=== PATIENT | female | born 1975 | race African-American/Black ===

== ENCOUNTER 2016-11-22 23:58 | Inpatient (IN) | payer OTHER ==
--- NOTE | 2016-11-23 00:25 | PDOC ---
History of Present Illness - General History Source: Patient, Old Records, Unavil. due to pt. cond. Exam Limitations: Other - History of Present Illness Initial Comments: 11/23/16 03:24 The patient is a 41 year old female, resident of [facility], with a significant past medical history of mental retardation, recurrent aspiration pneumonia, seizure disorder, GI bleed, chronic respiratory failure (s/p trach), dysphagia, and sepsis, brought by ambulance to the Emergency Department with fever and possible sepsis. The patient has a tracheostomy and PEG. The history is limited due to the patients conditions. <Starla Oliver - Last Filed: 11/23/16 05:56> <Lisa De Anda - Last Filed: 11/23/16 07:00> - General History Source: Old Records Exam Limitations: Clinical Condition <Nessa De Leon - Last Filed: 11/26/16 07:43> - General Chief Complaint: SIRS, Suspected/Possible Stated Complaint: FEVER - R/O SEPSIS Time Seen by Provider: 11/23/16 00:24 Past History <Starla Oliver - Last Filed: 11/23/16 05:56> <Lisa De Anda - Last Filed: 11/23/16 07:00> - Past Medical History Anemia: Yes Asthma: No Cancer: No Cardiac Disorders: No CVA: No COPD: No CHF: No Dementia: No Diabetes: No GI Disorders: Yes Disorders: Yes (esophageal reflux) HTN: No Hypercholesterolemia: No Liver Disease: No Seizures: Yes Thyroid Disease: No - Surgical History Abdominal Surgery: Yes (G tube) Appendectomy: No Cardiac Surgery: No Cholecystectomy: No Lung Surgery: No Neurologic Surgery: No Orthopedic Surgery: No - Immunization History Td Vaccination: No TDAP Vaccination: No Immunization Up to Date: No - Psycho/Social/Smoking Cessation Hx Anxiety: No Suicidal Ideation: No Smoking Status: No Smoking History: Unknown if ever smoked Have you smoked in the past 12 months: No Number of Cigarettes Smoked Daily: 0 Information on smoking cessation initiated: No Hx Alcohol Use: No Drug/Substance Use Hx: No Substance Use Type: None Hx Substance Use Treatment: No <Nessa De Leon - Last Filed: 11/26/16 07:43> - Past Medical History Allergies/Adverse Reactions: Allergies Allergy/AdvReac Type Severity Reaction Status Date / Time No Known Drug Allergies Allergy Verified 11/23/16 00:20 Home Medications: Ambulatory Orders Bacitracin - [Bacitracin Topical Ointment -] 1 applic TP BID 10/27/15 Baclofen 10 mg GT QID 10/27/15 Bisacodyl [Biscolax] 10 mg RC ASDIR PRN 10/27/15 Calcium Carbonate Suspension - [Calcium Carb Oral Suspension -] 500 mg PEG DAILY 10/27/15 Heparin - 5,000 unit SQ BID 10/27/15 Metoclopramide Oral Soln [Reglan Oral Solution -] 5 mg GT Q6H 10/27/15 Phenobarbital 80 mg GT BID 10/27/15 Polyethylene Glycol 3350 [Miralax 119 gm Btl -] 17 gm PEG BID 10/27/15 Acetaminophen Suppository [Tylenol .Suppository -] 650 mg MT Q6H PRN #0 supp.rect 11/15/15 Amino Acids/Protein Hydrolys [Prostat Sugar-Free Packet -] 30 ml GT BID@0800, 1730 packet 11/15/15 Albuterol 0.083% Nebulizer Gali [Ventolin 0.083% Nebulizer Soln -] 1 neb NEB Q6H 04/21/16 Albuterol 2.5/Ipratropium 0.5 [Duoneb -] 1 neb NEB Q4H PRN 04/21/16 Ipratropium 0.02% Nebulizer [Atrovent 0.02% Nebulizer -] 1 neb NEB Q6H 04/21/16 Loperamide HCl [Imodium A-D] 4 mg GT BID PRN 04/21/16 Magnesium Hydroxide [Milk of Magnesia] 400 mg GT ASDIR PRN 04/21/16 Menthol/Zinc Oxide [Calmoseptine Ointment] 0 gm TP ASDIR 04/21/16 Na Phos,M-B/Na Phos,Di-Ba [Fleet Enema] 118 ml RC ASDIR PRN 04/21/16 Vit C/Ascorbate Calcium,Sodium [Vitamin C 500 mg/15 ml Liquid] 500 mg GT DAILY 04/21/16 Sulfamethoxazole/Trimethoprim [Bactrim Ds -] 1 tab PO BID #10 tablet 04/26/16 Levetiracetam [Keppra Oral Solution -] 750 mg GT BID 11/23/16 *Physical Exam - Vital Signs Last Vital Signs Temp Pulse Resp BP Pulse Ox 103.1 F H 150 H 17 145/125 99 11/23/16 00:20 11/23/16 00:21 11/23/16 03:20 11/23/16 00:20 11/23/16 01:30 - Physical Exam Comments: 11/23/16 03:24 GENERAL: Mentally retarded, diaphoretic. Awake, alert, in no acute distress HEAD: No signs of trauma EYES: PERRLA, EOMI, sclera anicteric, conjunctiva clear ENT: Tracheostomy. Auricles normal inspection, hearing grossly normal, nares patent. Moist mucosa NECK: Normal ROM, supple, no lymphadenopathy, JVD, or masses LUNGS: Coarse breath sounds bilaterally. No wheezes, and no crackles HEART: Tachycardic, regular and rhythm, normal S1 and S2, no murmurs, rubs or gallops ABDOMEN: Gassy, distended abdomen. Nontender, no guarding, no rebound. No masses EXTREMITIES: Wasted muscles, pitting edema throughout body. No clubbing or cyanosis. No cords, erythema, or tenderness NEUROLOGICAL: Cranial nerves II through XII grossly intact. SKIN: Warm, Dry, normal turgor, no rashes or lesions noted. <Starla Oliver - Last Filed: 11/23/16 05:56> - Vital Signs Last Vital Signs Temp Pulse Resp BP Pulse Ox 103.1 F H 150 H 22 145/125 99 11/23/16 00:20 11/23/16 00:21 11/23/16 00:22 11/23/16 00:20 11/23/16 01:30 <Lisa De Anda - Last Filed: 11/23/16 07:00> - Vital Signs Last Vital Signs Temp Pulse Resp BP Pulse Ox 103.1 F H 150 H 145/125 100 11/23/16 00:20 11/23/16 00:21 11/23/16 00:20 11/23/16 00:21 <Nessa De Leon - Last Filed: 11/26/16 07:43> ED Treatment Course - LABORATORY CBC & Chemistry Diagram: 11/23/16 01:23 11/23/16 01:23 - ADDITIONAL ORDERS Additional order review: Laboratory Results 11/23/16 11/23/16 11/23/16 01:46 01:23 01:23 INR PTT (Actin FS) Sodium 133 L Potassium 4.4 Chloride 95 L Carbon Dioxide 26 Anion Gap 12 BUN 21 H D Creatinine 0.9 D Creat Clearance w eGFR > 60 Random Glucose 165 H Lactic Acid 1.480 Calcium 9.0 Total Bilirubin 0.4 D AST 11 L D ALT 17 D Alkaline Phosphatase 127 H D Creatine Kinase 14 L Troponin I < 0.02 Total Protein 7.8 Albumin 2.7 L D Blood Type O POSITIVE Antibody Screen Negative 11/23/16 01:23 INR 1.40 H PTT (Actin FS) 18.9 L D Sodium Potassium Chloride Carbon Dioxide Anion Gap BUN Creatinine Creat Clearance w eGFR Random Glucose Lactic Acid Calcium Total Bilirubin AST ALT Alkaline Phosphatase Creatine Kinase Troponin I Total Protein Albumin Blood Type Antibody Screen 11/23/16 01:23 RBC 3.63 MCV 86.2 MCHC 34.2 RDW 13.4 MPV 8.5 Neutrophils % 89.0 H D Lymphocytes % 3.0 L D Monocytes % 4.0 - Medications Given in the ED: ED Medications Discontinued Medications Generic Name Dose Route Start Last Admin Trade Name Freq PRN Reason Stop Dose Admin Acetaminophen 1,000 mg 11/23/16 00:26 11/23/16 00:26 Ofirmev Injection - IVPB 11/23/16 00:27 1,000 mg ONCE ONE Administration Sodium Chloride 1,000 ml 11/23/16 00:26 11/23/16 00:26 Normal Saline - IV 11/23/16 00:27 1,000 ml ONCE ONE Administration <Starla Oliver - Last Filed: 11/23/16 05:56> - LABORATORY CBC & Chemistry Diagram: 11/23/16 01:23 11/23/16 01:23 - ADDITIONAL ORDERS Additional order review: Laboratory Results 11/23/16 01:23 INR 1.40 H PTT (Actin FS) 18.9 L D 11/23/16 01:23 RBC 3.63 MCV 86.2 MCHC 34.2 RDW 13.4 MPV 8.5 Neutrophils % Y Lymphocytes % Y - RADIOLOGY Radiology Studies Ordered: Category Date Time Status CHEST X-RAY PORTABLE* [RAD] Stat Radiology 11/23/16 01:45 Taken - Medications Given in the ED: ED Medications Discontinued Medications Generic Name Dose Route Start Last Admin Trade Name Freq PRN Reason Stop Dose Admin Acetaminophen 1,000 mg 11/23/16 00:26 11/23/16 00:26 Ofirmev Injection - IVPB 11/23/16 00:27 1,000 mg ONCE ONE Administration Sodium Chloride 1,000 ml 11/23/16 00:26 11/23/16 00:26 Normal Saline - IV 11/23/16 00:27 1,000 ml ONCE ONE Administration <Lisa De Anda - Last Filed: 11/23/16 07:00> - LABORATORY CBC & Chemistry Diagram: 11/25/16 06:58 11/24/16 11:20 <Nessa De Leon - Last Filed: 11/26/16 07:43> Medical Decision Making - Medical Decision Making 11/23/16 05:32 Dr. Izabela Hernández was called at her office at 5:32, awaiting call back. 11/23/16 05:48 Dr. Tom Lamb was called at his office. He would like Hospitalist to admit this patient. 11/23/16 05:56 Dr. Beltran was called at 5:57 about admitting patient. <Starla Oliver - Last Filed: 11/23/16 05:56> - Medical Decision Making 11/23/16 02:24 Pt apparently received IV antibiotics at the [facility]; however her PICC ine heplock hub is leaking and it is unclear if she received any meds at the [facility]. Here the sheets are wet and it is clear that for the past hour she received none of her ofirmev and saline. Pt's IV hub was replaced and now she is receiving ofirmev and NSS> Labs are pending. Pt's CXR is better than the prior cxr from 8 mos ago. Her abd is distended with gas, and is non tender to deep palpation. Pt has no sign of overt cellulitis or infection. LIfely aspiration pneumonia secondary to her PEG tube. Pt has pitting edema throughout her body. She is awake and she is aware of her surroundings. SHe is nonverbal secondary to trach. 11/23/16 06:57 Pt's PICC line was leaking, and now it is clear that her PICC line infiltrated and is not in place. PICC line should not be used; It needs removal on the floor. I placed a 20 guage IV in the left EJ vein in the neck. Bolis running. 11/23/16 07:00 Pt is finally getting IV bolus and abx in her veins as opposed to into her skin and soft tissues through a malfunctional PICC. Hospitalist Ruby wants admission to ICU. ICU bed requested. <Lisa De Anda - Last Filed: 11/23/16 07:00> - Medical Decision Making 11/23/16 01:43 PLEASE NOTE: THIS PATIENT WAS SEEN AND TREATED BY DR. DE ANDA A CHART WAS OPENED BY ME IN ERROR THIS PATIENT, HOWEVER WAS CARED FOR BY DR. DE ANDA <Nessa De Leon - Last Filed: 11/26/16 07:43> *DC/Admit/Observation/Transfer - Attestations Scribe Attestion: 11/23/16 03:28 Documentation prepared by Starla Oliver, acting as director of medical review for Lisa De Anda MD. <Starla Oliver - Last Filed: 11/23/16 05:56> - Discharge Dispostion Admit: Yes <Lisa De Anda - Last Filed: 11/23/16 07:00> <Nessa De Leon - Last Filed: 11/26/16 07:43> Diagnosis at time of Disposition: Pneumonia, Mental retardation, Seizure disorder - Referrals
[2016-11-23] MEDS ORDERED: SODIUM CHLORIDE 0.9% 500 ML INFUS.BAG IV ONE ×2 (00:26→06:36)
[2016-11-23] MEDS ORDERED: ACETAMINOPHEN 1000 MG/100 ML VIAL (NON FORMULARY) IVPB ONE (00:26)
[2016-11-23] MEDS ORDERED: ACETAMINOPHEN INJECTION 100 ML IVPB ONE (00:27)
[2016-11-23] MEDS ORDERED: SODIUM CHLORIDE 0.9% 1000 ML INFUS.BAG IV ONE (01:45)
[2016-11-23 02:03] LABS: MCH 29.5 pg (25.7-33.7); MCHC 34.2 g/dl (32.0-36.0); MEAN CELL VOLUME 86.2 fl (80-96); MEAN PLT VOLUME 8.5 fl (7.5-11.1); PLATELET COUNT 393 K/MM3 (134-434); RDW 13.4 % (11.6-15.6); WHITE BLOOD COUNT 25.1 K/mm3 (4.0-10.0)
[2016-11-23 02:17] LABS: INR 1.4 (0.82-1.09); PROTHROMBIN TIME (PATIENT) 15.5 SEC (9.98-11.88)
[2016-11-23 02:20] LABS: ACTIVATED PTT 18.9 SECONDS (26.9-34.4)
[2016-11-23 02:26] LABS: ALBUMIN 2.7 g/dl (3.4-5.0); ANION GAP 12 (8-16); BILIRUBIN,TOTAL 0.4 mg/dL (0.2-1.0); CO2 26 mmol/L (21-32); COCKROFT - GAULT 86.2665; CREATININE 0.9 mg/dL (0.55-1.02); GLUCOSE,RANDOM 165 mg/dL (74-106); SGOT/AST 11 U/L (15-37); SGPT/ALT 17 U/L (12-78); TOT PROT 7.8 g/dl (6.4-8.2)
[2016-11-23 02:28] LABS: ALK PHOS 127 U/L (45-117); TROPONIN I < 0.02 ng/ml (0.00-0.05)
[2016-11-23 02:41] LABS: ANISOCYTOSIS 1+; HYPOCHROMIA 1+; PLATELET COMMENT2 NO CLOTTING DETECTED; PLATELET COMMENT3 FEW LARGE PLTS; PLATELET ESTIMATE ADEQUATE (NORMAL); POLYCHROMASIA 1+
[2016-11-23] MEDS ORDERED: IBUPROFEN 100 MG/5 ML UNIT DOSE CUPS ONE (04:37)
[2016-11-23] MEDS ORDERED: IBUPROFEN 100 MG/5 ML UNIT DOSE CUPS PO ONE (04:38)
[2016-11-23] MEDS ORDERED: VANCOMYCIN 1,000 MG in DEXTROSE 5%-WATER - 250 ML IVPB ONE (04:40)
[2016-11-23] MEDS ORDERED: LEVOFLOXACIN 500 MG IVPB 100 ML IVPB ONE ×2 (04:40→07:52)
[2016-11-23] MEDS ORDERED: SODIUM CHLORIDE 1,000 ML IV STA (08:30)
--- NOTE | 2016-11-23 08:34 | HP ---
Addendum entered and electronically signed by Domenic Esquivel RES 11/23/16 17: 28: Abdomen distended on physical exam Distended Bladder on Xray abdomen very little urine output per nursing staff No urine in diaper each time examined by Impression Acute urinary retention Plan Stat Bladder Scan done at bedside Will Place alberto cath for residual more than 300 ml f/u kidney US intake and output Original Note: CHIEF COMPLAINT: fever PCP: HISTORY OF PRESENT ILLNESS: 41 year old female with pmh of Mental retardation, Recurrent aspiration pneumonia, UTI, Sepsis, Seizure disorder and GI bleed, Chronic respiratory failure with trach, Ventilator dependent from [facility] present to the ED with fever and Tachycardia. Per nursing staff at [facility] pt has been having fever yesterday evening just came back from [facility] 11/14/16 with PICC. Pt was on vancomycin day 2, the course of antibiotic was supposed to be 7 days. Patient is awake but non verbal and does not follow direction. Pt also have a PICC that is leaking and was removed in the emergency department. Pt was found to have leukocytosis of 25.1 and mildly hypotensive with SBP in 90's. Pt did not appear to be in respiratory distress as the maintained 100% o2 sat on her regular vent settings. ER course was notable for: (1) levaquin 500mg Iv , Vancomycin 1gm Iv (2) NS 2 liters, Ibuprofen 500mg (3) Recent Travel: none PAST MEDICAL HISTORY: Mental retardation, Recurrent aspiration pneumonia, UTI, Sepsis, Seizure disorder and GI bleed, Chronic respiratory failure with trach, Ventilator dependent PAST SURGICAL HISTORY: PEG tube, tracheostomy Social History: Smoking: none Alcohol:none Drugs: none Family History: unknown Allergies No Known Drug Allergies Allergy (Verified 11/23/16 00:20) HOME MEDICATIONS: Home Medications Medication Instructions Recorded Bacitracin - [Bacitracin Topical 1 applic TP BID 10/27/15 Ointment -] Baclofen 10 mg GT QID 10/27/15 Bisacodyl [Biscolax] 10 mg RC ASDIR PRN 10/27/15 Calcium Carbonate Suspension - 500 mg PEG DAILY 10/27/15 [Calcium Carb Oral Suspension -] Heparin - 5,000 unit SQ BID 10/27/15 Metoclopramide Oral Soln [Reglan 5 mg GT Q6H 10/27/15 Oral Solution -] Phenobarbital 80 mg GT BID 10/27/15 Polyethylene Glycol 3350 [Miralax 17 gm PEG BID 10/27/15 119 gm Btl -] Acetaminophen Suppository [Tylenol 650 mg MS Q6H PRN #0 supp.rect 11/15/15 .Suppository -] Amino Acids/Protein Hydrolys 30 ml GT BID@0800,1730 packet 11/15/15 [Prostat Sugar-Free Packet -] Albuterol 0.083% Nebulizer Gali 1 neb NEB Q6H 04/21/16 [Ventolin 0.083% Nebulizer Soln -] Albuterol 2.5/Ipratropium 0.5 1 neb NEB Q4H PRN 04/21/16 [Duoneb -] Ipratropium 0.02% Nebulizer 1 neb NEB Q6H 04/21/16 [Atrovent 0.02% Nebulizer -] Loperamide HCl [Imodium A-D] 4 mg GT BID PRN 04/21/16 Magnesium Hydroxide [Milk of 400 mg GT ASDIR PRN 04/21/16 Magnesia] Menthol/Zinc Oxide [Calmoseptine 0 gm TP ASDIR 04/21/16 Ointment] Na Phos,M-B/Na Phos,Di-Ba [Fleet 118 ml RC ASDIR PRN 04/21/16 Enema] Vit C/Ascorbate Calcium,Sodium 500 mg GT DAILY 04/21/16 [Vitamin C 500 mg/15 ml Liquid] Sulfamethoxazole/Trimethoprim 1 tab PO BID #10 tablet 04/26/16 [Bactrim Ds -] Levetiracetam [Keppra Oral 100 mg GT BID 11/23/16 Solution -] REVIEW OF SYSTEMS Unable to obtain, Pt non verbal PHYSICAL EXAMINATION Vital Signs - 24 hr 11/23/16 11/23/16 11/23/16 07:15 07:25 07:38 Temperature 100.9 F H Pulse Rate 133 H Pulse Rate [ 133 H Left] Respiratory 16 20 Rate Blood Pressure 96/76 [Thigh] O2 Sat by Pulse 100 100 Oximetry (%) 11/23/16 08:31 Temperature Pulse Rate Pulse Rate [ 130 H Left] Respiratory Rate Blood Pressure 108/66 [Thigh] O2 Sat by Pulse Oximetry (%) GENERAL: Awake, alert, in no acute distress. HEAD: Normal with no signs of trauma. EYES: Pupils equal, round and reactive to light, extraocular movements intact, sclera anicteric, conjunctiva clear. No lid lag. EARS, NOSE, THROAT: Ears normal, nares patent, oropharynx clear without exudates. Moist mucous membranes. NECK: Normal range of motion, supple without lymphadenopathy, JVD, or masses. trach site in place with minimal amount of yellow mucus from trach. LUNGS:scattered ronchi to auscultation bilaterally. No wheezes, and no crackles. No accessory muscle use. HEART: Regular rate and rhythm, normal S1 and S2 without murmur, rub or gallop. ABDOMEN: Soft, nontender, distended, normoactive bowel sounds, no guarding, no rebound, no masses. No hepatomegaly or splenomegaly. NO residual from PEG TUbe. MUSCULOSKELETAL: Normal range of motion at all joints. No bony deformities or tenderness. No CVA tenderness. UPPER EXTREMITIES: 2+ pulses, warm, well-perfused. No cyanosis. No clubbing. No peripheral edema. LOWER EXTREMITIES: 2+ pulses, warm, well-perfused. No calf tenderness. No peripheral edema. NEUROLOGICAL: non verbal , non-ambulatory SKIN: Warm, dry, normal turgor, no rashes or lesions noted, normal capillary refill. ASSESSMENT/PLAN: 41 year old female with pmh of Mental retardation, Recurrent aspiration pneumonia, UTI, Sepsis, Seizure disorder and GI bleed, Chronic respiratory failure with trach, Ventilator dependent from [facility] present to the ED with fever and Tachycardia. Sepsis work up was initiated. Sepsis likely from UTI r/o Aspiration PNA, PICC line CXR showed no changes, no consolidation, infiltrates seen UA with leuk, nitrite and wbc H/o resistant organism on Urine culture Received Vanco and levaquin In ED Stat one dose of Zosyn IV 3.375mg once Considering resistance to fluoquinolone from the past in a patient from long term, Levaquin is likely inadequate, Zosyn is ok, carbepenem may be better for gram negative coverage. ID consulted Dr Clay F/u blood culture F/u urine culture Stat UA Sputum culture and gram stain received 2 liter in ED Stat 1 liter NS IV followed by continue IV fluid with NS at 100ml/h Abdominal distension Abdomen is distended and tympanitic per nursing staff at [facility] she is usually distended especially when constipation Resume PEG tube feeding Bladder distension seen on abdominal Xray US bladder and renal r/o obstruction Consider Alberto cath insertion Chronic hypoxic respiratory failure with Ventilator dependence On same stetting at [facility] AC12, TV 400, FiO2 40%, Peep 5 O2 sat 100 % Seizure disorder Resume Phenobarbital Change keppra to IV 750mg BID FEN Fluid: NS at 100 ml/h Electrolytes: chemistry in am Nutrition: NPO , will start feeding depend on Xray abdomen result DVT prophylaxis: SCD, heparin SQ Disposition: Admit to ventilator floor Visit type - Emergency Visit Emergency Visit: Yes ED Registration Date: 11/23/16 Care time: The patient presented to the Emergency Department on the above date and was hospitalized for further evaluation of their emergent condition. - New Patient This patient is new to me today: Yes Date on this admission: 11/23/16 - Critical Care Critical Care patient: No
[2016-11-23] MEDS ORDERED: ACETAMINOPHEN 650 MG SUPP.RECT RC PRN (08:54)
[2016-11-23] MEDS ORDERED: ALBUTEROL SO4 2.5/IPRATROPIUM 0.5 INH SOL 3 ML VIAL.NEB. NEB PRN (09:00)
[2016-11-23] MEDS ORDERED: PIPERACILLIN/TAZOB 3.375 GM 3.375 GM in DEXTROSE 5%-WATER - 50 ML IVPB ONE (09:43)
[2016-11-23] MEDS ORDERED: PIPERACILLIN/TAZOB 3.375 GM 50 ML IVPB ONE (09:47)
[2016-11-23] MEDS ORDERED: levETIRAcetam 500 MG/5 ML ORAL SOLUTION (UNIT-DOSE CUPS) GT SCH (10:00)
[2016-11-23] MEDS ORDERED: PHENOBARBITAL 20 MG/5 ML *473mL BULK BOTTLE GT SCH (10:00)
[2016-11-23] MEDS ORDERED: MUPIROCIN 2% TOPICAL OINTMENT FOR DECOLONIZATION NS SCH (10:00)
[2016-11-23] MEDS ORDERED: PATIENT'S OWN MEDICATION (NON-FORMULARY) (Vit C/Ascorbate Calcium,Sodium [Vitamin C 500 Mg GT SCH (10:00)
[2016-11-23 10:02] LABS: URINE APPEARANCE CLOUDY; URINE BILIRUBIN NEGATIVE (NEGATIVE); URINE COLOR DKYELLOW; URINE GLUCOSE (UA) NEGATIVE (NEGATIVE); URINE KETONE NEGATIVE (NEGATIVE); URINE NITRITE POSITIVE (NEGATIVE); URINE UROBILINOGEN NEGATIVE E.U./dl (0.2-1.0)
[2016-11-23 10:17] LABS: URINE BLOOD 1+ (NEGATIVE); URINE LEUK ESTERASE TRACE (NEGATIVE); URINE PROTEIN 2+ (NEGATIVE)
[2016-11-23 10:19] LABS: URINE BACTERIA FEW /hpf (NONE SEEN); URINE RBC 7 /hpf (0-3); URINE WBC 17 /hpf (3-5); YEAST RARE
[2016-11-23] MEDS ORDERED: HEPARIN NA (PORCINE) 5,000 UNITS/ML 1ML VIAL ONE (10:22)
[2016-11-23] MEDS ORDERED: PHENobarbital 20 MG/5 ML UNIT-DOSE CUP ONE (10:22)
[2016-11-23] MEDS: HEPARIN NA (PORCINE) 5,000 UNITS/ML 1ML VIAL SQ SCH ×2 (10:24→18:29)
[2016-11-23] MEDS ORDERED: SODIUM CHLORIDE 1,000 ML IV SCH (11:00)
[2016-11-23] MEDS: levETIRAcetam 500 MG/5 ML INJECTION VIAL IVPB SCH ×2 (11:16→22:25)
[2016-11-23] MEDS ORDERED: ALBUTEROL SO4 0.083% IH SOL 2.5 MG/3 ML VIAL.NEB. NEB SCH (12:00)
--- NOTE | 2016-11-23 12:21 | EKG ---
Test Reason : Blood Pressure : / mmHG Vent. Rate : 151 BPM Atrial Rate : 151 BPM P-R Int : 136 ms QRS Dur : 068 ms QT Int : 268 ms P-R-T Axes : 044 082 033 degrees QTc Int : 424 ms SINUS TACHYCARDIA LOW VOLTAGE QRS Confirmed by TAWANNA AGUILAR MD ([id number]) on 11/23/2016 12:20:56 PM Referred By: Confirmed By:TAWANNA AGUILAR MD
--- NOTE | 2016-11-23 12:29 | PN ---
Progress Note (short form) - Note Progress Note: ID consult on dictated imp/reccd sepsis NHR continue vancomycin/zosyn-possible gu versus pulmonary source f/u cultures bladder sonogram r/o urinary retention
[2016-11-23 14:49] VITALS: BMI 30.3
--- NOTE | 2016-11-23 14:52 | CONS ---
DATE OF CONSULTATION: 11/23/2016 REQUESTED BY: Hospitalist Service This is a 41-year-old woman from the [facility]. She has chronic respiratory failure, status post tracheostomy. She has a history of mental retardation and has recurrent aspiration pneumonia. She has a seizure disorder. She was last hospitalized in April 2016, when she had a UTI. She is now sent from the care home with fever to 103. Apparently at the care home, she had an IV in her left arm and she was started on vancomycin on the . It is unclear why all these things happened. The patient is unable to give any history. She has no known drug allergies. EMERGENCY ROOM COURSE: She was seen in the ER. She was noted that the IV in her left arm had infiltrated. She had an EJ placed. She received vancomycin, Levaquin, and Zosyn in the emergency room and Tylenol. She is no longer febrile and resting comfortably. PAST MEDICAL HISTORY: Severe mental retardation, seizure disorder, anemia, respiratory failure. She has a history of esophageal reflux, aspiration pneumonia, chronic respiratory failure, status post tracheostomy, G-tube, and left hip surgery. FAMILY HISTORY: Not available. SOCIAL HISTORY: She currently resides at the [facility]. CURRENT MEDICATIONS: Subcutaneous heparin, baclofen, Keppra, phenobarbital, Reglan, and vancomycin, which was started on the . She is also on some nebulizer treatments. REVIEW OF SYSTEMS: Not available as well. PHYSICAL EXAMINATION: Vital Signs: She had fever to 103.1, currently 99.4, heart rate is 124, blood pressure is 97/66, she is saturating 100% on 40% FiO2. HEENT: She is normocephalic. Eyes are anicteric. Neck: She has a tracheostomy. Heart: Tachycardic. Lungs: Diminished breath sounds at the bases. Abdomen: Soft. She has a G-tube site, the site of which is clean. She has some suprapubic fullness. Extremities: Without edema. Skin: She has no open skin sores. Her white count is 25,000, hemoglobin 10.7, platelets are 393. INR is 1.4. BUN 21, creatinine 0.9, lactate is 1.4. Her alkaline phosphatase is 127. Urinalysis has 17 white cells. Cultures are pending. From her last admission in April, she grew a variety of gram-negative organisms, all of which were sensitive to piperacillin and tazobactam. Chest x-ray, when compared to her prior films, reveals no significant change. SUMMARY: This is an unfortunate 41-year-old woman with chronic respiratory failure, mental retardation admitted with sepsis from the care home. Would continue vancomycin and Zosyn to cover broadly for urinary versus pulmonary pathogens, would follow up her cultures, would obtain a bedside BladderScan to rule out urinary retention. Further recommendations to follow based on her clinical course. EVELIA GIBSON M.D. [id number]
--- NOTE | 2016-11-23 16:12 | PN ---
Teaching Attending Note Name of Resident: Domenic Esquivel ATTENDING PHYSICIAN STATEMENT I saw and evaluated the patient. I reviewed the resident's note and discussed the case with the resident. I agree with the resident's findings and plan as documented. SUBJECTIVE:INformation gathered from chart as pt is nonverbal 41yo F sent from [facility] for fever and tachycardia. noted that PICC line was leaking, (unclear why PICC was placed). In the ER PICC line was removed. noted to be hypotensive (SBP 90's). OBJECTIVE: Last Vital Signs Temp Pulse Resp BP Pulse Ox 98.9 F 120 H 14 99/64 100 11/23/16 13:00 11/23/16 13:00 11/23/16 13:00 11/23/16 13:00 11/23/16 12:10 General NAD CV S1 S2 tachycardic no murmur/rub/gallop Lungs coarse breath sounds diffusely. no wheezing anteriorly. no sputum Abdomen soft +distended +PEG obese Extremities all extremities contracted. no edema ASSESSMENT AND PLAN: 41 year old female with pmh of Mental retardation, Recurrent aspiration pneumonia, UTI, Sepsis, Seizure disorder and GI bleed, Chronic respiratory failure s/p trach. dysphagia s/p PEG presented to the ER and was admitted for further evaluation of their emergent condition 1. Sepsis with suspicion for aspiration PNA vs PICC line infection- medicine admission. UA is negative for infection. will need to obtain information on indication for PICC placement and what abx she was receiving. ID consulted due to hx of resistant organisms. f/u Cx. 2. Abdominal distention- d/w RN states that her abdomen is typically distended. AXR reviewed no signifcant change from XR from January 2016. will re-start tube feeds and check residuals. monitor for BM 3. Seizure d/o- no signs of seizure like activity. cont home mediction 4. DVT ppx- hep sq 5. pt does not require ICU care at this time. can be admitted to vent unit
[2016-11-23] MEDS ORDERED: BISACODYL 10 MG SUPP.RECT RC PRN (16:50)
[2016-11-23] MEDS: BACLOFEN 10 MG TABLET (FP) GT SCH ×2 (18:29→22:26)
[2016-11-23] MEDS: AMINO ACIDS/PROTEIN HYDROLYS 30 ML LIQUID.PKT GT SCH (18:29)
[2016-11-23] MEDS: PIPERACILLIN/TAZOB 3.375 GM/50 ML PRE-DOCKED IVPB SCH (18:30)
[2016-11-23] MEDS: ALBUTEROL SO4 2.5/IPRATROPIUM 0.5 INH SOL 3 ML VIAL.NEB. NEB SCH ×2 (18:38→23:16)
[2016-11-23] MEDS ORDERED: CHLORHEXIDINE GLUCONATE 4% CLEANSER FOR DECOLONIZATION TP SCH (22:00)
[2016-11-23] MEDS ORDERED: PT OWN MED DRAWER 7, Y5N ONE (22:23)
[2016-11-23] MEDS: PHENobarbital 20 MG/5 ML UNIT-DOSE CUP GT SCH (22:25)
[2016-11-23] MEDS: BACITRACIN 30 GM TUBE TOPICAL OINTMENT TP SCH (22:26)
[2016-11-23] MEDS: POLYETHYLENE GLYCOL 3350 119 GM BTL PEG SCH (22:26)
[2016-11-24] MEDS ORDERED: IBUPROFEN 400 MG TABLET (FP) PO ONE (00:45)
[2016-11-24] MEDS ORDERED: ACETAMINOPHEN 325 MG TABLET (FP) PO PRN (00:49)
[2016-11-24] MEDS: PIPERACILLIN/TAZOB 3.375 GM/50 ML PRE-DOCKED IVPB SCH ×3 (01:01→18:46)
[2016-11-24] MEDS: HEPARIN NA (PORCINE) 5,000 UNITS/ML 1ML VIAL SQ SCH ×3 (01:02→18:47)
[2016-11-24] MEDS ORDERED: VANCOMYCIN 1 GRAM (PRE-DOCKED) 1,000 MG/250 ML BAG IVPB SCH (04:15)
[2016-11-24] MEDS: ALBUTEROL SO4 2.5/IPRATROPIUM 0.5 INH SOL 3 ML VIAL.NEB. NEB SCH ×3 (06:45→18:00)
[2016-11-24] MEDS: AMINO ACIDS/PROTEIN HYDROLYS 30 ML LIQUID.PKT GT SCH ×2 (08:55→18:47)
--- NOTE | 2016-11-24 10:26 | PN ---
Progress Note (short form) - Note Progress Note: continued fever overnight Vital Signs Period Temp Pulse Resp BP Sys/Stein Pulse Ox Last 24 Hr 98.9 F-103.5 F 120-160 12-22 96-111/51-73 100-100 trach to vent cor-rrr lungs decreased bs at bases abd soft,nt ext trace pedal edema CBC, BMP 11/23/16 01:23 11/23/16 01:23 Microbiology 11/23/16 05:02 Blood - Peripheral Venous Blood Culture - Preliminary Pending Organism 11/23/16 05:02 Blood - Peripheral Venous Blood Culture - Preliminary NO GROWTH OBTAINED AFTER 24 HOURS, INCUBATION TO CONTINUE FOR 4 DAYS. a/p gram negative bacteremia- ?gu source had alberto placed for urinary retention overnight f/giovanna cultures d/c vancomycin add tobramycin continue zosyn continue IVF chronic resp failure multiple developmental disabilities seizure disorder
--- NOTE | 2016-11-24 10:27 | CONSULT ---
Consultation: REQUESTING PROVIDER: CONSULT REQUEST: We have been asked to medically evaluate this patient for ( specify). HISTORY OF PRESENT ILLNESS: This is a 41 year old female with a significant PMH of MR, cerebral palsy, recurrent aspiration PNA, UTI, sepsis, seizure disorder, GI bleed, respiratory failure, s/p trach, who presented from [place]. The pt was found to have UTI resistant to multiple anti REVIEW OF SYSTEMS: CONSTITUTIONAL: Absent: fever, chills, diaphoresis, generalized weakness, malaise, loss of appetite, weight change HEENT: Absent: rhinorrhea, nasal congestion, throat pain, throat swelling, difficulty swallowing, mouth swelling, ear pain, eye pain, visual changes CARDIOVASCULAR: Absent: chest pain, syncope, palpitations, irregular heart rate, lightheadedness , peripheral edema RESPIRATORY: Absent: cough, shortness of breath, dyspnea with exertion, orthopnea, wheezing, stridor, hemoptysis GASTROINTESTINAL: Absent: abdominal pain, abdominal distension, nausea, vomiting, diarrhea, constipation, melena, hematochezia GENITOURINARY: Absent: dysuria, frequency, urgency, hesitancy, hematuria, flank pain, genital pain MUSCULOSKELETAL: Absent: myalgia, arthralgia, joint swelling, back pain, neck pain SKIN: Absent: rash, itching, pallor HEMATOLOGIC/IMMUNOLOGIC: Absent: easy bleeding, easy bruising, lymphadenopathy, frequent infections ENDOCRINE: Absent: unexplained weight gain, unexplained weight loss, heat intolerance, cold intolerance NEUROLOGIC: Absent: headache, focal weakness or paresthesias, dizziness, unsteady gait, seizure, mental status changes, bladder or bowel incontinence PSYCHIATRIC: Absent: anxiety, depression, suicidal or homicidal ideation, hallucinations. PHYSICAL EXAMINATION Vital Signs - 24 hr 11/23/16 11/23/16 11/23/16 10:28 11:25 12:10 Temperature Pulse Rate Pulse Rate [ 124 H 127 H 124 H Left] Respiratory 12 12 12 Rate Blood Pressure Blood Pressure 101/62 108/73 97/66 [Thigh] O2 Sat by Pulse 100 100 100 Oximetry (%) 11/23/16 11/23/16 11/23/16 13:00 18:00 18:37 Temperature 98.9 F 99.1 F Pulse Rate 120 H 126 H Pulse Rate [ Left] Respiratory 14 14 15 Rate Blood Pressure 99/64 104/51 Blood Pressure [Thigh] O2 Sat by Pulse 100 Oximetry (%) 11/23/16 11/23/16 11/23/16 20:02 22:00 22:30 Temperature 102.7 F H Pulse Rate 160 H Pulse Rate [ Left] Respiratory 15 20 22 Rate Blood Pressure 111/63 Blood Pressure [Thigh] O2 Sat by Pulse Oximetry (%) 11/24/16 11/24/16 11/24/16 00:31 02:25 03:39 Temperature 103.5 F H 102 F H Pulse Rate 136 H Pulse Rate [ Left] Respiratory 18 Rate Blood Pressure Blood Pressure [Thigh] O2 Sat by Pulse Oximetry (%) 11/24/16 11/24/16 11/24/16 06:35 07:07 10:05 Temperature 99.7 F H Pulse Rate 123 H Pulse Rate [ Left] Respiratory 16 16 16 Rate Blood Pressure 96/58 Blood Pressure [Thigh] O2 Sat by Pulse Oximetry (%) GENERAL: Awake, alert, and fully oriented, in no acute distress. HEAD: Normal with no signs of trauma. EYES: Pupils equal, round and reactive to light, extraocular movements intact, sclera anicteric, conjunctiva clear. No lid lag. EARS, NOSE, THROAT: Ears normal, nares patent, oropharynx clear without exudates. Moist mucous membranes. NECK: Normal range of motion, supple without lymphadenopathy, JVD, or masses. LUNGS: Breath sounds equal, clear to auscultation bilaterally. No wheezes, and no crackles. No accessory muscle use. HEART: Regular rate and rhythm, normal S1 and S2 without murmur, rub or gallop. ABDOMEN: Soft, nontender, not distended, normoactive bowel sounds, no guarding, no rebound, no masses. No hepatomegaly or splenomegaly. MUSCULOSKELETAL: Normal range of motion at all joints. No bony deformities or tenderness. No CVA tenderness. UPPER EXTREMITIES: 2+ pulses, warm, well-perfused. No cyanosis. No clubbing. Cap refill <2 seconds. No peripheral edema. LOWER EXTREMITIES: 2+ pulses, warm, well-perfused. No calf tenderness. No peripheral edema. NEUROLOGICAL: Cranial nerves II-XII intact. Normal speech. Normal gait. PSYCHIATRIC: Cooperative. Good eye contact. Appropriate mood and affect. SKIN: Warm, dry, normal turgor, no rashes or lesions noted. Active Medications Generic Name Dose Route Start Last Admin Trade Name Freq PRN Reason Stop Dose Admin Acetaminophen 650 mg 11/24/16 00:51 Tylenol Oral Solution - NGT Q4H PRN FEVER OR PAIN Albuterol Sulfate 1 amp 11/23/16 17:19 Ventolin 0.083% Nebulizer Soln - NEB Q4H PRN SHORT OF BREATH/WHEEZING Albuterol/Ipratropium 1 amp 11/23/16 18:00 11/24/16 06:45 Duoneb - NEB 1 amp QIDR JUANJOSE Administration Amino Acids 30 ml 11/23/16 17:30 11/23/16 18:29 Prosource No Carb Liquid Pkt GT 30 ml BID@0800,1730 JUANJOSE Administration Ascorbic Acid 500 mg 11/23/16 11:38 Vitamin C Oral Solution - GT DAILY JUANJOSE Bacitracin 1 applic 11/23/16 22:00 11/23/16 22:26 Bacitracin - TP 1 applic BID JUANJOSE Administration Baclofen 10 mg 11/23/16 18:00 11/23/16 22:26 Lioresal - GT 10 mg QID JUANJOSE Administration Bisacodyl 10 mg 11/23/16 16:50 Dulcolax Suppository - RC Q72H PRN CONSTIPATION EVERY 3 DAYS Calcium Carbonate 500 mg 11/24/16 10:00 Calcium Carb Oral Suspension - PEG DAILY JUANJOSE Heparin Sodium (Porcine) 5,000 unit 11/23/16 10:00 11/24/16 01:02 Heparin - SQ 5,000 unit Q8H-IV JUANJOSE Administration Sodium Chloride 1,000 mls @ 100 mls/hr 11/23/16 11:00 11/23/16 11:13 Normal Saline - IV 100 mls/hr ASDIR JUANJOSE Administration Tobramycin Sulfate 250 mg/ 106.25 mls @ 100 mls/hr 11/24/16 10:30 Sodium Chloride IVPB 11/24/16 11:33 ONCE ONE Protocol Levetiracetam 750 mg 11/23/16 11:00 11/23/16 22:25 Keppra Injection - IVPB 750 mg BID JUANJOSE Administration Magnesium Hydroxide 30 ml 11/23/16 16:50 Milk Of Magnesia - GT DAILY PRN NO BM FOR 48HR Phenobarbital 80 mg 11/23/16 10:56 11/23/16 22:25 Phenobarbital Liquid - GT 80 mg BID JUANJOSE Administration Piperacillin Sod/Tazobactam Sod 3.375 gm 11/23/16 18:00 11/24/16 01:01 Zosyn 3.375gm Ivpb (Pre-Docked) IVPB 3.375 gm Q8H-IV JUANJOSE Administration Protocol Polyethylene Glycol 17 gm 11/23/16 22:00 11/23/16 22:26 Miralax (For Daily Use) - PEG 17 gm BID JUANJOSE Administration ASSESSMENT/PLAN: Dispo: We will continue to follow the patient. Thank you for this consultative opportunity.
[2016-11-24] MEDS ORDERED: TOBRAMYCIN SULFATE 250 MG in SODIUM CHLORIDE 100 ML IVPB ONE (10:30)
[2016-11-24] MEDS: SODIUM CHLORIDE 1,000 ML IV SCH (10:35)
[2016-11-24] MEDS: levETIRAcetam 500 MG/5 ML INJECTION VIAL IVPB SCH ×2 (10:55→21:22)
[2016-11-24] MEDS: POLYETHYLENE GLYCOL 3350 119 GM BTL PEG SCH ×2 (10:55→22:42)
[2016-11-24] MEDS: PHENobarbital 20 MG/5 ML UNIT-DOSE CUP GT SCH ×2 (10:55→22:42)
[2016-11-24] MEDS: CALCIUM CARBONATE SUSPENSION - 500 MG/5 ML ML PEG SCH (10:55)
[2016-11-24] MEDS: BACLOFEN 10 MG TABLET (FP) GT SCH ×4 (10:55→21:23)
[2016-11-24] MEDS: ASCORBIC ACID 500 MG/5 ML UNIT DOSE CUP GT SCH (10:55)
[2016-11-24] MEDS: BACITRACIN 30 GM TUBE TOPICAL OINTMENT TP SCH ×2 (11:27→21:22)
--- NOTE | 2016-11-24 11:27 | PN ---
Physical Exam: SUBJECTIVE: Patient seen and examined at bedside. She is nonverbal. Tmax 103.5. OBJECTIVE: Vital Signs Period Temp Pulse Resp BP Sys/Stein Pulse Ox Last 24 Hr 98.9 F-103.5 F 120-160 12-22 96-111/51-73 100-100 GENERAL: The patient was sleeping, nonverbal, in no acute distress. HEAD: Normal with no signs of trauma. EYES: extraocular movements intact not assessed. ENT: oropharynx clear without exudates, dry mucous membranes, trach. NECK: Trachea midline, supple. LUNGS: Breath sounds equal, coarse breath sounds, no crackles, no accessory muscle use. HEART: Regular rate and rhythm, S1, S2 without murmur, rub or gallop. ABDOMEN: Soft, nontender, distended, normoactive bowel sounds, no guarding, no rebound, no hepatosplenomegaly, PEG tube insereted, no erythema. EXTREMITIES: no edema. NEUROLOGICAL: No facial asymmetry gait not observed. PSYCH: Normal mood, normal affect. SKIN: Warm, dry, normal turgor, no rashes or lesions noted Garcia inserted. Active Medications Generic Name Dose Route Start Last Admin Trade Name Freq PRN Reason Stop Dose Admin Acetaminophen 650 mg 11/24/16 00:51 Tylenol Oral Solution - NGT Q4H PRN FEVER OR PAIN Albuterol Sulfate 1 amp 11/23/16 17:19 Ventolin 0.083% Nebulizer Soln - NEB Q4H PRN SHORT OF BREATH/WHEEZING Albuterol/Ipratropium 1 amp 11/23/16 18:00 11/24/16 06:45 Duoneb - NEB 1 amp QIDR JUANJOSE Administration Amino Acids 30 ml 11/23/16 17:30 11/24/16 08:55 Prosource No Carb Liquid Pkt GT 30 ml [id number]@0800,1730 JUANJOES Administration Ascorbic Acid 500 mg 11/23/16 11:38 Vitamin C Oral Solution - GT DAILY JUANJOSE Bacitracin 1 applic 11/23/16 22:00 11/23/16 22:26 Bacitracin - TP 1 applic BID JUANJOSE Administration Baclofen 10 mg 11/23/16 18:00 11/23/16 22:26 Lioresal - GT 10 mg QID JUANJOSE Administration Bisacodyl 10 mg 11/23/16 16:50 Dulcolax Suppository - RC Q72H PRN CONSTIPATION EVERY 3 DAYS Calcium Carbonate 500 mg 11/24/16 10:00 Calcium Carb Oral Suspension - PEG DAILY JUANJOSE Heparin Sodium (Porcine) 5,000 unit 11/23/16 10:00 11/24/16 01:02 Heparin - SQ 5,000 unit Q8H-IV JUANJOSE Administration Tobramycin Sulfate 250 mg/ 106.25 mls @ 100 mls/hr 11/24/16 10:30 Sodium Chloride IVPB 11/24/16 11:33 ONCE ONE Protocol Sodium Chloride 1,000 mls @ 150 mls/hr 11/24/16 10:28 11/24/16 10:35 Normal Saline - IV 150 mls/hr ASDIR JUANJOSE Administration Levetiracetam 750 mg 11/23/16 11:00 11/23/16 22:25 Keppra Injection - IVPB 750 mg BID JUANJOSE Administration Magnesium Hydroxide 30 ml 11/23/16 16:50 Milk Of Magnesia - GT DAILY PRN NO BM FOR 48HR Phenobarbital 80 mg 11/23/16 10:56 11/23/16 22:25 Phenobarbital Liquid - GT 80 mg BID JUANJOSE Administration Piperacillin Sod/Tazobactam Sod 3.375 gm 11/23/16 18:00 11/24/16 10:55 Zosyn 3.375gm Ivpb (Pre-Docked) IVPB 3.375 gm Q8H-IV JUANJOSE Administration Protocol Polyethylene Glycol 17 gm 11/23/16 22:00 11/23/16 22:26 Miralax (For Daily Use) - PEG 17 gm BID JUANJOSE Administration ASSESSMENT/PLAN: 41 yeaqr old female with a PMH of MR, recurrent UTI, aspiration pneumonia, seizure disorder, GI bleed, respiratory failure s/p trach. Sepsis due to UTI: -history of resistant organisms, multiple hospitalizations, last one in April 2016 -continue Tobramycin IV and Zosyn 3.375 g IV Q8H -Garcia cath inserted for urinary retention -urine cultures are still pending -increased NS to 150 ml/hr Seizure disorder: -no seizure activity reported in the hoospital Abdominal distention -AXR reviewed no signifcant change, -monitor BMs Hypotension: -increased NS to 150 ml/hr FEN Fluid: NS at 150 ml/h Electrolytes: chemistry in am Nutrition: Jevity at 35ml/h Visit type - Emergency Visit Emergency Visit: Yes ED Registration Date: 11/23/16 Care time: The patient presented to the Emergency Department on the above date and was hospitalized for further evaluation of their emergent condition. - New Patient This patient is new to me today: Yes Date on this admission: 11/24/16 - Critical Care Critical Care patient: No
[2016-11-24 11:30] LABS: MCH 28.7 pg (25.7-33.7); MCHC 32.6 g/dl (32.0-36.0); MEAN CELL VOLUME 88.1 fl (80-96); PLATELET COUNT 243 K/MM3 (134-434); WHITE BLOOD COUNT 8.4 K/mm3 (4.0-10.0)
--- NOTE | 2016-11-24 11:31 | PN ---
Physical Exam: SUBJECTIVE: Patient seen and examined Pt had fever overnight with Tmax 103.5 Multiple spikes with tachycardia as high as 160 Pt is on ventilator, O2 sat 96-100% without any changes in vent settings OBJECTIVE: Vital Signs Period Temp Pulse Resp BP Sys/Stein Pulse Ox Last 24 Hr 98.9 F-103.5 F 120-160 12-22 96-111/51-66 100-100 GENERAL: Awake, alert, in no acute distress. EARS, NOSE, THROAT: Ears normal, nares patent, oropharynx clear without exudates. Moist mucous membranes. NECK: Normal range of motion, supple without lymphadenopathy, JVD, or masses. Trach site in place with minimal amount of yellow mucus from trach. LUNGS:scattered ronchi to auscultation bilaterally. No wheezes, and no crackles. No accessory muscle use. HEART: Regular rate and rhythm, normal S1 and S2 without murmur, rub or gallop. ABDOMEN: Soft, nontender, distended, normoactive bowel sounds, no guarding, no rebound, no masses. No hepatomegaly or splenomegaly. PEG TUbe in place. MUSCULOSKELETAL: Normal range of motion at all joints. No bony deformities or tenderness. No CVA tenderness. UPPER EXTREMITIES: 2+ pulses, warm, well-perfused. No cyanosis. No clubbing. No peripheral edema. LOWER EXTREMITIES: 2+ pulses, warm, well-perfused. No calf tenderness. trace peripheral edema. NEUROLOGICAL: non verbal , non-ambulatory, on ventilator SKIN: Warm, dry, normal turgor, no rashes or lesions noted, normal capillary refill. Active Medications Generic Name Dose Route Start Last Admin Trade Name Erichq PRN Reason Stop Dose Admin Acetaminophen 650 mg 11/24/16 00:51 Tylenol Oral Solution - NGT Q4H PRN FEVER OR PAIN Albuterol Sulfate 1 amp 11/23/16 17:19 Ventolin 0.083% Nebulizer Soln - NEB Q4H PRN SHORT OF BREATH/WHEEZING Albuterol/Ipratropium 1 amp 11/23/16 18:00 11/24/16 06:45 Duoneb - NEB 1 amp QIDR JUANJOSE Administration Amino Acids 30 ml 11/23/16 17:30 11/24/16 08:55 Prosource No Carb Liquid Pkt GT 30 ml BID@0800,1730 JUANJOSE Administration Ascorbic Acid 500 mg 11/23/16 11:38 Vitamin C Oral Solution - GT DAILY JUANJOSE Bacitracin 1 applic 11/23/16 22:00 11/24/16 11:27 Bacitracin - TP 1 applic BID JUANJOSE Administration Baclofen 10 mg 11/23/16 18:00 11/24/16 10:55 Lioresal - GT 10 mg QID JUANJOSE Administration Bisacodyl 10 mg 11/23/16 16:50 Dulcolax Suppository - RC Q72H PRN CONSTIPATION EVERY 3 DAYS Calcium Carbonate 500 mg 11/24/16 10:00 11/24/16 10:55 Calcium Carb Oral Suspension - PEG 500 mg DAILY JUANJOSE Administration Heparin Sodium (Porcine) 5,000 unit 11/23/16 10:00 11/24/16 10:55 Heparin - SQ 5,000 unit Q8H-IV JUANJOSE Administration Tobramycin Sulfate 250 mg/ 106.25 mls @ 100 mls/hr 11/24/16 10:30 Sodium Chloride IVPB 11/24/16 11:33 ONCE ONE Protocol Sodium Chloride 1,000 mls @ 150 mls/hr 11/24/16 10:28 11/24/16 10:35 Normal Saline - IV 150 mls/hr ASDIR JUANJOSE Administration Levetiracetam 750 mg 11/23/16 11:00 11/24/16 10:55 Keppra Injection - IVPB 750 mg BID JUANJOSE Administration Magnesium Hydroxide 30 ml 11/23/16 16:50 Milk Of Magnesia - GT DAILY PRN NO BM FOR 48HR Phenobarbital 80 mg 11/23/16 10:56 11/24/16 10:55 Phenobarbital Liquid - GT 80 mg BID JUANJOSE Administration Piperacillin Sod/Tazobactam Sod 3.375 gm 11/23/16 18:00 11/24/16 10:55 Zosyn 3.375gm Ivpb (Pre-Docked) IVPB 3.375 gm Q8H-IV JUANJOSE Administration Protocol Polyethylene Glycol 17 gm 11/23/16 22:00 11/24/16 10:55 Miralax (For Daily Use) - PEG 17 gm BID JUANJOSE Administration Tobramycin Sulfate 250 mg 11/25/16 10:00 Nebcin IVPB DAILY JUANJOSE ASSESSMENT/PLAN: 41 year old female with pmh of Mental retardation, Recurrent aspiration pneumonia, UTI, Sepsis, Seizure disorder and GI bleed, Chronic respiratory failure with trach, Ventilator dependent from [facility] present to the ED with fever and Tachycardia. Sepsis work up was initiated. Sepsis likely from UTI r/o Aspiration PNA, PICC line CXR showed no changes, no consolidation, infiltrates seen UA with leuk, nitrite and wbc H/o resistant organism on Urine culture Received Vanco and levaquin In ED ID continued Zosyn IV 3.375mg daily Blood culture positive for Gram negative Mukesh 2/2 Pt is still having fever with Tmax 103.5 Trobamycin 250mg IV daily started F/u blood culture F/u urine culture IV fluid with NS at 100ml/h, increased to 150ml/h Abdominal distension (resolving) Abdomen is distended and tympanitic per nursing staff at [facility] she is usually distended especially when constipated Resume PEG tube feeding Acute urinary retention bladder scan showed 350-400ml of urine Garcia cath inserted Chronic hypoxic respiratory failure with Ventilator dependence On same stetting at [facility] AC12, TV 400, FiO2 40%, Peep 5 O2 sat 100 % Seizure disorder Resume Phenobarbital Change keppra to IV 750mg BID FEN Fluid: NS at 150 ml/h Electrolytes: chemistry in am Nutrition: Jevity at 35ml/h DVT prophylaxis: SCD, heparin SQ Disposition: Keep ventilator floor pending resolution of sepsis Visit type - Emergency Visit Emergency Visit: Yes ED Registration Date: 11/23/16 Care time: The patient presented to the Emergency Department on the above date and was hospitalized for further evaluation of their emergent condition. - New Patient This patient is new to me today: Yes Date on this admission: 11/24/16 - Critical Care Critical Care patient: No - Discharge Referral Referred to [facility] Med P.C.: No
[2016-11-24 12:03] LABS: ALBUMIN 1.9 g/dl (3.4-5.0); ALK PHOS 157 U/L (45-117); ANION GAP 11 (8-16); BILIRUBIN,TOTAL 0.2 mg/dL (0.2-1.0); CALCIUM 7.5 mg/dL (8.5-10.1); CO2 21 mmol/L (21-32); CREATININE 0.8 mg/dL (0.55-1.02); GLUCOSE,RANDOM 272 mg/dL (74-106); SGOT/AST 20 U/L (15-37); SGPT/ALT 25 U/L (12-78); TOT PROT 5.7 g/dl (6.4-8.2)
--- NOTE | 2016-11-24 12:31 | PN ---
Teaching Attending Note Name of Resident: Domenic Esquivel ATTENDING PHYSICIAN STATEMENT I saw and evaluated the patient. I reviewed the resident's note and discussed the case with the resident. I agree with the resident's findings and plan as documented. SUBJECTIVE:resting comfortable OBJECTIVE: Last Vital Signs Temp Pulse Resp BP Pulse Ox 99.7 F H 115 H 16 96/58 98 11/24/16 07:07 11/24/16 10:05 11/24/16 10:05 11/24/16 07:07 11/24/16 10:05 General NAD CV S1 S2 tachycardic no murmur/rub/gallop Lungs coarse breath sounds diffusely. no wheezing anteriorly. no sputum Abdomen soft +distended +PEG obese L flank mass Extremities all extremities contracted. no edema ASSESSMENT AND PLAN: 41 year old female with pmh of Mental retardation, Recurrent aspiration pneumonia, UTI, Sepsis, Seizure disorder and GI bleed, Chronic respiratory failure s/p trach. dysphagia s/p PEG presented to the ER and was admitted for further evaluation of their emergent condition 1. Sepsis with UTI and bacetermia- GNR +. will wait on full report. Vanco d/c and started on Tobramycin started. On zosyn day 2. PICC line removed in the ER. ID on baord. await Cx report 2. Abdominal distention- questionable mass appreciated on exam. nothing seen on XR. CT done last year does not show anything. will consider CT abdomen once stable. will review records to see if this is new or seen on previous admissions. tolerating diet. low residuals. cont tube feeds 3. Seizure d/o- no signs of seizure like activity. cont home medication 4. DVT ppx- hep sq
[2016-11-24] MEDS: ACETAMINOPHEN 650 MG/20.3 ML ORAL SOLUTION (CUPS) NGT PRN (21:23)
[2016-11-25] MEDS: ALBUTEROL SO4 2.5/IPRATROPIUM 0.5 INH SOL 3 ML VIAL.NEB. NEB SCH ×4 (00:02→18:00)
[2016-11-25] MEDS: HEPARIN NA (PORCINE) 5,000 UNITS/ML 1ML VIAL SQ SCH ×3 (02:06→17:43)
[2016-11-25] MEDS: PIPERACILLIN/TAZOB 3.375 GM/50 ML PRE-DOCKED IVPB SCH ×3 (02:07→17:45)
[2016-11-25] MEDS: SODIUM CHLORIDE 1,000 ML IV SCH ×4 (03:56→22:56)
[2016-11-25 08:15] LABS: MCH 29.5 pg (25.7-33.7); MCHC 33.4 g/dl (32.0-36.0); MEAN CELL VOLUME 88.3 fl (80-96); MEAN PLT VOLUME 8.6 fl (7.5-11.1); PLATELET COUNT 219 K/MM3 (134-434); RDW 14.2 % (11.6-15.6); WHITE BLOOD COUNT 10.3 K/mm3 (4.0-10.0)
[2016-11-25] MEDS: AMINO ACIDS/PROTEIN HYDROLYS 30 ML LIQUID.PKT GT SCH ×2 (08:56→17:43)
[2016-11-25] MEDS ORDERED: PT OWN MED DRAWER 7, Y5N ONE (09:16)
[2016-11-25] MEDS ORDERED: TOBRAMYCIN SULFATE 1,200 MG VIAL IVPB SCH (10:00)
[2016-11-25] MEDS ORDERED: TOBRAMYCIN SULFATE 250 MG in SODIUM CHLORIDE 100 ML IVPB SCH (10:00)
[2016-11-25] MEDS: levETIRAcetam 500 MG/5 ML INJECTION VIAL IVPB SCH ×2 (10:55→22:33)
[2016-11-25] MEDS: CALCIUM CARBONATE SUSPENSION - 500 MG/5 ML ML PEG SCH (10:55)
[2016-11-25] MEDS: ASCORBIC ACID 500 MG/5 ML UNIT DOSE CUP GT SCH (10:55)
[2016-11-25] MEDS: BACLOFEN 10 MG TABLET (FP) GT SCH ×4 (10:55→22:34)
[2016-11-25] MEDS: POLYETHYLENE GLYCOL 3350 119 GM BTL PEG SCH ×2 (10:55→22:34)
[2016-11-25] MEDS: PHENobarbital 20 MG/5 ML UNIT-DOSE CUP GT SCH ×2 (10:55→22:35)
[2016-11-25] MEDS: BACITRACIN 30 GM TUBE TOPICAL OINTMENT TP SCH ×2 (11:22→22:33)
--- NOTE | 2016-11-25 13:26 | PN ---
Physical Exam: SUBJECTIVE: Patient seen and examined. Nonverbal, no overnight events. T max 100.9 F. We noticed that the pt is diaphoretic. OBJECTIVE: Vital Signs Period Temp Pulse Resp BP Sys/Stein Pulse Ox Last 24 Hr 98.9 F-100.9 F 108-126 16- 99-112/50-78 GENERAL: The patient is nonverbal, in no acute distress, on mech.ventilation. HEAD: Normal with no signs of trauma. EYES: PERRL, extraocular movements intact, sclera anicteric, conjunctiva clear. ENT: moist mucous membranes. NECK: Trachea midline, full range of motion, supple, trach. LUNGS: Breath sounds equal, clear to auscultation bilaterally, no wheezes, no crackles, no accessory muscle use. HEART: Regular rate and rhythm, S1, S2 without murmur, rub or gallop. ABDOMEN: Soft, nontender, distended, normoactive bowel sounds, no guarding, no rebound. EXTREMITIES: warm, no edema. NEUROLOGICAL: No facial asymmetry, gait not observed, not following commands. PSYCH: Normal mood, normal affect. SKIN: Warm, dry, normal turgor, no rashes. Garcia cath inserted, draining urine. Laboratory Results - last 24 hr 11/25/16 06:58 WBC 10.3 H RBC 2.63 L Hgb 7.8 L Hct 23.3 L MCV 88.3 MCHC 33.4 RDW 14.2 Plt Count 219 MPV 8.6 Active Medications Generic Name Dose Route Start Last Admin Trade Name Freq PRN Reason Stop Dose Admin Acetaminophen 650 mg 11/24/16 00:51 11/24/16 21:23 Tylenol Oral Solution - NGT 650 mg Q4H PRN Administration FEVER OR PAIN Albuterol Sulfate 1 amp 11/23/16 17:19 Ventolin 0.083% Nebulizer Soln - NEB Q4H PRN SHORT OF BREATH/WHEEZING Albuterol/Ipratropium 1 amp 11/23/16 18:00 11/25/16 07:06 Duoneb - NEB 1 amp QIDR JUANJOSE Administration Amino Acids 30 ml 11/23/16 17:30 11/25/16 08:56 Prosource No Carb Liquid Pkt GT 30 ml BID@0800,1730 JUANJOSE Administration Ascorbic Acid 500 mg 11/23/16 11:38 11/25/16 10:55 Vitamin C Oral Solution - GT 500 mg DAILY JUANJOSE Administration Bacitracin 1 applic 11/23/16 22:00 11/25/16 11:22 Bacitracin - TP 1 applic BID JUANJOSE Administration Baclofen 10 mg 11/23/16 18:00 11/25/16 10:55 Lioresal - GT 10 mg QID JUANJOSE Administration Bisacodyl 10 mg 11/23/16 16:50 Dulcolax Suppository - RC Q72H PRN CONSTIPATION EVERY 3 DAYS Calcium Carbonate 500 mg 11/24/16 10:00 11/25/16 10:55 Calcium Carb Oral Suspension - PEG 500 mg DAILY JUANJOSE Administration Heparin Sodium (Porcine) 5,000 unit 11/23/16 10:00 11/25/16 10:55 Heparin - SQ 5,000 unit Q8H-IV JUANJOSE Administration Sodium Chloride 1,000 mls @ 150 mls/hr 11/24/16 10:28 11/25/16 11:36 Normal Saline - IV 150 mls/hr ASDIR JUANJOSE Administration Tobramycin Sulfate 250 mg/ 106.25 mls @ 106.25 mls/hr 11/25/16 10:00 11/25/16 11:35 Sodium Chloride IVPB 11/26/16 09:59 106.25 mls/hr DAILY JUANJOSE Administration Protocol Levetiracetam 750 mg 11/23/16 11:00 11/25/16 10:55 Keppra Injection - IVPB 750 mg BID JUANJOSE Administration Magnesium Hydroxide 30 ml 11/23/16 16:50 Milk Of Magnesia - GT DAILY PRN NO BM FOR 48HR Phenobarbital 80 mg 11/23/16 10:56 11/25/16 10:55 Phenobarbital Liquid - GT 80 mg BID JUANJOSE Administration Piperacillin Sod/Tazobactam Sod 3.375 gm 11/23/16 18:00 11/25/16 10:55 Zosyn 3.375gm Ivpb (Pre-Docked) IVPB 3.375 gm Q8H-IV JUANJOSE Administration Protocol Polyethylene Glycol 17 gm 11/23/16 22:00 11/25/16 10:55 Miralax (For Daily Use) - PEG 17 gm BID JUANJOSE Administration ASSESSMENT/PLAN: 41 year old female with a PMH of MR, recurrent UTI, aspiration pneumonia, seizure disorder, GI bleed, respiratory failure s/p trach. Sepsis due to UTI: -history of resistant organisms, multiple hospitalizations, last one in April 2016 -changed Tobramycin IV to Aztreonam IV and cont. Zosyn 3.375 g IV Q8H -Garcia cath inserted for urinary retention -urine cultures Pseudomonas Aeruginosa, Blood cx Morganella Morgani-not known source, will obtain US gallbladder -increased NS to 150 ml/hr yesterday Seizure disorder: -no seizure activity reported in the hospital Abdominal distention -AXR reviewed no signifcant change, -monitor BMs Hypotension: -increased NS to 150 ml/hr Rash in groin: -applied Nystatin powder FEN Fluid: NS at 150 ml/h Electrolytes: chemistry in am Nutrition: Jevity at 35ml/h Visit type - Emergency Visit Emergency Visit: Yes ED Registration Date: 11/23/16 Care time: The patient presented to the Emergency Department on the above date and was hospitalized for further evaluation of their emergent condition. - New Patient This patient is new to me today: No - Critical Care Critical Care patient: No
--- NOTE | 2016-11-25 14:23 | PN ---
Teaching Attending Note Name of Resident: Lidya Ha ATTENDING PHYSICIAN STATEMENT I saw and evaluated the patient. I reviewed the resident's note and discussed the case with the resident. I agree with the resident's findings and plan as documented. SUBJECTIVE: remains on vent temps trending down OBJECTIVE: Vital Signs Period Temp Pulse Resp BP Sys/Stein Pulse Ox Last 24 Hr 98.9 F-100.9 F 108-136 16-21 99-112/50-64 99 diaphoretic trach to vent cor-rrr lungs decreased bs at base abd firm +gt ext no edema no skin ulcers CBC, BMP 11/25/16 06:58 11/24/16 11:20 Microbiology 11/24/16 20:33 Sputum - Endotrachea Suction/Ventilator Gram Stain - Final 11/23/16 05:02 Urine - Urine Clean Catch Urine Culture - Final Pseudomonas Aeruginosa 11/23/16 05:02 Blood - Peripheral Venous Blood Culture - Final Morganella Morganii 11/23/16 05:02 Blood - Peripheral Venous Blood Culture - Preliminary NO GROWTH OBTAINED AFTER 48 HOURS, INCUBATION TO CONTINUE FOR 3 DAYS. ASSESSMENT AND PLAN: morganella bacteremia- ?source psuedomonas uti switch to zosyn/azactam elevated alk phos- would get sonogram of gallbladder chronic resp failure
--- NOTE | 2016-11-25 14:30 | PN ---
Physical Exam: SUBJECTIVE: Patient seen and examined Pt with low grade fever overnight ON ventilator, no s/s of acute distress Pt on tube feeding with Jevity 1.5 at 45ml/h OBJECTIVE: Vital Signs Period Temp Pulse Resp BP Sys/Stein Pulse Ox Last 24 Hr 98.9 F-100.9 F 108-136 16-21 99-112/50-64 99 GENERAL: Awake, alert, in no acute distress. EARS, NOSE, THROAT: Ears normal, nares patent, oropharynx clear without exudates. Moist mucous membranes. NECK: Normal range of motion, supple without lymphadenopathy, JVD, or masses. Trach site in place with minimal amount of yellow mucus from trach. LUNGS: Scattered ronchi to auscultation bilaterally. No wheezes, and no crackles. No accessory muscle use. HEART: Regular rate and rhythm, normal S1 and S2 without murmur, rub or gallop. ABDOMEN: Soft, nontender, distended, normoactive bowel sounds, no guarding, no rebound. Round mass in left mid abdomen. No hepatomegaly or splenomegaly. PEG TUbe in place. MUSCULOSKELETAL: Normal range of motion at all joints. No bony deformities or tenderness. No CVA tenderness. UPPER EXTREMITIES: 2+ pulses, warm, well-perfused. No cyanosis. No clubbing. No peripheral edema. LOWER EXTREMITIES: 2+ pulses, warm, well-perfused. No calf tenderness. trace peripheral edema. NEUROLOGICAL: non verbal , non-ambulatory, on ventilator SKIN: Warm, dry, normal turgor, no rashes or lesions noted, normal capillary refill. Laboratory Results - last 24 hr 11/25/16 06:58 WBC 10.3 H RBC 2.63 L Hgb 7.8 L Hct 23.3 L MCV 88.3 MCHC 33.4 RDW 14.2 Plt Count 219 MPV 8.6 Active Medications Generic Name Dose Route Start Last Admin Trade Name Freq PRN Reason Stop Dose Admin Acetaminophen 650 mg 11/24/16 00:51 11/24/16 21:23 Tylenol Oral Solution - NGT 650 mg Q4H PRN Administration FEVER OR PAIN Albuterol Sulfate 1 amp 11/23/16 17:19 Ventolin 0.083% Nebulizer Soln - NEB Q4H PRN SHORT OF BREATH/WHEEZING Albuterol/Ipratropium 1 amp 11/23/16 18:00 11/25/16 11:20 Duoneb - NEB 1 amp QIDR JUANJOSE Administration Amino Acids 30 ml 11/23/16 17:30 11/25/16 08:56 Prosource No Carb Liquid Pkt GT 30 ml BID@0800,1730 JUANJOSE Administration Ascorbic Acid 500 mg 11/23/16 11:38 11/25/16 10:55 Vitamin C Oral Solution - GT 500 mg DAILY JUANJOSE Administration Bacitracin 1 applic 11/23/16 22:00 11/25/16 11:22 Bacitracin - TP 1 applic BID JUANJOSE Administration Baclofen 10 mg 11/23/16 18:00 11/25/16 10:55 Lioresal - GT 10 mg QID JUANJOSE Administration Bisacodyl 10 mg 11/23/16 16:50 Dulcolax Suppository - RC Q72H PRN CONSTIPATION EVERY 3 DAYS Calcium Carbonate 500 mg 11/24/16 10:00 11/25/16 10:55 Calcium Carb Oral Suspension - PEG 500 mg DAILY JUANJOSE Administration Heparin Sodium (Porcine) 5,000 unit 11/23/16 10:00 11/25/16 10:55 Heparin - SQ 5,000 unit Q8H-IV JUANJOSE Administration Sodium Chloride 1,000 mls @ 150 mls/hr 11/24/16 10:28 11/25/16 11:36 Normal Saline - IV 150 mls/hr ASDIR JUANJOSE Administration Aztreonam 2 gm/ Dextrose 100 mls @ 100 mls/hr 11/25/16 14:30 IV Q8H-IV JUANJOSE Protocol Levetiracetam 750 mg 11/23/16 11:00 11/25/16 10:55 Keppra Injection - IVPB 750 mg BID JUANJOSE Administration Magnesium Hydroxide 30 ml 11/23/16 16:50 Milk Of Magnesia - GT DAILY PRN NO BM FOR 48HR Phenobarbital 80 mg 11/23/16 10:56 11/25/16 10:55 Phenobarbital Liquid - GT 80 mg BID JUANJOSE Administration Piperacillin Sod/Tazobactam Sod 3.375 gm 11/23/16 18:00 11/25/16 10:55 Zosyn 3.375gm Ivpb (Pre-Docked) IVPB 3.375 gm Q8H-IV JUANJOSE Administration Protocol Polyethylene Glycol 17 gm 11/23/16 22:00 11/25/16 10:55 Miralax (For Daily Use) - PEG 17 gm BID JUANJOSE Administration CBC, BMP 11/25/16 06:58 11/24/16 11:20 Microbiology 11/24/16 20:33 Sputum - Endotrachea Suction/Ventilator Gram Stain - Final 11/23/16 05:02 Urine - Urine Clean Catch Urine Culture - Final Pseudomonas Aeruginosa 11/23/16 05:02 Blood - Peripheral Venous Blood Culture - Final Morganella Morganii 11/23/16 05:02 Urine - Urine Clean Catch Urine Culture - Preliminary Non Lactose Fermenting Gnb 11/23/16 05:02 Blood - Peripheral Venous Blood Culture - Preliminary Pending Organism Laboratory Tests 11/23/16 11/24/16 09:40 11:20 Alkaline Phosphatase 157 H D Urine Nitrite Positive Ur Leukocyte Esterase Trace H D Urine WBC 17 ASSESSMENT/PLAN: 41 year old female with pmh of Mental retardation, Recurrent aspiration pneumonia, UTI, Sepsis, Seizure disorder and GI bleed, Chronic respiratory failure with trach, Ventilator dependent from [facility] present to the ED with fever and Tachycardia. Sepsis work up was initiated. Sepsis likely from UTI r/o Aspiration PNA, PICC line CXR showed no changes, no consolidation, infiltrates seen UA with leuk, nitrite and wbc H/o resistant organism on Urine culture Received Vanco and levaquin In ED ID continued Zosyn IV 3.375mg daily Blood culture positive for Gram negative Mukesh 2/2 Trobamycin 250mg IV daily was started However Urine and blood culture results showed Pseudomonas and morganella that are resistant to trobamycin Will start Aztreonam per ID US Liver due association of aztreonam with hepatobilary disorders IV fluid with NS at 100ml/h Abdominal distension (resolving) Abdomen is distended and tympanitic per nursing staff at [facility] she is usually distended especially when constipated Resume PEG tube feeding Acute urinary retention Garcia cath in place Chronic hypoxic respiratory failure with Ventilator dependence On same setting at [facility] AC12, TV 400, FiO2 40%, Peep 5 O2 sat 100 % Seizure disorder Resume Phenobarbital Change keppra to IV 750mg BID FEN Fluid: NS at 100 ml/h Electrolytes: chemistry in am Nutrition: Jevity at 45ml/h DVT prophylaxis: SCD, heparin SQ Disposition: Keep ventilator floor pending resolution of sepsis Visit type - Emergency Visit Emergency Visit: Yes ED Registration Date: 11/23/16 Care time: The patient presented to the Emergency Department on the above date and was hospitalized for further evaluation of their emergent condition. - New Patient This patient is new to me today: Yes Date on this admission: 11/25/16 - Critical Care Critical Care patient: No - Discharge Referral Referred to [facility] Med P.C.: No
[2016-11-25] MEDS: ACETAMINOPHEN 650 MG/20.3 ML ORAL SOLUTION (CUPS) NGT PRN ×2 (15:43→19:54)
[2016-11-25] MEDS: AZTREONAM 2 GM in DEXTROSE 5%-WATER - 100 ML IV SCH ×2 (17:16→17:17)
[2016-11-25] MEDS: NYSTATIN POWDER 100,000 UNITS/GM - 15 GM TOPICAL POWDER TP SCH (17:17)
--- NOTE | 2016-11-25 17:59 | PN ---
Teaching Attending Note Name of Resident: Domenic Esquivel ATTENDING PHYSICIAN STATEMENT I saw and evaluated the patient. I reviewed the resident's note and discussed the case with the resident. I agree with the resident's findings and plan as documented. SUBJECTIVE: Patient appears comfortable. OBJECTIVE: Vital Signs Period Temp Pulse Resp BP Sys/Stein Pulse Ox Last 24 Hr 98.9 F-102.6 F 108-136 16-19 99-124/50-64 99 HEART: S1S2, tachycardic LUNGS: Coarse breath sounds ABDOMEN: Soft, distended, normal BS, (+) PEG EXTREMITIES: Trace edema ASSESSMENT AND PLAN: This is a 41-year-old woman with a history of mental retardation, recurrent aspiration pneumonia, UTI, seizure disorder, GI bleed, chronic respiratory failure, tracheostomy, dysphagia, PEG who presented to the ER and was sent to the ER from [facility] because of fever and tachycardia. 1. Sepsis secondary to Pseudomonas UTI and Morganella bacteremia - Continue Zosyn - Tobramycin discontinued - Azactam started 2. Abdominal distention and possible mass - CT 11/2015 showed no mass - Consider repeating CT of abdomen/pelvis 3. Seizure disorder - Stable - Continue Keppra, Phenobarbital 4. Mental retardation 5. Chronic hypoxic respiratory failure - On vent via tracheostomy 6. Nutrition - Continue Jevity, Prosource
[2016-11-26] MEDS: PIPERACILLIN/TAZOB 3.375 GM/50 ML PRE-DOCKED IVPB SCH ×3 (01:38→18:25)
[2016-11-26] MEDS: AZTREONAM 2 GM in DEXTROSE 5%-WATER - 100 ML IV SCH ×3 (01:38→17:25)
[2016-11-26] MEDS: HEPARIN NA (PORCINE) 5,000 UNITS/ML 1ML VIAL SQ SCH ×3 (01:38→17:17)
[2016-11-26] MEDS: ALBUTEROL SO4 2.5/IPRATROPIUM 0.5 INH SOL 3 ML VIAL.NEB. NEB SCH ×5 (07:34→23:43)
[2016-11-26] MEDS: AMINO ACIDS/PROTEIN HYDROLYS 30 ML LIQUID.PKT GT SCH ×2 (08:10→17:16)
[2016-11-26 09:41] LABS: MCH 28.5 pg (25.7-33.7); MCHC 32.4 g/dl (32.0-36.0); MEAN CELL VOLUME 88.1 fl (80-96); MEAN PLT VOLUME 8.2 fl (7.5-11.1); PLATELET COUNT 217 K/MM3 (134-434); RDW 14.8 % (11.6-15.6); WHITE BLOOD COUNT 9.9 K/mm3 (4.0-10.0)
[2016-11-26 10:06] LABS: ALBUMIN 1.9 g/dl (3.4-5.0); ANION GAP 13 (8-16); BILIRUBIN,TOTAL 0.4 mg/dL (0.2-1.0); CO2 20 mmol/L (21-32); SGOT/AST 31 U/L (15-37); SGPT/ALT 44 U/L (12-78); TOT PROT 6.7 g/dl (6.4-8.2)
[2016-11-26 10:07] LABS: ALK PHOS 205 U/L (45-117)
[2016-11-26] MEDS ORDERED: PT OWN MED DRAWER 7, Y5N ONE ×2 (10:14→16:47)
[2016-11-26] MEDS: BACITRACIN 30 GM TUBE TOPICAL OINTMENT TP SCH ×2 (10:20→22:27)
[2016-11-26] MEDS: CALCIUM CARBONATE SUSPENSION - 500 MG/5 ML ML PEG SCH (10:21)
[2016-11-26] MEDS: BACLOFEN 10 MG TABLET (FP) GT SCH ×4 (10:23→22:26)
[2016-11-26] MEDS: NYSTATIN POWDER 100,000 UNITS/GM - 15 GM TOPICAL POWDER TP SCH (10:24)
[2016-11-26] MEDS: POLYETHYLENE GLYCOL 3350 119 GM BTL PEG SCH ×2 (10:24→22:27)
[2016-11-26] MEDS: ASCORBIC ACID 500 MG/5 ML UNIT DOSE CUP GT SCH (10:25)
[2016-11-26] MEDS: PHENobarbital 20 MG/5 ML UNIT-DOSE CUP GT SCH ×2 (10:25→22:26)
[2016-11-26] MEDS: ACETAMINOPHEN 650 MG/20.3 ML ORAL SOLUTION (CUPS) NGT PRN ×2 (10:33→20:15)
[2016-11-26 10:55] LABS: GLUCOSE,RANDOM 335 mg/dL (74-106)
[2016-11-26] MEDS: levETIRAcetam 500 MG/5 ML INJECTION VIAL IVPB SCH ×2 (11:16→22:27)
--- NOTE | 2016-11-26 11:32 | PN ---
Physical Exam: SUBJECTIVE: Patient seen and examined. No overnight events. t max 103.2 F. OBJECTIVE: Vital Signs Period Temp Pulse Resp BP Sys/Stein Pulse Ox Last 24 Hr 98.9 F-103.2 F 100-133 14-22 96-124/56-80 95 GENERAL: The patient is nonverbal, in no acute distress, [facility] sleeping. HEAD: Normal with no signs of trauma. ENT: moist mucous membranes. NECK: Trachea midline, full range of motion, supple, trach. LUNGS: Breath sounds equal, clear to auscultation bilaterally, no wheezes, no crackles, no accessory muscle use. HEART: Regular rate and rhythm, S1, S2 without murmur, rub or gallop. ABDOMEN: Soft, nontender, distended, normoactive bowel sounds, no guarding, no rebound. EXTREMITIES: warm, no edema. NEUROLOGICAL: No facial asymmetry, gait not observed, not following commands. PSYCH: Normal mood, normal affect. SKIN: Warm, dry, normal turgor, no rashes. Garcia cath inserted, draining urine. Laboratory Results - last 24 hr 11/26/16 11/26/16 09:20 09:20 WBC 9.9 RBC 2.95 L Hgb 8.4 L Hct 26.0 L MCV 88.1 MCHC 32.4 RDW 14.8 Plt Count 217 MPV 8.2 Sodium 145 Potassium 3.5 Chloride 112 H Carbon Dioxide 20 L Anion Gap 13 BUN 22 H D Creatinine 1.0 D Creat Clearance w eGFR > 60 Random Glucose 335 H* D Calcium 8.0 L Total Bilirubin 0.4 D AST 31 D ALT 44 D Alkaline Phosphatase 205 H D Total Protein 6.7 Albumin 1.9 L Active Medications Generic Name Dose Route Start Last Admin Trade Name Freq PRN Reason Stop Dose Admin Acetaminophen 650 mg 11/24/16 00:51 11/26/16 10:33 Tylenol Oral Solution - NGT 650 mg Q4H PRN Administration FEVER OR PAIN Albuterol Sulfate 1 amp 11/23/16 17:19 Ventolin 0.083% Nebulizer Soln - NEB Q4H PRN SHORT OF BREATH/WHEEZING Albuterol/Ipratropium 1 amp 11/23/16 18:00 11/26/16 11:15 Duoneb - NEB 1 amp QIDR JUANJOSE Administration Amino Acids 30 ml 11/23/16 17:30 11/26/16 08:10 Prosource No Carb Liquid Pkt GT 30 ml BID@0800,1730 JUANJOSE Administration Ascorbic Acid 500 mg 11/23/16 11:38 11/26/16 10:25 Vitamin C Oral Solution - GT 500 mg DAILY JUANJOSE Administration Bacitracin 1 applic 11/23/16 22:00 11/26/16 10:20 Bacitracin - TP 1 applic BID JUANJOSE Administration Baclofen 10 mg 11/23/16 18:00 11/26/16 10:23 Lioresal - GT 10 mg QID JUANJOSE Administration Bisacodyl 10 mg 11/23/16 16:50 Dulcolax Suppository - RC Q72H PRN CONSTIPATION EVERY 3 DAYS Calcium Carbonate 500 mg 11/24/16 10:00 11/26/16 10:21 Calcium Carb Oral Suspension - PEG 500 mg DAILY JUANJOSE Administration Heparin Sodium (Porcine) 5,000 unit 11/23/16 10:00 11/26/16 10:22 Heparin - SQ 5,000 unit Q8H-IV JUANJOSE Administration Aztreonam 2 gm/ Dextrose 100 mls @ 100 mls/hr 11/25/16 14:30 11/26/16 10:20 IV 100 mls/hr Q8H-IV JUANJOSE Administration Protocol Sodium Chloride 1,000 mls @ 100 mls/hr 11/25/16 14:30 11/25/16 22:56 Normal Saline - IV 100 mls/hr ASDIR JUANJOSE Administration Levetiracetam 750 mg 11/23/16 11:00 11/26/16 11:16 Keppra Injection - IVPB 750 mg BID JUANJOSE Administration Magnesium Hydroxide 30 ml 11/23/16 16:50 Milk Of Magnesia - GT DAILY PRN NO BM FOR 48HR Nystatin 1 applic 11/25/16 14:45 11/26/16 10:24 Nystop Powder - TP 1 applic DAILY JUANJOSE Administration Phenobarbital 80 mg 11/23/16 10:56 11/26/16 10:25 Phenobarbital Liquid - GT 80 mg BID JUANJOSE Administration Piperacillin Sod/Tazobactam Sod 3.375 gm 11/23/16 18:00 11/26/16 01:38 Zosyn 3.375gm Ivpb (Pre-Docked) IVPB 3.375 gm Q8H-IV JUANJOSE Administration Protocol Polyethylene Glycol 17 gm 11/23/16 22:00 11/26/16 10:24 Miralax (For Daily Use) - PEG 17 gm BID JUANJOSE Administration ASSESSMENT/PLAN: 41 year old female with a PMH of MR, recurrent UTI, aspiration pneumonia, seizure disorder, GI bleed, respiratory failure s/p trach. Sepsis due to UTI: -history of resistant organisms, multiple hospitalizations, last one in April 2016 -continue Aztreonam IV and cont. Zosyn 3.375 g IV Q8H -urine cultures Pseudomonas Aeruginosa, Blood cx Morganella Morgani-not known source -cont NS -fever reported, Tmax 103.2 F Abdominal distention -US done, possible cholecystitis, consulted surgery, possible surgery -regular BMs Seizure disorder: -no seizure activity reported in the hospital Rash in groin: -applied Nystatin powder FEN Fluid: NS at 150 ml/h Electrolytes: chemistry in am Nutrition: Jevity at 35ml/h Visit type - Emergency Visit Emergency Visit: Yes ED Registration Date: 11/23/16 Care time: The patient presented to the Emergency Department on the above date and was hospitalized for further evaluation of their emergent condition. - New Patient This patient is new to me today: No - Critical Care Critical Care patient: No - Discharge Referral Referred to [facility] Med P.C.: No
--- NOTE | 2016-11-26 11:43 | PN ---
Physical Exam: SUBJECTIVE: Patient seen and examined Pt with low grade fever overnight ON vent OBJECTIVE: Vital Signs Period Temp Pulse Resp BP Sys/Stein Pulse Ox Last 24 Hr 98.9 F-103.2 F 100-133 14-22 96-124/56-80 95 GENERAL: Awake, alert, in no acute distress. NECK: Normal range of motion, supple without lymphadenopathy, JVD, or masses. Trach site in place with minimal amount of yellow mucus from trach. LUNGS: Scattered ronchi to auscultation bilaterally. No wheezes, and no crackles. No accessory muscle use. HEART: Regular rate and rhythm, normal S1 and S2 with systolic murmur, rub or gallop. ABDOMEN: Soft, nontender, distended, normoactive bowel sounds, no guarding, no rebound. Round mass in left mid abdomen. No hepatomegaly or splenomegaly. PEG TUbe in place with tube feeding . MUSCULOSKELETAL: Normal range of motion at all joints. No bony deformities or tenderness. No CVA tenderness. UPPER EXTREMITIES: 2+ pulses, warm, well-perfused. No cyanosis. No clubbing. No peripheral edema. LOWER EXTREMITIES: 2+ pulses, warm, well-perfused. No calf tenderness. trace peripheral edema. NEUROLOGICAL: non verbal , non-ambulatory, on ventilator SKIN: perineal rash Laboratory Results - last 24 hr 11/26/16 11/26/16 09:20 09:20 WBC 9.9 RBC 2.95 L Hgb 8.4 L Hct 26.0 L MCV 88.1 MCHC 32.4 RDW 14.8 Plt Count 217 MPV 8.2 Sodium 145 Potassium 3.5 Chloride 112 H Carbon Dioxide 20 L Anion Gap 13 BUN 22 H D Creatinine 1.0 D Creat Clearance w eGFR > 60 Random Glucose 335 H* D Calcium 8.0 L Total Bilirubin 0.4 D AST 31 D ALT 44 D Alkaline Phosphatase 205 H D Total Protein 6.7 Albumin 1.9 L Active Medications Generic Name Dose Route Start Last Admin Trade Name Freq PRN Reason Stop Dose Admin Acetaminophen 650 mg 11/24/16 00:51 11/26/16 10:33 Tylenol Oral Solution - NGT 650 mg Q4H PRN Administration FEVER OR PAIN Albuterol Sulfate 1 amp 11/23/16 17:19 Ventolin 0.083% Nebulizer Soln - NEB Q4H PRN SHORT OF BREATH/WHEEZING Albuterol/Ipratropium 1 amp 11/23/16 18:00 11/26/16 11:15 Duoneb - NEB 1 amp QIDR JUANJOSE Administration Amino Acids 30 ml 11/23/16 17:30 11/26/16 08:10 Prosource No Carb Liquid Pkt GT 30 ml BID@0800,1730 JUANJOSE Administration Ascorbic Acid 500 mg 11/23/16 11:38 11/26/16 10:25 Vitamin C Oral Solution - GT 500 mg DAILY JUANJOSE Administration Bacitracin 1 applic 11/23/16 22:00 11/26/16 10:20 Bacitracin - TP 1 applic BID JUANJOSE Administration Baclofen 10 mg 11/23/16 18:00 11/26/16 10:23 Lioresal - GT 10 mg QID JUANJOSE Administration Bisacodyl 10 mg 11/23/16 16:50 Dulcolax Suppository - RC Q72H PRN CONSTIPATION EVERY 3 DAYS Calcium Carbonate 500 mg 11/24/16 10:00 11/26/16 10:21 Calcium Carb Oral Suspension - PEG 500 mg DAILY JUANJOSE Administration Heparin Sodium (Porcine) 5,000 unit 11/23/16 10:00 11/26/16 10:22 Heparin - SQ 5,000 unit Q8H-IV JUANJOSE Administration Aztreonam 2 gm/ Dextrose 100 mls @ 100 mls/hr 11/25/16 14:30 11/26/16 10:20 IV 100 mls/hr Q8H-IV JUANJOSE Administration Protocol Sodium Chloride 1,000 mls @ 100 mls/hr 11/25/16 14:30 11/25/16 22:56 Normal Saline - IV 100 mls/hr ASDIR JUANJOSE Administration Levetiracetam 750 mg 11/23/16 11:00 11/26/16 11:16 Keppra Injection - IVPB 750 mg BID JUANJOSE Administration Magnesium Hydroxide 30 ml 11/23/16 16:50 Milk Of Magnesia - GT DAILY PRN NO BM FOR 48HR Nystatin 1 applic 11/25/16 14:45 11/26/16 10:24 Nystop Powder - TP 1 applic DAILY JUANJOSE Administration Phenobarbital 80 mg 11/23/16 10:56 11/26/16 10:25 Phenobarbital Liquid - GT 80 mg BID JUANJOSE Administration Piperacillin Sod/Tazobactam Sod 3.375 gm 11/23/16 18:00 11/26/16 01:38 Zosyn 3.375gm Ivpb (Pre-Docked) IVPB 3.375 gm Q8H-IV JUANJOSE Administration Protocol Polyethylene Glycol 17 gm 11/23/16 22:00 11/26/16 10:24 Miralax (For Daily Use) - PEG 17 gm BID JUANJOSE Administration CBC, BMP 11/26/16 09:20 11/26/16 09:20 Microbiology 11/24/16 20:33 Sputum - Endotrachea Suction/Ventilator Gram Stain - Final 11/23/16 05:02 Urine - Urine Clean Catch Urine Culture - Final Pseudomonas Aeruginosa 11/23/16 05:02 Blood - Peripheral Venous Blood Culture - Final Morganella Morganii 11/23/16 05:02 Blood - Peripheral Venous Blood Culture - Preliminary NO GROWTH OBTAINED AFTER 72 HOURS, INCUBATION TO CONTINUE FOR 2 DAYS. Laboratory Tests 11/26/16 09:20 Calcium 8.0 L Total Bilirubin 0.4 D AST 31 D ALT 44 D Alkaline Phosphatase 205 H D Albumin 1.9 L ASSESSMENT/PLAN: 41 year old female with pmh of Mental retardation, Recurrent aspiration pneumonia, UTI, Sepsis, Seizure disorder and GI bleed, Chronic respiratory failure with trach, Ventilator dependent from [facility] present to the ED with fever and Tachycardia. Sepsis work up was initiated. Sepsis likely from UTI r/o Aspiration PNA, PICC line CXR showed no changes, no consolidation, infiltrates seen UA with leuk, nitrite and wbc H/o resistant organism on Urine culture Received Vanco and levaquin In ED ID continued Zosyn IV 3.375mg daily Blood culture positive for Gram negative Mukesh 2/2 Trobamycin 250mg IV daily was started However Urine and blood culture results showed Pseudomonas and morganella that are resistant to trobamycin On Aztreonam per ID US Liver done due association of aztreonam with hepatobilary disorders and increasing ALP IV fluid with NS at 100ml/h Cholelithiasis/Acute cholecystitis/Comon bile duct Dilation r/o CBD obstruction/ stone CBD 9mm Pt is already on antibiotics with zosyn and aztreonam which covers gram negative and anaerobes Cannot do MRCP due to pt on Vent Consider HYda? but positioning may be an issue Surgery consult Consider GI consult Abdominal distension (resolving) Abdomen is distended and tympanitic per nursing staff at [facility] she is usually distended especially when constipated Continue PEG tube feeding Acute urinary retention Garcia cath in place Chronic hypoxic respiratory failure with Ventilator dependence On same setting at [facility] AC12, TV 400, FiO2 40%, Peep 5 O2 sat 100 % Seizure disorder Resume Phenobarbital Change keppra to IV 750mg BID FEN Fluid: NS at 100 ml/h Electrolytes: chemistry in am Nutrition: Jevity at 45ml/h DVT prophylaxis: SCD, heparin SQ Disposition: Keep ventilator floor pending resolution of sepsis Visit type - Emergency Visit Emergency Visit: Yes ED Registration Date: 11/23/16 Care time: The patient presented to the Emergency Department on the above date and was hospitalized for further evaluation of their emergent condition. - New Patient This patient is new to me today: Yes - Critical Care Critical Care patient: No - Discharge Referral Referred to [facility] Med P.C.: No
[2016-11-26] MEDS: SODIUM CHLORIDE 1,000 ML IV SCH (14:26)
--- NOTE | 2016-11-26 14:30 | PN ---
Teaching Attending Note Name of Resident: Lidya Ha ATTENDING PHYSICIAN STATEMENT I saw and evaluated the patient. I reviewed the resident's note and discussed the case with the resident. I agree with the resident's findings and plan as documented. SUBJECTIVE: nonverbal continues with fevers OBJECTIVE: trach to vent Vital Signs Period Temp Pulse Resp BP Sys/Stein Pulse Ox Last 24 Hr 98.9 F-103.2 F 100-130 14-23 96-104/56-80 95 cor-rrr lungs decreased bs at bases abd firm, +GT ext no edema CBC, BMP 11/26/16 09:20 11/26/16 09:20 Microbiology 11/24/16 20:33 Sputum - Endotrachea Suction/Ventilator Gram Stain - Final 11/24/16 20:33 Sputum - Endotrachea Suction/Ventilator Sputum Culture - Preliminary Non Lactose Fermenting Gnb Non Lactose Fermenting Gnb#2 Non Lactose Fermenting Gnb#3 11/23/16 05:02 Blood - Peripheral Venous Blood Culture - Preliminary NO GROWTH OBTAINED AFTER 72 HOURS, INCUBATION TO CONTINUE FOR 2 DAYS. 11/23/16 05:02 Urine - Urine Clean Catch Urine Culture - Final Pseudomonas Aeruginosa 11/23/16 05:02 Blood - Peripheral Venous Blood Culture - Final Morganella Morganii ASSESSMENT AND PLAN: morganella bacteremia- ?biliary disease continue antibiotics zosyn/azactam day #2 surgery to evaluate
--- NOTE | 2016-11-26 16:40 | CONSULT ---
- Consultation REQUESTING PROVIDER: Juan IRBY CONSULT REQUEST: We have been asked to surgically evaluate this patient for ( specify). PCP:Lincoln Martinez MD HISTORY OF PRESENT ILLNESS:CTSP for evaluation and management of possible biliary tract disease; patient admitted w/sepsis; patient is vent dependent w/ mental retardation and w/ feeding tube; US was done lloking for source of sepsis and possible acute cholecystitis was found; she was admitted w/ an elevated WBC and fever; WBC has decreased; spiking temps persist. Tube feeding is in progress. PMHx: reviewed PSHx: reviewed Home Medications Medication Instructions Recorded Bacitracin - [Bacitracin Topical 1 applic TP BID 10/27/15 Ointment -] Baclofen 10 mg GT QID 10/27/15 Bisacodyl [Biscolax] 10 mg RC ASDIR PRN 10/27/15 Calcium Carbonate Suspension - 500 mg PEG DAILY 10/27/15 [Calcium Carb Oral Suspension -] Heparin - 5,000 unit SQ BID 10/27/15 Metoclopramide Oral Soln [Reglan 5 mg GT Q6H 10/27/15 Oral Solution -] Phenobarbital 80 mg GT BID 10/27/15 Polyethylene Glycol 3350 [Miralax 17 gm PEG BID 10/27/15 119 gm Btl -] Acetaminophen Suppository [Tylenol 650 mg KS Q6H PRN #0 supp.rect 11/15/15 .Suppository -] Amino Acids/Protein Hydrolys 30 ml GT BID@0800,1730 packet 11/15/15 [Prostat Sugar-Free Packet -] Albuterol 0.083% Nebulizer Gali 1 neb NEB Q6H 04/21/16 [Ventolin 0.083% Nebulizer Soln -] Albuterol 2.5/Ipratropium 0.5 1 neb NEB Q4H PRN 04/21/16 [Duoneb -] Ipratropium 0.02% Nebulizer 1 neb NEB Q6H 04/21/16 [Atrovent 0.02% Nebulizer -] Loperamide HCl [Imodium A-D] 4 mg GT BID PRN 04/21/16 Magnesium Hydroxide [Milk of 400 mg GT ASDIR PRN 04/21/16 Magnesia] Menthol/Zinc Oxide [Calmoseptine 0 gm TP ASDIR 04/21/16 Ointment] Na Phos,M-B/Na Phos,Di-Ba [Fleet 118 ml RC ASDIR PRN 04/21/16 Enema] Vit C/Ascorbate Calcium,Sodium 500 mg GT DAILY 04/21/16 [Vitamin C 500 mg/15 ml Liquid] Sulfamethoxazole/Trimethoprim 1 tab PO BID #10 tablet 04/26/16 [Bactrim Ds -] Levetiracetam [Keppra Oral 750 mg GT BID 11/23/16 Solution -] Allergies Allergy/AdvReac Type Severity Reaction Status Date / Time No Known Drug Allergies Allergy Verified 11/23/16 00:20 PHYSICAL EXAM: GENERAL: Vented and minimally responsive to deep stimulation. ABDOMEN: Soft, nontender, distended, normoactive bowel sounds, no guarding, no rebound, no masses. No organomegaly. RUQ transverse scal; LLQ scar; no hernias SKIN: Warm, dry, normal turgor. Vital Signs Temperature 99.0 F 11/26/16 14:33 Pulse Rate 134 H 11/26/16 14:33 Respiratory Rate 23 11/26/16 14:33 Blood Pressure 102/58 11/26/16 14:33 O2 Sat by Pulse Oximetry (%) 95 11/26/16 09:15 Lab Results WBC 9.9 K/mm3 (4.0-10.0) 11/26/16 09:20 RBC 2.95 M/mm3 (3.60-5.2) L 11/26/16 09:20 Hgb 8.4 GM/dL (10.7-15.3) L 11/26/16 09:20 Hct 26.0 % (32.4-45.2) L 11/26/16 09:20 MCV 88.1 fl (80-96) 11/26/16 09:20 MCHC 32.4 g/dl (32.0-36.0) 11/26/16 09:20 RDW 14.8 % (11.6-15.6) 11/26/16 09:20 Plt Count 217 K/MM3 (134-434) 11/26/16 09:20 Sodium 145 mmol/L (136-145) 11/26/16 09:20 Potassium 3.5 mmol/L (3.5-5.1) 11/26/16 09:20 Chloride 112 mmol/L (98-107) H 11/26/16 09:20 Carbon Dioxide 20 mmol/L (21-32) L 11/26/16 09:20 Anion Gap 13 (8-16) 11/26/16 09:20 BUN 22 mg/dL (7-18) H D 11/26/16 09:20 Creatinine 1.0 mg/dL (0.55-1.02) D 11/26/16 09:20 Random Glucose 335 mg/dL (74-106) H* D 11/26/16 09:20 Calcium 8.0 mg/dL (8.5-10.1) L 11/26/16 09:20 Blood Type O POSITIVE 11/23/16 01:23 Antibody Screen Negative 11/23/16 01:23 INR 1.40 (0.82-1.09) H 11/23/16 01:23 US/labs reviewed IMP: sepsis; possible acute cholelcystitis PLAN: Suggest keeping patient NPO/IVF/IVAB's/HIDA scan if possible and if positive possible percutaneous cholecystostomy; this patient is not a candidate in my opinion for operative intervention. Fabian Gage MD FACS Visit type - Case Type Case Type: ED Admission - Emergency Emergency Visit: Yes ED Registration Date: 11/23/16 Care time: The patient presented to the Emergency Department on the above date and was hospitalized for further evaluation of their emergent condition. - New patient This patient is new to me today: Yes Date on this admission: 11/26/16 - Critical Care Critical Care patient: No
--- NOTE | 2016-11-26 17:50 | PN ---
Teaching Attending Note Name of Resident: Domenic Esquivel ATTENDING PHYSICIAN STATEMENT I saw and evaluated the patient. I reviewed the resident's note and discussed the case with the resident. I agree with the resident's findings and plan as documented. SUBJECTIVE: Patient appears comfortable. OBJECTIVE: Vital Signs Period Temp Pulse Resp BP Sys/Stein Pulse Ox Last 24 Hr 98.9 F-103.2 F 100-134 14-23 96-104/56-80 95-100 HEART: S1S2, tachycardic LUNGS: Coarse breath sounds ABDOMEN: Soft, distended, normal BS, (+) PEG EXTREMITIES: Trace edema ASSESSMENT AND PLAN: This is a 41-year-old woman with a history of mental retardation, recurrent aspiration pneumonia, UTI, seizure disorder, GI bleed, chronic respiratory failure, tracheostomy, dysphagia, PEG who presented to the ER and was sent to the ER from [facility] because of fever and tachycardia. 1. Sepsis secondary to Pseudomonas UTI and Morganella bacteremia, possible acute cholecystitis/choledocholithiasis - Continue Zosyn, Azactam - NPO - Possible percutaneous cholecystostomy by IR 2. Abdominal distention and possible mass - CT 11/2015 showed no mass - Consider repeating CT of abdomen/pelvis 3. Seizure disorder - Stable - Continue Keppra, Phenobarbital 4. Mental retardation 5. Chronic hypoxic respiratory failure - On vent via tracheostomy 6. Nutrition - Continue Jevity, Prosource
[2016-11-27] MEDS: PIPERACILLIN/TAZOB 3.375 GM/50 ML PRE-DOCKED IVPB SCH ×3 (01:38→17:29)
[2016-11-27] MEDS: HEPARIN NA (PORCINE) 5,000 UNITS/ML 1ML VIAL SQ SCH (01:38)
[2016-11-27] MEDS: AZTREONAM 2 GM in DEXTROSE 5%-WATER - 100 ML IV SCH ×3 (02:56→18:46)
[2016-11-27] MEDS: SODIUM CHLORIDE 1,000 ML IV SCH ×2 (05:21→15:23)
[2016-11-27] MEDS: ALBUTEROL SO4 2.5/IPRATROPIUM 0.5 INH SOL 3 ML VIAL.NEB. NEB SCH ×2 (06:34→11:10)
[2016-11-27] MEDS: AMINO ACIDS/PROTEIN HYDROLYS 30 ML LIQUID.PKT GT SCH ×2 (08:34→17:29)
[2016-11-27] MEDS ORDERED: PT OWN MED DRAWER 7, Y5N ONE ×3 (09:54→22:54)
[2016-11-27] MEDS: BACLOFEN 10 MG TABLET (FP) GT SCH ×4 (09:57→23:13)
[2016-11-27] MEDS: CALCIUM CARBONATE SUSPENSION - 500 MG/5 ML ML PEG SCH (09:58)
[2016-11-27] MEDS: BACITRACIN 30 GM TUBE TOPICAL OINTMENT TP SCH ×2 (09:58→23:13)
[2016-11-27] MEDS: PHENobarbital 20 MG/5 ML UNIT-DOSE CUP GT SCH ×2 (09:59→23:21)
[2016-11-27] MEDS: NYSTATIN POWDER 100,000 UNITS/GM - 15 GM TOPICAL POWDER TP SCH (09:59)
[2016-11-27] MEDS: POLYETHYLENE GLYCOL 3350 119 GM BTL PEG SCH ×2 (09:59→23:13)
[2016-11-27] MEDS: ASCORBIC ACID 500 MG/5 ML UNIT DOSE CUP GT SCH (10:00)
[2016-11-27] MEDS: levETIRAcetam 500 MG/5 ML INJECTION VIAL IVPB SCH ×2 (12:01→23:13)
--- NOTE | 2016-11-27 14:59 | PN ---
Physical Exam: SUBJECTIVE: Patient seen and examined Pt awake, Intubated on vent Case discussed with patient mother, she is not sure if she want anything aggressive to done, any procedures or imaging requiring consent. She want to take sometimes to decide how to proceed and want to talk to palliative care OBJECTIVE: Vital Signs Period Temp Pulse Resp BP Sys/Stein Pulse Ox Last 24 Hr 99.0 F-101.1 F 80-126 14-22 104-123/61-82 98 GENERAL: Awake, alert, in no acute distress. NECK: Normal range of motion, supple without lymphadenopathy, JVD, or masses. Trach site in place with minimal amount of yellow mucus from trach. LUNGS: Scattered ronchi to auscultation bilaterally. No wheezes, and no crackles. No accessory muscle use. HEART: Regular rate and rhythm, normal S1 and S2 with systolic murmur, rub or gallop. ABDOMEN: Soft, nontender, distended, normoactive bowel sounds, no guarding, no rebound. Round mass in left mid abdomen. No hepatomegaly or splenomegaly. PEG TUbe in place with tube feeding. MUSCULOSKELETAL: Normal range of motion at all joints. No bony deformities or tenderness. No CVA tenderness. UPPER EXTREMITIES: 2+ pulses, warm, well-perfused. No cyanosis. No clubbing. No peripheral edema. LOWER EXTREMITIES: 2+ pulses, warm, well-perfused. No calf tenderness. trace peripheral edema. NEUROLOGICAL: non verbal , non-ambulatory, on ventilator SKIN: perineal rash Active Medications Generic Name Dose Route Start Last Admin Trade Name Freq PRN Reason Stop Dose Admin Acetaminophen 650 mg 11/24/16 00:51 11/26/16 20:15 Tylenol Oral Solution - NGT 650 mg Q4H PRN Administration FEVER OR PAIN Albuterol Sulfate 1 amp 11/23/16 17:19 Ventolin 0.083% Nebulizer Soln - NEB Q4H PRN SHORT OF BREATH/WHEEZING Albuterol/Ipratropium 1 amp 11/23/16 18:00 11/27/16 11:10 Duoneb - NEB 1 amp QIDR JUANJOSE Administration Amino Acids 30 ml 11/23/16 17:30 11/27/16 08:34 Prosource No Carb Liquid Pkt GT 30 ml BID@0800,1730 JUANJOSE Administration Ascorbic Acid 500 mg 11/23/16 11:38 11/27/16 10:00 Vitamin C Oral Solution - GT 500 mg DAILY JUANJOSE Administration Bacitracin 1 applic 11/23/16 22:00 11/27/16 09:58 Bacitracin - TP 1 applic BID JUANJOSE Administration Baclofen 10 mg 11/23/16 18:00 11/27/16 09:57 Lioresal - GT 10 mg QID JUANJOSE Administration Bisacodyl 10 mg 11/23/16 16:50 Dulcolax Suppository - RC Q72H PRN CONSTIPATION EVERY 3 DAYS Calcium Carbonate 500 mg 11/24/16 10:00 11/27/16 09:58 Calcium Carb Oral Suspension - PEG 500 mg DAILY JUANJOSE Administration Heparin Sodium (Porcine) 5,000 unit 11/23/16 10:00 11/27/16 01:38 Heparin - SQ 5,000 unit Q8H-IV JUANJOSE Administration Aztreonam 2 gm/ Dextrose 100 mls @ 100 mls/hr 11/25/16 14:30 11/27/16 09:57 IV 100 mls/hr Q8H-IV JUANJOSE Administration Protocol Sodium Chloride 1,000 mls @ 100 mls/hr 11/25/16 14:30 11/27/16 05:21 Normal Saline - IV 100 mls/hr ASDIR JUANJOSE Administration Levetiracetam 750 mg 11/23/16 11:00 11/27/16 12:01 Keppra Injection - IVPB 750 mg BID JUANJOSE Administration Magnesium Hydroxide 30 ml 11/23/16 16:50 Milk Of Magnesia - GT DAILY PRN NO BM FOR 48HR Nystatin 1 applic 11/25/16 14:45 11/27/16 09:59 Nystop Powder - TP 1 applic DAILY JUANJOSE Administration Phenobarbital 80 mg 11/23/16 10:56 11/27/16 09:59 Phenobarbital Liquid - GT 80 mg BID JUANJOSE Administration Piperacillin Sod/Tazobactam Sod 3.375 gm 11/23/16 18:00 11/27/16 11:12 Zosyn 3.375gm Ivpb (Pre-Docked) IVPB 3.375 gm Q8H-IV JUANJOSE Administration Protocol Polyethylene Glycol 17 gm 11/23/16 22:00 11/27/16 09:59 Miralax (For Daily Use) - PEG Not Given BID JUANJOSE CBC, BMP 11/26/16 09:20 11/26/16 09:20 Microbiology 11/24/16 20:33 Sputum - Endotrachea Suction/Ventilator Gram Stain - Final 11/23/16 05:02 Urine - Urine Clean Catch Urine Culture - Final Pseudomonas Aeruginosa 11/23/16 05:02 Blood - Peripheral Venous Blood Culture - Final Morganella Morganii 11/24/16 20:33 Sputum - Endotrachea Suction/Ventilator Sputum Culture - Preliminary Providencia Stuartii Non Lactose Fermenting Gnb#2 Non Lactose Fermenting Gnb#3 Non Lactose Fermenting Gnb 11/23/16 05:02 Blood - Peripheral Venous Blood Culture - Preliminary NO GROWTH OBTAINED AFTER 96 HOURS, INCUBATION TO CONTINUE FOR 1 DAYS. Laboratory Tests 11/26/16 09:20 Calcium 8.0 L Total Bilirubin 0.4 D AST 31 D ALT 44 D Alkaline Phosphatase 205 H D Albumin 1.9 L ASSESSMENT/PLAN: 41 year old female with pmh of Mental retardation, Recurrent aspiration pneumonia, UTI, Sepsis, Seizure disorder and GI bleed, Chronic respiratory failure with trach, Ventilator dependent from [facility] present to the ED with fever and Tachycardia. Sepsis work up was initiated. Sepsis likely from UTI r/o Aspiration PNA, PICC line CXR showed no changes, no consolidation, infiltrates seen UA with leuk, nitrite and wbc H/o resistant organism on Urine culture Received Vanco and levaquin In ED ID continued Zosyn IV 3.375mg daily Blood culture positive for Gram negative Mukesh 2/2 Trobamycin 250mg IV daily was started However Urine and blood culture results showed Pseudomonas and morganella that are resistant to trobamycin On Aztreonam per ID day 3 On Zosyn day 5 IV fluid with NS at 100ml/h Cholelithiasis/Acute cholecystitis/Comon bile duct Dilation r/o CBD obstruction/ stone CBD 9mm Pt is already on antibiotics with zosyn and aztreonam which covers gram negative and anaerobes Surgery consult Dr Gage, he reccomended Hida scan and Cholecystostomy is positive Mother is deciding if she should do palliative care or aggressive care. She requested to talk to member of the palliative care team Consider GI consult Abdominal distension (resolving) Abdomen is distended and tympanitic per nursing staff at [facility] she is usually distended especially when constipated Continue PEG tube feeding Acute urinary retention Garcia cath in place Chronic hypoxic respiratory failure with Ventilator dependence On same setting at [facility] AC12, TV 400, FiO2 40%, Peep 5 O2 sat 100 % Pulmonary consulted Dr Rivero Seizure disorder Resume Phenobarbital Change keppra to IV 750mg BID FEN Fluid: NS at 100 ml/h Electrolytes: chemistry in am Nutrition: Jevity at 45ml/h DVT prophylaxis: SCD, heparin SQ Disposition: Keep ventilator floor pending resolution of sepsis Visit type - Emergency Visit Emergency Visit: Yes ED Registration Date: 11/23/16 Care time: The patient presented to the Emergency Department on the above date and was hospitalized for further evaluation of their emergent condition. - New Patient This patient is new to me today: Yes Date on this admission: 11/27/16 - Critical Care Critical Care patient: No - Discharge Referral Referred to [facility] Med [facility].C.: No
--- NOTE | 2016-11-27 16:01 | PN ---
Progress Note (short form) - Note Progress Note: fevers trending down Vital Signs Period Temp Pulse Resp BP Sys/Stein Pulse Ox Last 24 Hr 99.0 F-101.1 F 80-126 14-22 104-145/61-82 98 trach to vent cor-rrr lungs decreased bs at bases abd soft,nt +GT ext no edema CBC, BMP 11/26/16 09:20 11/26/16 09:20 Microbiology 11/24/16 20:33 Gram Stain - Final Sputum - Endotrachea Suction/Ventilator Sputum Culture - Preliminary Providencia Stuartii Non Lactose Fermenting Gnb#2 Non Lactose Fermenting Gnb#3 Non Lactose Fermenting Gnb 11/23/16 05:02 Blood Culture - Preliminary Blood - Peripheral Venous NO GROWTH OBTAINED AFTER 96 HOURS, INCUBATION TO CONTINUE FOR 1 DAYS. a/p gram negative bacteremia- ?GI source- biliary -?acute cholycystitis surgical evaluation in progress continue zosyn and azactam day #3 chronic resp failure multiple developmental disabilities seizure disorder
--- NOTE | 2016-11-27 16:16 | PN ---
Teaching Attending Note Name of Resident: Domenic Esquivel ATTENDING PHYSICIAN STATEMENT I saw and evaluated the patient. I reviewed the resident's note and discussed the case with the resident. I agree with the resident's findings and plan as documented. SUBJECTIVE: Patient is comfortable. OBJECTIVE: Vital Signs Period Temp Pulse Resp BP Sys/Stein Pulse Ox Last 24 Hr 99.0 F-101.1 F 80-126 14-22 104-145/61-82 98 HEART: S1S2, tachycardic LUNGS: Bilateral rhonchi ABDOMEN: Soft, distended, normal BS, (+) PEG EXTREMITIES: Trace edema ASSESSMENT AND PLAN: This is a 41-year-old woman with a history of mental retardation, recurrent aspiration pneumonia, UTI, seizure disorder, GI bleed, chronic respiratory failure, tracheostomy, dysphagia, PEG who presented to the ER and was sent to the ER from [facility] because of fever and tachycardia. 1. Sepsis secondary to Pseudomonas UTI and Morganella bacteremia, possible acute cholecystitis/choledocholithiasis - Continue Zosyn, Azactam - NPO - Possible percutaneous cholecystostomy by IR - Mother is considering palliative care 2. Abdominal distention and possible mass - CT 11/2015 showed no mass - Consider repeating CT of abdomen/pelvis 3. Seizure disorder - Stable - Continue Keppra, Phenobarbital 4. Mental retardation 5. Chronic hypoxic respiratory failure - On vent via tracheostomy 6. Nutrition - Continue Jevity, Prosource
--- NOTE | 2016-11-27 16:26 | CON.PULM ---
Consult Consult Specialty:: PULM/CCM Referred by:: OLGA Reason for Consultation:: Chronic Respiratory Failure - History of Present Illness Chief Complaint: Fever History of Present Illness: 41 F, well known to me from multiple previous admissions. History of mental retardation, recurrent aspiration pneumonia, chronic respiratory failure with Trach placement, UTI, Sepsis, Seizure disorder, GI bleed, and dysphagia s/p PEG. Admitted via the ER due to fever. Patient is not able to provide any information. CXR : Compared to 03/2016 : rotated, no gross change in minimal basilar atelectasis (Improved left base atelectasis). 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, Other (developemental delay) Pulmonary: Yes: Previously Intubated Gastrointestinal: Yes: Other (s/p peg) - Alcohol/Substance Use Hx Alcohol Use: No History of Substance Use: reports: None - Smoking History Smoking history: Unknown if ever smoked Have you smoked in the past 12 months: No Aproximately how many cigarettes per day: 0 - Social History Usual Living Arrangement: Half-Way ADL: Support Services History of Recent Travel: No Home Medications - Allergies Allergies/Adverse Reactions: Allergies Allergy/AdvReac Type Severity Reaction Status Date / Time No Known Drug Allergies Allergy Verified 11/23/16 00:20 - Home Medications Home Medications: Ambulatory Orders Bacitracin - [Bacitracin Topical Ointment -] 1 applic TP BID 10/27/15 Baclofen 10 mg GT QID 10/27/15 Bisacodyl [Biscolax] 10 mg RC ASDIR PRN 10/27/15 Calcium Carbonate Suspension - [Calcium Carb Oral Suspension -] 500 mg PEG DAILY 10/27/15 Heparin - 5,000 unit SQ BID 10/27/15 Metoclopramide Oral Soln [Reglan Oral Solution -] 5 mg GT Q6H 10/27/15 Phenobarbital 80 mg GT BID 10/27/15 Polyethylene Glycol 3350 [Miralax 119 gm Btl -] 17 gm PEG BID 10/27/15 Acetaminophen Suppository [Tylenol .Suppository -] 650 mg RI Q6H PRN #0 supp.rect 11/15/15 Amino Acids/Protein Hydrolys [Prostat Sugar-Free Packet -] 30 ml GT BID@0800, 1730 packet 11/15/15 Albuterol 0.083% Nebulizer Gali [Ventolin 0.083% Nebulizer Soln -] 1 neb NEB Q6H 04/21/16 Albuterol 2.5/Ipratropium 0.5 [Duoneb -] 1 neb NEB Q4H PRN 04/21/16 Ipratropium 0.02% Nebulizer [Atrovent 0.02% Nebulizer -] 1 neb NEB Q6H 04/21/16 Loperamide HCl [Imodium A-D] 4 mg GT BID PRN 04/21/16 Magnesium Hydroxide [Milk of Magnesia] 400 mg GT ASDIR PRN 04/21/16 Menthol/Zinc Oxide [Calmoseptine Ointment] 0 gm TP ASDIR 04/21/16 Na Phos,M-B/Na Phos,Di-Ba [Fleet Enema] 118 ml RC ASDIR PRN 04/21/16 Vit C/Ascorbate Calcium,Sodium [Vitamin C 500 mg/15 ml Liquid] 500 mg GT DAILY 04/21/16 Sulfamethoxazole/Trimethoprim [Bactrim Ds -] 1 tab PO BID #10 tablet 04/26/16 Levetiracetam [Keppra Oral Solution -] 750 mg GT BID 11/23/16 Review of Systems Unable to obtain ROS, reason: not able to provide Physical Exam Vital Sings: Vital Signs Temperature 99.6 F 11/27/16 15:26 Pulse Rate 124 H 11/27/16 15:26 Respiratory Rate 18 11/27/16 15:26 Blood Pressure 145/77 11/27/16 15:26 O2 Sat by Pulse Oximetry (%) 98 11/27/16 10:26 Constitutional: Yes: No Distress Eyes: Yes: Conjunctiva Clear HENT: Yes: Atraumatic, Normocephalic Neck: Yes: Supple, Trachea Midline, Other (Tracheostomy intact ) Cardiovascular: Yes: Regular Rate and Rhythm Respiratory: Yes: Diminished, Mechanically Ventilated, Rhonchi. No: Accessory Muscle Use, Rales, Stridor, Tachypnea, Wheezes ...Inspection: Yes: Barrel Chest, Trachea Midline. No: Use of Accessory Muscles ...Clubbing: No Gastrointestinal: Yes: Normal Bowel Sounds, Soft Musculoskeletal: Yes: Joint Stiffness Extremities: Yes: Shortened Edema: No Peripheral Pulses WNL: Yes Integumentary: Yes: WNL Labs: CBC, BMP 11/26/16 09:20 11/26/16 09:20 Imaging - Results Chest X-ray: Report Reviewed, Image Reviewed Problem List - Problems (1) Mental retardation Code(s): F79 - UNSPECIFIED INTELLECTUAL DISABILITIES (2) Seizure disorder Code(s): G40.909 - EPILEPSY, UNSP, NOT INTRACTABLE, WITHOUT STATUS EPILEPTICUS (3) Anemia Code(s): D64.9 - ANEMIA, UNSPECIFIED (4) Atelectasis Code(s): J98.11 - ATELECTASIS (5) Chronic respiratory failure Code(s): J96.10 - CHRONIC RESPIRATORY FAILURE, UNSP W HYPOXIA OR HYPERCAPNIA (6) Seizure Code(s): R56.9 - UNSPECIFIED CONVULSIONS (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 Assessment/Plan PLAN: Continue current vent settings ABX per ID VTE prophylaxis Palliative Care evaluation to determine further GOC Change BD TX to PRN Nutritional support Will follow Thank you. Dr Hernandez
--- NOTE | 2016-11-27 16:30 | PN ---
Physical Exam: SUBJECTIVE: Patient seen and examined. She is nonverbal, on mechanical ventilation. T max 101.1F. OBJECTIVE: Vital Signs Period Temp Pulse Resp BP Sys/Stein Pulse Ox Last 24 Hr 99.0 F-101.1 F 80-126 14-22 104-145/61-82 98 GENERAL: The patient is nonverbal, in no acute distress, [facility]. HEAD: Normal with no signs of trauma. EYES: PERRL, extraocular movements not able to assess, sclera anicteric, conjunctiva clear. ENT: moist mucous membranes. NECK: Trachea midline, full range of motion, supple, trach. LUNGS: Breath sounds equal, crackles at bases B/L, no wheezes, no accessory muscle use. HEART: Regular rate and rhythm, S1, S2 without murmur, rub or gallop. ABDOMEN: Soft, nontender, distended, normoactive bowel sounds, no guarding, no rebound. EXTREMITIES: warm, no edema. NEUROLOGICAL: No facial asymmetry, gait not observed, not following commands. PSYCH: Normal mood, normal affect. SKIN: Warm, dry, normal turgor, no rashes. Garcia cath inserted, draining urine. Active Medications Generic Name Dose Route Start Last Admin Trade Name Freq PRN Reason Stop Dose Admin Acetaminophen 650 mg 11/24/16 00:51 11/26/16 20:15 Tylenol Oral Solution - NGT 650 mg Q4H PRN Administration FEVER OR PAIN Albuterol Sulfate 1 amp 11/23/16 17:19 Ventolin 0.083% Nebulizer Soln - NEB Q4H PRN SHORT OF BREATH/WHEEZING Albuterol/Ipratropium 1 amp 11/23/16 18:00 11/27/16 11:10 Duoneb - NEB 1 amp QIDR JUANJOSE Administration Amino Acids 30 ml 11/23/16 17:30 11/27/16 08:34 Prosource No Carb Liquid Pkt GT 30 ml BID@0800,1730 JUANJOSE Administration Ascorbic Acid 500 mg 11/23/16 11:38 11/27/16 10:00 Vitamin C Oral Solution - GT 500 mg DAILY JUANJOSE Administration Bacitracin 1 applic 11/23/16 22:00 11/27/16 09:58 Bacitracin - TP 1 applic BID JUANJOSE Administration Baclofen 10 mg 11/23/16 18:00 11/27/16 15:22 Lioresal - GT 10 mg QID JUANJOSE Administration Bisacodyl 10 mg 11/23/16 16:50 Dulcolax Suppository - RC Q72H PRN CONSTIPATION EVERY 3 DAYS Calcium Carbonate 500 mg 11/24/16 10:00 11/27/16 09:58 Calcium Carb Oral Suspension - PEG 500 mg DAILY JUANJOSE Administration Heparin Sodium (Porcine) 5,000 unit 11/23/16 10:00 11/27/16 01:38 Heparin - SQ 5,000 unit Q8H-IV JUANJOSE Administration Aztreonam 2 gm/ Dextrose 100 mls @ 100 mls/hr 11/25/16 14:30 11/27/16 09:57 IV 100 mls/hr Q8H-IV JUANJOSE Administration Protocol Sodium Chloride 1,000 mls @ 100 mls/hr 11/25/16 14:30 11/27/16 15:23 Normal Saline - IV Not Given ASDIR JUANJOSE Levetiracetam 750 mg 11/23/16 11:00 11/27/16 12:01 Keppra Injection - IVPB 750 mg BID JUANJOSE Administration Magnesium Hydroxide 30 ml 11/23/16 16:50 Milk Of Magnesia - GT DAILY PRN NO BM FOR 48HR Nystatin 1 applic 11/25/16 14:45 11/27/16 09:59 Nystop Powder - TP 1 applic DAILY JUANJOSE Administration Phenobarbital 80 mg 11/23/16 10:56 11/27/16 09:59 Phenobarbital Liquid - GT 80 mg BID JUANJOSE Administration Piperacillin Sod/Tazobactam Sod 3.375 gm 11/23/16 18:00 11/27/16 11:12 Zosyn 3.375gm Ivpb (Pre-Docked) IVPB 3.375 gm Q8H-IV JUANJOSE Administration Protocol Polyethylene Glycol 17 gm 11/23/16 22:00 11/27/16 09:59 Miralax (For Daily Use) - PEG Not Given BID JUANJOSE ASSESSMENT/PLAN: 41 year old female with a PMH of MR, recurrent UTI, aspiration pneumonia, seizure disorder, GI bleed, respiratory failure s/p trach. Sepsis due to UTI: -history of resistant organisms, multiple hospitalizations, last one in April 2016 -continue Aztreonam IV day 3 and cont. Zosyn 3.375 g IV Q8H day 5 -urine cultures Pseudomonas Aeruginosa, Blood cx Morganella Morgani-not known source -cont NS at rate 100 ml/hr -fever reported, Tmax 101.1 F Cholelithiasis/cholecystitis/Comon bile duct Dilation -US done, possible cholecystitis, the pt will continue current antibiotics, -consulted surgery, HIDA scan was recommended, family is deciding if they want surgery or palliative care Seizure disorder: -no seizure activity reported in the hospital Rash in groin: -applied Nystatin powder Dispo: We will continue to follow the patient. Thank you for this consultative opportunity. Visit type - Emergency Visit Emergency Visit: Yes ED Registration Date: 11/23/16 Care time: The patient presented to the Emergency Department on the above date and was hospitalized for further evaluation of their emergent condition. - New Patient This patient is new to me today: No - Critical Care Critical Care patient: No
[2016-11-27] MEDS: ACETAMINOPHEN 650 MG/20.3 ML ORAL SOLUTION (CUPS) NGT PRN (17:32)
[2016-11-27] MEDS: ALBUTEROL SO4 0.083% IH SOL 2.5 MG/3 ML VIAL.NEB. NEB PRN (17:39)
[2016-11-28] MEDS ORDERED: PT OWN MED DRAWER 7, Y5N ONE ×2 (01:10→16:57)
[2016-11-28] MEDS: AZTREONAM 2 GM in DEXTROSE 5%-WATER - 100 ML IV SCH ×3 (03:28→17:03)
[2016-11-28] MEDS: HEPARIN NA (PORCINE) 5,000 UNITS/ML 1ML VIAL SQ SCH ×3 (03:29→17:04)
[2016-11-28] MEDS: PIPERACILLIN/TAZOB 3.375 GM/50 ML PRE-DOCKED IVPB SCH ×3 (03:29→17:04)
[2016-11-28 08:48] LABS: ALBUMIN 1.7 g/dl (3.4-5.0); ANION GAP 13 (8-16); BILIRUBIN,TOTAL 0.3 mg/dL (0.2-1.0); CO2 18 mmol/L (21-32); CREATININE 0.8 mg/dL (0.55-1.02); GLUCOSE,RANDOM 104 mg/dL (74-106); SGOT/AST 20 U/L (15-37); SGPT/ALT 23 U/L (12-78); TOT PROT 6.2 g/dl (6.4-8.2)
[2016-11-28 08:49] LABS: ALK PHOS 129 U/L (45-117)
[2016-11-28 10:15] LABS: MCH 28.7 pg (25.7-33.7); MCHC 32.5 g/dl (32.0-36.0); MEAN CELL VOLUME 88.2 fl (80-96); MEAN PLT VOLUME 9.3 fl (7.5-11.1); WHITE BLOOD COUNT 14.3 K/mm3 (4.0-10.0)
[2016-11-28] MEDS: SODIUM CHLORIDE 1,000 ML IV SCH ×2 (10:29→14:18)
[2016-11-28] MEDS: AMINO ACIDS/PROTEIN HYDROLYS 30 ML LIQUID.PKT GT SCH ×2 (10:30→17:04)
[2016-11-28] MEDS: BACITRACIN 30 GM TUBE TOPICAL OINTMENT TP SCH ×2 (10:30→22:10)
[2016-11-28] MEDS: PHENobarbital 20 MG/5 ML UNIT-DOSE CUP GT SCH ×2 (10:31→22:08)
[2016-11-28] MEDS: levETIRAcetam 500 MG/5 ML INJECTION VIAL IVPB SCH (10:31)
[2016-11-28] MEDS: BACLOFEN 10 MG TABLET (FP) GT SCH ×4 (10:32→22:09)
[2016-11-28] MEDS: CALCIUM CARBONATE SUSPENSION - 500 MG/5 ML ML PEG SCH (10:45)
[2016-11-28] MEDS: ASCORBIC ACID 500 MG/5 ML UNIT DOSE CUP GT SCH (10:46)
[2016-11-28] MEDS: POLYETHYLENE GLYCOL 3350 119 GM BTL PEG SCH ×2 (10:47→22:09)
[2016-11-28] MEDS: NYSTATIN POWDER 100,000 UNITS/GM - 15 GM TOPICAL POWDER TP SCH (10:48)
--- NOTE | 2016-11-28 11:41 | PN ---
Physical Exam: SUBJECTIVE: Patient seen and examined Pt is stable on vent NO s/s of acute distress no fever overnight Last fever was yesterday afternoon OBJECTIVE: Vital Signs Period Temp Pulse Resp BP Sys/Stein Pulse Ox Last 24 Hr 98.8 F-100.4 F 92-127 14-20 103-145/51-77 98 GENERAL: Awake, alert, in no acute distress. NECK: Normal range of motion, supple without lymphadenopathy, JVD, or masses. Trach site in place, no mucus production. LUNGS: Scattered ronchi to auscultation bilaterally. No wheezes, and no crackles. No accessory muscle use. HEART: Regular rate and rhythm, normal S1 and S2 with systolic murmur, rub or gallop. ABDOMEN: Soft, nontender, distended, normoactive bowel sounds, no guarding, no rebound. Round mass in left mid abdomen. No hepatomegaly or splenomegaly. PEG TUbe in place with tube feeding. MUSCULOSKELETAL: Normal range of motion at all joints. No bony deformities or tenderness. No CVA tenderness. UPPER EXTREMITIES: 2+ pulses, warm, well-perfused. No cyanosis. No clubbing. No peripheral edema. LOWER EXTREMITIES: 2+ pulses, warm, well-perfused. No calf tenderness. trace peripheral edema. NEUROLOGICAL: non verbal , non-ambulatory, on ventilator SKIN: perineal rash Laboratory Results - last 24 hr 11/28/16 11/28/16 11/28/16 07:55 07:55 09:00 WBC Cancelled 14.3 H D Corrected WBC (auto) Cancelled RBC Cancelled 2.77 L Hgb Cancelled 7.9 L Hct Cancelled 24.4 L MCV Cancelled 88.2 MCHC Cancelled 32.5 RDW Cancelled 15.0 Plt Count Cancelled MPV Cancelled 9.3 D Differential Comment Cancelled Platelet Estimate Cancelled Platelet Comment Cancelled RBC Morphology Cancelled Sodium 146 H Potassium 4.0 Chloride 115 H Carbon Dioxide 18 L Anion Gap 13 BUN 28 H D Creatinine 0.8 Creat Clearance w eGFR > 60 Random Glucose 104 D Calcium 8.0 L Total Bilirubin 0.3 D AST 20 D ALT 23 D Alkaline Phosphatase 129 H D Total Protein 6.2 L Albumin 1.7 L Active Medications Generic Name Dose Route Start Last Admin Trade Name Freq PRN Reason Stop Dose Admin Acetaminophen 650 mg 11/24/16 00:51 11/27/16 17:32 Tylenol Oral Solution - NGT 650 mg Q4H PRN Administration FEVER OR PAIN Albuterol Sulfate 1 amp 11/23/16 17:19 11/27/16 17:39 Ventolin 0.083% Nebulizer Soln - NEB 1 amp Q4H PRN Administration SHORT OF BREATH/WHEEZING Amino Acids 30 ml 11/23/16 17:30 11/28/16 10:30 Prosource No Carb Liquid Pkt GT 30 ml BID@0800,1730 JUANJOSE Administration Ascorbic Acid 500 mg 11/23/16 11:38 11/28/16 10:46 Vitamin C Oral Solution - GT 500 mg DAILY JUANJOSE Administration Bacitracin 1 applic 11/23/16 22:00 11/28/16 10:30 Bacitracin - TP 1 applic BID JUANJOSE Administration Baclofen 10 mg 11/23/16 18:00 11/28/16 10:32 Lioresal - GT 10 mg QID JUANJOSE Administration Bisacodyl 10 mg 11/23/16 16:50 Dulcolax Suppository - RC Q72H PRN CONSTIPATION EVERY 3 DAYS Calcium Carbonate 500 mg 11/24/16 10:00 11/28/16 10:45 Calcium Carb Oral Suspension - PEG 500 mg DAILY JUANJOSE Administration Heparin Sodium (Porcine) 5,000 unit 11/23/16 10:00 11/28/16 10:32 Heparin - SQ 5,000 unit Q8H-IV JUANJOSE Administration Aztreonam 2 gm/ Dextrose 100 mls @ 100 mls/hr 11/25/16 14:30 11/28/16 10:31 IV 100 mls/hr Q8H-IV JUANJOSE Administration Protocol Sodium Chloride 1,000 mls @ 100 mls/hr 11/25/16 14:30 11/28/16 10:29 Normal Saline - IV 100 mls/hr ASDIR JUANJOSE Administration Insulin Aspart 1 vial 11/28/16 12:00 Novolog Vial Sliding Scale - SQ Q6HPO [facility] Protocol Levetiracetam 750 mg 11/23/16 11:00 11/28/16 10:31 Keppra Injection - IVPB 750 mg BID JUANJOSE Administration Magnesium Hydroxide 30 ml 11/23/16 16:50 Milk Of Magnesia - GT DAILY PRN NO BM FOR 48HR Nystatin 1 applic 11/25/16 14:45 11/28/16 10:48 Nystop Powder - TP 1 applic DAILY JUANJOSE Administration Phenobarbital 80 mg 11/23/16 10:56 11/28/16 10:31 Phenobarbital Liquid - GT 80 mg BID JUANJOSE Administration Piperacillin Sod/Tazobactam Sod 3.375 gm 11/23/16 18:00 11/28/16 10:30 Zosyn 3.375gm Ivpb (Pre-Docked) IVPB 3.375 gm Q8H-IV JUANJOSE Administration Protocol Polyethylene Glycol 17 gm 11/23/16 22:00 11/28/16 10:47 Miralax (For Daily Use) - PEG 17 gm BID JUANJOSE Administration CBC, BMP 11/28/16 09:00 11/28/16 07:55 Laboratory Tests 11/28/16 07:55 Calcium 8.0 L Total Bilirubin 0.3 D AST 20 D ALT 23 D Alkaline Phosphatase 129 H D Total Protein 6.2 L Albumin 1.7 L Microbiology 11/24/16 20:33 Sputum - Endotrachea Suction/Ventilator Gram Stain - Final 11/24/16 20:33 Sputum - Endotrachea Suction/Ventilator Sputum Culture - Final Providencia Stuartii Acinetobacter Baumannii/Haemol Pseudomonas Aeruginosa Morganella Morganii 11/23/16 05:02 Urine - Urine Clean Catch Urine Culture - Final Pseudomonas Aeruginosa 11/23/16 05:02 Blood - Peripheral Venous Blood Culture - Final NO GROWTH AFTER 5 DAYS INCUBATION 11/23/16 05:02 Blood - Peripheral Venous Blood Culture - Final Morganella Morganii ASSESSMENT/PLAN: 41 year old female with pmh of Mental retardation, Recurrent aspiration pneumonia, UTI, Sepsis, Seizure disorder and GI bleed, Chronic respiratory failure with trach, Ventilator dependent from [facility] present to the ED with fever and Tachycardia. Sepsis work up was initiated. Sepsis likely from UTI r/o Aspiration PNA, PICC line CXR showed no changes, no consolidation, infiltrates seen UA with leuk, nitrite and wbc H/o resistant organism on Urine culture Received Vanco and levaquin In ED ID continued Zosyn IV 3.375mg daily Trobamycin 250mg IV daily was started However Urine and blood culture results showed Pseudomonas and morganella that are resistant to trobamycin On Aztreonam per ID day 4 On Zosyn day 6 IV fluid with NS at 100ml/h Cholelithiasis/Acute cholecystitis/Comon bile duct Dilation r/o CBD obstruction/ stone CBD 9mm Pt is already on antibiotics with zosyn and aztreonam which covers gram negative and anaerobes Surgery consult Dr Gage, he reccomended Hida scan and Cholecystostomy is positive Mother is deciding if she should do palliative care or aggressive care. She requested to talk to member of the palliative care team Oneyda Moser not available Dr Puri consulted Consider GI consult Abdominal distension (resolving) Abdomen is distended and tympanitic per nursing staff at [facility] she is usually distended especially when constipated Continue PEG tube feeding Acute urinary retention Garcia cath in place Chronic hypoxic respiratory failure with Ventilator dependence On same setting at [facility] AC12, TV 400, FiO2 40%, Peep 5 O2 sat 100 % Pulmonary consulted Dr Rivero Seizure disorder Resume Phenobarbital willchnalizet keppra back to PO FEN Fluid: NS at 100 ml/h Electrolytes: chemistry in am Nutrition: Jevity at 45ml/h DVT prophylaxis: SCD, heparin SQ Disposition: Keep ventilator floor pending resolution of sepsis Visit type - Emergency Visit Emergency Visit: Yes ED Registration Date: 11/23/16 Care time: The patient presented to the Emergency Department on the above date and was hospitalized for further evaluation of their emergent condition. - New Patient This patient is new to me today: Yes - Critical Care Critical Care patient: No - Discharge Referral Referred to [facility] No
[2016-11-28 11:55] LABS: PLATELET ESTIMATE ADEQUATE (NORMAL)
[2016-11-28 11:56] LABS: PLATELET COUNT 248 K/MM3 (134-434)
[2016-11-28] MEDS: INSULIN SLIDING SCALE (NOVOLOG) 1 VIAL SQ SCH ×2 (12:23→17:34)
--- NOTE | 2016-11-28 13:29 | PN ---
Physical Exam: SUBJECTIVE: Patient seen and examined. Nonverbal, no overnight events, T max 100.4 F, family present at bedside. OBJECTIVE: Vital Signs Period Temp Pulse Resp BP Sys/Stein Pulse Ox Last 24 Hr 98.8 F-100.4 F 92-127 14-21 103-145/51-77 98-98 GENERAL: The patient is nonverbal, in no acute distress, on mech.ventilation, awake. HEAD: Normal with no signs of trauma. EYES: PERRL, extraocular movements not able to assess, sclera anicteric, conjunctiva clear. ENT: moist mucous membranes. NECK: Trachea midline, full range of motion, supple, trach. LUNGS: Breath sounds equal, crackles at bases B/L, no wheezes, no accessory muscle use. HEART: Regular rate and rhythm, S1, S2 without murmur, rub or gallop. ABDOMEN: Soft, nontender, distended, normoactive bowel sounds, no guarding, no rebound. EXTREMITIES: warm, no edema. NEUROLOGICAL: No facial asymmetry, gait not observed, not following commands. PSYCH: Normal mood, normal affect. SKIN: Warm, dry, normal turgor, no rashes. Garcia cath inserted, draining pink/red urine. Laboratory Results - last 24 hr 11/28/16 11/28/16 11/28/16 07:55 07:55 09:00 WBC Cancelled 14.3 H D Corrected WBC (auto) Cancelled RBC Cancelled 2.77 L Hgb Cancelled 7.9 L Hct Cancelled 24.4 L MCV Cancelled 88.2 MCHC Cancelled 32.5 RDW Cancelled 15.0 Plt Count Cancelled 248 MPV Cancelled 9.3 D Differential Comment Cancelled Platelet Estimate Cancelled Adequate Platelet Comment Cancelled No clumping noted RBC Morphology Cancelled Sodium 146 H Potassium 4.0 Chloride 115 H Carbon Dioxide 18 L Anion Gap 13 BUN 28 H D Creatinine 0.8 Creat Clearance w eGFR > 60 POC Glucometer Random Glucose 104 D Calcium 8.0 L Total Bilirubin 0.3 D AST 20 D ALT 23 D Alkaline Phosphatase 129 H D Total Protein 6.2 L Albumin 1.7 L 11/28/16 12:22 WBC Corrected WBC (auto) RBC Hgb Hct MCV MCHC RDW Plt Count MPV Differential Comment Platelet Estimate Platelet Comment RBC Morphology Sodium Potassium Chloride Carbon Dioxide Anion Gap BUN Creatinine Creat Clearance w eGFR POC Glucometer 132 Random Glucose Calcium Total Bilirubin AST ALT Alkaline Phosphatase Total Protein Albumin Active Medications Generic Name Dose Route Start Last Admin Trade Name Edwin PRN Reason Stop Dose Admin Acetaminophen 650 mg 11/24/16 00:51 11/27/16 17:32 Tylenol Oral Solution - NGT 650 mg Q4H PRN Administration FEVER OR PAIN Albuterol Sulfate 1 amp 11/23/16 17:19 11/27/16 17:39 Ventolin 0.083% Nebulizer Soln - NEB 1 amp Q4H PRN Administration SHORT OF BREATH/WHEEZING Amino Acids 30 ml 11/23/16 17:30 11/28/16 10:30 Prosource No Carb Liquid Pkt GT 30 ml BID@0800,1730 JUANJOSE Administration Ascorbic Acid 500 mg 11/23/16 11:38 11/28/16 10:46 Vitamin C Oral Solution - GT 500 mg DAILY JUANJOSE Administration Bacitracin 1 applic 11/23/16 22:00 11/28/16 10:30 Bacitracin - TP 1 applic BID JUANJOSE Administration Baclofen 10 mg 11/23/16 18:00 11/28/16 10:32 Lioresal - GT 10 mg QID JUANJOSE Administration Bisacodyl 10 mg 11/23/16 16:50 Dulcolax Suppository - RC Q72H PRN CONSTIPATION EVERY 3 DAYS Calcium Carbonate 500 mg 11/24/16 10:00 11/28/16 10:45 Calcium Carb Oral Suspension - PEG 500 mg DAILY JUANJOSE Administration Heparin Sodium (Porcine) 5,000 unit 11/23/16 10:00 11/28/16 10:32 Heparin - SQ 5,000 unit Q8H-IV JUANJOSE Administration Aztreonam 2 gm/ Dextrose 100 mls @ 100 mls/hr 11/25/16 14:30 11/28/16 10:31 IV 100 mls/hr Q8H-IV JUANJOSE Administration Protocol Sodium Chloride 1,000 mls @ 100 mls/hr 11/25/16 14:30 11/28/16 10:29 Normal Saline - IV 100 mls/hr ASDIR JUANJOSE Administration Insulin Aspart 1 vial 11/28/16 12:00 11/28/16 12:23 Novolog Vial Sliding Scale - SQ Not Given Q6HPO JUANJOSE Protocol Levetiracetam 750 mg 11/23/16 11:00 11/28/16 10:31 Keppra Injection - IVPB 750 mg BID JUANJOSE Administration Magnesium Hydroxide 30 ml 11/23/16 16:50 Milk Of Magnesia - GT DAILY PRN NO BM FOR 48HR Nystatin 1 applic 11/25/16 14:45 11/28/16 10:48 Nystop Powder - TP 1 applic DAILY JUANJOSE Administration Phenobarbital 80 mg 11/23/16 10:56 11/28/16 10:31 Phenobarbital Liquid - GT 80 mg BID JUANJOSE Administration Piperacillin Sod/Tazobactam Sod 3.375 gm 11/23/16 18:00 11/28/16 10:30 Zosyn 3.375gm Ivpb (Pre-Docked) IVPB 3.375 gm Q8H-IV JUANJOSE Administration Protocol Polyethylene Glycol 17 gm 11/23/16 22:00 11/28/16 10:47 Miralax (For Daily Use) - PEG 17 gm BID JUANJOSE Administration Microbiology 11/24/16 20:33 Sputum - Endotrachea Suction/Ventilator Gram Stain - Final 11/24/16 20:33 Sputum - Endotrachea Suction/Ventilator Sputum Culture - Final Providencia Stuartii Acinetobacter Baumannii/Haemol Pseudomonas Aeruginosa Morganella Morganii 11/23/16 05:02 Blood - Peripheral Venous Blood Culture - Final NO GROWTH AFTER 5 DAYS INCUBATION 11/23/16 05:02 Urine - Urine Clean Catch Urine Culture - Final Pseudomonas Aeruginosa 11/23/16 05:02 Blood - Peripheral Venous Blood Culture - Final Morganella Morganii ASSESSMENT/PLAN: 41 year old female with a PMH of MR, recurrent UTI, aspiration pneumonia, seizure disorder, GI bleed, respiratory failure s/p trach. Sepsis due to UTI: -history of resistant organisms, multiple hospitalizations, last one in April 2016 -continue Aztreonam IV day 4 and cont. Zosyn 3.375 g IV Q8H day 6 -urine cultures Pseudomonas Aeruginosa, Blood cx Morganella Morgani -cont NS at rate 100 ml/hr -fever reported, Tmax 100.4 F -will discuss with primary care team the next step in management Cholelithiasis/cholecystitis/Comon bile duct Dilation -US done, possible cholecystitis, the pt will continue current antibiotics, -consulted surgery, HIDA scan was recommended, family decided not to operate the pt Seizure disorder: -no seizure activity reported in the hospital Rash in groin: -applied Nystatin powder Dispo: We will continue to follow the patient. Thank you for this consultative opportunity. Problem List - Problems (1) Mental retardation Code(s): F79 - UNSPECIFIED INTELLECTUAL DISABILITIES (2) Seizure disorder Code(s): G40.909 - EPILEPSY, UNSP, NOT INTRACTABLE, WITHOUT STATUS EPILEPTICUS (3) Chronic respiratory failure Code(s): J96.10 - CHRONIC RESPIRATORY FAILURE, UNSP W HYPOXIA OR HYPERCAPNIA (4) Sepsis Code(s): A41.9 - SEPSIS, UNSPECIFIED ORGANISM Qualifiers: Sepsis type: sepsis due to unspecified organism Qualified Code(s): A41.9 - Sepsis, unspecified organism Visit type - Emergency Visit Emergency Visit: Yes ED Registration Date: 11/23/16 Care time: The patient presented to the Emergency Department on the above date and was hospitalized for further evaluation of their emergent condition. - New Patient This patient is new to me today: No - Critical Care Critical Care patient: No
--- NOTE | 2016-11-28 14:32 | PN ---
Progress Note (short form) - Note Progress Note: PULMONARY NO OVERALL CHANGE IN EXAM LOW GRADE TEMP CONTINUES CHART/MEDS/NOTES/IMAGING/LABS REVIEWED (1) Mental retardation Code(s): F79 - UNSPECIFIED INTELLECTUAL DISABILITIES (2) Seizure disorder Code(s): G40.909 - EPILEPSY, UNSP, NOT INTRACTABLE, WITHOUT STATUS EPILEPTICUS (3) Anemia Code(s): D64.9 - ANEMIA, UNSPECIFIED (4) Atelectasis Code(s): J98.11 - ATELECTASIS (5) Chronic respiratory failure Code(s): J96.10 - CHRONIC RESPIRATORY FAILURE, UNSP W HYPOXIA OR HYPERCAPNIA (6) Seizure Code(s): R56.9 - UNSPECIFIED CONVULSIONS (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 Assessment/Plan PLAN: Continue current vent settings ABX per ID VTE prophylaxis Palliative Care evaluation to determine further GOC Change BD TX to PRN Nutritional support Will follow Connie MORA MD
--- NOTE | 2016-11-28 15:06 | PN ---
Teaching Attending Note Name of Resident: Lidya Ha ATTENDING PHYSICIAN STATEMENT I saw and evaluated the patient. I reviewed the resident's note and discussed the case with the resident. I agree with the resident's findings and plan as documented. SUBJECTIVE: OBJECTIVE: ASSESSMENT AND PLAN: fevers trending down on treatment for bactremia (morganella) and pseudomonas UTI possible cholcystitis as etiology of bacteremia ?CBD dilatation will discuss with primary service not sure what will be endpoint of care
--- NOTE | 2016-11-28 16:10 | PN ---
Teaching Attending Note Name of Resident: Domenic Esquivel ATTENDING PHYSICIAN STATEMENT I saw and evaluated the patient. I reviewed the resident's note and discussed the case with the resident. I agree with the resident's findings and plan as documented. SUBJECTIVE: Patient appears comfortable. OBJECTIVE: Vital Signs Period Temp Pulse Resp BP Sys/Stein Pulse Ox Last 24 Hr 98.8 F-100.4 F 92-127 16-21 87-124/51-75 98-98 ASSESSMENT AND PLAN: This is a 41-year-old woman with a history of mental retardation, recurrent aspiration pneumonia, UTI, seizure disorder, GI bleed, chronic respiratory failure, tracheostomy, dysphagia, PEG who presented to the ER and was sent to the ER from [facility] because of fever and tachycardia. 1. Sepsis secondary to Pseudomonas UTI and Morganella bacteremia, possible acute cholecystitis/choledocholithiasis - Continue Zosyn, Azactam - NPO - Possible percutaneous cholecystostomy by IR - Mother is considering palliative care 2. Abdominal distention and possible mass - CT 11/2015 showed no mass - Consider repeating CT of abdomen/pelvis 3. Seizure disorder - Stable - Continue Keppra, Phenobarbital 4. Mental retardation 5. Chronic hypoxic respiratory failure - On vent via tracheostomy 6. Nutrition - Continue Jevity, Prosource
[2016-11-28] MEDS ORDERED: INSULIN (NOVOLOG) ASPART 100 UNITS/ML 10ML VIAL ONE (17:43)
[2016-11-28] MEDS: levETIRAcetam 250 MG TABLET (FP) PO SCH (22:08)
[2016-11-29] MEDS: INSULIN SLIDING SCALE (NOVOLOG) 1 VIAL SQ SCH ×5 (00:36→23:51)
[2016-11-29] MEDS: SODIUM CHLORIDE 1,000 ML IV SCH ×2 (01:39→14:39)
[2016-11-29] MEDS: PIPERACILLIN/TAZOB 3.375 GM/50 ML PRE-DOCKED IVPB SCH ×3 (01:40→17:13)
[2016-11-29] MEDS: AZTREONAM 2 GM in DEXTROSE 5%-WATER - 100 ML IV SCH ×3 (02:08→17:13)
[2016-11-29] MEDS: HEPARIN NA (PORCINE) 5,000 UNITS/ML 1ML VIAL SQ SCH ×3 (02:09→17:13)
[2016-11-29] MEDS ORDERED: PT OWN MED DRAWER 7, Y5N ONE ×2 (08:26→16:44)
[2016-11-29] MEDS: AMINO ACIDS/PROTEIN HYDROLYS 30 ML LIQUID.PKT GT SCH ×2 (08:33→17:13)
--- NOTE | 2016-11-29 09:23 | PN ---
Physical Exam: SUBJECTIVE: Patient seen and examined. She developed hematuria yesterday and urine is less bloody today. She appears comfortable. OBJECTIVE: Vital Signs Period Temp Pulse Resp BP Sys/Stein Pulse Ox Last 24 Hr 99.1 F-100.4 F 79-121 15-24 87-110/50-72 98-98 GENERAL: The patient is in no acute distress. LUNGS: Bilateral rhonchi. HEART: Tachycardic, S1, S2 without murmur, rub or gallop. ABDOMEN: Soft, nondistended, normoactive bowel sounds. EXTREMITIES: 2+ pulses, warm, well-perfused, no edema. Laboratory Results - last 24 hr 11/28/16 11/28/16 11/28/16 09:00 12:22 17:33 WBC 14.3 H D RBC 2.77 L Hgb 7.9 L Hct 24.4 L MCV 88.2 MCHC 32.5 RDW 15.0 Plt Count 248 MPV 9.3 D Platelet Estimate Adequate Platelet Comment No clumping noted POC Glucometer 132 135 11/28/16 11/29/16 22:24 05:34 WBC RBC Hgb Hct MCV MCHC RDW Plt Count MPV Platelet Estimate Platelet Comment POC Glucometer 166 210 Active Medications Generic Name Dose Route Start Last Admin Trade Name Freq PRN Reason Stop Dose Admin Acetaminophen 650 mg 11/24/16 00:51 11/27/16 17:32 Tylenol Oral Solution - NGT 650 mg Q4H PRN Administration FEVER OR PAIN Albuterol Sulfate 1 amp 11/23/16 17:19 11/27/16 17:39 Ventolin 0.083% Nebulizer Soln - NEB 1 amp Q4H PRN Administration SHORT OF BREATH/WHEEZING Amino Acids 30 ml 11/23/16 17:30 11/29/16 08:33 Prosource No Carb Liquid Pkt GT 30 ml BID@0800,1730 JUANJOSE Administration Ascorbic Acid 500 mg 11/23/16 11:38 11/28/16 10:46 Vitamin C Oral Solution - GT 500 mg DAILY JUANJOSE Administration Bacitracin 1 applic 11/23/16 22:00 11/28/16 22:10 Bacitracin - TP 1 applic BID JUANJOSE Administration Baclofen 10 mg 11/23/16 18:00 11/28/16 22:09 Lioresal - GT 10 mg QID JUANJOSE Administration Bisacodyl 10 mg 11/23/16 16:50 Dulcolax Suppository - RC Q72H PRN CONSTIPATION EVERY 3 DAYS Calcium Carbonate 500 mg 11/24/16 10:00 11/28/16 10:45 Calcium Carb Oral Suspension - PEG 500 mg DAILY JUANJOSE Administration Heparin Sodium (Porcine) 5,000 unit 11/23/16 10:00 11/29/16 02:09 Heparin - SQ 5,000 unit Q8H-IV JUANJOSE Administration Aztreonam 2 gm/ Dextrose 100 mls @ 100 mls/hr 11/25/16 14:30 11/29/16 02:08 IV 100 mls/hr Q8H-IV JUANJOSE Administration Protocol Sodium Chloride 1,000 mls @ 100 mls/hr 11/25/16 14:30 11/29/16 01:39 Normal Saline - IV 100 mls/hr ASDIR JUANJOSE Administration Insulin Aspart 1 vial 11/28/16 12:00 11/29/16 05:39 Novolog Vial Sliding Scale - SQ 4 units Q6HPO JUANJOSE Administration Protocol Levetiracetam 750 mg 11/28/16 22:00 11/28/16 22:08 Keppra - PO 750 mg BID JUANJOSE Administration Magnesium Hydroxide 30 ml 11/23/16 16:50 Milk Of Magnesia - GT DAILY PRN NO BM FOR 48HR Nystatin 1 applic 11/25/16 14:45 11/28/16 10:48 Nystop Powder - TP 1 applic DAILY JUANJOSE Administration Phenobarbital 80 mg 11/23/16 10:56 11/28/16 22:08 Phenobarbital Liquid - GT 80 mg BID JUANJOSE Administration Piperacillin Sod/Tazobactam Sod 3.375 gm 11/23/16 18:00 11/29/16 01:40 Zosyn 3.375gm Ivpb (Pre-Docked) IVPB 3.375 gm Q8H-IV JUANJOSE Administration Protocol Polyethylene Glycol 17 gm 11/23/16 22:00 11/28/16 22:09 Miralax (For Daily Use) - PEG 17 gm BID JUANJOSE Administration ASSESSMENT/PLAN: This is a 41-year-old woman with a history of mental retardation, recurrent aspiration pneumonia, UTI, seizure disorder, GI bleed, chronic respiratory failure, tracheostomy, dysphagia, PEG who presented to the ER and was sent to the ER from [facility] because of fever and tachycardia. 1. Sepsis secondary to Pseudomonas UTI and Morganella bacteremia, possible acute cholecystitis/choledocholithiasis - Continue Zosyn, Azactam - NPO - Plan for HIDA on 12/01 - Mother is considering palliative care 2. Abdominal distention and possible mass - CT 11/2015 showed no mass - Consider repeating CT of abdomen/pelvis 3. Seizure disorder - Stable - Continue Keppra, Phenobarbital 4. Mental retardation 5. Chronic hypoxic respiratory failure - On vent via tracheostomy 6. Nutrition - Continue Jevity, Prosource Visit type - Emergency Visit Emergency Visit: Yes ED Registration Date: 11/23/16 Care time: The patient presented to the Emergency Department on the above date and was hospitalized for further evaluation of their emergent condition. - New Patient This patient is new to me today: No - Critical Care Critical Care patient: No
[2016-11-29] MEDS: BACITRACIN 30 GM TUBE TOPICAL OINTMENT TP SCH ×2 (10:39→22:47)
[2016-11-29] MEDS: levETIRAcetam 250 MG TABLET (FP) PO SCH ×2 (10:39→22:47)
[2016-11-29] MEDS: CALCIUM CARBONATE SUSPENSION - 500 MG/5 ML ML PEG SCH (10:41)
[2016-11-29] MEDS: BACLOFEN 10 MG TABLET (FP) GT SCH ×4 (10:41→22:47)
[2016-11-29] MEDS: PHENobarbital 20 MG/5 ML UNIT-DOSE CUP GT SCH ×2 (10:42→22:48)
[2016-11-29] MEDS: POLYETHYLENE GLYCOL 3350 119 GM BTL PEG SCH ×2 (10:43→22:47)
[2016-11-29] MEDS: ASCORBIC ACID 500 MG/5 ML UNIT DOSE CUP GT SCH (10:43)
[2016-11-29] MEDS: NYSTATIN POWDER 100,000 UNITS/GM - 15 GM TOPICAL POWDER TP SCH (10:44)
--- NOTE | 2016-11-29 12:02 | PN ---
Progress Note (short form) - Note Progress Note: Eyes are open. NAD on AC mode of vent. Low grade temperatures. Intake & Output 11/26/16 11/27/16 11/28/16 11/29/16 23:59 23:59 23:59 23:59 Intake Total 3970 3150 2910 1200 Output Total 3000 2600 1800 1500 Balance 916 449 0423 -300 Last Vital Signs Temp Pulse Resp BP Pulse Ox 99.7 F H 120 H 18 96/64 98 11/29/16 09:18 11/29/16 10:38 11/29/16 10:38 11/29/16 09:18 11/29/16 10:38 Active Medications Acetaminophen (Tylenol Oral Solution -) 650 mg NGT Q4H PRN PRN Reason: FEVER OR PAIN Last Admin: 11/27/16 17:32 Dose: 650 mg Albuterol Sulfate (Ventolin 0.083% Nebulizer Soln -) 1 amp NEB Q4H PRN PRN Reason: SHORT OF BREATH/WHEEZING Last Admin: 11/27/16 17:39 Dose: 1 amp Amino Acids (Prosource No Carb Liquid Pkt) 30 ml GT BID@0800,1730 [facility] Last Admin: 11/29/16 08:33 Dose: 30 ml Ascorbic Acid (Vitamin C Oral Solution -) 500 mg GT DAILY [facility] Last Admin: 11/29/16 10:43 Dose: 500 mg Bacitracin (Bacitracin -) 1 applic TP BID [facility] Last Admin: 11/29/16 10:39 Dose: 1 applic Baclofen (Lioresal -) 10 mg GT QID [facility] Last Admin: 11/29/16 10:41 Dose: 10 mg Bisacodyl (Dulcolax Suppository -) 10 mg RC Q72H PRN PRN Reason: CONSTIPATION EVERY 3 DAYS Calcium Carbonate (Calcium Carb Oral Suspension -) 500 mg PEG DAILY [facility] Last Admin: 11/29/16 10:41 Dose: 500 mg Heparin Sodium (Porcine) (Heparin -) 5,000 unit SQ Q8H-IV [facility]UANJOSE Last Admin: 11/29/16 10:38 Dose: 5,000 unit Aztreonam 2 gm/ Dextrose 100 mls @ 100 mls/hr IV Q8H-IV JUANJOSE PRN Reason: Protocol Last Admin: 11/29/16 10:38 Dose: 100 mls/hr Sodium Chloride (Normal Saline -) 1,000 mls @ 100 mls/hr IV ASDIR [facility] Last Admin: 11/29/16 01:39 Dose: 100 mls/hr Insulin Aspart (Novolog Vial Sliding Scale -) 1 vial SQ Q6HPO [facility] PRN Reason: Protocol Last Admin: 11/29/16 05:39 Dose: 4 units Levetiracetam (Keppra -) 750 mg PO BID [facility] Last Admin: 11/29/16 10:39 Dose: 750 mg Magnesium Hydroxide (Milk Of Magnesia -) 30 ml GT DAILY PRN PRN Reason: NO BM FOR 48HR Nystatin (Nystop Powder -) 1 applic TP DAILY [facility] Last Admin: 11/29/16 10:44 Dose: 1 applic Phenobarbital (Phenobarbital Liquid -) 80 mg GT BID [facility] Last Admin: 11/29/16 10:42 Dose: 80 mg Piperacillin Sod/Tazobactam Sod (Zosyn 3.375gm Ivpb (Pre-Docked)) 3.375 gm IVPB Q8H-IV JUANJOSE PRN Reason: Protocol Last Admin: 11/29/16 10:38 Dose: 3.375 gm Polyethylene Glycol (Miralax (For Daily Use) -) 17 gm PEG BID [facility] Last Admin: 11/29/16 10:43 Dose: 17 gm Constitutional: Yes: No Distress Eyes: Yes: Conjunctiva Clear HENT: Yes: Atraumatic, Normocephalic Neck: Yes: Supple, Trachea Midline, Other (Tracheostomy intact ) Cardiovascular: Yes: Regular Rate and Rhythm Respiratory: Yes: Diminished, Mechanically Ventilated, Rhonchi. No: Accessory Muscle Use, Rales, Stridor, Tachypnea, Wheezes ...Inspection: Yes: Barrel Chest, Trachea Midline. No: Use of Accessory Muscles ...Clubbing: No Gastrointestinal: Yes: Normal Bowel Sounds, Soft Musculoskeletal: Yes: Joint Stiffness Extremities: Yes: Shortened Edema: No Peripheral Pulses WNL: Yes Integumentary: Yes: WNL Labs: Laboratory Results - last 24 hr 11/28/16 11/28/16 11/28/16 12:22 17:33 22:24 POC Glucometer 132 135 166 11/29/16 05:34 POC Glucometer 210 Problem List - Problems (1) Mental retardation Code(s): F79 - UNSPECIFIED INTELLECTUAL DISABILITIES (2) Seizure disorder Code(s): G40.909 - EPILEPSY, UNSP, NOT INTRACTABLE, WITHOUT STATUS EPILEPTICUS (3) Anemia Code(s): D64.9 - ANEMIA, UNSPECIFIED (4) Atelectasis Code(s): J98.11 - ATELECTASIS (5) Chronic respiratory failure Code(s): J96.10 - CHRONIC RESPIRATORY FAILURE, UNSP W HYPOXIA OR HYPERCAPNIA (6) Seizure Code(s): R56.9 - UNSPECIFIED CONVULSIONS (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 Assessment/Plan Current vent settings ABX per ID VTE prophylaxis BD TX PRN Ongoing discussions for GOC Dr Hernandez Problem List - Problems (1) Mental retardation Code(s): F79 - UNSPECIFIED INTELLECTUAL DISABILITIES (2) Seizure disorder Code(s): G40.909 - EPILEPSY, UNSP, NOT INTRACTABLE, WITHOUT STATUS EPILEPTICUS (3) Anemia Code(s): D64.9 - ANEMIA, UNSPECIFIED (4) Atelectasis Code(s): J98.11 - ATELECTASIS (5) Chronic respiratory failure Code(s): J96.10 - CHRONIC RESPIRATORY FAILURE, UNSP W HYPOXIA OR HYPERCAPNIA (6) Seizure Code(s): R56.9 - UNSPECIFIED CONVULSIONS (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
[2016-11-29] MEDS: ACETAMINOPHEN 650 MG/20.3 ML ORAL SOLUTION (CUPS) NGT PRN (14:40)
[2016-11-30] MEDS: AZTREONAM 2 GM in DEXTROSE 5%-WATER - 100 ML IV SCH ×3 (02:04→18:58)
[2016-11-30] MEDS: HEPARIN NA (PORCINE) 5,000 UNITS/ML 1ML VIAL SQ SCH ×3 (02:06→17:56)
[2016-11-30] MEDS: SODIUM CHLORIDE 1,000 ML IV SCH ×2 (02:47→14:06)
[2016-11-30] MEDS: PIPERACILLIN/TAZOB 3.375 GM/50 ML PRE-DOCKED IVPB SCH ×3 (02:48→18:06)
[2016-11-30] MEDS: INSULIN SLIDING SCALE (NOVOLOG) 1 VIAL SQ SCH ×4 (06:08→23:59)
[2016-11-30 09:20] LABS: MCH 28.8 pg (25.7-33.7); MCHC 32.4 g/dl (32.0-36.0); MEAN CELL VOLUME 88.8 fl (80-96); MEAN PLT VOLUME 8.7 fl (7.5-11.1); PLATELET COUNT 263 K/MM3 (134-434); RDW 14.9 % (11.6-15.6); WHITE BLOOD COUNT 15.5 K/mm3 (4.0-10.0)
[2016-11-30 09:44] LABS: CALCIUM 7.8 mg/dL (8.5-10.1); COCKROFT - GAULT 115.8125; CREATININE 0.7 mg/dL (0.55-1.02)
[2016-11-30] MEDS ORDERED: PT OWN MED DRAWER 7, Y5N ONE ×2 (10:13→17:57)
[2016-11-30] MEDS: CALCIUM CARBONATE SUSPENSION - 500 MG/5 ML ML PEG SCH (10:29)
[2016-11-30] MEDS: AMINO ACIDS/PROTEIN HYDROLYS 30 ML LIQUID.PKT GT SCH ×2 (10:29→18:06)
[2016-11-30] MEDS: ASCORBIC ACID 500 MG/5 ML UNIT DOSE CUP GT SCH (10:29)
[2016-11-30] MEDS: levETIRAcetam 250 MG TABLET (FP) PO SCH ×2 (10:30→23:35)
[2016-11-30] MEDS: BACLOFEN 10 MG TABLET (FP) GT SCH ×4 (10:30→23:35)
[2016-11-30] MEDS: NYSTATIN POWDER 100,000 UNITS/GM - 15 GM TOPICAL POWDER TP SCH (10:32)
[2016-11-30] MEDS: BACITRACIN 30 GM TUBE TOPICAL OINTMENT TP SCH ×2 (10:32→23:35)
[2016-11-30] MEDS: POLYETHYLENE GLYCOL 3350 119 GM BTL PEG SCH ×2 (10:34→23:36)
[2016-11-30 10:48] LABS: ANISOCYTOSIS 2+; HYPOCHROMIA 2+; PLATELET COMMENT2 NO CLOTTING DETECTED; PLATELET ESTIMATE ADEQUATE (NORMAL)
--- NOTE | 2016-11-30 11:02 | PN ---
Physical Exam: SUBJECTIVE: Patient seen and examined OBJECTIVE: Vital Signs Period Temp Pulse Resp BP Sys/Stein Pulse Ox Last 24 Hr 98.8 F-100.2 F 102-123 18-26 95-111/49-70 GENERAL: The patient is in no acute distress. LUNGS: Bilateral rhonchi. HEART: Tachycardic, S1, S2 without murmur, rub or gallop. ABDOMEN: Soft, nondistended, normoactive bowel sounds. EXTREMITIES: 2+ pulses, warm, well-perfused, no edema. Laboratory Results - last 24 hr 11/29/16 11/29/16 11/29/16 12:17 17:14 23:47 WBC RBC Hgb Hct MCV MCHC RDW Plt Count MPV Neutrophils % Lymphocytes % Monocytes % Eosinophils % Band Neutrophils Platelet Estimate Platelet Comment Hypochromic-Microcytic Anisocytosis Sodium Potassium Chloride Carbon Dioxide Anion Gap BUN Creatinine POC Glucometer 242 227 196 Random Glucose Calcium 11/30/16 11/30/16 11/30/16 06:03 08:15 08:15 WBC 15.5 H RBC 2.75 L Hgb 7.9 L Hct 24.4 L MCV 88.8 MCHC 32.4 RDW 14.9 Plt Count 263 MPV 8.7 Neutrophils % 75.0 Lymphocytes % 16.0 D Monocytes % 4.0 Eosinophils % 2.0 Band Neutrophils 3.0 D Platelet Estimate Adequate Platelet Comment No clotting detected Hypochromic-Microcytic 2+ Anisocytosis 2+ Sodium 145 Potassium 3.3 L Chloride 114 H Carbon Dioxide 20 L Anion Gap 11 BUN 25 H Creatinine 0.7 POC Glucometer 213 Random Glucose 205 H D Calcium 7.8 L Active Medications Generic Name Dose Route Start Last Admin Trade Name Freq PRN Reason Stop Dose Admin Acetaminophen 650 mg 11/24/16 00:51 11/29/16 14:40 Tylenol Oral Solution - NGT 650 mg Q4H PRN Administration FEVER OR PAIN Albuterol Sulfate 1 amp 11/23/16 17:19 11/27/16 17:39 Ventolin 0.083% Nebulizer Soln - NEB 1 amp Q4H PRN Administration SHORT OF BREATH/WHEEZING Amino Acids 30 ml 11/23/16 17:30 11/30/16 10:29 Prosource No Carb Liquid Pkt GT 30 ml BID@0800,1730 JUANJOSE Administration Ascorbic Acid 500 mg 11/23/16 11:38 11/30/16 10:29 Vitamin C Oral Solution - GT 500 mg DAILY [facility]UANJOSE Administration Bacitracin 1 applic 11/23/16 22:00 11/30/16 10:32 Bacitracin - TP 1 applic BID JUANJOSE Administration Baclofen 10 mg 11/23/16 18:00 11/30/16 10:30 Lioresal - GT 10 mg QID JUANJOSE Administration Bisacodyl 10 mg 11/23/16 16:50 Dulcolax Suppository - RC Q72H PRN CONSTIPATION EVERY 3 DAYS Calcium Carbonate 500 mg 11/24/16 10:00 11/30/16 10:29 Calcium Carb Oral Suspension - PEG 500 mg DAILY [facility]UANJOSE Administration Heparin Sodium (Porcine) 5,000 unit 11/23/16 10:00 11/30/16 10:31 Heparin - SQ Not Given Q8H-IV JAUNJOSE Aztreonam 2 gm/ Dextrose 100 mls @ 100 mls/hr 11/25/16 14:30 11/30/16 02:04 IV 100 mls/hr Q8H-IV JUANJOSE Administration Protocol Sodium Chloride 1,000 mls @ 100 mls/hr 11/25/16 14:30 11/30/16 02:47 Normal Saline - IV 100 mls/hr ASDIR JUANJOSE Administration Insulin Aspart 1 vial 11/28/16 12:00 11/30/16 06:08 Novolog Vial Sliding Scale - SQ 4 units Q6HPO JUANJOSE Administration Protocol Levetiracetam 750 mg 11/28/16 22:00 11/30/16 10:30 Keppra - PO 750 mg BID JUANJOSE Administration Magnesium Hydroxide 30 ml 11/23/16 16:50 Milk Of Magnesia - GT DAILY PRN NO BM FOR 48HR Nystatin 1 applic 11/25/16 14:45 11/30/16 10:32 Nystop Powder - TP 1 applic DAILY [facility]JOSE Administration Phenobarbital 80 mg 11/30/16 10:30 Phenobarbital Liquid - GT BID JUANJSOE Piperacillin Sod/Tazobactam Sod 3.375 gm 11/23/16 18:00 11/30/16 10:31 Zosyn 3.375gm Ivpb (Pre-Docked) IVPB 3.375 gm Q8H-IV JUANJOSE Administration Protocol Polyethylene Glycol 17 gm 11/23/16 22:00 11/30/16 10:34 Miralax (For Daily Use) - PEG 17 gm BID JUANJOSE Administration ASSESSMENT/PLAN: This is a 41-year-old woman with a history of mental retardation, recurrent aspiration pneumonia, UTI, seizure disorder, GI bleed, chronic respiratory failure, tracheostomy, dysphagia, PEG who presented to the ER and was sent to the ER from [facility] because of fever and tachycardia. 1. Sepsis secondary to Pseudomonas UTI and Morganella bacteremia, possible acute cholecystitis/choledocholithiasis - Had temp 100.2 yesterday. WBC increasing - Continue Zosyn, Azactam - Plan for HIDA on 12/01 and possible percutaneous cholecystostomy - Mother is considering palliative care 2. Abdominal distention and possible mass - CT 11/2015 showed no mass - Consider repeating CT of abdomen/pelvis 3. Seizure disorder - Stable - Continue Keppra, Phenobarbital 4. Mental retardation 5. Chronic hypoxic respiratory failure - On vent via tracheostomy 6. Anemia secondary to chronic illness - Hemoglobin stable 7. Hypokalemia - Replete potassium 8. Nutrition - Continue Cristhian Wall Visit type - Emergency Visit Emergency Visit: Yes ED Registration Date: 11/23/16 Care time: The patient presented to the Emergency Department on the above date and was hospitalized for further evaluation of their emergent condition. - New Patient This patient is new to me today: No - Critical Care Critical Care patient: No - Discharge Referral Referred to [facility] Med P.C.: No
[2016-11-30] MEDS: PHENobarbital 20 MG/5 ML UNIT-DOSE CUP GT SCH ×3 (11:09→23:47)
[2016-11-30] MEDS: ACETAMINOPHEN 650 MG/20.3 ML ORAL SOLUTION (CUPS) NGT PRN (11:30)
--- NOTE | 2016-11-30 12:27 | PN ---
Progress Note (short form) - Note Progress Note: Chart reviewed and patient seen. Palliative care team will discuss the patient's current goals of care with her mother. Because of mental retardation there will have to be further requirements and considerations to be addressed if requests for only comfort care or DNR are made.
--- NOTE | 2016-11-30 12:44 | PN ---
Progress Note (short form) - Note Progress Note: Eyes are open. NAD on AC mode of vent. Low grade temperatures persist. Intake & Output 11/27/16 11/28/16 11/29/16 11/30/16 23:59 23:59 23:59 23:59 Intake Total 3150 2910 1350 50 Output Total 2600 1800 1500 1700 Balance 550 1110 -150 -1650 Weight 151 lb 6.4 oz Last Vital Signs Temp Pulse Resp BP Pulse Ox 100.7 F H 117 H 12 94/53 98 11/30/16 10:00 11/30/16 10:00 11/30/16 10:00 11/30/16 10:00 11/29/16 10:38 Active Medications Acetaminophen (Tylenol Oral Solution -) 650 mg NGT Q4H PRN PRN Reason: FEVER OR PAIN Last Admin: 11/30/16 11:30 Dose: 650 mg Albuterol Sulfate (Ventolin 0.083% Nebulizer Soln -) 1 amp NEB Q4H PRN PRN Reason: SHORT OF BREATH/WHEEZING Last Admin: 11/27/16 17:39 Dose: 1 amp Amino Acids (Prosource No Carb Liquid Pkt) 30 ml GT BID@0800,1730 [facility] Last Admin: 11/30/16 10:29 Dose: 30 ml Ascorbic Acid (Vitamin C Oral Solution -) 500 mg GT DAILY [facility] Last Admin: 11/30/16 10:29 Dose: 500 mg Bacitracin (Bacitracin -) 1 applic TP BID [facility] Last Admin: 11/30/16 10:32 Dose: 1 applic Baclofen (Lioresal -) 10 mg GT QID [facility] Last Admin: 11/30/16 10:30 Dose: 10 mg Bisacodyl (Dulcolax Suppository -) 10 mg RC Q72H PRN PRN Reason: CONSTIPATION EVERY 3 DAYS Calcium Carbonate (Calcium Carb Oral Suspension -) 500 mg PEG DAILY [facility] Last Admin: 11/30/16 10:29 Dose: 500 mg Heparin Sodium (Porcine) (Heparin -) 5,000 unit SQ Q8H-IV [facility]JOSE Last Admin: 11/30/16 10:31 Dose: Not Given Aztreonam 2 gm/ Dextrose 100 mls @ 100 mls/hr IV Q8H-IV JUANJOSE PRN Reason: Protocol Last Admin: 11/30/16 11:32 Dose: 100 mls/hr Sodium Chloride (Normal Saline -) 1,000 mls @ 100 mls/hr IV ASDIR [facility] Last Admin: 11/30/16 02:47 Dose: 100 mls/hr Insulin Aspart (Novolog Vial Sliding Scale -) 1 vial SQ Q6HPO [facility]SE PRN Reason: Protocol Last Admin: 11/30/16 11:42 Dose: 4 units Levetiracetam (Keppra -) 750 mg PO BID [facility] Last Admin: 11/30/16 10:30 Dose: 750 mg Magnesium Hydroxide (Milk Of Magnesia -) 30 ml GT DAILY PRN PRN Reason: NO BM FOR 48HR Nystatin (Nystop Powder -) 1 applic TP DAILY [facility] Last Admin: 11/30/16 10:32 Dose: 1 applic Phenobarbital (Phenobarbital Liquid -) 80 mg GT BID [facility] Last Admin: 11/30/16 11:29 Dose: 80 mg Piperacillin Sod/Tazobactam Sod (Zosyn 3.375gm Ivpb (Pre-Docked)) 3.375 gm IVPB Q8H-IV [facility]UANJOSE PRN Reason: Protocol Last Admin: 11/30/16 10:31 Dose: 3.375 gm Polyethylene Glycol (Miralax (For Daily Use) -) 17 gm PEG BID [facility] Last Admin: 11/30/16 10:34 Dose: 17 gm Potassium Chloride (Potassium Chloride Oral Liquid) 40 meq GT ONCE ONE Stop: 11/30/16 12:46 Constitutional: Yes: No Distress Eyes: Yes: Conjunctiva Clear HENT: Yes: Atraumatic, Normocephalic Neck: Yes: Supple, Trachea Midline, Other (Tracheostomy intact ) Cardiovascular: Yes: Regular Rate and Rhythm Respiratory: Yes: Diminished, Mechanically Ventilated, Rhonchi. No: Accessory Muscle Use, Rales, Stridor, Tachypnea, Wheezes ...Inspection: Yes: Barrel Chest, Trachea Midline. No: Use of Accessory Muscles ...Clubbing: No Gastrointestinal: Yes: Normal Bowel Sounds, Soft Musculoskeletal: Yes: Joint Stiffness Extremities: Yes: Shortened Edema: No Peripheral Pulses WNL: Yes Integumentary: Yes: WNL Labs: Laboratory Results - last 24 hr 11/29/16 11/29/16 11/30/16 17:14 23:47 06:03 WBC RBC Hgb Hct MCV MCHC RDW Plt Count MPV Neutrophils % Lymphocytes % Monocytes % Eosinophils % Band Neutrophils Platelet Estimate Platelet Comment Hypochromic-Microcytic Anisocytosis Sodium Potassium Chloride Carbon Dioxide Anion Gap BUN Creatinine POC Glucometer 227 196 213 Random Glucose Calcium 11/30/16 11/30/16 11/30/16 08:15 08:15 11:39 WBC 15.5 H RBC 2.75 L Hgb 7.9 L Hct 24.4 L MCV 88.8 MCHC 32.4 RDW 14.9 Plt Count 263 MPV 8.7 Neutrophils % 75.0 Lymphocytes % 16.0 D Monocytes % 4.0 Eosinophils % 2.0 Band Neutrophils 3.0 D Platelet Estimate Adequate Platelet Comment No clotting detected Hypochromic-Microcytic 2+ Anisocytosis 2+ Sodium 145 Potassium 3.3 L Chloride 114 H Carbon Dioxide 20 L Anion Gap 11 BUN 25 H Creatinine 0.7 POC Glucometer 225 Random Glucose 205 H D Calcium 7.8 L Problem List - Problems (1) Mental retardation Code(s): F79 - UNSPECIFIED INTELLECTUAL DISABILITIES (2) Seizure disorder Code(s): G40.909 - EPILEPSY, UNSP, NOT INTRACTABLE, WITHOUT STATUS EPILEPTICUS (3) Anemia Code(s): D64.9 - ANEMIA, UNSPECIFIED (4) Atelectasis Code(s): J98.11 - ATELECTASIS (5) Chronic respiratory failure Code(s): J96.10 - CHRONIC RESPIRATORY FAILURE, UNSP W HYPOXIA OR HYPERCAPNIA (6) Seizure Code(s): R56.9 - UNSPECIFIED CONVULSIONS (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 Assessment/Plan Current vent settings ABX per ID VTE prophylaxis BD TX PRN Ongoing discussions for C Dr Hernandez Problem List - Problems (1) Mental retardation Code(s): F79 - UNSPECIFIED INTELLECTUAL DISABILITIES (2) Seizure disorder Code(s): G40.909 - EPILEPSY, UNSP, NOT INTRACTABLE, WITHOUT STATUS EPILEPTICUS (3) Anemia Code(s): D64.9 - ANEMIA, UNSPECIFIED (4) Atelectasis Code(s): J98.11 - ATELECTASIS (5) Chronic respiratory failure Code(s): J96.10 - CHRONIC RESPIRATORY FAILURE, UNSP W HYPOXIA OR HYPERCAPNIA (6) Seizure Code(s): R56.9 - UNSPECIFIED CONVULSIONS (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
[2016-11-30] MEDS ORDERED: POTASSIUM CHLORIDE ORAL LIQUID 20 MEQ/15 ML GT ONE (12:45)
[2016-12-01] MEDS: SODIUM CHLORIDE 1,000 ML IV SCH ×2 (02:27→15:07)
[2016-12-01] MEDS: PIPERACILLIN/TAZOB 3.375 GM/50 ML PRE-DOCKED IVPB SCH ×3 (02:28→17:32)
[2016-12-01] MEDS: AZTREONAM 2 GM in DEXTROSE 5%-WATER - 100 ML IV SCH ×3 (02:28→18:28)
[2016-12-01] MEDS: HEPARIN NA (PORCINE) 5,000 UNITS/ML 1ML VIAL SQ SCH ×3 (02:30→17:19)
[2016-12-01] MEDS: INSULIN SLIDING SCALE (NOVOLOG) 1 VIAL SQ SCH ×3 (07:43→17:19)
[2016-12-01 08:21] LABS: MCH 28.7 pg (25.7-33.7); MCHC 31.9 g/dl (32.0-36.0); MEAN CELL VOLUME 90.1 fl (80-96); MEAN PLT VOLUME 8.7 fl (7.5-11.1); RDW 15.4 % (11.6-15.6); WHITE BLOOD COUNT 21.6 K/mm3 (4.0-10.0)
[2016-12-01] MEDS: AMINO ACIDS/PROTEIN HYDROLYS 30 ML LIQUID.PKT GT SCH ×2 (08:38→17:32)
[2016-12-01 08:45] LABS: ALBUMIN 1.7 g/dl (3.4-5.0); ALK PHOS 127 U/L (45-117); ANION GAP 12 (8-16); BILIRUBIN,TOTAL 0.3 mg/dL (0.2-1.0); CO2 17 mmol/L (21-32); CREATININE 0.8 mg/dL (0.55-1.02); GLUCOSE,RANDOM 109 mg/dL (74-106); SGOT/AST 46 U/L (15-37); SGPT/ALT 30 U/L (12-78); TOT PROT 6.8 g/dl (6.4-8.2)
[2016-12-01] MEDS ORDERED: PT OWN MED DRAWER 7, Y5N ONE ×2 (10:05→17:25)
[2016-12-01] MEDS: levETIRAcetam 250 MG TABLET (FP) PO SCH ×2 (10:13→22:30)
[2016-12-01] MEDS: BACITRACIN 30 GM TUBE TOPICAL OINTMENT TP SCH ×2 (10:13→22:30)
[2016-12-01] MEDS: PHENobarbital 20 MG/5 ML UNIT-DOSE CUP GT SCH ×2 (10:13→22:30)
[2016-12-01] MEDS: NYSTATIN POWDER 100,000 UNITS/GM - 15 GM TOPICAL POWDER TP SCH (10:14)
[2016-12-01 10:15] LABS: PLATELET COUNT 333 K/MM3 (134-434)
[2016-12-01 10:16] LABS: METAMYELOCYTE 2 % (0-2); PLATELET ESTIMATE ADEQUATE (NORMAL)
--- NOTE | 2016-12-01 10:18 | PN ---
Progress Note (short form) - Note Progress Note: intermittent fevers persist Vital Signs Period Temp Pulse Resp BP Sys/Stein Pulse Ox Last 24 Hr 98.7 F-99.6 F 106-120 15-23 95-106/42-70 97-98 diaphoretic trach to vent cor- rrr lungs decreased bs at bases abd firm +GT ext no edema CBC, BMP 12/01/16 08:05 12/01/16 08:05 a/p gram negative bacteremia- ?GI source- biliary -?acute cholycystitis surgical evaluation in progress continue zosyn and azactam day #8 for repeat sonogram and HIDA scan today pseudomonas UTI- on azactam chronic resp failure multiple developmental disabilities seizure disorder family discussing goals of care
[2016-12-01] MEDS: CALCIUM CARBONATE SUSPENSION - 500 MG/5 ML ML PEG SCH ×2 (10:19→17:35)
[2016-12-01] MEDS: BACLOFEN 10 MG TABLET (FP) GT SCH ×4 (10:20→22:30)
[2016-12-01] MEDS: ASCORBIC ACID 500 MG/5 ML UNIT DOSE CUP GT SCH ×2 (10:21→17:36)
[2016-12-01] MEDS: POLYETHYLENE GLYCOL 3350 119 GM BTL PEG SCH ×2 (10:21→22:31)
--- NOTE | 2016-12-01 14:38 | PN ---
Physical Exam: SUBJECTIVE: Patient seen and examined. Nonverbal, no overnight events. No fever. OBJECTIVE: Vital Signs Period Temp Pulse Resp BP Sys/Stein Pulse Ox Last 24 Hr 98.1 F-99.6 F 104-120 12-22 95-131/42-82 97-98 GENERAL: The patient is nonverbal, in no acute distress, on mech.ventilation, awake, diaphoretic. HEAD: Normal with no signs of trauma. EYES: PERRL, extraocular movements not able to assess, sclera anicteric, conjunctiva clear. ENT: moist mucous membranes. NECK: Trachea midline, full range of motion, supple, trach. LUNGS: Breath sounds equal, crackles at bases B/L, no wheezes, no accessory muscle use. HEART: Regular rate and rhythm, S1, S2 without murmur, rub or gallop. ABDOMEN: Hard, distended, normoactive bowel sounds, no guarding, no rebound. EXTREMITIES: warm, no edema. NEUROLOGICAL: No facial asymmetry, gait not observed, not following commands. PSYCH: Normal mood, normal affect. SKIN: Warm, dry, normal turgor, no rashes. Garcia cath inserted, draining red urine. Laboratory Results - last 24 hr 11/30/16 11/30/16 12/01/16 18:12 23:58 06:54 WBC RBC Hgb Hct MCV MCHC RDW Plt Count MPV Neutrophils % Lymphocytes % Monocytes % Eosinophils % Basophils % Metamyelocytes Myelocytes Differential Comment Platelet Estimate Sodium Potassium Chloride Carbon Dioxide Anion Gap BUN Creatinine Creat Clearance w eGFR POC Glucometer 183 183 106 Random Glucose Calcium Total Bilirubin AST ALT Alkaline Phosphatase Total Protein Albumin 12/01/16 12/01/16 12/01/16 08:05 08:05 11:45 WBC 21.6 H D RBC 3.11 L Hgb 8.9 L D Hct 28.0 L MCV 90.1 MCHC 31.9 L RDW 15.4 Plt Count 333 D MPV 8.7 Neutrophils % 76.0 Lymphocytes % 11.0 D Monocytes % 3.0 L Eosinophils % 2.0 Basophils % 1.0 Metamyelocytes 2 Myelocytes 4 H D Differential Comment Manual diff done Platelet Estimate Adequate Sodium 149 H Potassium 4.3 D Chloride 120 H Carbon Dioxide 17 L Anion Gap 12 BUN 22 H Creatinine 0.8 Creat Clearance w eGFR > 60 POC Glucometer 120 Random Glucose 109 H D Calcium 8.0 L Total Bilirubin 0.3 AST 46 H D ALT 30 D Alkaline Phosphatase 127 H Total Protein 6.8 Albumin 1.7 L 12/01/16 13:38 WBC RBC Hgb Hct MCV MCHC RDW Plt Count MPV Neutrophils % Lymphocytes % Monocytes % Eosinophils % Basophils % Metamyelocytes Myelocytes Differential Comment Platelet Estimate Sodium Potassium Chloride Carbon Dioxide Anion Gap BUN Creatinine Creat Clearance w eGFR POC Glucometer 120 Random Glucose Calcium Total Bilirubin AST ALT Alkaline Phosphatase Total Protein Albumin Active Medications Generic Name Dose Route Start Last Admin Trade Name Freq PRN Reason Stop Dose Admin Acetaminophen 650 mg 11/24/16 00:51 11/30/16 11:30 Tylenol Oral Solution - NGT 650 mg Q4H PRN Administration FEVER OR PAIN Albuterol Sulfate 1 amp 11/23/16 17:19 11/27/16 17:39 Ventolin 0.083% Nebulizer Soln - NEB 1 amp Q4H PRN Administration SHORT OF BREATH/WHEEZING Amino Acids 30 ml 11/23/16 17:30 12/01/16 08:38 Prosource No Carb Liquid Pkt GT Not Given BID@0800,1730 [facility] Ascorbic Acid 500 mg 11/23/16 11:38 12/01/16 10:21 Vitamin C Oral Solution - GT Not Given DAILY JUANJOSE Bacitracin 1 applic 11/23/16 22:00 12/01/16 10:13 Bacitracin - TP 1 applic BID JUANJOSE Administration Baclofen 10 mg 11/23/16 18:00 12/01/16 10:20 Lioresal - GT Not Given QID JUANJOSE Bisacodyl 10 mg 11/23/16 16:50 Dulcolax Suppository - RC Q72H PRN CONSTIPATION EVERY 3 DAYS Calcium Carbonate 500 mg 11/24/16 10:00 12/01/16 10:19 Calcium Carb Oral Suspension - PEG Not Given DAILY JUANJOSE Heparin Sodium (Porcine) 5,000 unit 11/23/16 10:00 12/01/16 10:20 Heparin - SQ Not Given Q8H-IV JUANJOSE Aztreonam 2 gm/ Dextrose 100 mls @ 100 mls/hr 11/25/16 14:30 12/01/16 11:48 IV 100 mls/hr Q8H-IV JUANJOSE Administration Protocol Sodium Chloride 1,000 mls @ 100 mls/hr 11/25/16 14:30 12/01/16 02:27 Normal Saline - IV 100 mls/hr ASDIR JUANJOSE Administration Insulin Aspart 1 vial 11/28/16 12:00 12/01/16 11:49 Novolog Vial Sliding Scale - SQ Not Given Q6HPO JUANJOSE Protocol Levetiracetam 750 mg 11/28/16 22:00 12/01/16 10:13 Keppra - PO 750 mg BID JUANJOSE Administration Magnesium Hydroxide 30 ml 11/23/16 16:50 Milk Of Magnesia - GT DAILY PRN NO BM FOR 48HR Nystatin 1 applic 11/25/16 14:45 12/01/16 10:14 Nystop Powder - TP 1 applic DAILY JUANJOSE Administration Phenobarbital 80 mg 11/30/16 10:30 12/01/16 10:13 Phenobarbital Liquid - GT 80 mg BID JUANJOSE Administration Piperacillin Sod/Tazobactam Sod 3.375 gm 11/23/16 18:00 12/01/16 10:14 Zosyn 3.375gm Ivpb (Pre-Docked) IVPB 3.375 gm Q8H-IV JUANJOSE Administration Protocol Polyethylene Glycol 17 gm 11/23/16 22:00 12/01/16 10:21 Miralax (For Daily Use) - PEG Not Given BID JUANJOSE 11/24/16 20:33 Sputum - Endotrachea Suction/Ventilator Gram Stain - Final 11/24/16 20:33 Sputum - Endotrachea Suction/Ventilator Sputum Culture - Final Providencia Stuartii Acinetobacter Baumannii/Haemol Pseudomonas Aeruginosa Morganella Morganii 11/23/16 05:02 Blood - Peripheral Venous Blood Culture - Final NO GROWTH AFTER 5 DAYS INCUBATION 11/23/16 05:02 Urine - Urine Clean Catch Urine Culture - Final Pseudomonas Aeruginosa 11/23/16 05:02 Blood - Peripheral Venous Blood Culture - Final Morganella Morganii ASSESSMENT/PLAN: 41 year old female with a PMH of MR, recurrent UTI, aspiration pneumonia, seizure disorder, GI bleed, respiratory failure s/p trach. Sepsis due to UTI: -continue Aztreonam IV day 8 and cont. Zosyn 3.375 g IV Q8H day -urine cultures Pseudomonas Aeruginosa, Blood cx Morganella Morgani -cont NS at rate 100 ml/hr -fever reported, Tmax 99.6 F -family doesn't have surgery, will obtain HIDA scan Cholelithiasis/cholecystitis/[place] bile duct Dilation -US done, possible cholecystitis, the pt will continue current antibiotics, -consulted surgery, HIDA scan was recommended, -family decided not to operate the pt Seizure disorder: -no seizure activity reported in the hospital Rash in groin: -applied Nystatin powder Dispo: We will continue to follow the patient. Thank you for this consultative opportunity. Problem List - Problems (1) Mental retardation Code(s): F79 - UNSPECIFIED INTELLECTUAL DISABILITIES (2) Seizure disorder Code(s): G40.909 - EPILEPSY, UNSP, NOT INTRACTABLE, WITHOUT STATUS EPILEPTICUS (3) Chronic respiratory failure Code(s): J96.10 - CHRONIC RESPIRATORY FAILURE, UNSP W HYPOXIA OR HYPERCAPNIA (4) Sepsis Code(s): A41.9 - SEPSIS, UNSPECIFIED ORGANISM Qualifiers: Sepsis type: sepsis due to unspecified organism Qualified Code(s): A41.9 - Sepsis, unspecified organism Visit type - Emergency Visit Emergency Visit: Yes ED Registration Date: 11/23/16 Care time: The patient presented to the Emergency Department on the above date and was hospitalized for further evaluation of their emergent condition. - New Patient This patient is new to me today: No - Critical Care Critical Care patient: No - Discharge Referral Referred to [facility] Med P.C.: No
--- NOTE | 2016-12-01 14:55 | PN ---
Physical Exam: SUBJECTIVE: Patient seen and examined Pt is vented Pt looks diaphoretic Mild hematuria on alberto cath no fever in last 24 hours OBJECTIVE: Vital Signs Period Temp Pulse Resp BP Sys/Stein Pulse Ox Last 24 Hr 98.1 F-99.6 F 104-120 12-22 95-131/42-82 97-98 GENERAL: Awake, alert, in no acute distress. NECK: Normal range of motion, supple without lymphadenopathy, JVD, or masses. Trach site in place, no mucus production. LUNGS: Scattered ronchi to auscultation bilaterally. No wheezes, and no crackles. No accessory muscle use. HEART: Regular rate and rhythm, normal S1 and S2 with systolic murmur, rub or gallop. ABDOMEN: Soft, nontender, distended, normoactive bowel sounds, no guarding, no rebound. Round mass in left mid abdomen. No hepatomegaly or splenomegaly. PEG TUbe in place with tube feeding. MUSCULOSKELETAL: Normal range of motion at all joints. No bony deformities or tenderness. No CVA tenderness. UPPER EXTREMITIES: 2+ pulses, warm, well-perfused. No cyanosis. No clubbing. No peripheral edema. LOWER EXTREMITIES: 2+ pulses, warm, well-perfused. No calf tenderness. trace peripheral edema. NEUROLOGICAL: non verbal , non-ambulatory, on ventilator SKIN: perineal rash Laboratory Results - last 24 hr 11/30/16 11/30/16 12/01/16 18:12 23:58 06:54 WBC RBC Hgb Hct MCV MCHC RDW Plt Count MPV Neutrophils % Lymphocytes % Monocytes % Eosinophils % Basophils % Metamyelocytes Myelocytes Differential Comment Platelet Estimate Sodium Potassium Chloride Carbon Dioxide Anion Gap BUN Creatinine Creat Clearance w eGFR POC Glucometer 183 183 106 Random Glucose Calcium Total Bilirubin AST ALT Alkaline Phosphatase Total Protein Albumin 12/01/16 12/01/16 12/01/16 08:05 08:05 11:45 WBC 21.6 H D RBC 3.11 L Hgb 8.9 L D Hct 28.0 L MCV 90.1 MCHC 31.9 L RDW 15.4 Plt Count 333 D MPV 8.7 Neutrophils % 76.0 Lymphocytes % 11.0 D Monocytes % 3.0 L Eosinophils % 2.0 Basophils % 1.0 Metamyelocytes 2 Myelocytes 4 H D Differential Comment Manual diff done Platelet Estimate Adequate Sodium 149 H Potassium 4.3 D Chloride 120 H Carbon Dioxide 17 L Anion Gap 12 BUN 22 H Creatinine 0.8 Creat Clearance w eGFR > 60 POC Glucometer 120 Random Glucose 109 H D Calcium 8.0 L Total Bilirubin 0.3 AST 46 H D ALT 30 D Alkaline Phosphatase 127 H Total Protein 6.8 Albumin 1.7 L 12/01/16 13:38 WBC RBC Hgb Hct MCV MCHC RDW Plt Count MPV Neutrophils % Lymphocytes % Monocytes % Eosinophils % Basophils % Metamyelocytes Myelocytes Differential Comment Platelet Estimate Sodium Potassium Chloride Carbon Dioxide Anion Gap BUN Creatinine Creat Clearance w eGFR POC Glucometer 120 Random Glucose Calcium Total Bilirubin AST ALT Alkaline Phosphatase Total Protein Albumin Active Medications Generic Name Dose Route Start Last Admin Trade Name Freq PRN Reason Stop Dose Admin Acetaminophen 650 mg 11/24/16 00:51 11/30/16 11:30 Tylenol Oral Solution - NGT 650 mg Q4H PRN Administration FEVER OR PAIN Albuterol Sulfate 1 amp 11/23/16 17:19 11/27/16 17:39 Ventolin 0.083% Nebulizer Soln - NEB 1 amp Q4H PRN Administration SHORT OF BREATH/WHEEZING Amino Acids 30 ml 11/23/16 17:30 12/01/16 08:38 Prosource No Carb Liquid Pkt GT Not Given BID@0800,1730 [facility] Ascorbic Acid 500 mg 11/23/16 11:38 12/01/16 10:21 Vitamin C Oral Solution - GT Not Given DAILY [facility] Bacitracin 1 applic 11/23/16 22:00 12/01/16 10:13 Bacitracin - TP 1 applic BID JUANJOSE Administration Baclofen 10 mg 11/23/16 18:00 12/01/16 10:20 Lioresal - GT Not Given QID JUANJOSE Bisacodyl 10 mg 11/23/16 16:50 Dulcolax Suppository - RC Q72H PRN CONSTIPATION EVERY 3 DAYS Calcium Carbonate 500 mg 11/24/16 10:00 12/01/16 10:19 Calcium Carb Oral Suspension - PEG Not Given DAILY [facility] Heparin Sodium (Porcine) 5,000 unit 11/23/16 10:00 12/01/16 10:20 Heparin - SQ Not Given Q8H-IV [facility] Aztreonam 2 gm/ Dextrose 100 mls @ 100 mls/hr 11/25/16 14:30 12/01/16 11:48 IV 100 mls/hr Q8H-IV JUANJOSE Administration Protocol Sodium Chloride 1,000 mls @ 100 mls/hr 11/25/16 14:30 12/01/16 02:27 Normal Saline - IV 100 mls/hr ASDIR JUANJOSE Administration Insulin Aspart 1 vial 11/28/16 12:00 12/01/16 11:49 Novolog Vial Sliding Scale - SQ Not Given Q6HPO JUANJOSE Protocol Levetiracetam 750 mg 11/28/16 22:00 12/01/16 10:13 Keppra - PO 750 mg BID JUANJOSE Administration Magnesium Hydroxide 30 ml 11/23/16 16:50 Milk Of Magnesia - GT DAILY PRN NO BM FOR 48HR Nystatin 1 applic 11/25/16 14:45 12/01/16 10:14 Nystop Powder - TP 1 applic DAILY JUANJOSE Administration Phenobarbital 80 mg 11/30/16 10:30 12/01/16 10:13 Phenobarbital Liquid - GT 80 mg BID JUANJOSE Administration Piperacillin Sod/Tazobactam Sod 3.375 gm 11/23/16 18:00 12/01/16 10:14 Zosyn 3.375gm Ivpb (Pre-Docked) IVPB 3.375 gm Q8H-IV JUANJOSE Administration Protocol Polyethylene Glycol 17 gm 11/23/16 22:00 12/01/16 10:21 Miralax (For Daily Use) - PEG Not Given BID JUANJOSE CBC, BMP 12/01/16 08:05 12/01/16 08:05 Microbiology 11/24/16 20:33 Sputum - Endotrachea Suction/Ventilator Gram Stain - Final 11/24/16 20:33 Sputum - Endotrachea Suction/Ventilator Sputum Culture - Final Providencia Stuartii Acinetobacter Baumannii/Haemol Pseudomonas Aeruginosa Morganella Morganii 11/23/16 05:02 Urine - Urine Clean Catch Urine Culture - Final Pseudomonas Aeruginosa 11/23/16 05:02 Blood - Peripheral Venous Blood Culture - Final NO GROWTH AFTER 5 DAYS INCUBATION 11/23/16 05:02 Blood - Peripheral Venous Blood Culture - Final Morganella Morganii Laboratory Tests 12/01/16 08:05 Calcium 8.0 L Total Bilirubin 0.3 AST 46 H D ALT 30 D Alkaline Phosphatase 127 H Total Protein 6.8 Albumin 1.7 L ASSESSMENT/PLAN: 41 year old female with pmh of Mental retardation, Recurrent aspiration pneumonia, UTI, Sepsis, Seizure disorder and GI bleed, Chronic respiratory failure with trach, Ventilator dependent from [facility] present to the ED with fever and Tachycardia. Sepsis work up was initiated. Sepsis likely from UTI r/o cholecystitis CXR showed no changes, no consolidation, infiltrates seen Urine culture showed Pseudomonas and blood culture results showed morganella worsening leukocytosis Fever yesterday tmax 100.4 On Aztreonam per ID day 7 On Zosyn day 9 IV fluid with NS at 100ml/h US right upper quadrant/hida scan Cholelithiasis/Acute cholecystitis/Comon bile duct Dilation r/o CBD obstruction/ stone CBD 9mm Pt is already on antibiotics with zosyn and aztreonam which covers gram negative and anaerobes US Right upper quadrant HIDA scan Possible cholecystostomy today Consider GI consult Acute urinary retention hematuria likely rt to trauma Alberto cath in place Chronic hypoxic respiratory failure with Ventilator dependence On same setting at [facility] AC12, TV 400, FiO2 40%, Peep 5 O2 sat 100 % Pulmonary consulted Dr Rivero Seizure disorder Resume Phenobarbital keppra PO 750mg bid FEN Fluid: NS at 100 ml/h Electrolytes: chemistry in am Nutrition: Hold for US and Hida scan DVT prophylaxis: SCD, heparin SQ Disposition: Keep ventilator floor pending resolution of sepsis Visit type - Emergency Visit Emergency Visit: Yes ED Registration Date: 11/23/16 Care time: The patient presented to the Emergency Department on the above date and was hospitalized for further evaluation of their emergent condition. - New Patient This patient is new to me today: Yes - Critical Care Critical Care patient: No - Discharge Referral Referred to [facility] Med P.C.: No
--- NOTE | 2016-12-01 15:21 | PN ---
Progress Note, Physician History of Present Illness: PULMONARY SLEEPING ON VENT SUPPORT,AC MODE - Current Medication List Current Medications: Active Medications Acetaminophen (Tylenol Oral Solution -) 650 mg NGT Q4H PRN PRN Reason: FEVER OR PAIN Last Admin: 11/30/16 11:30 Dose: 650 mg Albuterol Sulfate (Ventolin 0.083% Nebulizer Soln -) 1 amp NEB Q4H PRN PRN Reason: SHORT OF BREATH/WHEEZING Last Admin: 11/27/16 17:39 Dose: 1 amp Amino Acids (Prosource No Carb Liquid Pkt) 30 ml GT BID@0800,1730 [facility] Last Admin: 12/01/16 08:38 Dose: Not Given Ascorbic Acid (Vitamin C Oral Solution -) 500 mg GT DAILY [facility] Last Admin: 12/01/16 10:21 Dose: Not Given Bacitracin (Bacitracin -) 1 applic TP BID [facility] Last Admin: 12/01/16 10:13 Dose: 1 applic Baclofen (Lioresal -) 10 mg GT QID [facility] Last Admin: 12/01/16 14:59 Dose: Not Given Bisacodyl (Dulcolax Suppository -) 10 mg RC Q72H PRN PRN Reason: CONSTIPATION EVERY 3 DAYS Calcium Carbonate (Calcium Carb Oral Suspension -) 500 mg PEG DAILY [facility] Last Admin: 12/01/16 10:19 Dose: Not Given Heparin Sodium (Porcine) (Heparin -) 5,000 unit SQ Q8H-IV [facility] Last Admin: 12/01/16 10:20 Dose: Not Given Aztreonam 2 gm/ Dextrose 100 mls @ 100 mls/hr IV Q8H-IV [facility] PRN Reason: Protocol Last Admin: 12/01/16 11:48 Dose: 100 mls/hr Sodium Chloride (Normal Saline -) 1,000 mls @ 100 mls/hr IV ASDIR [facility] Last Admin: 12/01/16 15:07 Dose: 100 mls/hr Insulin Aspart (Novolog Vial Sliding Scale -) 1 vial SQ Q6HPO [facility] PRN Reason: Protocol Last Admin: 12/01/16 11:49 Dose: Not Given Levetiracetam (Keppra -) 750 mg PO BID [facility] Last Admin: 12/01/16 10:13 Dose: 750 mg Magnesium Hydroxide (Milk Of Magnesia -) 30 ml GT DAILY PRN PRN Reason: NO BM FOR 48HR Nystatin (Nystop Powder -) 1 applic TP DAILY [facility] Last Admin: 12/01/16 10:14 Dose: 1 applic Phenobarbital (Phenobarbital Liquid -) 80 mg GT BID [facility] Last Admin: 12/01/16 10:13 Dose: 80 mg Piperacillin Sod/Tazobactam Sod (Zosyn 3.375gm Ivpb (Pre-Docked)) 3.375 gm IVPB Q8H-IV JUANJOSE PRN Reason: Protocol Last Admin: 12/01/16 10:14 Dose: 3.375 gm Polyethylene Glycol (Miralax (For Daily Use) -) 17 gm PEG BID [facility] Last Admin: 12/01/16 10:21 Dose: Not Given - Objective Vital Signs: Vital Signs Temperature 98.5 F 12/01/16 13:34 Pulse Rate 104 H 12/01/16 13:34 Respiratory Rate 14 12/01/16 13:34 Blood Pressure 115/82 12/01/16 13:34 O2 Sat by Pulse Oximetry (%) 97 12/01/16 10:09 Constitutional: Yes: Well Nourished, Diaphoresis, Other (SLEEPING) Eyes: Yes: WNL HENT: Yes: WNL Neck: Yes: WNL (TRACH) Cardiovascular: Yes: Tachycardia, S1, S2 Respiratory: Yes: Rhonchi (SCATTERED FLETCHER RHONCHI) Gastrointestinal: Yes: Normal Bowel Sounds, Soft Extremities: Yes: WNL Edema: No Labs: CBC, BMP 12/01/16 08:05 12/01/16 08:05 INR, PTT INR 1.40 (0.82-1.09) H 11/23/16 01:23 Assessment/Plan Problem List - Problems (1) Mental retardation Code(s): F79 - UNSPECIFIED INTELLECTUAL DISABILITIES (2) Seizure disorder Code(s): G40.909 - EPILEPSY, UNSP, NOT INTRACTABLE, WITHOUT STATUS EPILEPTICUS (3) Anemia Code(s): D64.9 - ANEMIA, UNSPECIFIED (4) Atelectasis Code(s): J98.11 - ATELECTASIS (5) Chronic respiratory failure Code(s): J96.10 - CHRONIC RESPIRATORY FAILURE, UNSP W HYPOXIA OR HYPERCAPNIA (6) Seizure Code(s): R56.9 - UNSPECIFIED CONVULSIONS (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 8 HYPERNATREMIA 9 BACTEREMIA Assessment/Plan Current vent settings IVF ABX per ID VTE prophylaxis BD TX PRN Monitor johanne cueva DR
--- NOTE | 2016-12-01 18:27 | PN ---
Teaching Attending Note Name of Resident: Domenic Esquivel ATTENDING PHYSICIAN STATEMENT I saw and evaluated the patient. I reviewed the resident's note and discussed the case with the resident. I agree with the resident's findings and plan as documented. SUBJECTIVE: Diaphoretic. Opens eyes. Appears comfortable. OBJECTIVE: Vital Signs Period Temp Pulse Resp BP Sys/Stein Pulse Ox Last 24 Hr 97.8 F-99.1 F 102-120 12-22 97-131/42-82 97-98 HEART: S1S2, tachycardic LUNGS: Bilateral rhonchi ABDOMEN: Soft, distended, normal BS, (+) PEG EXTREMITIES: No edema ASSESSMENT AND PLAN: This is a 41-year-old woman with a history of mental retardation, recurrent aspiration pneumonia, UTI, seizure disorder, GI bleed, chronic respiratory failure, tracheostomy, dysphagia, PEG who presented to the ER and was sent to the ER from [facility] because of fever and tachycardia. 1. Sepsis secondary to Pseudomonas UTI and Morganella bacteremia, possible acute cholecystitis/choledocholithiasis - Afebrile, WBC increasing - Continue Zosyn, Azactam - Repeat US shows cholelithiasis, no evidence of cholecystitis, mildly dilated CBD, small RUQ ascites, right renal stones, mild to moderate right hydronephrosis, fatty liver vs hepatocellular disease - Mother is considering palliative care 2. Abdominal distention and possible mass - CT 11/2015 showed no mass 3. Seizure disorder - Stable - Continue Keppra, Phenobarbital 4. Mental retardation 5. Chronic hypoxic respiratory failure - On vent via tracheostomy 6. Anemia secondary to chronic illness - Hemoglobin stable 7. Hypokalemia - Improved 8. Hypernatremia likely secondary to dehydration - H2O via PEG - IV 1/2 NS - Monitor electrolytes 9. Nutrition - Continue Jevity, Prosource
[2016-12-01] MEDS ORDERED: SODIUM CHLORIDE 0.45% 1,000 ML IV SCH (20:15)
[2016-12-02] MEDS: INSULIN SLIDING SCALE (NOVOLOG) 1 VIAL SQ SCH ×4 (00:11→17:30)
[2016-12-02] MEDS: PIPERACILLIN/TAZOB 3.375 GM/50 ML PRE-DOCKED IVPB SCH ×3 (01:42→17:22)
[2016-12-02] MEDS: HEPARIN NA (PORCINE) 5,000 UNITS/ML 1ML VIAL SQ SCH ×3 (02:41→17:22)
[2016-12-02] MEDS: AZTREONAM 2 GM in DEXTROSE 5%-WATER - 100 ML IV SCH ×3 (02:53→17:22)
[2016-12-02] MEDS ORDERED: INSULIN DETEMIR 100 UNITS/ML MDV SQ ONE (08:07)
[2016-12-02] MEDS ORDERED: INSULIN (NOVOLOG) ASPART 100 UNITS/ML 10ML VIAL ONE (08:07)
[2016-12-02 08:19] LABS: MCH 28.6 pg (25.7-33.7); MCHC 31.5 g/dl (32.0-36.0); MEAN CELL VOLUME 90.6 fl (80-96); MEAN PLT VOLUME 8.4 fl (7.5-11.1); PLATELET COUNT 351 K/MM3 (134-434); RDW 15.4 % (11.6-15.6)
[2016-12-02 08:45] LABS: CALCIUM 8.1 mg/dL (8.5-10.1); COCKROFT - GAULT 81.073
[2016-12-02] MEDS ORDERED: PT OWN MED DRAWER 7, Y5N ONE ×3 (09:48→17:20)
[2016-12-02] MEDS: BACITRACIN 30 GM TUBE TOPICAL OINTMENT TP SCH ×2 (10:09→22:37)
[2016-12-02] MEDS: AMINO ACIDS/PROTEIN HYDROLYS 30 ML LIQUID.PKT GT SCH ×2 (10:09→17:21)
[2016-12-02] MEDS: PHENobarbital 20 MG/5 ML UNIT-DOSE CUP GT SCH ×2 (10:11→22:38)
[2016-12-02] MEDS: NYSTATIN POWDER 100,000 UNITS/GM - 15 GM TOPICAL POWDER TP SCH (10:12)
[2016-12-02] MEDS: CALCIUM CARBONATE SUSPENSION - 500 MG/5 ML ML PEG SCH (10:13)
[2016-12-02] MEDS: levETIRAcetam 250 MG TABLET (FP) PO SCH ×2 (10:13→22:37)
[2016-12-02] MEDS: BACLOFEN 10 MG TABLET (FP) GT SCH ×4 (10:19→22:37)
[2016-12-02] MEDS: POLYETHYLENE GLYCOL 3350 119 GM BTL PEG SCH ×2 (10:20→22:38)
[2016-12-02] MEDS: ASCORBIC ACID 500 MG/5 ML UNIT DOSE CUP GT SCH (10:20)
--- NOTE | 2016-12-02 11:51 | PN ---
Physical Exam: SUBJECTIVE: Patient seen and examined Pt is on vent stable No tachypnea No fever in last 48 hours OBJECTIVE: Vital Signs Period Temp Pulse Resp BP Sys/Stein Pulse Ox Last 24 Hr 97.8 F-99.2 F 93-126 14-22 104-144/65-82 97-97 GENERAL: Awake, alert, in no acute distress. NECK: Normal range of motion, supple without lymphadenopathy, JVD, or masses. Trach site in place, no mucus production. LUNGS: Scattered ronchi to auscultation bilaterally. No wheezes, and no crackles. No accessory muscle use. HEART: Regular rate and rhythm, normal S1 and S2 with systolic murmur, rub or gallop. ABDOMEN: Soft, nontender, distended, normoactive bowel sounds, no guarding, no rebound. Round mass in left mid abdomen. No hepatomegaly or splenomegaly. PEG Tube in place with tube feeding. Garcia with hematuria no improvement from yesterday MUSCULOSKELETAL: Normal range of motion at all joints. No bony deformities or tenderness. No CVA tenderness. UPPER EXTREMITIES: 2+ pulses, warm, well-perfused. No cyanosis. No clubbing. No peripheral edema. LOWER EXTREMITIES: 2+ pulses, warm, well-perfused. No calf tenderness. trace peripheral edema. NEUROLOGICAL: non verbal , non-ambulatory, on ventilator SKIN: perineal rash Laboratory Results - last 24 hr 12/01/16 12/01/16 12/01/16 11:45 13:38 17:13 WBC RBC Hgb Hct MCV MCHC RDW Plt Count MPV Sodium Potassium Chloride Carbon Dioxide Anion Gap BUN Creatinine POC Glucometer 120 120 106 Random Glucose Calcium 12/01/16 12/02/16 12/02/16 22:59 05:41 07:45 WBC 24.0 H RBC 2.69 L Hgb 7.7 L D Hct 24.3 L MCV 90.6 MCHC 31.5 L RDW 15.4 Plt Count 351 MPV 8.4 Sodium Potassium Chloride Carbon Dioxide Anion Gap BUN Creatinine POC Glucometer 124 154 Random Glucose Calcium 12/02/16 07:45 WBC RBC Hgb Hct MCV MCHC RDW Plt Count MPV Sodium 150 H Potassium 3.6 Chloride 120 H Carbon Dioxide 20 L Anion Gap 10 BUN 29 H D Creatinine 1.0 D POC Glucometer Random Glucose 129 H Calcium 8.1 L Active Medications Generic Name Dose Route Start Last Admin Trade Name Freq PRN Reason Stop Dose Admin Acetaminophen 650 mg 11/24/16 00:51 11/30/16 11:30 Tylenol Oral Solution - NGT 650 mg Q4H PRN Administration FEVER OR PAIN Albuterol Sulfate 1 amp 11/23/16 17:19 11/27/16 17:39 Ventolin 0.083% Nebulizer Soln - NEB 1 amp Q4H PRN Administration SHORT OF BREATH/WHEEZING Amino Acids 30 ml 11/23/16 17:30 12/02/16 10:09 Prosource No Carb Liquid Pkt GT Not Given BID@0800,1730 [facility] Ascorbic Acid 500 mg 11/23/16 11:38 12/02/16 10:20 Vitamin C Oral Solution - GT Not Given DAILY [facility] Bacitracin 1 applic 11/23/16 22:00 12/02/16 10:09 Bacitracin - TP 1 applic BID [facility] Administration Baclofen 10 mg 11/23/16 18:00 12/02/16 10:19 Lioresal - GT Not Given QID [facility] Bisacodyl 10 mg 11/23/16 16:50 Dulcolax Suppository - RC Q72H PRN CONSTIPATION EVERY 3 DAYS Calcium Carbonate 500 mg 11/24/16 10:00 12/02/16 10:13 Calcium Carb Oral Suspension - PEG Not Given DAILY [facility] Heparin Sodium (Porcine) 5,000 unit 11/23/16 10:00 12/02/16 10:06 Heparin - SQ Not Given Q8H-IV [facility] Aztreonam 2 gm/ Dextrose 100 mls @ 100 mls/hr 11/25/16 14:30 12/02/16 10:08 IV 100 mls/hr Q8H-IV [facility] Administration Protocol Sodium Chloride 1,000 mls @ 100 mls/hr 12/01/16 20:15 12/01/16 22:29 1/2 Normal Saline IV 100 mls/hr ASDIR JUANJOSE Administration Insulin Aspart 1 vial 11/28/16 12:00 12/02/16 06:03 Novolog Vial Sliding Scale - SQ Not Given Q6HPO [facility] Protocol Levetiracetam 750 mg 11/28/16 22:00 12/02/16 10:13 Keppra - PO 750 mg BID JUANJOSE Administration Magnesium Hydroxide 30 ml 11/23/16 16:50 Milk Of Magnesia - GT DAILY PRN NO BM FOR 48HR Nystatin 1 applic 11/25/16 14:45 12/02/16 10:12 Nystop Powder - TP 1 applic DAILY JUANJOSE Administration Phenobarbital 80 mg 11/30/16 10:30 12/02/16 10:11 Phenobarbital Liquid - GT 80 mg BID JUANJOSE Administration Piperacillin Sod/Tazobactam Sod 3.375 gm 11/23/16 18:00 12/02/16 10:08 Zosyn 3.375gm Ivpb (Pre-Docked) IVPB 3.375 gm Q8H-IV JUANJOSE Administration Protocol Polyethylene Glycol 17 gm 11/23/16 22:00 12/02/16 10:20 Miralax (For Daily Use) - PEG Not Given BID JUANJOSE CBC, BMP 12/02/16 07:45 12/02/16 07:45 Laboratory Tests 12/02/16 07:45 Calcium 8.1 L ASSESSMENT/PLAN: 41 year old female with pmh of Mental retardation, Recurrent aspiration pneumonia, UTI, Sepsis, Seizure disorder and GI bleed, Chronic respiratory failure with trach, Ventilator dependent from [facility] present to the ED with fever and Tachycardia. Sepsis work up was initiated. Sepsis likely from UTI r/o cholecystitis CXR showed no changes, no consolidation, infiltrates seen Urine culture showed Pseudomonas and blood culture results showed morganella worsening leukocytosis No fever in last 24 hours US showed no cholecystitis, but there was cholelithiasis, fatty liver On Aztreonam per ID day 8 On Zosyn day 10 IV fluid with at 100ml/h hida scan today Cholelithiasis/Acute cholecystitis/Comon bile duct Dilation r/o CBD obstruction/ stone CBD 9mm Pt is already on antibiotics with zosyn and aztreonam which covers gram negative and anaerobes US showed no cholecystitis, but was positive for cholelithiasis, fatty liver HIDA scan today if negative no cholecystostomy necessary Gen surgery on case Acute urinary retention Hematuria likely rt to trauma but has not improved in 48 hours US showed renal stones 1.5 cm, hydronephrosis Garcia cath in place for urinary retention Hypernatermia Na 150 Fluid deficit 2.45 liter Start D5W at 100ml/h labs in am Chronic hypoxic respiratory failure with Ventilator dependence On same setting at [facility] AC12, TV 400, FiO2 40%, Peep 5 O2 sat 100 % Pulmonary consulted Dr Rivero Seizure disorder Resume Phenobarbital keppra PO 750mg bid FEN Fluid: d5W at 100 ml/h Electrolytes: chemistry in am Nutrition: Jevity at 45ml/h DVT prophylaxis: SCD, heparin SQ Disposition: Keep ventilator floor pending resolution of sepsis Visit type - Emergency Visit Emergency Visit: Yes ED Registration Date: 11/23/16 Care time: The patient presented to the Emergency Department on the above date and was hospitalized for further evaluation of their emergent condition. - New Patient This patient is new to me today: Yes Date on this admission: 12/02/16 - Critical Care Critical Care patient: No - Discharge Referral Referred to [facility] Med P.C.: No
[2016-12-02 12:12] LABS: PLATELET ESTIMATE ADEQUATE (NORMAL)
--- NOTE | 2016-12-02 13:15 | PN ---
Progress Note (short form) - Note Progress Note: Eyes are open. NAD on AC mode of vent, 40% FiO2. Low grade temperatures persist. Abdominal US noted. Intake & Output 11/29/16 11/30/16 12/01/16 12/02/16 23:59 23:59 23:59 23:59 Intake Total 1350 2270 2580 700 Output Total 1500 1700 1500 600 Balance -998 955 9813 100 Weight 151 lb 6.4 oz Last Vital Signs Temp Pulse Resp BP Pulse Ox 99.2 F 93 H 15 142/69 97 12/02/16 05:00 12/02/16 10:20 12/02/16 10:25 12/02/16 05:00 12/02/16 10:20 Active Medications Acetaminophen (Tylenol Oral Solution -) 650 mg NGT Q4H PRN PRN Reason: FEVER OR PAIN Last Admin: 11/30/16 11:30 Dose: 650 mg Albuterol Sulfate (Ventolin 0.083% Nebulizer Soln -) 1 amp NEB Q4H PRN PRN Reason: SHORT OF BREATH/WHEEZING Last Admin: 11/27/16 17:39 Dose: 1 amp Amino Acids (Prosource No Carb Liquid Pkt) 30 ml GT BID@0800,1730 [facility] Last Admin: 12/02/16 10:09 Dose: Not Given Ascorbic Acid (Vitamin C Oral Solution -) 500 mg GT DAILY [facility] Last Admin: 12/02/16 10:20 Dose: Not Given Bacitracin (Bacitracin -) 1 applic TP BID [facility] Last Admin: 12/02/16 10:09 Dose: 1 applic Baclofen (Lioresal -) 10 mg GT QID [facility] Last Admin: 12/02/16 10:19 Dose: Not Given Bisacodyl (Dulcolax Suppository -) 10 mg RC Q72H PRN PRN Reason: CONSTIPATION EVERY 3 DAYS Calcium Carbonate (Calcium Carb Oral Suspension -) 500 mg PEG DAILY [facility] Last Admin: 12/02/16 10:13 Dose: Not Given Heparin Sodium (Porcine) (Heparin -) 5,000 unit SQ Q8H-IV JUANJOSE Last Admin: 12/02/16 10:06 Dose: Not Given Aztreonam 2 gm/ Dextrose 100 mls @ 100 mls/hr IV Q8H-IV JUANJOSE PRN Reason: Protocol Last Admin: 12/02/16 10:08 Dose: 100 mls/hr Dextrose (D5w -) 1,000 mls @ 100 mls/hr IV Q10H [facility] Insulin Aspart (Novolog Vial Sliding Scale -) 1 vial SQ Q6HPO JUANJOSE PRN Reason: Protocol Last Admin: 12/02/16 12:11 Dose: Not Given Levetiracetam (Keppra -) 750 mg PO BID [facility] Last Admin: 12/02/16 10:13 Dose: 750 mg Magnesium Hydroxide (Milk Of Magnesia -) 30 ml GT DAILY PRN PRN Reason: NO BM FOR 48HR Nystatin (Nystop Powder -) 1 applic TP DAILY [facility] Last Admin: 12/02/16 10:12 Dose: 1 applic Phenobarbital (Phenobarbital Liquid -) 80 mg GT BID [facility] Last Admin: 12/02/16 10:11 Dose: 80 mg Piperacillin Sod/Tazobactam Sod (Zosyn 3.375gm Ivpb (Pre-Docked)) 3.375 gm IVPB Q8H-IV JUANJOSE PRN Reason: Protocol Last Admin: 12/02/16 10:08 Dose: 3.375 gm Polyethylene Glycol (Miralax (For Daily Use) -) 17 gm PEG BID [facility] Last Admin: 12/02/16 10:20 Dose: Not Given Constitutional: Yes: No Distress Eyes: Yes: Conjunctiva Clear HENT: Yes: Atraumatic, Normocephalic Neck: Yes: Supple, Trachea Midline, Other (Tracheostomy intact ) Cardiovascular: Yes: Regular Rate and Rhythm Respiratory: Yes: Diminished, Mechanically Ventilated, Rhonchi. No: Accessory Muscle Use, Rales, Stridor, Tachypnea, Wheezes ...Inspection: Yes: Barrel Chest, Trachea Midline. No: Use of Accessory Muscles ...Clubbing: No Gastrointestinal: Yes: Normal Bowel Sounds, Soft Musculoskeletal: Yes: Joint Stiffness Extremities: Yes: Shortened Edema: No Peripheral Pulses WNL: Yes Integumentary: Yes: WNL Labs: Laboratory Results - last 24 hr 12/01/16 12/01/16 12/01/16 13:38 17:13 22:59 WBC RBC Hgb Hct MCV MCHC RDW Plt Count MPV Neutrophils % Lymphocytes % Monocytes % Eosinophils % Band Neutrophils Differential Comment Platelet Estimate Sodium Potassium Chloride Carbon Dioxide Anion Gap BUN Creatinine POC Glucometer 120 106 124 Random Glucose Calcium 12/02/16 12/02/16 12/02/16 05:41 07:45 07:45 WBC 24.0 H RBC 2.69 L Hgb 7.7 L D Hct 24.3 L MCV 90.6 MCHC 31.5 L RDW 15.4 Plt Count 351 MPV 8.4 Neutrophils % 85.0 H Lymphocytes % 10.0 Monocytes % 2.0 L Eosinophils % 2.0 Band Neutrophils 1.0 D Differential Comment Manual diff done Platelet Estimate Adequate Sodium 150 H Potassium 3.6 Chloride 120 H Carbon Dioxide 20 L Anion Gap 10 BUN 29 H D Creatinine 1.0 D POC Glucometer 154 Random Glucose 129 H Calcium 8.1 L 12/02/16 12:13 WBC RBC Hgb Hct MCV MCHC RDW Plt Count MPV Neutrophils % Lymphocytes % Monocytes % Eosinophils % Band Neutrophils Differential Comment Platelet Estimate Sodium Potassium Chloride Carbon Dioxide Anion Gap BUN Creatinine POC Glucometer 141 Random Glucose Calcium Problem List - Problems (1) Mental retardation Code(s): F79 - UNSPECIFIED INTELLECTUAL DISABILITIES (2) Seizure disorder Code(s): G40.909 - EPILEPSY, UNSP, NOT INTRACTABLE, WITHOUT STATUS EPILEPTICUS (3) Anemia Code(s): D64.9 - ANEMIA, UNSPECIFIED (4) Atelectasis Code(s): J98.11 - ATELECTASIS (5) Chronic respiratory failure Code(s): J96.10 - CHRONIC RESPIRATORY FAILURE, UNSP W HYPOXIA OR HYPERCAPNIA (6) Seizure Code(s): R56.9 - UNSPECIFIED CONVULSIONS (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 Assessment/Plan Current vent settings ABX per ID VTE prophylaxis BD TX PRN Ongoing discussions with family regarding GOC Dr Hernandez Problem List - Problems (1) Mental retardation Code(s): F79 - UNSPECIFIED INTELLECTUAL DISABILITIES (2) Seizure disorder Code(s): G40.909 - EPILEPSY, UNSP, NOT INTRACTABLE, WITHOUT STATUS EPILEPTICUS (3) Anemia Code(s): D64.9 - ANEMIA, UNSPECIFIED (4) Atelectasis Code(s): J98.11 - ATELECTASIS (5) Chronic respiratory failure Code(s): J96.10 - CHRONIC RESPIRATORY FAILURE, UNSP W HYPOXIA OR HYPERCAPNIA (6) Seizure Code(s): R56.9 - UNSPECIFIED CONVULSIONS (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
--- NOTE | 2016-12-02 14:45 | PN ---
Teaching Attending Note Name of Resident: Lidya Ha ATTENDING PHYSICIAN STATEMENT I saw and evaluated the patient. I reviewed the resident's note and discussed the case with the resident. I agree with the resident's findings and plan as documented. SUBJECTIVE: going for HIDA scan OBJECTIVE: Vital Signs Period Temp Pulse Resp BP Sys/Stein Pulse Ox Last 24 Hr 97.8 F-99.2 F 93-126 14-22 93-144/54-79 97-97 cor-rrr lungs clear abd soft,nt ext positive edema CBC, BMP 12/02/16 07:45 12/02/16 07:45 abd sonogram with right hydronephrosis Microbiology 11/24/16 20:33 Sputum - Endotrachea Suction/Ventilator Gram Stain - Final 11/24/16 20:33 Sputum - Endotrachea Suction/Ventilator Sputum Culture - Final Providencia Stuartii Acinetobacter Baumannii/Haemol Pseudomonas Aeruginosa Morganella Morganii 11/23/16 05:02 Blood - Peripheral Venous Blood Culture - Final NO GROWTH AFTER 5 DAYS INCUBATION 11/23/16 05:02 Urine - Urine Clean Catch Urine Culture - Final Pseudomonas Aeruginosa 11/23/16 05:02 Blood - Peripheral Venous Blood Culture - Final Morganella Morganii ASSESSMENT AND PLAN: fever leukocytosis morganella bacteremia pseudomonas uti ?cholycystitis now right hydronephrosis for HIDA scan for urology consult continue zosyn/azactam day #9
--- NOTE | 2016-12-02 15:15 | PN ---
Physical Exam: SUBJECTIVE: Patient seen and examined. nonverbal, no overnight events, no fever. OBJECTIVE: Vital Signs Period Temp Pulse Resp BP Sys/Stein Pulse Ox Last 24 Hr 97.8 F-99.2 F 93-126 14-22 93-144/54-79 97-97 GENERAL: The patient is nonverbal, in no acute distress, on mech.ventilation, awake. HEAD: Normal with no signs of trauma. EYES: PERRL, extraocular movements not able to assess, sclera anicteric, conjunctiva clear. ENT: moist mucous membranes. NECK: Trachea midline, full range of motion, supple, trach. LUNGS: Breath sounds equal, crackles at bases B/L, no wheezes, no accessory muscle use. HEART: Regular rate and rhythm, S1, S2 without murmur, rub or gallop. ABDOMEN: Hard, distended, normoactive bowel sounds, no guarding, no rebound. EXTREMITIES: warm, no edema. NEUROLOGICAL: No facial asymmetry, gait not observed, not following commands. PSYCH: Normal mood, normal affect. SKIN: Warm, dry, normal turgor, no rashes. Garcia cath inserted, draining pink urine. Laboratory Results - last 24 hr 12/01/16 12/01/16 12/02/16 17:13 22:59 05:41 WBC RBC Hgb Hct MCV MCHC RDW Plt Count MPV Neutrophils % Lymphocytes % Monocytes % Eosinophils % Band Neutrophils Differential Comment Platelet Estimate Sodium Potassium Chloride Carbon Dioxide Anion Gap BUN Creatinine POC Glucometer 106 124 154 Random Glucose Calcium 12/02/16 12/02/16 12/02/16 07:45 07:45 12:13 WBC 24.0 H RBC 2.69 L Hgb 7.7 L D Hct 24.3 L MCV 90.6 MCHC 31.5 L RDW 15.4 Plt Count 351 MPV 8.4 Neutrophils % 85.0 H Lymphocytes % 10.0 Monocytes % 2.0 L Eosinophils % 2.0 Band Neutrophils 1.0 D Differential Comment Manual diff done Platelet Estimate Adequate Sodium 150 H Potassium 3.6 Chloride 120 H Carbon Dioxide 20 L Anion Gap 10 BUN 29 H D Creatinine 1.0 D POC Glucometer 141 Random Glucose 129 H Calcium 8.1 L Active Medications Generic Name Dose Route Start Last Admin Trade Name Freq PRN Reason Stop Dose Admin Acetaminophen 650 mg 11/24/16 00:51 11/30/16 11:30 Tylenol Oral Solution - NGT 650 mg Q4H PRN Administration FEVER OR PAIN Albuterol Sulfate 1 amp 11/23/16 17:19 11/27/16 17:39 Ventolin 0.083% Nebulizer Soln - NEB 1 amp Q4H PRN Administration SHORT OF BREATH/WHEEZING Amino Acids 30 ml 11/23/16 17:30 12/02/16 10:09 Prosource No Carb Liquid Pkt GT Not Given BID@0800,1730 [facility] Ascorbic Acid 500 mg 11/23/16 11:38 12/02/16 10:20 Vitamin C Oral Solution - GT Not Given DAILY [facility] [place] Bacitracin 1 applic 11/23/16 22:00 12/02/16 10:09 Bacitracin - TP 1 applic BID JUANJOSE Administration Baclofen 10 mg 11/23/16 18:00 12/02/16 14:25 Lioresal - GT Not Given QID [facility] [place] Bisacodyl 10 mg 11/23/16 16:50 Dulcolax Suppository - RC Q72H PRN CONSTIPATION EVERY 3 DAYS Calcium Carbonate 500 mg 11/24/16 10:00 12/02/16 10:13 Calcium Carb Oral Suspension - PEG Not Given DAILY [facility] [place] Heparin Sodium (Porcine) 5,000 unit 11/23/16 10:00 12/02/16 10:06 Heparin - SQ Not Given Q8H-IV [facility] [place] Aztreonam 2 gm/ Dextrose 100 mls @ 100 mls/hr 11/25/16 14:30 12/02/16 10:08 IV 100 mls/hr Q8H-IV JUANJOSE Administration Protocol Dextrose 1,000 mls @ 100 mls/hr 12/02/16 13:00 D5w - IV Q10H [facility] [place] Insulin Aspart 1 vial 11/28/16 12:00 12/02/16 12:11 Novolog Vial Sliding Scale - SQ Not Given Q6HPO [facility] [place] Protocol Levetiracetam 750 mg 11/28/16 22:00 12/02/16 10:13 Keppra - PO 750 mg BID JUANJOSE Administration Magnesium Hydroxide 30 ml 11/23/16 16:50 Milk Of Magnesia - GT DAILY PRN NO BM FOR 48HR Nystatin 1 applic 11/25/16 14:45 12/02/16 10:12 Nystop Powder - TP 1 applic DAILY JUANJOSE Administration Phenobarbital 80 mg 11/30/16 10:30 12/02/16 10:11 Phenobarbital Liquid - GT 80 mg BID JUANJOSE Administration Piperacillin Sod/Tazobactam Sod 3.375 gm 11/23/16 18:00 12/02/16 10:08 Zosyn 3.375gm Ivpb (Pre-Docked) IVPB 3.375 gm Q8H-IV JUANJOSE Administration Protocol Polyethylene Glycol 17 gm 11/23/16 22:00 12/02/16 10:20 Miralax (For Daily Use) - PEG Not Given BID JUANJOSE 11/24/16 20:33 Sputum - Endotrachea Suction/Ventilator Gram Stain - Final 11/24/16 20:33 Sputum - Endotrachea Suction/Ventilator Sputum Culture - Final Providencia Stuartii Acinetobacter Baumannii/Haemol Pseudomonas Aeruginosa Morganella Morganii 11/23/16 05:02 Blood - Peripheral Venous Blood Culture - Final NO GROWTH AFTER 5 DAYS INCUBATION 11/23/16 05:02 Urine - Urine Clean Catch Urine Culture - Final Pseudomonas Aeruginosa 11/23/16 05:02 Blood - Peripheral Venous Blood Culture - Final Morganella Morganii ASSESSMENT/PLAN: 41 year old female with a PMH of MR, recurrent UTI, aspiration pneumonia, seizure disorder, GI bleed, respiratory failure s/p trach. Sepsis due to UTI: -continue Aztreonam IV day 9 and cont. Zosyn 3.375 g IV Q8H -urine cultures Pseudomonas Aeruginosa, Blood cx Morganella Morgani -cont Dextrose -no fever -the pt had US abdomen which revealed right sided hydronephrosis, will consult Urology -HIDA scan scheduled for today Cholelithiasis/cholecystitis/Comon bile duct Dilation -US done, chooecystectomy was r/o -family decided not to operate the pt Seizure disorder: -no seizure activity reported in the hospital Rash in groin: -applied Nystatin powder Dispo: We will continue to follow the patient. Thank you for this consultative opportunity. Problem List - Problems (1) Mental retardation Code(s): F79 - UNSPECIFIED INTELLECTUAL DISABILITIES (2) Seizure disorder Code(s): G40.909 - EPILEPSY, UNSP, NOT INTRACTABLE, WITHOUT STATUS EPILEPTICUS (3) Chronic respiratory failure Code(s): J96.10 - CHRONIC RESPIRATORY FAILURE, UNSP W HYPOXIA OR HYPERCAPNIA (4) Sepsis Code(s): A41.9 - SEPSIS, UNSPECIFIED ORGANISM Qualifiers: Sepsis type: sepsis due to unspecified organism Qualified Code(s): A41.9 - Sepsis, unspecified organism Visit type - Emergency Visit Emergency Visit: Yes ED Registration Date: 11/23/16 Care time: The patient presented to the Emergency Department on the above date and was hospitalized for further evaluation of their emergent condition. - New Patient This patient is new to me today: No - Critical Care Critical Care patient: No
[2016-12-02 15:44] LABS: HIV 1 & 2 AB NEGATIVE; HIV 1 AGp24 NEGATIVE
[2016-12-02] MEDS: DEXTROSE 5%-WATER - 1,000 ML IV SCH (17:29)
--- NOTE | 2016-12-02 18:02 | PN ---
Teaching Attending Note Name of Resident: Domenic Esquivel ATTENDING PHYSICIAN STATEMENT I saw and evaluated the patient. I reviewed the resident's note and discussed the case with the resident. I agree with the resident's findings and plan as documented. SUBJECTIVE:resting comfortable OBJECTIVE: Last Vital Signs Temp Pulse Resp BP Pulse Ox 99 F 124 H 15 93/54 97 12/02/16 13:30 12/02/16 13:30 12/02/16 13:30 12/02/16 13:30 12/02/16 10:20 General NAD CV S1 S2 tachycardic no murmur/rub/gallop Lungs coarse breath sounds diffusely. no wheezing anteriorly. no sputum Abdomen soft +distended +PEG +BS Extremities all extremities contracted. no edema ASSESSMENT AND PLAN: 41 year old female with pmh of Mental retardation, Recurrent aspiration pneumonia, UTI, Sepsis, Seizure disorder and GI bleed, Chronic respiratory failure s/p trach. dysphagia s/p PEG presented to the ER and was admitted for further evaluation of their emergent condition 1. Sepsis with psuedomonal UTI and Morganella bacteremia- afebrile, but uptrending leukocytosis. concern for cholecystitis due to dilated CBD on imaging. d/w Dr Hernandez and agreed to do HIDA scan to r/o GB involvement. HIDA scan is negative. possible infected nephrolithasis with large obstructive stone. urology consulted. on Zosyn/Azactram day 9. ID and surgery on board. 2. Abdominal distention- persistent. CT scan is negative for mass. tolerating feeds. having BM. 3. Hypernatremia- 2.45L water deficit. will increase free water flushes to 50cc/ h 3. Seizure d/o- no signs of seizure like activity. cont home medication 4. DVT ppx- hep sq
--- NOTE | 2016-12-02 18:51 | CONSULT ---
Consult Consult Specialty:: urology Referred by:: medicine Reason for Consultation:: fever, hydronephrosis - History of Present Illness Chief Complaint: hydronephrosis History of Present Illness: 41 year old vented non verbal female with MRCP who presents with fever and sepsis several days ago. Renal US shows some renal calculi and right sided hydronephrosis. Ur culture positive on 11/23, nothing recent. WBC is rising and is at 24K. Mother/hcp does not want any surgical intervention. - History Source History Provided By: Medical Record Limitations to Obtaining History: Other - Past Medical History TRAIN EXAMINER: Yes: Seizure, Other (developemental delay) Pulmonary: Yes: Previously Intubated Gastrointestinal: Yes: Other (s/p peg) Renal/: Yes: Renal Calculi, UTI - Alcohol/Substance Use Hx Alcohol Use: No History of Substance Use: reports: None - Smoking History Smoking history: Unknown if ever smoked Have you smoked in the past 12 months: No Aproximately how many cigarettes per day: 0 - Social History Usual Living Arrangement: Senior Care ADL: Support Services History of Recent Travel: No Home Medications - Allergies Allergies/Adverse Reactions: Allergies Allergy/AdvReac Type Severity Reaction Status Date / Time No Known Drug Allergies Allergy Verified 11/23/16 00:20 - Home Medications Home Medications: Ambulatory Orders Bacitracin - [Bacitracin Topical Ointment -] 1 applic TP BID 10/27/15 Baclofen 10 mg GT QID 10/27/15 Bisacodyl [Biscolax] 10 mg RC ASDIR PRN 10/27/15 Calcium Carbonate Suspension - [Calcium Carb Oral Suspension -] 500 mg PEG DAILY 10/27/15 Heparin - 5,000 unit SQ BID 10/27/15 Metoclopramide Oral Soln [Reglan Oral Solution -] 5 mg GT Q6H 10/27/15 Phenobarbital 80 mg GT BID 10/27/15 Polyethylene Glycol 3350 [Miralax 119 gm Btl -] 17 gm PEG BID 10/27/15 Acetaminophen Suppository [Tylenol .Suppository -] 650 mg AL Q6H PRN #0 supp.rect 11/15/15 Amino Acids/Protein Hydrolys [Prostat Sugar-Free Packet -] 30 ml GT BID@0800, 1730 packet 11/15/15 Albuterol 0.083% Nebulizer Gali [Ventolin 0.083% Nebulizer Soln -] 1 neb NEB Q6H 04/21/16 Albuterol 2.5/Ipratropium 0.5 [Duoneb -] 1 neb NEB Q4H PRN 04/21/16 Ipratropium 0.02% Nebulizer [Atrovent 0.02% Nebulizer -] 1 neb NEB Q6H 04/21/16 Loperamide HCl [Imodium A-D] 4 mg GT BID PRN 04/21/16 Magnesium Hydroxide [Milk of Magnesia] 400 mg GT ASDIR PRN 04/21/16 Menthol/Zinc Oxide [Calmoseptine Ointment] 0 gm TP ASDIR 04/21/16 Na Phos,M-B/Na Phos,Di-Ba [Fleet Enema] 118 ml RC ASDIR PRN 04/21/16 Vit C/Ascorbate Calcium,Sodium [Vitamin C 500 mg/15 ml Liquid] 500 mg GT DAILY 04/21/16 Sulfamethoxazole/Trimethoprim [Bactrim Ds -] 1 tab PO BID #10 tablet 04/26/16 Levetiracetam [Keppra Oral Solution -] 750 mg GT BID 11/23/16 Review of Systems Unable to obtain ROS, reason: vented, non verbal Physical Exam Vital Signs: Vital Signs Temperature 99 F 12/02/16 13:30 Pulse Rate 124 H 12/02/16 13:30 Respiratory Rate 15 12/02/16 18:17 Blood Pressure 93/54 12/02/16 13:30 O2 Sat by Pulse Oximetry (%) 97 12/02/16 10:20 Renal/: Yes: Garcia Present. No: Bladder Distention, CVA Tenderness - Left, CVA Tenderness - Right Labs: CBC, BMP 12/02/16 07:45 12/02/16 07:45 Imaging - Results Ultrasound: Report Reviewed Problem List - Problems (1) Acute UTI (urinary tract infection) Code(s): N39.0 - URINARY TRACT INFECTION, SITE NOT SPECIFIED (2) Urinary tract obstruction due to kidney stone Assessment/Plan: patient leukocytosis and sepsis for more than a week. Renal sono shows hydro, stones in kidney, likely she has a distal obstruction which may be another stone. She is tachycardic, afebrile. Would recommend abd/pelvic CT scan to find out etiology of hydro, whether there is in fact a ureteral stone or if it is reflux from a neurogenic bladder. If there is an obstructing stone, urgent decompression with nephrostomy tube is recommended. Code(s): N20.0 - CALCULUS OF KIDNEY N13.8 - OTHER OBSTRUCTIVE AND REFLUX UROPATHY
[2016-12-03] MEDS: INSULIN SLIDING SCALE (NOVOLOG) 1 VIAL SQ SCH ×4 (00:56→18:15)
[2016-12-03] MEDS: DEXTROSE 5%-WATER - 1,000 ML IV SCH ×4 (01:49→18:18)
[2016-12-03] MEDS: HEPARIN NA (PORCINE) 5,000 UNITS/ML 1ML VIAL SQ SCH ×3 (01:50→18:11)
[2016-12-03] MEDS: AZTREONAM 2 GM in DEXTROSE 5%-WATER - 100 ML IV SCH ×3 (01:50→18:11)
[2016-12-03] MEDS: PIPERACILLIN/TAZOB 3.375 GM/50 ML PRE-DOCKED IVPB SCH ×3 (01:50→18:11)
[2016-12-03 07:54] LABS: ALBUMIN 1.7 g/dl (3.4-5.0); CALCIUM 7.7 mg/dL (8.5-10.1); CREATININE 0.9 mg/dL (0.55-1.02)
[2016-12-03 07:58] LABS: MCH 29.2 pg (25.7-33.7); MCHC 32.6 g/dl (32.0-36.0); MEAN CELL VOLUME 89.8 fl (80-96); MEAN PLT VOLUME 8.6 fl (7.5-11.1); PLATELET COUNT 289 K/MM3 (134-434); WHITE BLOOD COUNT 13.5 K/mm3 (4.0-10.0)
[2016-12-03] MEDS: AMINO ACIDS/PROTEIN HYDROLYS 30 ML LIQUID.PKT GT SCH ×2 (09:05→18:11)
[2016-12-03] MEDS ORDERED: PT OWN MED DRAWER 7, Y5N ONE ×2 (10:03→17:08)
[2016-12-03] MEDS: BACLOFEN 10 MG TABLET (FP) GT SCH ×4 (10:05→22:24)
[2016-12-03] MEDS: CALCIUM CARBONATE SUSPENSION - 500 MG/5 ML ML PEG SCH (10:05)
[2016-12-03] MEDS: POLYETHYLENE GLYCOL 3350 119 GM BTL PEG SCH ×2 (10:05→22:24)
[2016-12-03] MEDS: ASCORBIC ACID 500 MG/5 ML UNIT DOSE CUP GT SCH (10:05)
[2016-12-03] MEDS: BACITRACIN 30 GM TUBE TOPICAL OINTMENT TP SCH ×2 (10:08→22:25)
[2016-12-03] MEDS: PHENobarbital 20 MG/5 ML UNIT-DOSE CUP GT SCH ×2 (10:08→22:24)
[2016-12-03] MEDS: levETIRAcetam 250 MG TABLET (FP) PO SCH ×2 (10:08→22:24)
[2016-12-03] MEDS: NYSTATIN POWDER 100,000 UNITS/GM - 15 GM TOPICAL POWDER TP SCH (10:10)
[2016-12-03 10:11] LABS: INR 1.67 (0.82-1.09); PROTHROMBIN TIME (PATIENT) 18.6 SEC (9.98-11.88)
[2016-12-03] MEDS: ACETAMINOPHEN 650 MG/20.3 ML ORAL SOLUTION (CUPS) NGT PRN ×2 (10:12→22:57)
--- NOTE | 2016-12-03 10:21 | PN ---
Physical Exam: SUBJECTIVE: Patient seen and examined. Nonverbal, no overnight events. OBJECTIVE: Vital Signs Period Temp Pulse Resp BP Sys/Stein Pulse Ox Last 24 Hr 98.9 F-99.9 F 78-124 12-22 82-136/41-77 97-97 GENERAL: The patient is nonverbal, in no acute distress, [facility], awake. HEAD: Normal with no signs of trauma. EYES: extraocular movements not able to assess, sclera anicteric, conjunctiva clear. ENT: moist mucous membranes. NECK: Trachea midline, full range of motion, supple, trach. LUNGS: Breath sounds equal, crackles at bases B/L, no wheezes, no accessory muscle use. HEART: Regular rate and rhythm, S1, S2 without murmur, rub or gallop. ABDOMEN: Hard, distended, normoactive bowel sounds, no guarding, no rebound. EXTREMITIES: warm, no edema. NEUROLOGICAL: No facial asymmetry, gait not observed, not following commands. PSYCH: Normal mood, normal affect. SKIN: Warm, dry, normal turgor, no rashes. Garcia cath inserted, draining urine. Laboratory Results - last 24 hr 12/02/16 12/02/16 12/02/16 07:45 11:15 12:13 WBC RBC Hgb Hct MCV MCHC RDW Plt Count MPV Neutrophils % 85.0 H Lymphocytes % 10.0 Monocytes % 2.0 L Eosinophils % 2.0 Band Neutrophils 1.0 D Differential Comment Manual diff done Platelet Estimate Adequate Sodium Potassium Chloride Carbon Dioxide Anion Gap BUN Creatinine POC Glucometer 141 Random Glucose Hemoglobin A1c % Calcium Albumin HIV 1&2 Antibody Screen Negative HIV P24 Antigen Negative 12/02/16 12/03/16 12/03/16 17:25 00:53 06:15 WBC 13.5 H D RBC 2.59 L Hgb 7.6 L Hct 23.3 L MCV 89.8 MCHC 32.6 RDW 16.0 H Plt Count 289 MPV 8.6 Neutrophils % Lymphocytes % Monocytes % Eosinophils % Band Neutrophils Differential Comment Platelet Estimate Sodium Potassium Chloride Carbon Dioxide Anion Gap BUN Creatinine POC Glucometer 102 178 Random Glucose Hemoglobin A1c % Calcium Albumin HIV 1&2 Antibody Screen HIV P24 Antigen 12/03/16 12/03/16 12/03/16 06:15 06:15 06:18 WBC RBC Hgb Hct MCV MCHC RDW Plt Count MPV Neutrophils % Lymphocytes % Monocytes % Eosinophils % Band Neutrophils Differential Comment Platelet Estimate Sodium 143 Potassium 3.4 L Chloride 112 H Carbon Dioxide 18 L Anion Gap 13 BUN 27 H Creatinine 0.9 POC Glucometer 190 Random Glucose 195 H D Hemoglobin A1c % 5.9 Calcium 7.7 L Albumin 1.7 L HIV 1&2 Antibody Screen HIV P24 Antigen Active Medications Generic Name Dose Route Start Last Admin Trade Name Freq PRN Reason Stop Dose Admin Acetaminophen 650 mg 11/24/16 00:51 12/03/16 10:12 Tylenol Oral Solution - NGT 650 mg Q4H PRN Administration FEVER OR PAIN Albuterol Sulfate 1 amp 11/23/16 17:19 11/27/16 17:39 Ventolin 0.083% Nebulizer Soln - NEB 1 amp Q4H PRN Administration SHORT OF BREATH/WHEEZING Amino Acids 30 ml 11/23/16 17:30 12/03/16 09:05 Prosource No Carb Liquid Pkt GT Not Given BID@0800,1730 [facility] Ascorbic Acid 500 mg 11/23/16 11:38 12/03/16 10:05 Vitamin C Oral Solution - GT Not Given DAILY JUANJOSE Bacitracin 1 applic 11/23/16 22:00 12/03/16 10:08 Bacitracin - TP 1 applic BID JUANJOSE Administration Baclofen 10 mg 11/23/16 18:00 12/03/16 10:05 Lioresal - GT Not Given QID JUANJOSE Bisacodyl 10 mg 11/23/16 16:50 Dulcolax Suppository - RC Q72H PRN CONSTIPATION EVERY 3 DAYS Calcium Carbonate 500 mg 11/24/16 10:00 12/03/16 10:05 Calcium Carb Oral Suspension - PEG Not Given DAILY [facility] Heparin Sodium (Porcine) 5,000 unit 11/23/16 10:00 12/03/16 10:05 Heparin - SQ Not Given Q8H-IV JUANJOSE Aztreonam 2 gm/ Dextrose 100 mls @ 100 mls/hr 11/25/16 14:30 12/03/16 10:08 IV 100 mls/hr Q8H-IV JUANJOSE Administration Protocol Dextrose 1,000 mls @ 100 mls/hr 12/02/16 13:00 12/03/16 10:04 D5w - IV Not Given Q10H JUANJOSE Insulin Aspart 1 vial 11/28/16 12:00 12/03/16 06:44 Novolog Vial Sliding Scale - SQ 2 units Q6HPO JUANJOSE Administration Protocol Levetiracetam 750 mg 11/28/16 22:00 12/03/16 10:08 Keppra - PO 750 mg BID JUANJOSE Administration Magnesium Hydroxide 30 ml 11/23/16 16:50 Milk Of Magnesia - GT DAILY PRN NO BM FOR 48HR Nystatin 1 applic 11/25/16 14:45 12/03/16 10:10 Nystop Powder - TP 1 applic DAILY JUANJOSE Administration Phenobarbital 80 mg 11/30/16 10:30 12/03/16 10:08 Phenobarbital Liquid - GT 80 mg BID JUANJOSE Administration Piperacillin Sod/Tazobactam Sod 3.375 gm 11/23/16 18:00 12/03/16 10:09 Zosyn 3.375gm Ivpb (Pre-Docked) IVPB 3.375 gm Q8H-IV JUANJOSE Administration Protocol Polyethylene Glycol 17 gm 11/23/16 22:00 12/03/16 10:05 Miralax (For Daily Use) - PEG Not Given BID JUANJOSE HIDA scan:Filling of the gallbladder excludes acute cystic duct obstruction. abdomen/pelvis CT:In comparison to a previous CT exam of 11/07/2015 interval development of a 8 mm proximal right ureteral calculus is noted with resultant moderate hydronephrosis. Increased size of bilateral nonobstructing renal calculi is seen. There has been interval removal of a left nephroureteral stent with resolution of moderate hydronephrosis. On the current exam there is minimal to mild prominence of the left renal collecting system. Periodic imaging surveillance is suggested. Ventriculoperitoneal shunt tube in place as on the prior study. A small to moderate amount of pelvic free fluid is seen, previously small in volume - ? related to previously noted shunt. Small pericardial effusion. Bibasilar consolidations which may be on the basis of atelectasis and/or infiltrates. Bilateral flank subcutaneous edema. 11/24/16 20:33 Sputum - Endotrachea Suction/Ventilator Gram Stain - Final 11/24/16 20:33 Sputum - Endotrachea Suction/Ventilator Sputum Culture - Final Providencia Stuartii Acinetobacter Baumannii/Haemol Pseudomonas Aeruginosa Morganella Morganii 11/23/16 05:02 Blood - Peripheral Venous Blood Culture - Final NO GROWTH AFTER 5 DAYS INCUBATION 11/23/16 05:02 Urine - Urine Clean Catch Urine Culture - Final Pseudomonas Aeruginosa 11/23/16 05:02 Blood - Peripheral Venous Blood Culture - Final Morganella Morganii ASSESSMENT/PLAN: 41 year old female with a PMH of MR, recurrent UTI, aspiration pneumonia, seizure disorder, GI bleed, respiratory failure s/p trach. Bacteremia due to Morganella Morgani -Leukocytosis, low grade fever -continue Aztreonam IV day 10 and cont. Zosyn 3.375 g IV Q8H Sepsis due to UTI: -urine cultures: Pseudomonas Aeruginosa -possible due to neurogenic bladder or obstruction -cont Dextrose -the pt had US abdomen which revealed right sided hydronephrosis, -Urology was consulted, CT abdomen/pelvis obtained, will f/u recommendations Cholelithiasis/cholecystitis/[place] bile duct Dilation -US done, chooecystectomy was r/o -family decided not to operate the pt Seizure disorder: -no seizure activity reported in the hospital Rash in groin: -applied Nystatin powder -improved Dispo: We will continue to follow the patient. Thank you for this consultative opportunity. Problem List - Problems (1) Mental retardation Code(s): F79 - UNSPECIFIED INTELLECTUAL DISABILITIES (2) Seizure disorder Code(s): G40.909 - EPILEPSY, UNSP, NOT INTRACTABLE, WITHOUT STATUS EPILEPTICUS (3) Chronic respiratory failure Code(s): J96.10 - CHRONIC RESPIRATORY FAILURE, UNSP W HYPOXIA OR HYPERCAPNIA (4) Sepsis Code(s): A41.9 - SEPSIS, UNSPECIFIED ORGANISM Qualifiers: Sepsis type: sepsis due to unspecified organism Qualified Code(s): A41.9 - Sepsis, unspecified organism Visit type - Emergency Visit Emergency Visit: Yes ED Registration Date: 11/23/16 Care time: The patient presented to the Emergency Department on the above date and was hospitalized for further evaluation of their emergent condition. - New Patient This patient is new to me today: No - Critical Care Critical Care patient: No
[2016-12-03] MEDS ORDERED: POTASSIUM CHLORIDE ORAL LIQUID 20 MEQ/15 ML PO ONE (11:56)
--- NOTE | 2016-12-03 12:12 | PN ---
Teaching Attending Note Name of Resident: Domenic Esquivel ATTENDING PHYSICIAN STATEMENT I saw and evaluated the patient. I reviewed the resident's note and discussed the case with the resident. I agree with the resident's findings and plan as documented. SUBJECTIVE:resting comfortable OBJECTIVE: Last Vital Signs Temp Pulse Resp BP Pulse Ox 99.9 F H 80 17 133/68 97 12/03/16 06:00 12/03/16 06:00 12/03/16 10:30 12/03/16 06:00 12/02/16 10:20 General NAD CV S1 S2 tachycardic no murmur/rub/gallop Lungs coarse breath sounds diffusely. no wheezing anteriorly. no sputum Abdomen soft +distended +PEG +BS Extremities all extremities contracted. no edema ASSESSMENT AND PLAN: 41 year old female with pmh of Mental retardation, Recurrent aspiration pneumonia, UTI, Sepsis, Seizure disorder and GI bleed, Chronic respiratory failure s/p trach. dysphagia s/p PEG presented to the ER and was admitted for further evaluation of their emergent condition 1. Sepsis with pseudomonal UTI and Morganella bacteremia- afebrile, but uptrending leukocytosis. non-obstructing nephrolithasis with hydro. plan for nephrostomy tube. will monitor leukocytosis after placement. HIDA negative for GB blockage. on Zosyn/Azactram day 10. ID and surgery on board. 2. Abdominal distention- persistent. CT scan is negative for mass. tolerating feeds. having BM. 3. Hypernatremia- resolved. will decrease water flushes to 15cc/H 4. Hypokalemia- Kcl 40meq 5. Seizure d/o- no signs of seizure like activity. cont home medication 6. DVT ppx- hep sq
--- NOTE | 2016-12-03 13:26 | PN ---
Physical Exam: SUBJECTIVE: Patient seen and examined Pt is stable on vent Tmax 99.9, no fever in last 48 hours N s/s of acute distress no more hemturia OBJECTIVE: Vital Signs Period Temp Pulse Resp BP Sys/Stein Pulse Ox Last 24 Hr 98.9 F-99.9 F 78-124 12-17 82-136/41-77 GENERAL: Awake, alert, in no acute distress. NECK: Normal range of motion, supple without lymphadenopathy, JVD, or masses. Trach site in place, no mucus production. LUNGS: Scattered ronchi to auscultation bilaterally. No wheezes, and no crackles. No accessory muscle use. HEART: Regular rate and rhythm, normal S1 and S2 with systolic murmur, rub or gallop. ABDOMEN: Soft, nontender, distended, normoactive bowel sounds, no guarding, no rebound. Round mass in left mid abdomen. No hepatomegaly or splenomegaly. PEG Tube in place with tube feeding. Garcia in place, hematuria has resolved MUSCULOSKELETAL: Normal range of motion at all joints. No bony deformities or tenderness. No CVA tenderness. UPPER EXTREMITIES: 2+ pulses, warm, well-perfused. No cyanosis. No clubbing. No peripheral edema. LOWER EXTREMITIES: 2+ pulses, warm, well-perfused. No calf tenderness. trace peripheral edema. NEUROLOGICAL: non verbal , non-ambulatory, on ventilator SKIN: perineal rash Laboratory Results - last 24 hr 12/02/16 12/02/16 12/03/16 11:15 17:25 00:53 WBC RBC Hgb Hct MCV MCHC RDW Plt Count MPV INR Sodium Potassium Chloride Carbon Dioxide Anion Gap BUN Creatinine POC Glucometer 102 178 Random Glucose Hemoglobin A1c % Calcium Albumin HIV 1&2 Antibody Screen Negative HIV P24 Antigen Negative 12/03/16 12/03/16 12/03/16 06:15 06:15 06:15 WBC 13.5 H D RBC 2.59 L Hgb 7.6 L Hct 23.3 L MCV 89.8 MCHC 32.6 RDW 16.0 H Plt Count 289 MPV 8.6 INR Sodium 143 Potassium 3.4 L Chloride 112 H Carbon Dioxide 18 L Anion Gap 13 BUN 27 H Creatinine 0.9 POC Glucometer Random Glucose 195 H D Hemoglobin A1c % 5.9 Calcium 7.7 L Albumin 1.7 L HIV 1&2 Antibody Screen HIV P24 Antigen 12/03/16 12/03/16 12/03/16 06:18 09:35 12:30 WBC RBC Hgb Hct MCV MCHC RDW Plt Count MPV INR 1.67 H Sodium Potassium Chloride Carbon Dioxide Anion Gap BUN Creatinine POC Glucometer 190 178 Random Glucose Hemoglobin A1c % Calcium Albumin HIV 1&2 Antibody Screen HIV P24 Antigen Active Medications Generic Name Dose Route Start Last Admin Trade Name Freq PRN Reason Stop Dose Admin Acetaminophen 650 mg 11/24/16 00:51 12/03/16 10:12 Tylenol Oral Solution - NGT 650 mg Q4H PRN Administration FEVER OR PAIN Albuterol Sulfate 1 amp 11/23/16 17:19 11/27/16 17:39 Ventolin 0.083% Nebulizer Soln - NEB 1 amp Q4H PRN Administration SHORT OF BREATH/WHEEZING Amino Acids 30 ml 11/23/16 17:30 12/03/16 09:05 Prosource No Carb Liquid Pkt GT Not Given BID@0800,1730 [facility] Ascorbic Acid 500 mg 11/23/16 11:38 12/03/16 10:05 Vitamin C Oral Solution - GT Not Given DAILY [facility] Bacitracin 1 applic 11/23/16 22:00 12/03/16 10:08 Bacitracin - TP 1 applic BID JUANJOSE Administration Baclofen 10 mg 11/23/16 18:00 12/03/16 13:22 Lioresal - GT Not Given QID JUANJOSE Bisacodyl 10 mg 11/23/16 16:50 Dulcolax Suppository - RC Q72H PRN CONSTIPATION EVERY 3 DAYS Calcium Carbonate 500 mg 11/24/16 10:00 12/03/16 10:05 Calcium Carb Oral Suspension - PEG Not Given DAILY [facility] Heparin Sodium (Porcine) 5,000 unit 11/23/16 10:00 12/03/16 10:05 Heparin - SQ Not Given Q8H-IV JUANJOSE Aztreonam 2 gm/ Dextrose 100 mls @ 100 mls/hr 11/25/16 14:30 12/03/16 10:08 IV 100 mls/hr Q8H-IV JUANJOSE Administration Protocol Dextrose 1,000 mls @ 100 mls/hr 12/02/16 13:00 12/03/16 10:04 D5w - IV Not Given Q10H [facility] Insulin Aspart 1 vial 11/28/16 12:00 12/03/16 12:33 Novolog Vial Sliding Scale - SQ Not Given Q6HPO JUANJOSE Protocol Levetiracetam 750 mg 11/28/16 22:00 12/03/16 10:08 Keppra - PO 750 mg BID JUANJOSE Administration Magnesium Hydroxide 30 ml 11/23/16 16:50 Milk Of Magnesia - GT DAILY PRN NO BM FOR 48HR Nystatin 1 applic 11/25/16 14:45 12/03/16 10:10 Nystop Powder - TP 1 applic DAILY JUANJOSE Administration Phenobarbital 80 mg 11/30/16 10:30 12/03/16 10:08 Phenobarbital Liquid - GT 80 mg BID JUANJOSE Administration Piperacillin Sod/Tazobactam Sod 3.375 gm 11/23/16 18:00 12/03/16 10:09 Zosyn 3.375gm Ivpb (Pre-Docked) IVPB 3.375 gm Q8H-IV JUANJOSE Administration Protocol Polyethylene Glycol 17 gm 11/23/16 22:00 12/03/16 10:05 Miralax (For Daily Use) - PEG Not Given BID JUANJOSE CBC, BMP 12/03/16 06:15 12/03/16 06:15 Microbiology 11/24/16 20:33 Sputum - Endotrachea Suction/Ventilator Gram Stain - Final 11/24/16 20:33 Sputum - Endotrachea Suction/Ventilator Sputum Culture - Final Providencia Stuartii Acinetobacter Baumannii/Haemol Pseudomonas Aeruginosa Morganella Morganii 11/23/16 05:02 Urine - Urine Clean Catch Urine Culture - Final Pseudomonas Aeruginosa 11/23/16 05:02 Blood - Peripheral Venous Blood Culture - Final NO GROWTH AFTER 5 DAYS INCUBATION 11/23/16 05:02 Blood - Peripheral Venous Blood Culture - Final Morganella Morganii Laboratory Tests 12/03/16 12/03/16 12/03/16 06:15 06:15 09:35 INR 1.67 H Hemoglobin A1c % 5.9 Calcium 7.7 L Albumin 1.7 L ASSESSMENT/PLAN: 41 year old female with pmh of Mental retardation, Recurrent aspiration pneumonia, UTI, Sepsis, Seizure disorder and GI bleed, Chronic respiratory failure with trach, Ventilator dependent from [facility] present to the ED with fever and Tachycardia. Sepsis work up was initiated. Sepsis Likely from UTI CXR showed no changes, no consolidation, infiltrates seen Urine culture showed Pseudomonas and blood culture results showed morganella worsening leukocytosis No fever in last 24 hours US showed no cholecystitis, but there was cholelithiasis, fatty liver On Aztreonam per ID day 9 On Zosyn day 11 D5W at 100ml/h hida scan today showed showed filling of gallbladder Cholelithiasis/Acute cholecystitis/Common bile duct Dilation r/o CBD obstruction /stone US showed no cholecystitis, but was positive for cholelithiasis, fatty liver HIDA scan done was normal therefore no cholecystostomy necessary Acute urinary retention/Ureteral Stone Hematuria improved US showed renal stones 1.5 cm, hydronephrosis CT abdomen and pelvis showed a stone 8mm in right ureter causing hydronephosis urology consulted, he saw patient and recommended nephrostomy tube for decompression Garcia cath in place for urinary retention Hypernatermia (resolving) Na 143 0.74 liter water deficit on D5W at 100ml/h labs in am Chronic hypoxic respiratory failure with Ventilator dependence On same setting at [facility] AC12, TV 400, FiO2 40%, Peep 5 O2 sat 100 % Pulmonary consulted Dr Rivero Seizure disorder Resume Phenobarbital keppra PO 750mg bid FEN Fluid: d5W at 100 ml/h Electrolytes: chemistry in am Nutrition: Jevity at 45ml/h DVT prophylaxis: SCD, heparin SQ Disposition: Keep ventilator floor pending resolution of sepsis. Nephrostomy tube today. Visit type - Emergency Visit Emergency Visit: Yes ED Registration Date: 11/23/16 Care time: The patient presented to the Emergency Department on the above date and was hospitalized for further evaluation of their emergent condition. - New Patient This patient is new to me today: Yes Date on this admission: 12/03/16 - Critical Care Critical Care patient: No - Discharge Referral Referred to [facility] No
--- NOTE | 2016-12-03 14:21 | PN ---
Progress Note (short form) - Note Progress Note: HIDA scan negative abd ct scan right hydronephrosis with obstructing stone seen by gu who suggests IR PCN Vital Signs Period Temp Pulse Resp BP Sys/Stein Pulse Ox Last 24 Hr 98.9 F-100.2 F 78-114 12-23 82-136/41-77 trach to vent cor-rrr lungs decreased bs at bases abd soft,n+GT ext-no edema CBC, BMP 12/03/16 06:15 12/03/16 06:15 a/p Morganella bacteremia- and pseudomonas UTI - hydronephrosis with obstructing stone day #10 antibiotics zosyn/azactam for PCN chronic resp failure multiple developmental disabilities seizure disorder d/w resident
--- NOTE | 2016-12-03 17:05 | PN ---
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
[2016-12-03] MEDS ORDERED: INSULIN (NOVOLOG) ASPART 100 UNITS/ML 10ML VIAL ONE (18:27)
[2016-12-04] MEDS: INSULIN SLIDING SCALE (NOVOLOG) 1 VIAL SQ SCH ×5 (03:12→23:21)
[2016-12-04] MEDS: AZTREONAM 2 GM in DEXTROSE 5%-WATER - 100 ML IV SCH ×3 (03:16→18:32)
[2016-12-04] MEDS: HEPARIN NA (PORCINE) 5,000 UNITS/ML 1ML VIAL SQ SCH ×2 (03:16→10:02)
[2016-12-04] MEDS: PIPERACILLIN/TAZOB 3.375 GM/50 ML PRE-DOCKED IVPB SCH ×3 (03:17→18:32)
[2016-12-04 03:47] LABS: BASOPHIL 0.3 % (0-2.0); EOSINOPHIL 2.8 % (0-4.5); MCH 29.1 pg (25.7-33.7); MCHC 33.1 g/dl (32.0-36.0); MEAN CELL VOLUME 87.9 fl (80-96); MEAN PLT VOLUME 8.6 fl (7.5-11.1); NEUTROPHILS 72.7 % (42.8-82.8); PLATELET COUNT 323 K/MM3 (134-434); RDW 15.1 % (11.6-15.6)
[2016-12-04 04:04] LABS: URINE APPEARANCE CLEAR; URINE BILIRUBIN NEGATIVE (NEGATIVE); URINE COLOR COLORLESS; URINE GLUCOSE (UA) 1+ (NEGATIVE); URINE KETONE NEGATIVE (NEGATIVE); URINE NITRITE NEGATIVE (NEGATIVE); URINE PROTEIN NEGATIVE (NEGATIVE); URINE UROBILINOGEN NEGATIVE E.U./dl (0.2-1.0)
[2016-12-04 04:09] LABS: URINE BLOOD 3+ (NEGATIVE); URINE LEUK ESTERASE 1+ (NEGATIVE)
[2016-12-04 04:41] LABS: URINE BACTERIA RARE /hpf (NONE SEEN); URINE HYALINE CAST 1 /lpf; URINE MUCUS RARE; URINE RBC 2 /hpf (0-3); URINE WBC 4 /hpf (3-5)
[2016-12-04] MEDS: DEXTROSE 5%-WATER - 1,000 ML IV SCH (06:34)
[2016-12-04 09:19] LABS: MCH 29.2 pg (25.7-33.7); MCHC 33.1 g/dl (32.0-36.0); MEAN CELL VOLUME 88.4 fl (80-96); MEAN PLT VOLUME 8.4 fl (7.5-11.1); RDW 15.2 % (11.6-15.6); WHITE BLOOD COUNT 13.2 K/mm3 (4.0-10.0)
[2016-12-04 09:31] LABS: ALBUMIN 1.8 g/dl (3.4-5.0); CALCIUM 8.2 mg/dL (8.5-10.1); CREATININE 0.9 mg/dL (0.55-1.02)
[2016-12-04 09:46] LABS: INR 1.66 (0.82-1.09); PROTHROMBIN TIME (PATIENT) 18.5 SEC (9.98-11.88)
[2016-12-04] MEDS: AMINO ACIDS/PROTEIN HYDROLYS 30 ML LIQUID.PKT GT SCH ×2 (09:52→17:33)
[2016-12-04] MEDS ORDERED: PT OWN MED DRAWER 7, Y5N ONE ×2 (09:56→17:09)
[2016-12-04] MEDS: CALCIUM CARBONATE SUSPENSION - 500 MG/5 ML ML PEG SCH (10:58)
[2016-12-04] MEDS: levETIRAcetam 250 MG TABLET (FP) PO SCH ×2 (10:58→23:00)
[2016-12-04] MEDS: BACLOFEN 10 MG TABLET (FP) GT SCH ×4 (10:59→23:00)
[2016-12-04] MEDS: POLYETHYLENE GLYCOL 3350 119 GM BTL PEG SCH ×2 (10:59→22:59)
[2016-12-04] MEDS: ASCORBIC ACID 500 MG/5 ML UNIT DOSE CUP GT SCH (11:01)
[2016-12-04] MEDS: PHENobarbital 20 MG/5 ML UNIT-DOSE CUP GT SCH ×2 (11:01→22:59)
[2016-12-04] MEDS: BACITRACIN 30 GM TUBE TOPICAL OINTMENT TP SCH ×2 (11:02→23:00)
[2016-12-04] MEDS: NYSTATIN POWDER 100,000 UNITS/GM - 15 GM TOPICAL POWDER TP SCH (11:03)
--- NOTE | 2016-12-04 12:09 | PN ---
Progress Note (short form) - Note Progress Note: Eyes are open. NAD on AC mode of vent, 40% FiO2 saturation 99%. Low grade temperatures persist. For nephrostomy today. Noted drop in H&H -> for pRBCs transfusion. Intake & Output 12/01/16 12/02/16 12/03/16 12/04/16 23:59 23:59 23:59 23:59 Intake Total 2580 1900 3370 1010 Output Total 1500 1500 2750 1600 Balance 1080 400 620 -590 Last Vital Signs Temp Pulse Resp BP Pulse Ox 98.3 F 120 H 13 100/50 99 12/04/16 10:06 12/04/16 10:06 12/04/16 10:06 12/04/16 10:06 12/04/16 10:01 Active Medications Acetaminophen (Tylenol Oral Solution -) 650 mg NGT Q4H PRN PRN Reason: FEVER OR PAIN Last Admin: 12/03/16 22:57 Dose: 650 mg Albuterol Sulfate (Ventolin 0.083% Nebulizer Soln -) 1 amp NEB Q4H PRN PRN Reason: SHORT OF BREATH/WHEEZING Last Admin: 11/27/16 17:39 Dose: 1 amp Amino Acids (Prosource No Carb Liquid Pkt) 30 ml GT BID@0800,1730 [facility] Last Admin: 12/04/16 09:52 Dose: Not Given Ascorbic Acid (Vitamin C Oral Solution -) 500 mg GT DAILY [facility] Last Admin: 12/04/16 11:01 Dose: Not Given Bacitracin (Bacitracin -) 1 applic TP BID [facility] Last Admin: 12/04/16 11:02 Dose: 1 applic Baclofen (Lioresal -) 10 mg GT QID [facility] Last Admin: 12/04/16 10:59 Dose: Not Given Bisacodyl (Dulcolax Suppository -) 10 mg RC Q72H PRN PRN Reason: CONSTIPATION EVERY 3 DAYS Calcium Carbonate (Calcium Carb Oral Suspension -) 500 mg PEG DAILY [facility] Last Admin: 12/04/16 10:58 Dose: Not Given Heparin Sodium (Porcine) (Heparin -) 5,000 unit SQ Q8H-IV [facility] Last Admin: 12/04/16 10:02 Dose: Not Given Aztreonam 2 gm/ Dextrose 100 mls @ 100 mls/hr IV Q8H-IV [facility] PRN Reason: Protocol Last Admin: 12/04/16 10:02 Dose: 100 mls/hr Dextrose (D5w -) 1,000 mls @ 100 mls/hr IV Q10H [facility] Last Admin: 12/04/16 06:34 Dose: Not Given Insulin Aspart (Novolog Vial Sliding Scale -) 1 vial SQ Q6HPO [facility] PRN Reason: Protocol Last Admin: 12/04/16 06:34 Dose: Not Given Levetiracetam (Keppra -) 750 mg PO BID [facility] Last Admin: 12/04/16 10:58 Dose: Not Given Magnesium Hydroxide (Milk Of Magnesia -) 30 ml GT DAILY PRN PRN Reason: NO BM FOR 48HR Nystatin (Nystop Powder -) 1 applic TP DAILY [facility] Last Admin: 12/04/16 11:03 Dose: 1 applic Phenobarbital (Phenobarbital Liquid -) 80 mg GT BID [facility] Last Admin: 12/04/16 11:01 Dose: Not Given Piperacillin Sod/Tazobactam Sod (Zosyn 3.375gm Ivpb (Pre-Docked)) 3.375 gm IVPB Q8H-IV [facility]SE PRN Reason: Protocol Last Admin: 12/04/16 11:02 Dose: 3.375 gm Polyethylene Glycol (Miralax (For Daily Use) -) 17 gm PEG BID [facility] Last Admin: 12/04/16 10:59 Dose: Not Given Constitutional: Yes: No Distress Eyes: Yes: Conjunctiva Clear HENT: Yes: Atraumatic, Normocephalic Neck: Yes: Supple, Trachea Midline, Other (Tracheostomy intact ) Cardiovascular: Yes: Regular Rate and Rhythm Respiratory: Yes: Diminished, Mechanically Ventilated, Rhonchi. No: Accessory Muscle Use, Rales, Stridor, Tachypnea, Wheezes ...Inspection: Yes: Barrel Chest, Trachea Midline. No: Use of Accessory Muscles ...Clubbing: No Gastrointestinal: Yes: Normal Bowel Sounds, Soft Musculoskeletal: Yes: Joint Stiffness Extremities: Yes: Shortened Edema: No Peripheral Pulses WNL: Yes Integumentary: Yes: WNL Labs: Laboratory Results - last 24 hr 12/02/16 12/03/16 12/03/16 11:15 12:30 18:14 WBC RBC Hgb Hct MCV MCHC RDW Plt Count MPV Neutrophils % Lymphocytes % Monocytes % Eosinophils % Basophils % INR Sodium Potassium Chloride Carbon Dioxide Anion Gap BUN Creatinine POC Glucometer 178 199 Random Glucose Calcium Albumin Urine Color Urine Appearance Urine pH Urine Protein Urine Glucose (UA) Urine Ketones Urine Blood Urine Nitrite Urine Bilirubin Urine Urobilinogen Ur Leukocyte Esterase Urine RBC Urine WBC Ur Epithelial Cells Urine Bacteria Hyaline Casts Urine Mucus Hepatitis A IgM Ab Negative Hep Bs Antigen Negative Hep B Core IgM Ab Negative Hepatitis C Ab (EIA) 0.2 Blood Type Antibody Screen Crossmatch 12/04/16 12/04/16 12/04/16 00:55 03:00 03:00 WBC RBC Hgb Hct MCV MCHC RDW Plt Count MPV Neutrophils % Lymphocytes % Monocytes % Eosinophils % Basophils % INR Sodium Potassium Chloride Carbon Dioxide Anion Gap BUN Creatinine POC Glucometer 192 Random Glucose Calcium Albumin Urine Color Colorless Urine Appearance Clear Urine pH 7.0 Urine Protein Negative Urine Glucose (UA) 1+ H Urine Ketones Negative Urine Blood 3+ H Urine Nitrite Negative Urine Bilirubin Negative Urine Urobilinogen Negative Ur Leukocyte Esterase 1+ H Urine RBC 2 Urine WBC 4 Ur Epithelial Cells Rare Urine Bacteria Rare Hyaline Casts 1 Urine Mucus Rare Hepatitis A IgM Ab Hep Bs Antigen Hep B Core IgM Ab Hepatitis C Ab (EIA) Blood Type O POSITIVE Antibody Screen Negative Crossmatch See Detail 12/04/16 12/04/16 12/04/16 03:00 04:00 06:32 WBC 12.0 H RBC 2.37 L Hgb 6.9 L* Hct 20.8 L MCV 87.9 MCHC 33.1 RDW 15.1 Plt Count 323 MPV 8.6 Neutrophils % 72.7 Lymphocytes % 16.4 D Monocytes % 7.8 D Eosinophils % 2.8 Basophils % 0.3 INR Sodium Potassium Chloride Carbon Dioxide Anion Gap BUN Creatinine POC Glucometer 138 Random Glucose Calcium Albumin Urine Color Urine Appearance Urine pH Urine Protein Urine Glucose (UA) Urine Ketones Urine Blood Urine Nitrite Urine Bilirubin Urine Urobilinogen Ur Leukocyte Esterase Urine RBC Urine WBC Ur Epithelial Cells Urine Bacteria Hyaline Casts Urine Mucus Hepatitis A IgM Ab Hep Bs Antigen Hep B Core IgM Ab Hepatitis C Ab (EIA) Blood Type Antibody Screen Crossmatch See Detail 12/04/16 12/04/16 12/04/16 08:00 08:00 08:00 WBC 13.2 H RBC 2.62 L Hgb 7.7 L D Hct 23.2 L MCV 88.4 MCHC 33.1 RDW 15.2 Plt Count MPV 8.4 Neutrophils % Lymphocytes % Monocytes % Eosinophils % Basophils % INR 1.66 H Sodium 140 Potassium 3.3 L Chloride 109 H Carbon Dioxide 20 L Anion Gap 11 BUN 20 H D Creatinine 0.9 POC Glucometer Random Glucose 143 H D Calcium 8.2 L Albumin 1.8 L Urine Color Urine Appearance Urine pH Urine Protein Urine Glucose (UA) Urine Ketones Urine Blood Urine Nitrite Urine Bilirubin Urine Urobilinogen Ur Leukocyte Esterase Urine RBC Urine WBC Ur Epithelial Cells Urine Bacteria Hyaline Casts Urine Mucus Hepatitis A IgM Ab Hep Bs Antigen Hep B Core IgM Ab Hepatitis C Ab (EIA) Blood Type Antibody Screen Crossmatch Problem List - Problems (1) Mental retardation Code(s): F79 - UNSPECIFIED INTELLECTUAL DISABILITIES (2) Seizure disorder Code(s): G40.909 - EPILEPSY, UNSP, NOT INTRACTABLE, WITHOUT STATUS EPILEPTICUS (3) Anemia Code(s): D64.9 - ANEMIA, UNSPECIFIED (4) Atelectasis Code(s): J98.11 - ATELECTASIS (5) Chronic respiratory failure Code(s): J96.10 - CHRONIC RESPIRATORY FAILURE, UNSP W HYPOXIA OR HYPERCAPNIA (6) Seizure Code(s): R56.9 - UNSPECIFIED CONVULSIONS (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 Assessment/Plan Current vent settings ABX per ID VTE prophylaxis BD TX PRN For Nephrostomy placement Normal transfusion thresholds Family has decide to continue treatment Dr Hernandez Problem List - Problems (1) Mental retardation Code(s): F79 - UNSPECIFIED INTELLECTUAL DISABILITIES (2) Seizure disorder Code(s): G40.909 - EPILEPSY, UNSP, NOT INTRACTABLE, WITHOUT STATUS EPILEPTICUS (3) Anemia Code(s): D64.9 - ANEMIA, UNSPECIFIED (4) Atelectasis Code(s): J98.11 - ATELECTASIS (5) Chronic respiratory failure Code(s): J96.10 - CHRONIC RESPIRATORY FAILURE, UNSP W HYPOXIA OR HYPERCAPNIA (6) Seizure Code(s): R56.9 - UNSPECIFIED CONVULSIONS (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
[2016-12-04 12:26] LABS: PLATELET COUNT 335 K/MM3 (134-434); PLATELET ESTIMATE ADEQUATE (NORMAL)
--- NOTE | 2016-12-04 13:11 | PN ---
Physical Exam: SUBJECTIVE: Patient seen and examined Pt is on ventilator Pt had nephrostomy tube placed today Pt had fever overnight Tmax 101.7 nonverbal OBJECTIVE: Vital Signs Period Temp Pulse Resp BP Sys/Stein Pulse Ox Last 24 Hr 98.3 F-101.7 F 109-120 13-39 92-112/50-62 99-99 GENERAL: Awake, alert, in no acute distress. NECK: Normal range of motion, supple without lymphadenopathy, JVD, or masses. Trach in place, no mucus production. LUNGS: Scattered ronchi to auscultation bilaterally. No wheezes, and no crackles. No accessory muscle use. HEART: Regular rate and rhythm, normal S1 and S2 with systolic murmur, rub or gallop. ABDOMEN: Soft, nontender, distended, normoactive bowel sounds, no guarding, no rebound. Round mass in left mid abdomen. No hepatomegaly or splenomegaly. PEG Tube in place with tube feeding. Garcia in place, hematuria has resolved MUSCULOSKELETAL: Normal range of motion at all joints. No bony deformities or tenderness. No CVA tenderness. UPPER EXTREMITIES: 2+ pulses, warm, well-perfused. No cyanosis. No clubbing. No peripheral edema. LOWER EXTREMITIES: 2+ pulses, warm, well-perfused. No calf tenderness. trace peripheral edema. NEUROLOGICAL: non verbal , non-ambulatory, on ventilator SKIN: perineal rash Laboratory Results - last 24 hr 12/02/16 12/03/16 12/04/16 11:15 18:14 00:55 WBC RBC Hgb Hct MCV MCHC RDW Plt Count MPV Neutrophils % Lymphocytes % Monocytes % Eosinophils % Basophils % Platelet Estimate Platelet Comment INR Sodium Potassium Chloride Carbon Dioxide Anion Gap BUN Creatinine POC Glucometer 199 192 Random Glucose Calcium Albumin Urine Color Urine Appearance Urine pH Urine Protein Urine Glucose (UA) Urine Ketones Urine Blood Urine Nitrite Urine Bilirubin Urine Urobilinogen Ur Leukocyte Esterase Urine RBC Urine WBC Ur Epithelial Cells Urine Bacteria Hyaline Casts Urine Mucus Hepatitis A IgM Ab Negative Hep Bs Antigen Negative Hep B Core IgM Ab Negative Hepatitis C Ab (EIA) 0.2 Blood Type Antibody Screen Crossmatch 12/04/16 12/04/16 12/04/16 03:00 03:00 03:00 WBC 12.0 H RBC 2.37 L Hgb 6.9 L* Hct 20.8 L MCV 87.9 MCHC 33.1 RDW 15.1 Plt Count 323 MPV 8.6 Neutrophils % 72.7 Lymphocytes % 16.4 D Monocytes % 7.8 D Eosinophils % 2.8 Basophils % 0.3 Platelet Estimate Platelet Comment INR Sodium Potassium Chloride Carbon Dioxide Anion Gap BUN Creatinine POC Glucometer Random Glucose Calcium Albumin Urine Color Colorless Urine Appearance Clear Urine pH 7.0 Urine Protein Negative Urine Glucose (UA) 1+ H Urine Ketones Negative Urine Blood 3+ H Urine Nitrite Negative Urine Bilirubin Negative Urine Urobilinogen Negative Ur Leukocyte Esterase 1+ H Urine RBC 2 Urine WBC 4 Ur Epithelial Cells Rare Urine Bacteria Rare Hyaline Casts 1 Urine Mucus Rare Hepatitis A IgM Ab Hep Bs Antigen Hep B Core IgM Ab Hepatitis C Ab (EIA) Blood Type O POSITIVE Antibody Screen Negative Crossmatch See Detail 12/04/16 12/04/16 12/04/16 04:00 06:32 08:00 WBC RBC Hgb Hct MCV MCHC RDW Plt Count MPV Neutrophils % Lymphocytes % Monocytes % Eosinophils % Basophils % Platelet Estimate Platelet Comment INR 1.66 H Sodium Potassium Chloride Carbon Dioxide Anion Gap BUN Creatinine POC Glucometer 138 Random Glucose Calcium Albumin Urine Color Urine Appearance Urine pH Urine Protein Urine Glucose (UA) Urine Ketones Urine Blood Urine Nitrite Urine Bilirubin Urine Urobilinogen Ur Leukocyte Esterase Urine RBC Urine WBC Ur Epithelial Cells Urine Bacteria Hyaline Casts Urine Mucus Hepatitis A IgM Ab Hep Bs Antigen Hep B Core IgM Ab Hepatitis C Ab (EIA) Blood Type Antibody Screen Crossmatch See Detail 12/04/16 12/04/16 08:00 08:00 WBC 13.2 H RBC 2.62 L Hgb 7.7 L D Hct 23.2 L MCV 88.4 MCHC 33.1 RDW 15.2 Plt Count 335 MPV 8.4 Neutrophils % Lymphocytes % Monocytes % Eosinophils % Basophils % Platelet Estimate Adequate Platelet Comment No clumping noted INR Sodium 140 Potassium 3.3 L Chloride 109 H Carbon Dioxide 20 L Anion Gap 11 BUN 20 H D Creatinine 0.9 POC Glucometer Random Glucose 143 H D Calcium 8.2 L Albumin 1.8 L Urine Color Urine Appearance Urine pH Urine Protein Urine Glucose (UA) Urine Ketones Urine Blood Urine Nitrite Urine Bilirubin Urine Urobilinogen Ur Leukocyte Esterase Urine RBC Urine WBC Ur Epithelial Cells Urine Bacteria Hyaline Casts Urine Mucus Hepatitis A IgM Ab Hep Bs Antigen Hep B Core IgM Ab Hepatitis C Ab (EIA) Blood Type Antibody Screen Crossmatch Active Medications Generic Name Dose Route Start Last Admin Trade Name Freq PRN Reason Stop Dose Admin Acetaminophen 650 mg 11/24/16 00:51 12/03/16 22:57 Tylenol Oral Solution - NGT 650 mg Q4H PRN Administration FEVER OR PAIN Albuterol Sulfate 1 amp 11/23/16 17:19 11/27/16 17:39 Ventolin 0.083% Nebulizer Soln - NEB 1 amp Q4H PRN Administration SHORT OF BREATH/WHEEZING Amino Acids 30 ml 11/23/16 17:30 12/04/16 09:52 Prosource No Carb Liquid Pkt GT Not Given BID@0800,1730 [facility] Ascorbic Acid 500 mg 11/23/16 11:38 12/04/16 11:01 Vitamin C Oral Solution - GT Not Given DAILY [facility] Bacitracin 1 applic 11/23/16 22:00 12/04/16 11:02 Bacitracin - TP 1 applic BID [facility] Administration Baclofen 10 mg 11/23/16 18:00 12/04/16 10:59 Lioresal - GT Not Given QID [facility] Bisacodyl 10 mg 11/23/16 16:50 Dulcolax Suppository - RC Q72H PRN CONSTIPATION EVERY 3 DAYS Calcium Carbonate 500 mg 11/24/16 10:00 12/04/16 10:58 Calcium Carb Oral Suspension - PEG Not Given DAILY [facility] Heparin Sodium (Porcine) 5,000 unit 11/23/16 10:00 12/04/16 10:02 Heparin - SQ Not Given Q8H-IV [facility] Aztreonam 2 gm/ Dextrose 100 mls @ 100 mls/hr 11/25/16 14:30 12/04/16 10:02 IV 100 mls/hr Q8H-IV [facility] Administration Protocol Dextrose 1,000 mls @ 100 mls/hr 12/02/16 13:00 12/04/16 06:34 D5w - IV Not Given Q10H [facility] Insulin Aspart 1 vial 11/28/16 12:00 12/04/16 06:34 Novolog Vial Sliding Scale - SQ Not Given Q6HPO [facility] Protocol Levetiracetam 750 mg 11/28/16 22:00 12/04/16 10:58 Keppra - PO Not Given BID [facility] Magnesium Hydroxide 30 ml 11/23/16 16:50 Milk Of Magnesia - GT DAILY PRN NO BM FOR 48HR Nystatin 1 applic 11/25/16 14:45 12/04/16 11:03 Nystop Powder - TP 1 applic DAILY [facility] Administration Phenobarbital 80 mg 11/30/16 10:30 12/04/16 11:01 Phenobarbital Liquid - GT Not Given BID [facility] Piperacillin Sod/Tazobactam Sod 3.375 gm 11/23/16 18:00 12/04/16 11:02 Zosyn 3.375gm Ivpb (Pre-Docked) IVPB 3.375 gm Q8H-IV [facility] Administration Protocol Polyethylene Glycol 17 gm 11/23/16 22:00 12/04/16 10:59 Miralax (For Daily Use) - PEG Not Given BID [facility] CBC, BMP 12/04/16 08:00 12/04/16 08:00 ASSESSMENT/PLAN: 41 year old female with pmh of Mental retardation, Recurrent aspiration pneumonia, UTI, Sepsis, Seizure disorder and GI bleed, Chronic respiratory failure with trach, Ventilator dependent from [facility] present to the ED with fever and Tachycardia. Sepsis work up was initiated. Sepsis Likely from UTI On Aztreonam per ID day 10 On Zosyn day 12 D5W at 100ml/h Acute urinary retention/Ureteral Stone/hydronephrosis US showed renal stones 1.5 cm, hydronephrosis CT abdomen and pelvis showed a stone 8mm in right ureter causing hydronephosis urology consulted Nephrostomy tube for decompression done today, draining pink bloody urine Garcia cath in place draining clear yellow urine Chronic hypoxic respiratory failure with Ventilator dependence On same setting at [facility] AC12, TV 400, FiO2 40%, Peep 5 O2 sat 100 % Pulmonary consulted Dr Rivero Seizure disorder Resume Phenobarbital keppra PO 750mg bid FEN Fluid: d5W at 100 ml/h Electrolytes: chemistry in am Nutrition: Jevity at 45ml/h DVT prophylaxis: SCD, heparin SQ Disposition: Keep ventilator floor pending resolution of sepsis. Visit type - Emergency Visit Emergency Visit: Yes ED Registration Date: 11/23/16 Care time: The patient presented to the Emergency Department on the above date and was hospitalized for further evaluation of their emergent condition. - New Patient This patient is new to me today: Yes - Critical Care Critical Care patient: No - Discharge Referral Referred to [facility] Med P.C.: No
[2016-12-04] MEDS ORDERED: POTASSIUM CHLORIDE ORAL LIQUID 20 MEQ/15 ML PO ONE (13:30)
--- NOTE | 2016-12-04 14:16 | PN ---
Teaching Attending Note Name of Resident: Domenic Esquivel ATTENDING PHYSICIAN STATEMENT I saw and evaluated the patient. I reviewed the resident's note and discussed the case with the resident. I agree with the resident's findings and plan as documented. SUBJECTIVE:resting comfortable OBJECTIVE: Last Vital Signs Temp Pulse Resp BP Pulse Ox 98.8 F 119 H 15 107/65 99 12/04/16 14:08 12/04/16 14:08 12/04/16 14:08 12/04/16 14:08 12/04/16 10:01 General NAD CV S1 S2 tachycardic no murmur/rub/gallop Lungs coarse breath sounds diffusely. no wheezing anteriorly. no sputum Abdomen soft +distended +PEG +BS Extremities all extremities contracted. no edema ASSESSMENT AND PLAN: 41 year old female with pmh of Mental retardation, Recurrent aspiration pneumonia, UTI, Sepsis, Seizure disorder and GI bleed, Chronic respiratory failure s/p trach. dysphagia s/p PEG presented to the ER and was admitted for further evaluation of their emergent condition 1. Sepsis with pseudomonal UTI and Morganella bacteremia- afebrile,Tm 101.7. plan for nephrostomy tube placement. will give FFP prior to procedure for slightly elevated INR. on Zosyn/Azactram day 11. ID and surgery on board. 2. Normocytic anemia- no signs of bleeding., will transfuse 1 unit PRBC. check repeat prior to procedure. 3. Hypernatremia- resolved. 4. Hypokalemia- Kcl 40meq 5. Seizure d/o- no signs of seizure like activity. cont home medication 6. DVT ppx- hold hep in setting of dropping Hgb and procedure today
--- NOTE | 2016-12-04 15:06 | PN ---
Teaching Attending Note Name of Resident: Lidya Ha ATTENDING PHYSICIAN STATEMENT I saw and evaluated the patient. I reviewed the resident's note and discussed the case with the resident. I agree with the resident's findings and plan as documented. SUBJECTIVE: s/p PCN placement today febrile overnight OBJECTIVE: Vital Signs Period Temp Pulse Resp BP Sys/Stein Pulse Ox Last 24 Hr 98.3 F-101.7 F 109-120 13-39 92-107/50-65 99-99 ASSESSMENT AND PLAN: s/p PCN placement today morganella bacteremia pseudomonas UTI cultures repeated day #10 antibiotics will check cultures in am if fevers resolve and cultures negative will d/c antibiotics
--- NOTE | 2016-12-04 15:22 | PN ---
Physical Exam: SUBJECTIVE: Patient seen and examined. No overnight events. T max 101.7, nonverbal. OBJECTIVE: Vital Signs Period Temp Pulse Resp BP Sys/Stein Pulse Ox Last 24 Hr 98.3 F-101.7 F 109-120 13-39 92-107/50-65 99-99 GENERAL: The patient is awake, on ventilation, diaphoretic. HEAD: Normal with no signs of trauma. EYES: sclera anicteric, conjunctiva clear. No ptosis. ENT: oropharynx clear without exudates, moist mucous membranes. NECK: Trachea midline, supple. LUNGS: Breath sounds equal, coarse breath sounds bilaterally, no wheezes, no crackles, no accessory muscle use. HEART: Regular rate and rhythm, S1, S2 without murmur, rub or gallop. ABDOMEN: Hard, nontender, distended, normoactive bowel sounds, no guarding, no rebound, no hepatosplenomegaly, no masses. EXTREMITIES: 2+ pulses, warm, well-perfused, no edema. NEUROLOGICAL: No facial asymmetry. Normal speech, gait not observed. PSYCH: awake, non verbal, not following commands. SKIN: Warm, dry, normal turgor, no rashes or lesions noted Garcia cath: light yellow urine. Nephrostomy tube draining: bloody fluid. Laboratory Results - last 24 hr 12/02/16 12/03/16 12/04/16 11:15 18:14 00:55 WBC RBC Hgb Hct MCV MCHC RDW Plt Count MPV Neutrophils % Lymphocytes % Monocytes % Eosinophils % Basophils % Platelet Estimate Platelet Comment INR Sodium Potassium Chloride Carbon Dioxide Anion Gap BUN Creatinine POC Glucometer 199 192 Random Glucose Calcium Albumin Urine Color Urine Appearance Urine pH Urine Protein Urine Glucose (UA) Urine Ketones Urine Blood Urine Nitrite Urine Bilirubin Urine Urobilinogen Ur Leukocyte Esterase Urine RBC Urine WBC Ur Epithelial Cells Urine Bacteria Hyaline Casts Urine Mucus Hepatitis A IgM Ab Negative Hep Bs Antigen Negative Hep B Core IgM Ab Negative Hepatitis C Ab (EIA) 0.2 Blood Type Antibody Screen Crossmatch 12/04/16 12/04/16 12/04/16 03:00 03:00 03:00 WBC 12.0 H RBC 2.37 L Hgb 6.9 L* Hct 20.8 L MCV 87.9 MCHC 33.1 RDW 15.1 Plt Count 323 MPV 8.6 Neutrophils % 72.7 Lymphocytes % 16.4 D Monocytes % 7.8 D Eosinophils % 2.8 Basophils % 0.3 Platelet Estimate Platelet Comment INR Sodium Potassium Chloride Carbon Dioxide Anion Gap BUN Creatinine POC Glucometer Random Glucose Calcium Albumin Urine Color Colorless Urine Appearance Clear Urine pH 7.0 Urine Protein Negative Urine Glucose (UA) 1+ H Urine Ketones Negative Urine Blood 3+ H Urine Nitrite Negative Urine Bilirubin Negative Urine Urobilinogen Negative Ur Leukocyte Esterase 1+ H Urine RBC 2 Urine WBC 4 Ur Epithelial Cells Rare Urine Bacteria Rare Hyaline Casts 1 Urine Mucus Rare Hepatitis A IgM Ab Hep Bs Antigen Hep B Core IgM Ab Hepatitis C Ab (EIA) Blood Type O POSITIVE Antibody Screen Negative Crossmatch See Detail 12/04/16 12/04/16 12/04/16 04:00 06:32 08:00 WBC RBC Hgb Hct MCV MCHC RDW Plt Count MPV Neutrophils % Lymphocytes % Monocytes % Eosinophils % Basophils % Platelet Estimate Platelet Comment INR 1.66 H Sodium Potassium Chloride Carbon Dioxide Anion Gap BUN Creatinine POC Glucometer 138 Random Glucose Calcium Albumin Urine Color Urine Appearance Urine pH Urine Protein Urine Glucose (UA) Urine Ketones Urine Blood Urine Nitrite Urine Bilirubin Urine Urobilinogen Ur Leukocyte Esterase Urine RBC Urine WBC Ur Epithelial Cells Urine Bacteria Hyaline Casts Urine Mucus Hepatitis A IgM Ab Hep Bs Antigen Hep B Core IgM Ab Hepatitis C Ab (EIA) Blood Type Antibody Screen Crossmatch See Detail 12/04/16 12/04/16 08:00 08:00 WBC 13.2 H RBC 2.62 L Hgb 7.7 L D Hct 23.2 L MCV 88.4 MCHC 33.1 RDW 15.2 Plt Count 335 MPV 8.4 Neutrophils % Lymphocytes % Monocytes % Eosinophils % Basophils % Platelet Estimate Adequate Platelet Comment No clumping noted INR Sodium 140 Potassium 3.3 L Chloride 109 H Carbon Dioxide 20 L Anion Gap 11 BUN 20 H D Creatinine 0.9 POC Glucometer Random Glucose 143 H D Calcium 8.2 L Albumin 1.8 L Urine Color Urine Appearance Urine pH Urine Protein Urine Glucose (UA) Urine Ketones Urine Blood Urine Nitrite Urine Bilirubin Urine Urobilinogen Ur Leukocyte Esterase Urine RBC Urine WBC Ur Epithelial Cells Urine Bacteria Hyaline Casts Urine Mucus Hepatitis A IgM Ab Hep Bs Antigen Hep B Core IgM Ab Hepatitis C Ab (EIA) Blood Type Antibody Screen Crossmatch Active Medications Generic Name Dose Route Start Last Admin Trade Name Freq PRN Reason Stop Dose Admin Acetaminophen 650 mg 11/24/16 00:51 12/03/16 22:57 Tylenol Oral Solution - NGT 650 mg Q4H PRN Administration FEVER OR PAIN Albuterol Sulfate 1 amp 11/23/16 17:19 11/27/16 17:39 Ventolin 0.083% Nebulizer Soln - NEB 1 amp Q4H PRN Administration SHORT OF BREATH/WHEEZING Amino Acids 30 ml 11/23/16 17:30 12/04/16 09:52 Prosource No Carb Liquid Pkt GT Not Given BID@0800,1730 [facility] Ascorbic Acid 500 mg 11/23/16 11:38 12/04/16 11:01 Vitamin C Oral Solution - GT Not Given DAILY [facility] Bacitracin 1 applic 11/23/16 22:00 12/04/16 11:02 Bacitracin - TP 1 applic BID JUANJOSE Administration Baclofen 10 mg 11/23/16 18:00 12/04/16 10:59 Lioresal - GT Not Given QID JUANJOSE Bisacodyl 10 mg 11/23/16 16:50 Dulcolax Suppository - RC Q72H PRN CONSTIPATION EVERY 3 DAYS Calcium Carbonate 500 mg 11/24/16 10:00 12/04/16 10:58 Calcium Carb Oral Suspension - PEG Not Given DAILY [facility] Aztreonam 2 gm/ Dextrose 100 mls @ 100 mls/hr 11/25/16 14:30 12/04/16 10:02 IV 100 mls/hr Q8H-IV JUANJOSE Administration Protocol Insulin Aspart 1 vial 11/28/16 12:00 12/04/16 06:34 Novolog Vial Sliding Scale - SQ Not Given Q6HPO [facility] Protocol Levetiracetam 750 mg 11/28/16 22:00 12/04/16 10:58 Keppra - PO Not Given BID JUANJOSE Magnesium Hydroxide 30 ml 11/23/16 16:50 Milk Of Magnesia - GT DAILY PRN NO BM FOR 48HR Nystatin 1 applic 11/25/16 14:45 12/04/16 11:03 Nystop Powder - TP 1 applic DAILY JUANJOSE Administration Phenobarbital 80 mg 11/30/16 10:30 12/04/16 11:01 Phenobarbital Liquid - GT Not Given BID JUANJOSE Piperacillin Sod/Tazobactam Sod 3.375 gm 11/23/16 18:00 12/04/16 11:02 Zosyn 3.375gm Ivpb (Pre-Docked) IVPB 3.375 gm Q8H-IV JUANJOSE Administration Protocol Polyethylene Glycol 17 gm 11/23/16 22:00 12/04/16 10:59 Miralax (For Daily Use) - PEG Not Given BID JUANJOSE Microbiology 11/24/16 20:33 Sputum - Endotrachea Suction/Ventilator Gram Stain - Final 11/24/16 20:33 Sputum - Endotrachea Suction/Ventilator Sputum Culture - Final Providencia Stuartii Acinetobacter Baumannii/Haemol Pseudomonas Aeruginosa Morganella Morganii 11/23/16 05:02 Blood - Peripheral Venous Blood Culture - Final NO GROWTH AFTER 5 DAYS INCUBATION 11/23/16 05:02 Urine - Urine Clean Catch Urine Culture - Final Pseudomonas Aeruginosa 11/23/16 05:02 Blood - Peripheral Venous Blood Culture - Final Morganella Morganii ASSESSMENT/PLAN: 41 year old female with a PMH of MR, recurrent UTI, aspiration pneumonia, seizure disorder, GI bleed, respiratory failure s/p trach. Bacteremia due to Morganella Morgani -Leukocytosis, low grade fever, t max 101.7 -continue Aztreonam IV day 10 and cont. Zosyn 3.375 g IV Q8H Sepsis due to UTI: -urine cultures: Pseudomonas Aeruginosa -possible due to neurogenic bladder or obstruction -cont Dextrose -the pt had US abdomen which revealed right sided hydronephrosis, -Urology was consulted, CT abdomen/pelvis obtained, will f/u recommendations Ureteral Stone/hydronephrosis -US showed renal stones 1.5 cm, hydronephrosis -CT abdomen and pelvis showed a stone 8mm in right ureter causing hydronephosis -urology inserted nephrostomy tube on right side -Garcia cath in place draining clear yellow urine Cholelithiasis: -US done, chooecystectomy was r/o -family decided not to operate the pt Seizure disorder: -no seizure activity reported in the hospital Rash in groin: -applied Nystatin powder -improved Dispo: We will continue to follow the patient. Thank you for this consultative opportunity. Problem List - Problems (1) Mental retardation Code(s): F79 - UNSPECIFIED INTELLECTUAL DISABILITIES (2) Seizure disorder Code(s): G40.909 - EPILEPSY, UNSP, NOT INTRACTABLE, WITHOUT STATUS EPILEPTICUS (3) Chronic respiratory failure Code(s): J96.10 - CHRONIC RESPIRATORY FAILURE, UNSP W HYPOXIA OR HYPERCAPNIA (4) Sepsis Code(s): A41.9 - SEPSIS, UNSPECIFIED ORGANISM Qualifiers: Qualified Code(s): A41.9 - Sepsis, unspecified organism Visit type - Emergency Visit Emergency Visit: Yes ED Registration Date: 11/23/16 Care time: The patient presented to the Emergency Department on the above date and was hospitalized for further evaluation of their emergent condition. - New Patient This patient is new to me today: No - Critical Care Critical Care patient: No
[2016-12-04] MEDS: ACETAMINOPHEN 650 MG/20.3 ML ORAL SOLUTION (CUPS) NGT PRN (23:00)
[2016-12-05] MEDS: PIPERACILLIN/TAZOB 3.375 GM/50 ML PRE-DOCKED IVPB SCH ×2 (02:18→10:25)
[2016-12-05] MEDS: AZTREONAM 2 GM in DEXTROSE 5%-WATER - 100 ML IV SCH ×3 (02:18→17:32)
[2016-12-05] MEDS: INSULIN SLIDING SCALE (NOVOLOG) 1 VIAL SQ SCH ×4 (05:48→23:15)
[2016-12-05 07:33] LABS: MCH 29.4 pg (25.7-33.7); MCHC 34.2 g/dl (32.0-36.0); MEAN CELL VOLUME 85.9 fl (80-96); MEAN PLT VOLUME 8.2 fl (7.5-11.1); PLATELET COUNT 336 K/MM3 (134-434); RDW 14.7 % (11.6-15.6); WHITE BLOOD COUNT 10.7 K/mm3 (4.0-10.0)
[2016-12-05 07:49] LABS: ALBUMIN 2.1 g/dl (3.4-5.0); CALCIUM 8.6 mg/dL (8.5-10.1)
[2016-12-05 07:50] LABS: COCKROFT - GAULT 162.146; CREATININE 0.5 mg/dL (0.55-1.02)
[2016-12-05] MEDS ORDERED: PT OWN MED DRAWER 7, Y5N ONE ×3 (10:19→21:45)
[2016-12-05] MEDS: MAGNESIUM HYDROX 2400MG/30ML ORAL SUSPENSION 30 ML CUP GT PRN (10:24)
[2016-12-05] MEDS: PHENobarbital 20 MG/5 ML UNIT-DOSE CUP GT SCH ×2 (10:24→22:50)
[2016-12-05] MEDS: AMINO ACIDS/PROTEIN HYDROLYS 30 ML LIQUID.PKT GT SCH ×2 (10:24→17:32)
[2016-12-05] MEDS: levETIRAcetam 250 MG TABLET (FP) PO SCH ×2 (10:25→22:50)
[2016-12-05] MEDS: BACLOFEN 10 MG TABLET (FP) GT SCH ×4 (10:25→22:50)
[2016-12-05] MEDS: BACITRACIN 30 GM TUBE TOPICAL OINTMENT TP SCH ×2 (10:25→22:48)
[2016-12-05] MEDS: CALCIUM CARBONATE SUSPENSION - 500 MG/5 ML ML PEG SCH (10:26)
[2016-12-05] MEDS: NYSTATIN POWDER 100,000 UNITS/GM - 15 GM TOPICAL POWDER TP SCH (10:26)
[2016-12-05] MEDS: ASCORBIC ACID 500 MG/5 ML UNIT DOSE CUP GT SCH (10:26)
[2016-12-05] MEDS: POLYETHYLENE GLYCOL 3350 119 GM BTL PEG SCH ×2 (10:27→22:50)
--- NOTE | 2016-12-05 12:25 | PN ---
Progress Note (short form) - Note Progress Note: PULMONARY NO OVERALL CHANGE IN EXAM LOW GRADE TEMP CONTINUES NEPHROSTOMY TUBE IN PLACE CHART/MEDS/NOTES/IMAGING/LABS/MICRO REVIEWED (1) Mental retardation Code(s): F79 - UNSPECIFIED INTELLECTUAL DISABILITIES (2) Seizure disorder Code(s): G40.909 - EPILEPSY, UNSP, NOT INTRACTABLE, WITHOUT STATUS EPILEPTICUS (3) Anemia Code(s): D64.9 - ANEMIA, UNSPECIFIED (4) Atelectasis Code(s): J98.11 - ATELECTASIS (5) Chronic respiratory failure Code(s): J96.10 - CHRONIC RESPIRATORY FAILURE, UNSP W HYPOXIA OR HYPERCAPNIA (6) Seizure Code(s): R56.9 - UNSPECIFIED CONVULSIONS (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
--- NOTE | 2016-12-05 14:18 | PN ---
Teaching Attending Note Name of Resident: Shaq Valdez ATTENDING PHYSICIAN STATEMENT I saw and evaluated the patient. I reviewed the resident's note and discussed the case with the resident. I agree with the resident's findings and plan as documented. SUBJECTIVE:resting comfortable OBJECTIVE: Last Vital Signs Temp Pulse Resp BP Pulse Ox 99.6 F 119 H 12 106/60 99 12/05/16 09:00 12/05/16 09:00 12/05/16 10:29 12/05/16 09:00 12/04/16 10:01 General NAD CV S1 S2 tachycardic no murmur/rub/gallop Lungs coarse breath sounds diffusely. no wheezing anteriorly. no sputum Abdomen soft +distended +PEG +BS Extremities all extremities contracted. no edema ASSESSMENT AND PLAN: 41 year old female with pmh of Mental retardation, Recurrent aspiration pneumonia, UTI, Sepsis, Seizure disorder and GI bleed, Chronic respiratory failure s/p trach. dysphagia s/p PEG presented to the ER and was admitted for further evaluation of their emergent condition 1. Sepsis with pseudomonal UTI and Morganella bacteremia- afebrile,Tm 100.4. s/ p nephrostomy tube placement with large output. leukocytosis has trended down. awaiting repeat cx that were sent. if negative plan is to d/c abx. currently on Zosyn/Azactram day 11. ID and surgery on board. 2. Normocytic anemia- no signs of bleeding. received 1 unit PRBC yesterday with good response. txn as needed 3. Hypernatremia- resolved. 4. Hypokalemia- Kcl 40meq 5. Seizure d/o- no signs of seizure like activity. cont home medication 6. DVT ppx- re-start hep sq
[2016-12-05] MEDS ORDERED: POTASSIUM CHLORIDE ORAL LIQUID 20 MEQ/15 ML PEG ONE (14:30)
--- NOTE | 2016-12-05 15:14 | PN ---
Physical Exam: SUBJECTIVE: Patient seen and examined at bedside. Patient is non-verbal, trached and on mechanical ventilation at baseline. Per nurse, she had a spike fever 100.4F overnight but no other acute pathology OBJECTIVE: Vent settings: TV 400, FiO2 40% Vital Signs Period Temp Pulse Resp BP Sys/Stein Pulse Ox Last 24 Hr 98.2 F-100.4 F 106-119 12-20 90-112/56-68 GENERAL: Trached and vented, mentally retarded, non-verbal, contracted, responded to painful stimuli. HEAD: AT, NC EYES: Pupils equal, round and reactive to light, sclera anicteric, conjunctiva clear ENT: nares patent, oropharynx clear without exudates LUNGS: rhonchi b/l HEART: Tachycardic, S1 and S2 present,No murmur ABDOMEN: +bs, soft, grimace upon pressing, PEG tube in place EXTREMITIES: SCDs in place : nephrostomy tube full of bloody fluid; alberto ~20cc urine clear. CBCD WBC 10.7 K/mm3 (4.0-10.0) H 12/05/16 06:15 RBC 3.02 M/mm3 (3.60-5.2) L 12/05/16 06:15 Hgb 8.9 GM/dL (10.7-15.3) L D 12/05/16 06:15 Hct 25.9 % (32.4-45.2) L 12/05/16 06:15 MCV 85.9 fl (80-96) 12/05/16 06:15 MCHC 34.2 g/dl (32.0-36.0) 12/05/16 06:15 RDW 14.7 % (11.6-15.6) 12/05/16 06:15 Plt Count 336 K/MM3 (134-434) 12/05/16 06:15 MPV 8.2 fl (7.5-11.1) 12/05/16 06:15 CMP Sodium 143 mmol/L (136-145) 12/05/16 06:15 Potassium 3.4 mmol/L (3.5-5.1) L 12/05/16 06:15 Chloride 109 mmol/L (98-107) H 12/05/16 06:15 Carbon Dioxide 22 mmol/L (21-32) 12/05/16 06:15 Anion Gap 12 (8-16) 12/05/16 06:15 BUN 17 mg/dL (7-18) 12/05/16 06:15 Creatinine 0.5 mg/dL (0.55-1.02) L D 12/05/16 06:15 Creat Clearance w eGFR > 60 (>60) 12/01/16 08:05 Calcium 8.6 mg/dL (8.5-10.1) 12/05/16 06:15 Total Bilirubin 0.3 mg/dL (0.2-1.0) 12/01/16 08:05 AST 46 U/L (15-37) H D 12/01/16 08:05 ALT 30 U/L (12-78) D 12/01/16 08:05 Alkaline Phosphatase 127 U/L (45-117) H 12/01/16 08:05 Total Protein 6.8 g/dl (6.4-8.2) 12/01/16 08:05 Albumin 2.1 g/dl (3.4-5.0) L 12/05/16 06:15 Active Medications Generic Name Dose Route Start Last Admin Trade Name Freq PRN Reason Stop Dose Admin Acetaminophen 650 mg 11/24/16 00:51 12/04/16 23:00 Tylenol Oral Solution - NGT 650 mg Q4H PRN Administration FEVER OR PAIN Albuterol Sulfate 1 amp 11/23/16 17:19 11/27/16 17:39 Ventolin 0.083% Nebulizer Soln - NEB 1 amp Q4H PRN Administration SHORT OF BREATH/WHEEZING Amino Acids 30 ml 11/23/16 17:30 12/05/16 10:24 Prosource No Carb Liquid Pkt GT 30 ml BID@0800,1730 JUANJOSE Administration Ascorbic Acid 500 mg 11/23/16 11:38 12/05/16 10:26 Vitamin C Oral Solution - GT 500 mg DAILY JUANJOSE Administration Bacitracin 1 applic 11/23/16 22:00 12/05/16 10:25 Bacitracin - TP 1 applic BID JUANJOSE Administration Baclofen 10 mg 11/23/16 18:00 12/05/16 10:25 Lioresal - GT 10 mg QID JUANJOSE Administration Bisacodyl 10 mg 11/23/16 16:50 Dulcolax Suppository - RC Q72H PRN CONSTIPATION EVERY 3 DAYS Calcium Carbonate 500 mg 11/24/16 10:00 12/05/16 10:26 Calcium Carb Oral Suspension - PEG 500 mg DAILY JUANJOSE Administration Heparin Sodium (Porcine) 5,000 unit 12/05/16 22:00 Heparin - SQ BID JUANJOSE Aztreonam 2 gm/ Dextrose 100 mls @ 100 mls/hr 11/25/16 14:30 12/05/16 10:25 IV 100 mls/hr Q8H-IV JUANJOSE Administration Protocol Insulin Aspart 1 vial 11/28/16 12:00 12/05/16 05:48 Novolog Vial Sliding Scale - SQ Not Given Q6HPO [facility] Protocol Levetiracetam 750 mg 11/28/16 22:00 12/05/16 10:25 Keppra - PO 750 mg BID JUANJOSE Administration Magnesium Hydroxide 30 ml 11/23/16 16:50 12/05/16 10:24 Milk Of Magnesia - GT 30 ml DAILY PRN Administration NO BM FOR 48HR Nystatin 1 applic 11/25/16 14:45 12/05/16 10:26 Nystop Powder - TP 1 applic DAILY JUANJOSE Administration Phenobarbital 80 mg 11/30/16 10:30 12/05/16 10:24 Phenobarbital Liquid - GT 80 mg BID JUANJOSE Administration Piperacillin Sod/Tazobactam Sod 3.375 gm 11/23/16 18:00 12/05/16 10:25 Zosyn 3.375gm Ivpb (Pre-Docked) IVPB 3.375 gm Q8H-IV JUANJOSE Administration Protocol Polyethylene Glycol 17 gm 11/23/16 22:00 12/05/16 10:27 Miralax (For Daily Use) - PEG 17 gm BID JUANJOSE Administration Microbiology 12/04/16 11:52 Urine - Urine Nephrostomy Tube Urine Culture - Preliminary Non Lactose Fermenting Gnb 12/04/16 03:00 Urine - Urine - Catheterized Urine Culture - Final 12/04/16 03:00 Blood - Peripheral Venous Blood Culture - Preliminary NO GROWTH OBTAINED AFTER 24 HOURS, INCUBATION TO CONTINUE FOR 4 DAYS. ASSESSMENT/PLAN: 41 yo h/o mental retardation, recurrent aspiration pneumonia, UTI, Sepsis, Seizure disorder and GI bleed, Chronic respiratory failure s/p trach. dysphagia s/p PEG admitted for sepsis 2/2 UTI. Sepsis 2/2 complicated UTI - Tmax 100.4F overnight but WBC trending down - S/p nephrostomy tube placement and bloody drainage - UC grew pseudomona, BC grew morganella * f/u repeat culture - Cont. aztreonam and zosyn day 11 Chronic normocytic anemia - at baseline Chronic constipation - Cont. duclolax suppository, M&M, Miralax Seizure disorder - Cont. Keppra and phenobarbital Hypokalemia - Resolved FEN - IVF not indicated - Cont. to monitor lytes - Jevity Tube feed 1.5 Prophylaxis - DVT: heparin and SCDs - GI: not indicated Disposition - Cont. to monitor on med-surg Code status - Full Visit type - Emergency Visit Emergency Visit: No - New Patient This patient is new to me today: Yes Date on this admission: 12/05/16 - Critical Care Critical Care patient: No
--- NOTE | 2016-12-05 15:23 | PN ---
Progress Note (short form) - Note Progress Note: HIDA scan negative s/p PCN yesterday Vital Signs Period Temp Pulse Resp BP Sys/Stein Pulse Ox Last 24 Hr 98.2 F-100.4 F 106-119 12-20 90-112/56-68 100 trach to vent cor-rrr lungs clear abd soft,nt ext no edema CBC, BMP 12/05/16 06:15 12/05/16 06:15 Microbiology 12/04/16 11:52 Urine - Urine Nephrostomy Tube Urine Culture - Preliminary Non Lactose Fermenting Gnb 12/04/16 03:00 Urine - Urine - Catheterized Urine Culture - Final 12/04/16 03:00 Blood - Peripheral Venous Blood Culture - Preliminary NO GROWTH OBTAINED AFTER 24 HOURS, INCUBATION TO CONTINUE FOR 4 DAYS. 11/24/16 20:33 Sputum - Endotrachea Suction/Ventilator Gram Stain - Final 11/24/16 20:33 Sputum - Endotrachea Suction/Ventilator Sputum Culture - Final Providencia Stuartii Acinetobacter Baumannii/Haemol Pseudomonas Aeruginosa Morganella Morganii 11/23/16 05:02 Blood - Peripheral Venous Blood Culture - Final NO GROWTH AFTER 5 DAYS INCUBATION 11/23/16 05:02 Urine - Urine Clean Catch Urine Culture - Final Pseudomonas Aeruginosa 11/23/16 05:02 Blood - Peripheral Venous Blood Culture - Final Morganella Morganii a/p Morganella bacteremia- and pseudomonas UTI - hydronephrosis with obstructing stone day #1 antibiotics dc zosyn continue azactam gnr in urine culture chronic resp failure multiple developmental disabilities seizure disorder
--- NOTE | 2016-12-05 16:00 | PN ---
Progress Note (short form) - Note Progress Note: Anesthesia postop note 41y/o F with multiple medical problems, s/p GA for nephrostomy tube placement POD#1, vss, trach, mechanical ventilation. No anesthesia complications.,
[2016-12-05] MEDS: HEPARIN NA (PORCINE) 5,000 UNITS/ML 1ML VIAL SQ SCH (22:48)
[2016-12-06] MEDS ORDERED: PT OWN MED DRAWER 7, Y5N ONE ×3 (01:09→17:26)
[2016-12-06] MEDS: AZTREONAM 2 GM in DEXTROSE 5%-WATER - 100 ML IV SCH ×3 (02:35→17:30)
[2016-12-06] MEDS: ACETAMINOPHEN 650 MG/20.3 ML ORAL SOLUTION (CUPS) NGT PRN ×2 (06:16→22:33)
[2016-12-06] MEDS: INSULIN SLIDING SCALE (NOVOLOG) 1 VIAL SQ SCH ×3 (06:19→17:34)
[2016-12-06 08:28] LABS: MCH 28.5 pg (25.7-33.7); MCHC 32.9 g/dl (32.0-36.0); MEAN CELL VOLUME 86.8 fl (80-96); PLATELET COUNT 416 K/MM3 (134-434); RDW 15.4 % (11.6-15.6); WHITE BLOOD COUNT 12.1 K/mm3 (4.0-10.0)
[2016-12-06 09:00] LABS: ALBUMIN 2.1 g/dl (3.4-5.0); ALK PHOS 113 U/L (45-117); ANION GAP 11 (8-16); BILIRUBIN,TOTAL 0.3 mg/dL (0.2-1.0); CALCIUM 9.1 mg/dL (8.5-10.1); CO2 22 mmol/L (21-32); COCKROFT - GAULT 202.6825; CREATININE 0.4 mg/dL (0.55-1.02); GLUCOSE,RANDOM 99 mg/dL (74-106); SGOT/AST 9 U/L (15-37); SGPT/ALT 15 U/L (12-78); TOT PROT 7.8 g/dl (6.4-8.2)
[2016-12-06] MEDS: ALBUTEROL SO4 0.083% IH SOL 2.5 MG/3 ML VIAL.NEB. NEB PRN (09:36)
[2016-12-06] MEDS: levETIRAcetam 250 MG TABLET (FP) PO SCH ×2 (11:44→22:25)
[2016-12-06] MEDS: BACLOFEN 10 MG TABLET (FP) GT SCH ×4 (11:45→22:25)
[2016-12-06] MEDS: HEPARIN NA (PORCINE) 5,000 UNITS/ML 1ML VIAL SQ SCH ×2 (11:45→22:25)
[2016-12-06] MEDS: PHENobarbital 20 MG/5 ML UNIT-DOSE CUP GT SCH ×2 (11:45→22:25)
[2016-12-06] MEDS: CALCIUM CARBONATE SUSPENSION - 500 MG/5 ML ML PEG SCH (11:47)
[2016-12-06] MEDS: ASCORBIC ACID 500 MG/5 ML UNIT DOSE CUP GT SCH (11:48)
[2016-12-06] MEDS: AMINO ACIDS/PROTEIN HYDROLYS 30 ML LIQUID.PKT GT SCH ×2 (11:49→17:30)
[2016-12-06] MEDS: POLYETHYLENE GLYCOL 3350 119 GM BTL PEG SCH ×2 (11:50→22:26)
[2016-12-06] MEDS: BACITRACIN 30 GM TUBE TOPICAL OINTMENT TP SCH ×2 (11:52→22:26)
--- NOTE | 2016-12-06 14:39 | PN ---
Progress Note (short form) - Note Progress Note: resting comfortable. Current Medications Generic Name Dose Route Start Last Admin Trade Name Freq PRN Reason Stop Dose Admin Acetaminophen 650 mg 11/24/16 00:51 12/06/16 06:16 Tylenol Oral Solution - NGT 650 mg Q4H PRN Administration FEVER OR PAIN Albuterol Sulfate 1 amp 11/23/16 17:19 12/06/16 09:36 Ventolin 0.083% Nebulizer Soln - NEB 1 amp Q4H PRN Administration SHORT OF BREATH/WHEEZING Amino Acids 30 ml 11/23/16 17:30 12/06/16 11:49 Prosource No Carb Liquid Pkt GT 30 ml BID@0800,1730 JUANJOSE Administration Ascorbic Acid 500 mg 11/23/16 11:38 12/06/16 11:48 Vitamin C Oral Solution - GT 500 mg DAILY JUANJOSE Administration Bacitracin 1 applic 11/23/16 22:00 12/06/16 11:52 Bacitracin - TP 1 applic BID JUANJOSE Administration Baclofen 10 mg 11/23/16 18:00 12/06/16 11:45 Lioresal - GT 10 mg QID JUANJOSE Administration Bisacodyl 10 mg 11/23/16 16:50 Dulcolax Suppository - RC Q72H PRN CONSTIPATION EVERY 3 DAYS Calcium Carbonate 500 mg 11/24/16 10:00 12/06/16 11:47 Calcium Carb Oral Suspension - PEG 500 mg DAILY JUANJOSE Administration Heparin Sodium (Porcine) 5,000 unit 12/05/16 22:00 12/06/16 11:45 Heparin - SQ 5,000 unit BID JUANJOSE Administration Aztreonam 2 gm/ Dextrose 100 mls @ 100 mls/hr 11/25/16 14:30 12/06/16 11:49 IV 100 mls/hr Q8H-IV JUANJOSE Administration Protocol Insulin Aspart 1 vial 11/28/16 12:00 12/06/16 12:05 Novolog Vial Sliding Scale - SQ Not Given Q6HPO [facility] Protocol Levetiracetam 750 mg 11/28/16 22:00 12/06/16 11:44 Keppra - PO 750 mg BID JUANJOSE Administration Magnesium Hydroxide 30 ml 11/23/16 16:50 12/05/16 10:24 Milk Of Magnesia - GT 30 ml DAILY PRN Administration NO BM FOR 48HR Nystatin 1 applic 11/25/16 14:45 12/05/16 10:26 Nystop Powder - TP 1 applic DAILY JUANJOSE Administration Phenobarbital 80 mg 11/30/16 10:30 12/06/16 11:45 Phenobarbital Liquid - GT 80 mg BID JUANJOSE Administration Polyethylene Glycol 17 gm 11/23/16 22:00 12/06/16 11:50 Miralax (For Daily Use) - PEG 17 gm BID JUANJOSE Administration Intake & Output 12/03/16 12/04/16 12/05/16 12/06/16 23:59 23:59 23:59 23:59 Intake Total 3370 2700 1480 805 Output Total 2750 3650 2550 650 Balance 620 -950 -1070 155 Last Vital Signs Temp Pulse Resp BP Pulse Ox 100.3 F H 124 H 20 102/60 99 12/06/16 09:41 12/06/16 09:41 12/06/16 14:12 12/06/16 09:41 12/06/16 10:00 General NAD CV S1 S2 tachycardic no murmur/rub/gallop Lungs coarse breath sounds diffusely. no wheezing anteriorly. no sputum Abdomen soft +distended +PEG +BS Extremities all extremities contracted. no edema CBCD WBC 12.1 K/mm3 (4.0-10.0) H 12/06/16 07:50 RBC 3.19 M/mm3 (3.60-5.2) L 12/06/16 07:50 Hgb 9.1 GM/dL (10.7-15.3) L 12/06/16 07:50 Hct 27.7 % (32.4-45.2) L 12/06/16 07:50 MCV 86.8 fl (80-96) 12/06/16 07:50 MCHC 32.9 g/dl (32.0-36.0) 12/06/16 07:50 RDW 15.4 % (11.6-15.6) 12/06/16 07:50 Plt Count 416 K/MM3 (134-434) D 12/06/16 07:50 MPV 8.0 fl (7.5-11.1) 12/06/16 07:50 CMP Sodium 142 mmol/L (136-145) 12/06/16 07:50 Potassium 4.0 mmol/L (3.5-5.1) 12/06/16 07:50 Chloride 109 mmol/L (98-107) H 12/06/16 07:50 Carbon Dioxide 22 mmol/L (21-32) 12/06/16 07:50 Anion Gap 11 (8-16) 12/06/16 07:50 BUN 16 mg/dL (7-18) 12/06/16 07:50 Creatinine 0.4 mg/dL (0.55-1.02) L 12/06/16 07:50 Creat Clearance w eGFR > 60 (>60) 12/06/16 07:50 Calcium 9.1 mg/dL (8.5-10.1) 12/06/16 07:50 Total Bilirubin 0.3 mg/dL (0.2-1.0) 12/06/16 07:50 AST 9 U/L (15-37) L D 12/06/16 07:50 ALT 15 U/L (12-78) D 12/06/16 07:50 Alkaline Phosphatase 113 U/L (45-117) 12/06/16 07:50 Total Protein 7.8 g/dl (6.4-8.2) 12/06/16 07:50 Albumin 2.1 g/dl (3.4-5.0) L 12/06/16 07:50 Microbiology 12/04/16 11:52 Urine Culture - Final Urine - Urine Nephrostomy Tube Pseudomonas Aeruginosa 12/04/16 03:00 Blood Culture - Preliminary Blood - Peripheral Venous NO GROWTH OBTAINED AFTER 48 HOURS, INCUBATION TO CONTINUE FOR 3 DAYS. ASSESSMENT AND PLAN: 41 year old female with pmh of Mental retardation, Recurrent aspiration pneumonia, UTI, Sepsis, Seizure disorder and GI bleed, Chronic respiratory failure s/p trach. dysphagia s/p PEG presented to the ER and was admitted for further evaluation of their emergent condition 1. Sepsis with pseudomonal UTI and Morganella bacteremia- Tm 100.8. s/p nephrostomy tube placement with large output. leukocytosis trending up. Repeat Ux continues to have pseudomonas. zosyn d/c and continued on Aztreonam day 12. ID and surgery on board. 2. Normocytic anemia- no signs of bleeding. received 1 unit PRBC this admission. with good response. txn as needed 3. Hypernatremia- resolved. 4. Hypokalemia- resolved 5. Seizure d/o- no signs of seizure like activity. cont home medication 6. DVT ppx- hep sq Visit type - Emergency Visit Emergency Visit: Yes ED Registration Date: 11/23/16 Care time: The patient presented to the Emergency Department on the above date and was hospitalized for further evaluation of their emergent condition. - New Patient This patient is new to me today: No - Critical Care Critical Care patient: No - Discharge Referral Referred to [facility] No
[2016-12-06] MEDS: NYSTATIN POWDER 100,000 UNITS/GM - 15 GM TOPICAL POWDER TP SCH ×2 (16:02→18:47)
[2016-12-07] MEDS: INSULIN SLIDING SCALE (NOVOLOG) 1 VIAL SQ SCH ×4 (00:50→18:00)
[2016-12-07] MEDS: AZTREONAM 2 GM in DEXTROSE 5%-WATER - 100 ML IV SCH ×3 (01:49→17:51)
[2016-12-07] MEDS: ACETAMINOPHEN 650 MG/20.3 ML ORAL SOLUTION (CUPS) NGT PRN ×3 (02:56→22:18)
[2016-12-07 08:13] LABS: BASOPHIL 0.8 % (0-2.0); MCHC 33.2 g/dl (32.0-36.0); MEAN CELL VOLUME 87.3 fl (80-96); MEAN PLT VOLUME 8.4 fl (7.5-11.1); RDW 15.4 % (11.6-15.6); WHITE BLOOD COUNT 13.2 K/mm3 (4.0-10.0)
--- NOTE | 2016-12-07 10:34 | PN ---
Addendum entered and electronically signed by Shaq Valdez RES 12/07/16 11:22: Ordered CXR to r/o any acute pulm. pathology. Original Note: Physical Exam: SUBJECTIVE: Patient seen and examined at bedside. Patient is non-verbal, trached and on mechanical ventilation at baseline. Per chart, she had a spike fever of 101.3F around 2AM. OBJECTIVE: Vent settings: TV 400, FiO2 40% Vital Signs Period Temp Pulse Resp BP Sys/Stein Pulse Ox Last 24 Hr 99.9 F-101.3 F 115-136 14-20 98-111/62-73 99-99 GENERAL: Trached and vented, mentally retarded, non-verbal, contracted, responded to painful stimuli. HEAD: AT, NC EYES: Pupils equal, round and reactive to light, sclera anicteric, conjunctiva clear ENT: nares patent, oropharynx clear without exudates LUNGS: rhonchi b/l HEART: Tachycardic, S1 and S2 present,No murmur ABDOMEN: +bs, soft, grimace upon pressing, PEG tube in place EXTREMITIES: SCDs in place : nephrostomy tube draining bloody fluid; alberto ~120cc urine clear. CBCD WBC 13.2 K/mm3 (4.0-10.0) H 12/07/16 06:20 RBC 3.47 M/mm3 (3.60-5.2) L 12/07/16 06:20 Hgb 10.0 GM/dL (10.7-15.3) L 12/07/16 06:20 Hct 30.2 % (32.4-45.2) L 12/07/16 06:20 MCV 87.3 fl (80-96) 12/07/16 06:20 MCHC 33.2 g/dl (32.0-36.0) 12/07/16 06:20 RDW 15.4 % (11.6-15.6) 12/07/16 06:20 Plt Count 416 K/MM3 (134-434) D 12/06/16 07:50 MPV 8.4 fl (7.5-11.1) 12/07/16 06:20 Intake & Output 12/04/16 12/05/16 12/06/16 12/07/16 23:59 23:59 23:59 23:59 Intake Total 2700 4580 902 790 Output Total 2549 7448 2184 120 Bzxzmou -793 -5411 -734 486 Active Medications Generic Name Dose Route Start Last Admin Trade Name Freq PRN Reason Stop Dose Admin Acetaminophen 650 mg 11/24/16 00:51 12/07/16 02:56 Tylenol Oral Solution - NGT 650 mg Q4H PRN Administration FEVER OR PAIN Albuterol Sulfate 1 amp 11/23/16 17:19 12/06/16 09:36 Ventolin 0.083% Nebulizer Soln - NEB 1 amp Q4H PRN Administration SHORT OF BREATH/WHEEZING Amino Acids 30 ml 11/23/16 17:30 12/06/16 17:30 Prosource No Carb Liquid Pkt GT 30 ml BID@0800,1730 JUANJOSE Administration Ascorbic Acid 500 mg 11/23/16 11:38 12/06/16 11:48 Vitamin C Oral Solution - GT 500 mg DAILY JUANJOSE Administration Bacitracin 1 applic 11/23/16 22:00 12/06/16 22:26 Bacitracin - TP 1 applic BID JUANJOSE Administration Baclofen 10 mg 11/23/16 18:00 12/06/16 22:25 Lioresal - GT 10 mg QID JUANJOSE Administration Bisacodyl 10 mg 11/23/16 16:50 Dulcolax Suppository - RC Q72H PRN CONSTIPATION EVERY 3 DAYS Calcium Carbonate 500 mg 11/24/16 10:00 12/06/16 11:47 Calcium Carb Oral Suspension - PEG 500 mg DAILY JUANJOSE Administration Heparin Sodium (Porcine) 5,000 unit 12/05/16 22:00 12/06/16 22:25 Heparin - SQ 5,000 unit BID JUANJOSE Administration Aztreonam 2 gm/ Dextrose 100 mls @ 100 mls/hr 11/25/16 14:30 12/07/16 01:49 IV 100 mls/hr Q8H-IV JUANJOSE Administration Protocol Insulin Aspart 1 vial 11/28/16 12:00 12/07/16 05:52 Novolog Vial Sliding Scale - SQ Not Given Q6HPO JUANJOSE Protocol Levetiracetam 750 mg 11/28/16 22:00 12/06/16 22:25 Keppra - PO 750 mg BID JUANJOSE Administration Magnesium Hydroxide 30 ml 11/23/16 16:50 12/05/16 10:24 Milk Of Magnesia - GT 30 ml DAILY PRN Administration NO BM FOR 48HR Nystatin 1 applic 11/25/16 14:45 12/06/16 18:47 Nystop Powder - TP 1 applic DAILY JUANJOSE Administration Phenobarbital 80 mg 11/30/16 10:30 12/06/16 22:25 Phenobarbital Liquid - GT 80 mg BID JUANJOSE Administration Polyethylene Glycol 17 gm 11/23/16 22:00 12/06/16 22:26 Miralax (For Daily Use) - PEG 17 gm BID JUANJOSE Administration Microbiology 12/04/16 03:00 Blood Culture - Preliminary Blood - Peripheral Venous NO GROWTH OBTAINED AFTER 72 HOURS, INCUBATION TO CONTINUE FOR 2 DAYS. 12/04/16 11:52 Urine Culture - Final Urine - Urine Nephrostomy Tube Pseudomonas Aeruginosa ASSESSMENT/PLAN: 41 yo h/o mental retardation, recurrent aspiration pneumonia, UTI, Sepsis, Seizure disorder and GI bleed, Chronic respiratory failure s/p trach. dysphagia s/p PEG admitted for sepsis 2/2 UTI. Sepsis 2/2 complicated UTI - Cont. to be frebile at night and WBC trending up - S/p nephrostomy tube placement and bloody drainage - UC grew pseudomona, BC grew morganella * Repeat UC grew pseudomona * Repeat BC negative * Repeat BC if cont. to have fever - Zosyn discontinued - Cont. aztreonam day 13 - Will re-consult ID Chronic normocytic anemia - at baseline Chronic constipation - Cont. duclolax suppository, M&M, Miralax Seizure disorder - Cont. Keppra and phenobarbital Hypokalemia - Resolved FEN - IVF not indicated - Cont. to monitor lytes - Jevity Tube feed 1.5 Prophylaxis - DVT: heparin and SCDs - GI: not indicated Disposition - Cont. to monitor on med-surg Code status - Full Visit type - Emergency Visit Emergency Visit: No - New Patient This patient is new to me today: No - Critical Care Critical Care patient: No
[2016-12-07] MEDS ORDERED: PT OWN MED DRAWER 7, Y5N ONE ×2 (10:57→17:13)
[2016-12-07] MEDS: AMINO ACIDS/PROTEIN HYDROLYS 30 ML LIQUID.PKT GT SCH ×2 (10:58→17:51)
[2016-12-07] MEDS: NYSTATIN POWDER 100,000 UNITS/GM - 15 GM TOPICAL POWDER TP SCH (10:59)
[2016-12-07] MEDS: HEPARIN NA (PORCINE) 5,000 UNITS/ML 1ML VIAL SQ SCH ×2 (11:00→22:11)
[2016-12-07] MEDS: PHENobarbital 20 MG/5 ML UNIT-DOSE CUP GT SCH ×2 (11:01→22:12)
[2016-12-07] MEDS: ASCORBIC ACID 500 MG/5 ML UNIT DOSE CUP GT SCH (11:01)
[2016-12-07] MEDS: BACITRACIN 30 GM TUBE TOPICAL OINTMENT TP SCH ×2 (11:01→22:12)
[2016-12-07] MEDS: CALCIUM CARBONATE SUSPENSION - 500 MG/5 ML ML PEG SCH (11:02)
[2016-12-07] MEDS: levETIRAcetam 250 MG TABLET (FP) PO SCH ×2 (11:02→22:11)
[2016-12-07] MEDS: BACLOFEN 10 MG TABLET (FP) GT SCH ×4 (11:03→22:11)
[2016-12-07] MEDS: POLYETHYLENE GLYCOL 3350 119 GM BTL PEG SCH ×2 (11:03→22:12)
[2016-12-07 11:56] LABS: PLATELET COUNT 448 K/MM3 (134-434)
--- NOTE | 2016-12-07 12:08 | PN ---
Progress Note (short form) - Note Progress Note: PULMONARY NO OVERALL CHANGE IN EXAM LOW GRADE TEMP CONTINUES NEPHROSTOMY TUBE IN PLACE CHART/MEDS/NOTES/IMAGING/LABS/MICRO REVIEWED CXR: NEW CHANGES LEFT BASE (1) Mental retardation Code(s): F79 - UNSPECIFIED INTELLECTUAL DISABILITIES (2) Seizure disorder Code(s): G40.909 - EPILEPSY, UNSP, NOT INTRACTABLE, WITHOUT STATUS EPILEPTICUS (3) Anemia Code(s): D64.9 - ANEMIA, UNSPECIFIED (4) Atelectasis Code(s): J98.11 - ATELECTASIS (5) Chronic respiratory failure Code(s): J96.10 - CHRONIC RESPIRATORY FAILURE, UNSP W HYPOXIA OR HYPERCAPNIA (6) Seizure Code(s): R56.9 - UNSPECIFIED CONVULSIONS (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
--- NOTE | 2016-12-07 12:08 | PN ---
Teaching Attending Note Name of Resident: Shaq Valdez ATTENDING PHYSICIAN STATEMENT I saw and evaluated the patient. I reviewed the resident's note and discussed the case with the resident. I agree with the resident's findings and plan as documented. SUBJECTIVE:resting comfortable OBJECTIVE: Last Vital Signs Temp Pulse Resp BP Pulse Ox 99.9 F H 115 H 14 99/62 99 12/07/16 06:00 12/07/16 09:37 12/07/16 09:37 12/07/16 06:00 12/07/16 09:37 Intake & Output 12/04/16 12/05/16 12/06/16 12/07/16 23:59 23:59 23:59 23:59 Intake Total 2700 1480 905 790 Output Total 3650 2550 1550 120 Balance -950 -1070 -645 670 General NAD, nonverbal CV S1 S2 tachy no murmur Lungs coarse breath sounds diffusely abdomen soft NT/ND +serosangeous output to nephrostomy tube ASSESSMENT AND PLAN: 41 year old female with pmh of Mental retardation, Recurrent aspiration pneumonia, UTI, Sepsis, Seizure disorder and GI bleed, Chronic respiratory failure s/p trach. dysphagia s/p PEG presented to the ER and was admitted for further evaluation of their emergent condition 1. Sepsis with pseudomonal UTI and Morganella bacteremia- Tm 101.3. repeat UCx + psuedomonas sensitive to aztreonam. continues to have intermittent fevers and uptrending leukocytosis. call placed out to ID for broader coverage. check CXR for possible aspiration, (no change in secretions from trach). on aztreonam day 13. with neprhostomy tube placement. ID and surgery on board. 2. Normocytic anemia- no signs of bleeding. received 1 unit PRBC this admission. with good response. txn as needed 3. Hypernatremia- resolved. 4. Hypokalemia- resolved 5. Seizure d/o- no signs of seizure like activity. cont home medication 6. DVT ppx- hep sq
[2016-12-07] MEDS ORDERED: INSULIN (NOVOLOG) ASPART 100 UNITS/ML 10ML VIAL ONE (18:14)
[2016-12-08] MEDS: INSULIN SLIDING SCALE (NOVOLOG) 1 VIAL SQ SCH ×4 (00:59→17:36)
[2016-12-08] MEDS: AZTREONAM 2 GM in DEXTROSE 5%-WATER - 100 ML IV SCH ×2 (01:12→11:13)
[2016-12-08 08:41] LABS: BASOPHIL 1.4 % (0-2.0); MCH 29.2 pg (25.7-33.7); MCHC 33.6 g/dl (32.0-36.0); MEAN CELL VOLUME 86.8 fl (80-96); MEAN PLT VOLUME 8.3 fl (7.5-11.1); NEUTROPHILS 64.2 % (42.8-82.8); RDW 15.1 % (11.6-15.6); WHITE BLOOD COUNT 14.9 K/mm3 (4.0-10.0)
[2016-12-08] MEDS ORDERED: PT OWN MED DRAWER 7, Y5N ONE (11:05)
[2016-12-08] MEDS: BACITRACIN 30 GM TUBE TOPICAL OINTMENT TP SCH ×2 (11:13→21:18)
[2016-12-08] MEDS: AMINO ACIDS/PROTEIN HYDROLYS 30 ML LIQUID.PKT GT SCH ×2 (11:13→17:36)
[2016-12-08] MEDS: levETIRAcetam 250 MG TABLET (FP) PO SCH ×2 (11:14→21:16)
[2016-12-08] MEDS: HEPARIN NA (PORCINE) 5,000 UNITS/ML 1ML VIAL SQ SCH ×2 (11:14→21:16)
[2016-12-08] MEDS: CALCIUM CARBONATE SUSPENSION - 500 MG/5 ML ML PEG SCH (11:14)
[2016-12-08] MEDS: NYSTATIN POWDER 100,000 UNITS/GM - 15 GM TOPICAL POWDER TP SCH (11:15)
[2016-12-08] MEDS: ASCORBIC ACID 500 MG/5 ML UNIT DOSE CUP GT SCH (11:15)
[2016-12-08] MEDS: POLYETHYLENE GLYCOL 3350 119 GM BTL PEG SCH ×2 (11:15→21:17)
[2016-12-08] MEDS: BACLOFEN 10 MG TABLET (FP) GT SCH ×3 (11:15→21:18)
[2016-12-08] MEDS ORDERED: INSULIN (NOVOLOG) ASPART 100 UNITS/ML 10ML VIAL ONE (12:14)
[2016-12-08] MEDS: PHENobarbital 20 MG/5 ML UNIT-DOSE CUP GT SCH ×2 (12:17→21:16)
--- NOTE | 2016-12-08 12:47 | PN ---
Progress Note (short form) - Note Progress Note: PULMONARY Remains febrile. Vented on volume assist control with 40% fiO2. Last Vital Signs Temp Pulse Resp BP Pulse Ox 100.6 F H 128 H 26 H 103/77 98 12/08/16 06:00 12/08/16 09:50 12/08/16 09:50 12/08/16 06:00 12/08/16 09:50 Gen: vented, awake Heart: tachycardic, regular Lung: bilateral rhonchi Abd: soft, nontender Ext: contracted, no edema CBC, BMP 12/08/16 07:50 12/06/16 07:50 Active Medications Acetaminophen (Tylenol Oral Solution -) 650 mg NGT Q4H PRN PRN Reason: FEVER OR PAIN Last Admin: 12/07/16 22:18 Dose: 650 mg Albuterol Sulfate (Ventolin 0.083% Nebulizer Soln -) 1 amp NEB Q4H PRN PRN Reason: SHORT OF BREATH/WHEEZING Last Admin: 12/06/16 09:36 Dose: 1 amp Amino Acids (Prosource No Carb Liquid Pkt) 30 ml GT BID@0800,1730 ON LICENSE OF [facility] Last Admin: 12/08/16 11:13 Dose: 30 ml Ascorbic Acid (Vitamin C Oral Solution -) 500 mg GT DAILY ON LICENSE OF [facility] Last Admin: 12/08/16 11:15 Dose: 500 mg Bacitracin (Bacitracin -) 1 applic TP BID ON LICENSE OF [facility] Last Admin: 12/08/16 11:13 Dose: 1 applic Baclofen (Lioresal -) 10 mg GT QID ON LICENSE OF [facility] Last Admin: 12/08/16 11:15 Dose: 10 mg Bisacodyl (Dulcolax Suppository -) 10 mg RC Q72H PRN PRN Reason: CONSTIPATION EVERY 3 DAYS Calcium Carbonate (Calcium Carb Oral Suspension -) 500 mg PEG DAILY ON LICENSE OF [facility] Last Admin: 12/08/16 11:14 Dose: 500 mg Heparin Sodium (Porcine) (Heparin -) 5,000 unit SQ BID ON LICENSE OF [facility] Last Admin: 12/08/16 11:14 Dose: 5,000 unit Aztreonam 2 gm/ Dextrose 100 mls @ 100 mls/hr IV Q8H-IV JUANJOSE PRN Reason: Protocol Last Admin: 12/08/16 11:13 Dose: 100 mls/hr Insulin Aspart (Novolog Vial Sliding Scale -) 1 vial SQ Q6HPO JUANJOSE PRN Reason: Protocol Last Admin: 12/08/16 12:15 Dose: 6 units Levetiracetam (Keppra -) 750 mg PO BID ON LICENSE OF [facility] Last Admin: 12/08/16 11:14 Dose: 750 mg Magnesium Hydroxide (Milk Of Magnesia -) 30 ml GT DAILY PRN PRN Reason: NO BM FOR 48HR Last Admin: 12/05/16 10:24 Dose: 30 ml Nystatin (Nystop Powder -) 1 applic TP DAILY ON LICENSE OF [facility] Last Admin: 12/08/16 11:15 Dose: 1 applic Phenobarbital (Phenobarbital Liquid -) 80 mg GT BID ON LICENSE OF [facility] Last Admin: 12/08/16 12:17 Dose: 80 mg Polyethylene Glycol (Miralax (For Daily Use) -) 17 gm PEG BID ON LICENSE OF [facility] Last Admin: 12/08/16 11:15 Dose: 17 gm A/P Chronic Vent Dependent Respiratory Failure UTI/Hydronephrosis Bacteremia Sepsis Mental Retardation Seizure Disorder - continue antibiotics - f/u pending cultures - enteral feeds - continue volume assist control - poor candidate for weaning due to poor mental status and history of aspiration events - DVT prophylaxis
--- NOTE | 2016-12-08 12:57 | PN ---
Teaching Attending Note Name of Resident: Shaq Valdez ATTENDING PHYSICIAN STATEMENT I saw and evaluated the patient. I reviewed the resident's note and discussed the case with the resident. I agree with the resident's findings and plan as documented. SUBJECTIVE:nonverbal OBJECTIVE: Last Vital Signs Temp Pulse Resp BP Pulse Ox 100.6 F H 128 H 26 H 103/77 98 12/08/16 06:00 12/08/16 09:50 12/08/16 09:50 12/08/16 06:00 12/08/16 09:50 Intake & Output 12/05/16 12/06/16 12/07/16 12/08/16 23:59 23:59 23:59 23:59 Intake Total 4188 374 8648 Output Total 2550 1550 830 625 Balance -1070 -645 1850 -625 General NAD, nonverbal CV S1 S2 tachy no murmur Lungs coarse breath sounds diffusely abdomen soft NT/ND +serosangeous output to nephrostomy tube ASSESSMENT AND PLAN: 41 year old female with pmh of Mental retardation, Recurrent aspiration pneumonia, UTI, Sepsis, Seizure disorder and GI bleed, Chronic respiratory failure s/p trach. dysphagia s/p PEG presented to the ER and was admitted for further evaluation of their emergent condition 1. Sepsis with pseudomonal UTI and Morganella bacteremia- Tm 101.5. sepsis workup sent. to be re-evaluated by ID. may require broader spectrum abx. on aztreonam. nephrostomy tube placed with good output. 2. Normocytic anemia- no signs of bleeding. received 1 unit PRBC this admission. with good response. txn as needed 3. Hypernatremia- resolved. 4. Hypokalemia- resolved 5. Seizure d/o- no signs of seizure like activity. cont home medication 6. DVT ppx- hep sq
--- NOTE | 2016-12-08 13:30 | PN ---
Progress Note (short form) - Note Progress Note: persistent fever s/p PCN 5/4 no diarrhea Vital Signs Period Temp Pulse Resp BP Sys/Stein Pulse Ox Last 24 Hr 100.2 F-101.5 F 60-135 12-26 103-113/46-77 98-98 trach to vent cor-rrr lungs decreased bs at bases abd soft, +PCN with clear urine +alberto ext no edema CBC, BMP 12/08/16 07:50 12/06/16 07:50 Microbiology 12/04/16 03:00 Blood - Peripheral Venous Blood Culture - Preliminary NO GROWTH OBTAINED AFTER 96 HOURS, INCUBATION TO CONTINUE FOR 1 DAYS. 12/04/16 11:52 Urine - Urine Nephrostomy Tube Urine Culture - Final Pseudomonas Aeruginosa 12/04/16 03:00 Urine - Urine - Catheterized Urine Culture - Final 11/24/16 20:33 Sputum - Endotrachea Suction/Ventilator Gram Stain - Final 11/24/16 20:33 Sputum - Endotrachea Suction/Ventilator Sputum Culture - Final Providencia Stuartii Acinetobacter Baumannii/Haemol Pseudomonas Aeruginosa Morganella Morganii 11/23/16 05:02 Blood - Peripheral Venous Blood Culture - Final NO GROWTH AFTER 5 DAYS INCUBATION 11/23/16 05:02 Urine - Urine Clean Catch Urine Culture - Final Pseudomonas Aeruginosa 11/23/16 05:02 Blood - Peripheral Venous Blood Culture - Final Morganella Morganii a/p Morganella bacteremia- and pseudomonas UTI - hydronephrosis with obstructing stone day #14 antibiotics d/c azactam, kidney is drained repeat blood cultures sent and pending repeat cxray may need ct scan chest/abd/pelvis if fevers persist chronic resp failure multiple developmental disabilities seizure disorder
[2016-12-08 13:51] LABS: PLATELET COUNT 484 K/MM3 (134-434)
--- NOTE | 2016-12-08 13:55 | PN ---
Physical Exam: SUBJECTIVE: Patient seen and examined at bedside. Patient is non-verbal, trached and on mechanical ventilation at baseline. Per chart, she had a spike fever of 101.5F in the last 24 hours.. OBJECTIVE: Vent settings: TV 400, FiO2 40% Vital Signs Period Temp Pulse Resp BP Sys/Stein Pulse Ox Last 24 Hr 100.2 F-101.5 F 60-135 12-26 103-113/46-77 98-98 GENERAL: Trached and vented, mentally retarded, non-verbal, contracted, responded to painful stimuli. HEAD: AT, NC EYES: Pupils equal, round and reactive to light, sclera anicteric, conjunctiva clear ENT: nares patent, oropharynx clear without exudates LUNGS: coarse lung sounds, rhonchi b/l HEART: Tachycardic, S1 and S2 present,No murmur ABDOMEN: +bs, soft, grimace upon pressing, PEG tube in place EXTREMITIES: SCDs in place : nephrostomy tube draining bloody fluid; alberto ~100cc urine clear. CBCD WBC 14.9 K/mm3 (4.0-10.0) H 12/08/16 07:50 RBC 3.44 M/mm3 (3.60-5.2) L 12/08/16 07:50 Hgb 10.0 GM/dL (10.7-15.3) L 12/08/16 07:50 Hct 29.9 % (32.4-45.2) L 12/08/16 07:50 MCV 86.8 fl (80-96) 12/08/16 07:50 MCHC 33.6 g/dl (32.0-36.0) 12/08/16 07:50 RDW 15.1 % (11.6-15.6) 12/08/16 07:50 Plt Count 484 K/MM3 (134-434) H 12/08/16 07:50 MPV 8.3 fl (7.5-11.1) 12/08/16 07:50 Intake & Output 12/05/16 12/06/16 12/07/16 12/08/16 23:59 23:59 23:59 23:59 Intake Total 3781 128 7833 Output Total 2550 1550 830 625 Balance -1070 -645 7600 -625 Active Medications Generic Name Dose Route Start Last Admin Trade Name Freq PRN Reason Stop Dose Admin Acetaminophen 650 mg 11/24/16 00:51 12/07/16 22:18 Tylenol Oral Solution - NGT 650 mg Q4H PRN Administration FEVER OR PAIN Albuterol Sulfate 1 amp 11/23/16 17:19 12/06/16 09:36 Ventolin 0.083% Nebulizer Soln - NEB 1 amp Q4H PRN Administration SHORT OF BREATH/WHEEZING Amino Acids 30 ml 11/23/16 17:30 12/08/16 11:13 Prosource No Carb Liquid Pkt GT 30 ml BID@0800,1730 JUANJOSE Administration Ascorbic Acid 500 mg 11/23/16 11:38 12/08/16 11:15 Vitamin C Oral Solution - GT 500 mg DAILY JUANJOSE Administration Bacitracin 1 applic 11/23/16 22:00 12/08/16 11:13 Bacitracin - TP 1 applic BID JUANJOSE Administration Baclofen 10 mg 11/23/16 18:00 12/08/16 11:15 Lioresal - GT 10 mg QID JUANJOSE Administration Bisacodyl 10 mg 11/23/16 16:50 Dulcolax Suppository - RC Q72H PRN CONSTIPATION EVERY 3 DAYS Calcium Carbonate 500 mg 11/24/16 10:00 12/08/16 11:14 Calcium Carb Oral Suspension - PEG 500 mg DAILY JUANJOSE Administration Heparin Sodium (Porcine) 5,000 unit 12/05/16 22:00 12/08/16 11:14 Heparin - SQ 5,000 unit BID JUANJOSE Administration Insulin Aspart 1 vial 11/28/16 12:00 12/08/16 12:15 Novolog Vial Sliding Scale - SQ 6 units Q6HPO JUANJOSE Administration Protocol Lactobacillus Acidophilus 1 tab 12/08/16 13:45 Bacid - PO DAILY JUANJOSE Levetiracetam 750 mg 11/28/16 22:00 12/08/16 11:14 Keppra - PO 750 mg BID JUANJOSE Administration Magnesium Hydroxide 30 ml 11/23/16 16:50 12/05/16 10:24 Milk Of Magnesia - GT 30 ml DAILY PRN Administration NO BM FOR 48HR Nystatin 1 applic 11/25/16 14:45 12/08/16 11:15 Nystop Powder - TP 1 applic DAILY JUANJOSE Administration Phenobarbital 80 mg 11/30/16 10:30 12/08/16 12:17 Phenobarbital Liquid - GT 80 mg BID JUANJOSE Administration Polyethylene Glycol 17 gm 11/23/16 22:00 12/08/16 11:15 Miralax (For Daily Use) - PEG 17 gm BID JUANJOSE Administration Microbiology 12/07/16 13:40 Blood Culture - Preliminary Blood - Peripheral Venous NO GROWTH OBTAINED AFTER 24 HOURS, INCUBATION TO CONTINUE FOR 4 DAYS. 12/07/16 13:50 Blood Culture - Preliminary Blood - Peripheral Venous NO GROWTH OBTAINED AFTER 24 HOURS, INCUBATION TO CONTINUE FOR 4 DAYS. 12/04/16 03:00 Blood Culture - Preliminary Blood - Peripheral Venous NO GROWTH OBTAINED AFTER 96 HOURS, INCUBATION TO CONTINUE FOR 1 DAYS. ASSESSMENT/PLAN: 41 yo h/o mental retardation, recurrent aspiration pneumonia, UTI, Sepsis, Seizure disorder and GI bleed, Chronic respiratory failure s/p trach. dysphagia s/p PEG admitted for sepsis 2/2 UTI. Sepsis 2/2 complicated UTI - Cont. to be frebile at night and WBC trending up - S/p nephrostomy tube placement - UC grew pseudomona, BC grew morganella * repeat blood culture negative - aztreonam and Zosyn discontinued - CT chest/abd if fever persists Chronic normocytic anemia - at baseline Chronic constipation - Cont. duclolax suppository, M&M, Miralax Seizure disorder - Cont. Keppra and phenobarbital Hypokalemia - Resolved FEN - IVF not indicated - Cont. to monitor lytes - Jevity Tube feed 1.5 Prophylaxis - DVT: heparin and SCDs - GI: not indicated Disposition - Cont. to monitor on med-surg Code status - Full Visit type - Emergency Visit Emergency Visit: No - New Patient This patient is new to me today: No - Critical Care Critical Care patient: No
[2016-12-08] MEDS: LACTOBACILLUS ACIDOPHILUS 1 EACH TAB (FP) PO SCH (17:36)
[2016-12-08] MEDS: ALBUTEROL SO4 0.083% IH SOL 2.5 MG/3 ML VIAL.NEB. NEB PRN (22:30)
[2016-12-09] MEDS: INSULIN SLIDING SCALE (NOVOLOG) 1 VIAL SQ SCH ×4 (00:03→18:21)
[2016-12-09] MEDS: ACETAMINOPHEN 650 MG/20.3 ML ORAL SOLUTION (CUPS) NGT PRN ×3 (00:04→14:30)
[2016-12-09] MEDS: ALBUTEROL SO4 0.083% IH SOL 2.5 MG/3 ML VIAL.NEB. NEB PRN (06:00)
[2016-12-09 08:52] LABS: BASOPHIL 0.9 % (0-2.0); EOSINOPHIL 2.1 % (0-4.5); MCH 29.2 pg (25.7-33.7); MCHC 33.7 g/dl (32.0-36.0); MEAN CELL VOLUME 86.5 fl (80-96); MEAN PLT VOLUME 8.2 fl (7.5-11.1); NEUTROPHILS 70.7 % (42.8-82.8); PLATELET COUNT 548 K/MM3 (134-434)
[2016-12-09] MEDS ORDERED: PT OWN MED DRAWER 7, Y5N ONE (08:56)
[2016-12-09] MEDS: AMINO ACIDS/PROTEIN HYDROLYS 30 ML LIQUID.PKT GT SCH ×2 (09:12→19:05)
[2016-12-09 09:36] LABS: ALBUMIN 2.6 g/dl (3.4-5.0); ANION GAP 16 (8-16); CALCIUM 9.4 mg/dL (8.5-10.1); CO2 24 mmol/L (21-32); CREATININE 0.5 mg/dL (0.55-1.02); GLUCOSE,RANDOM 139 mg/dL (74-106); SGPT/ALT 13 U/L (12-78); TOT PROT 8.9 g/dl (6.4-8.2)
[2016-12-09 09:38] LABS: ALK PHOS 119 U/L (45-117); BILIRUBIN,TOTAL 0.2 mg/dL (0.2-1.0)
[2016-12-09] MEDS: HEPARIN NA (PORCINE) 5,000 UNITS/ML 1ML VIAL SQ SCH ×2 (09:41→22:16)
[2016-12-09] MEDS: levETIRAcetam 250 MG TABLET (FP) PO SCH ×2 (09:42→22:16)
[2016-12-09] MEDS: LACTOBACILLUS ACIDOPHILUS 1 EACH TAB (FP) PO SCH (09:42)
[2016-12-09 09:43] LABS: SGOT/AST 22 U/L (15-37)
[2016-12-09] MEDS: BACLOFEN 10 MG TABLET (FP) GT SCH ×4 (09:43→22:18)
[2016-12-09] MEDS: POLYETHYLENE GLYCOL 3350 119 GM BTL PEG SCH ×2 (09:43→22:18)
[2016-12-09] MEDS: CALCIUM CARBONATE SUSPENSION - 500 MG/5 ML ML PEG SCH ×2 (10:00→13:30)
[2016-12-09] MEDS: PHENobarbital 20 MG/5 ML UNIT-DOSE CUP GT SCH ×3 (10:00→22:18)
[2016-12-09] MEDS: ASCORBIC ACID 500 MG/5 ML UNIT DOSE CUP GT SCH ×2 (10:00→13:31)
--- NOTE | 2016-12-09 10:20 | PN ---
Teaching Attending Note Name of Resident: Shaq Valdez ATTENDING PHYSICIAN STATEMENT I saw and evaluated the patient. I reviewed the resident's note and discussed the case with the resident. I agree with the resident's findings and plan as documented. SUBJECTIVE: Patient is alert and appears comfortable. OBJECTIVE: Vital Signs Period Temp Pulse Resp BP Sys/Stein Pulse Ox Last 24 Hr 99.5 F-101.7 F 101-142 14-22 106-119/68-77 98-98 HEART: S1S2, tachycardic LUNGS: Clear ABDOMEN: Soft, non-distended, normal BS, PEG in place and site is clean EXTREMITIES: No edema ASSESSMENT AND PLAN: This is a 41-year-old woman with a history of mental retardation, recurrent aspiration pneumonia, UTI, seizure disorder, GI bleed, chronic respiratory failure, tracheostomy, dysphagia, PEG who presented to the ER and was sent to the ER from [facility] because of fever and tachycardia. 1. Sepsis secondary to Pseudomonas UTI and Morganella bacteremia - Completed course of antibiotics - Still febrile - ? biliary source, pneumonia - CT chest/abdomen/pelvis 2. Seizure disorder - Stable - Continue Keppra, Phenobarbital 3. Mental retardation 4. Chronic hypoxic respiratory failure - On vent via tracheostomy 5. Anemia secondary to chronic illness - Hemoglobin stable 6. Hypokalemia - Improved 7. Hypernatremia - Improved 8. Nutrition - Continue Jevity, Prosource
--- NOTE | 2016-12-09 11:03 | PN ---
Physical Exam: SUBJECTIVE: Patient seen and examined at bedside. Patient is non-verbal, trached and on mechanical ventilation at baseline. Per nurse, she still has fevers Tmax 101.7F. OBJECTIVE: Vital Signs Period Temp Pulse Resp BP Sys/Stein Pulse Ox Last 24 Hr 99.5 F-101.7 F 101-142 14-22 106-119/68-77 98-98 GENERAL: Trached and vented, mentally retarded, non-verbal, contracted, responded to painful stimuli. HEAD: AT, NC EYES: Pupils equal, round and reactive to light, sclera anicteric, conjunctiva clear ENT: nares patent, oropharynx clear without exudates LUNGS: coarse lung sounds, rhonchi b/l HEART: Tachycardic, S1 and S2 present,No murmur ABDOMEN: +bs, soft, grimace upon pressing, PEG tube in place EXTREMITIES: SCDs in place : nephrostomy tube draining serosanguinous fluid ~100cc; alberto ~400cc urine yellow CBCD WBC 12.0 K/mm3 (4.0-10.0) H 12/09/16 08:19 RBC 3.54 M/mm3 (3.60-5.2) L 12/09/16 08:19 Hgb 10.3 GM/dL (10.7-15.3) L 12/09/16 08:19 Hct 30.6 % (32.4-45.2) L 12/09/16 08:19 MCV 86.5 fl (80-96) 12/09/16 08:19 MCHC 33.7 g/dl (32.0-36.0) 12/09/16 08:19 RDW 15.0 % (11.6-15.6) 12/09/16 08:19 Plt Count 548 K/MM3 (134-434) H 12/09/16 08:19 MPV 8.2 fl (7.5-11.1) 12/09/16 08:19 CMP Sodium 140 mmol/L (136-145) 12/09/16 08:19 Potassium 4.7 mmol/L (3.5-5.1) 12/09/16 08:19 Chloride 100 mmol/L (98-107) 12/09/16 08:19 Carbon Dioxide 24 mmol/L (21-32) 12/09/16 08:19 Anion Gap 16 (8-16) 12/09/16 08:19 BUN 22 mg/dL (7-18) H D 12/09/16 08:19 Creatinine 0.5 mg/dL (0.55-1.02) L D 12/09/16 08:19 Creat Clearance w eGFR > 60 (>60) 12/09/16 08:19 Calcium 9.4 mg/dL (8.5-10.1) 12/09/16 08:19 Total Bilirubin 0.2 mg/dL (0.2-1.0) D 12/09/16 08:19 AST 22 U/L (15-37) D 12/09/16 08:19 ALT 13 U/L (12-78) 12/09/16 08:19 Alkaline Phosphatase 119 U/L (45-117) H 12/09/16 08:19 Total Protein 8.9 g/dl (6.4-8.2) H 12/09/16 08:19 Albumin 2.6 g/dl (3.4-5.0) L D 12/09/16 08:19 Intake & Output 12/06/16 12/07/16 12/08/16 12/09/16 23:59 23:59 23:59 23:59 Intake Total 905 2680 940 785 Output Total 6361 747 0733 350 Balance -645 1850 -960 435 Active Medications Generic Name Dose Route Start Last Admin Trade Name Freq PRN Reason Stop Dose Admin Acetaminophen 650 mg 11/24/16 00:51 12/09/16 10:02 Tylenol Oral Solution - NGT 650 mg Q4H PRN Administration FEVER OR PAIN Albuterol Sulfate 1 amp 11/23/16 17:19 12/09/16 06:00 Ventolin 0.083% Nebulizer Soln - NEB 1 amp Q4H PRN Administration SHORT OF BREATH/WHEEZING Amino Acids 30 ml 11/23/16 17:30 12/09/16 09:12 Prosource No Carb Liquid Pkt GT 30 ml BID@0800,1730 JUANJOSE Administration Ascorbic Acid 500 mg 11/23/16 11:38 12/08/16 11:15 Vitamin C Oral Solution - GT 500 mg DAILY JUANJOSE Administration Bacitracin 1 applic 11/23/16 22:00 12/08/16 21:18 Bacitracin - TP 1 applic BID JUANJOSE Administration Baclofen 10 mg 11/23/16 18:00 12/09/16 09:43 Lioresal - GT 10 mg QID JUANJOSE Administration Bisacodyl 10 mg 11/23/16 16:50 Dulcolax Suppository - RC Q72H PRN CONSTIPATION EVERY 3 DAYS Calcium Carbonate 500 mg 11/24/16 10:00 12/08/16 11:14 Calcium Carb Oral Suspension - PEG 500 mg DAILY JUANJOSE Administration Heparin Sodium (Porcine) 5,000 unit 12/05/16 22:00 12/09/16 09:41 Heparin - SQ 5,000 unit BID JUANJOSE Administration Insulin Aspart 1 vial 11/28/16 12:00 12/09/16 05:47 Novolog Vial Sliding Scale - SQ Not Given Q6HPO [facility] Protocol Lactobacillus Acidophilus 1 tab 12/08/16 13:45 12/09/16 09:42 Bacid - PO 1 tab DAILY JUANJOSE Administration Levetiracetam 750 mg 11/28/16 22:00 12/09/16 09:42 Keppra - PO 750 mg BID JUANJOSE Administration Magnesium Hydroxide 30 ml 11/23/16 16:50 12/05/16 10:24 Milk Of Magnesia - GT 30 ml DAILY PRN Administration NO BM FOR 48HR Nystatin 1 applic 11/25/16 14:45 12/08/16 11:15 Nystop Powder - TP 1 applic DAILY JUANJOSE Administration Phenobarbital 80 mg 11/30/16 10:30 12/08/16 21:16 Phenobarbital Liquid - GT 80 mg BID JUANJOSE Administration Polyethylene Glycol 17 gm 11/23/16 22:00 12/09/16 09:43 Miralax (For Daily Use) - PEG 17 gm BID JUANJOSE Administration Microbiology 12/04/16 03:00 Blood Culture - Final Blood - Peripheral Venous NO GROWTH AFTER 5 DAYS INCUBATION 12/07/16 13:40 Blood Culture - Preliminary Blood - Peripheral Venous NO GROWTH OBTAINED AFTER 24 HOURS, INCUBATION TO CONTINUE FOR 4 DAYS. 12/07/16 13:50 Blood Culture - Preliminary Blood - Peripheral Venous NO GROWTH OBTAINED AFTER 24 HOURS, INCUBATION TO CONTINUE FOR 4 DAYS. ASSESSMENT/PLAN: 41 yo h/o mental retardation, recurrent aspiration pneumonia, UTI, Sepsis, Seizure disorder and GI bleed, Chronic respiratory failure s/p trach. dysphagia s/p PEG admitted for sepsis 2/2 UTI. Sepsis 2/2 complicated UTI - Cont. to be frebile, though WBC trending down * f/u CT chest/abd/pelvis - S/p nephrostomy tube placement - UC grew pseudomona, BC grew morganella * repeat blood and urine culture - aztreonam and Zosyn completed Chronic normocytic anemia - at baseline Chronic constipation - Cont. duclolax suppository, M&M, Miralax Seizure disorder - Cont. Keppra and phenobarbital Hypokalemia - Resolved FEN - IVF not indicated - Cont. to monitor lytes - Jevity Tube feed 1.5 Prophylaxis - DVT: heparin and SCDs - GI: not indicated Disposition - Cont. to monitor on med-surg Code status - Full Visit type - Emergency Visit Emergency Visit: No - New Patient This patient is new to me today: No - Critical Care Critical Care patient: No
--- NOTE | 2016-12-09 11:41 | PN ---
Progress Note (short form) - Note Progress Note: PULMONARY Persistently febrile. Vented on volume assist control with 40% fiO2. Last Vital Signs Temp Pulse Resp BP Pulse Ox 101.7 F H 16 L 140 H 100/73 98 12/09/16 09:52 12/09/16 11:24 12/09/16 11:24 12/09/16 11:24 12/09/16 09:52 Gen: vented, awake Heart: tachycardic, regular Lung: bilateral rhonchi Abd: soft, nontender Ext: contracted, no edema CBC, BMP 12/09/16 08:19 12/09/16 08:19 Active Medications Acetaminophen (Tylenol Oral Solution -) 650 mg NGT Q4H PRN PRN Reason: FEVER OR PAIN Last Admin: 12/09/16 10:02 Dose: 650 mg Albuterol Sulfate (Ventolin 0.083% Nebulizer Soln -) 1 amp NEB Q4H PRN PRN Reason: SHORT OF BREATH/WHEEZING Last Admin: 12/09/16 06:00 Dose: 1 amp Amino Acids (Prosource No Carb Liquid Pkt) 30 ml GT BID@0800,1730 [facility] Last Admin: 12/09/16 09:12 Dose: 30 ml Ascorbic Acid (Vitamin C Oral Solution -) 500 mg GT DAILY [facility] Last Admin: 12/09/16 10:00 Dose: Not Given Bacitracin (Bacitracin -) 1 applic TP BID [facility] Last Admin: 12/08/16 21:18 Dose: 1 applic Baclofen (Lioresal -) 10 mg GT QID [facility] Last Admin: 12/09/16 09:43 Dose: 10 mg Bisacodyl (Dulcolax Suppository -) 10 mg RC Q72H PRN PRN Reason: CONSTIPATION EVERY 3 DAYS Calcium Carbonate (Calcium Carb Oral Suspension -) 500 mg PEG DAILY [facility] Last Admin: 12/09/16 10:00 Dose: Not Given Heparin Sodium (Porcine) (Heparin -) 5,000 unit SQ BID [facility] Last Admin: 12/09/16 09:41 Dose: 5,000 unit Insulin Aspart (Novolog Vial Sliding Scale -) 1 vial SQ Q6HPO JUANJOSE PRN Reason: Protocol Last Admin: 12/09/16 05:47 Dose: Not Given Lactobacillus Acidophilus (Bacid -) 1 tab PO DAILY [facility] Last Admin: 12/09/16 09:42 Dose: 1 tab Levetiracetam (Keppra -) 750 mg PO BID [facility] Last Admin: 12/09/16 09:42 Dose: 750 mg Magnesium Hydroxide (Milk Of Magnesia -) 30 ml GT DAILY PRN PRN Reason: NO BM FOR 48HR Last Admin: 12/05/16 10:24 Dose: 30 ml Nystatin (Nystop Powder -) 1 applic TP DAILY [facility] Last Admin: 12/08/16 11:15 Dose: 1 applic Phenobarbital (Phenobarbital Liquid -) 80 mg GT BID [facility] Last Admin: 12/09/16 10:00 Dose: Not Given Polyethylene Glycol (Miralax (For Daily Use) -) 17 gm PEG BID [facility] Last Admin: 12/09/16 09:43 Dose: 17 gm A/P Chronic Vent Dependent Respiratory Failure UTI/Hydronephrosis Bacteremia Sepsis Mental Retardation Seizure Disorder - continue antibiotics - f/u pending cultures - enteral feeds - continue volume assist control - poor candidate for weaning due to poor mental status and history of aspiration events - DVT prophylaxis
[2016-12-09] MEDS ORDERED: SODIUM CHLORIDE 1,000 ML IV STA ×2 (11:58→15:59)
[2016-12-09] MEDS: BACITRACIN 30 GM TUBE TOPICAL OINTMENT TP SCH ×2 (12:00→22:18)
[2016-12-09] MEDS: NYSTATIN POWDER 100,000 UNITS/GM - 15 GM TOPICAL POWDER TP SCH (12:00)
[2016-12-09] MEDS ORDERED: TOBRAMYCIN SULFATE 1,200 MG VIAL IVPB SCH (12:15)
--- NOTE | 2016-12-09 12:18 | PN ---
Progress Note (short form) - Note Progress Note: persistent fever tachycardia hypotension s/p PCN 5/4 Vital Signs Period Temp Pulse Resp BP Sys/Stein Pulse Ox Last 24 Hr 99.5 F-101.7 F 16-142 14-140 100-119/68-77 98-98 trach to vent cor-rrr lungs clear abd soft,nt+GT ext no edema CBC, BMP 12/09/16 08:19 12/09/16 08:19 Microbiology 12/04/16 03:00 Blood - Peripheral Venous Blood Culture - Final NO GROWTH AFTER 5 DAYS INCUBATION 12/07/16 13:40 Blood - Peripheral Venous Blood Culture - Preliminary NO GROWTH OBTAINED AFTER 24 HOURS, INCUBATION TO CONTINUE FOR 4 DAYS. 12/07/16 13:50 Blood - Peripheral Venous Blood Culture - Preliminary NO GROWTH OBTAINED AFTER 24 HOURS, INCUBATION TO CONTINUE FOR 4 DAYS. 12/04/16 11:52 Urine - Urine Nephrostomy Tube Urine Culture - Final Pseudomonas Aeruginosa 12/04/16 03:00 Urine - Urine - Catheterized Urine Culture - Final 11/24/16 20:33 Sputum - Endotrachea Suction/Ventilator Gram Stain - Final 11/24/16 20:33 Sputum - Endotrachea Suction/Ventilator Sputum Culture - Final Providencia Stuartii Acinetobacter Baumannii/Haemol Pseudomonas Aeruginosa Morganella Morganii 11/23/16 05:02 Blood - Peripheral Venous Blood Culture - Final NO GROWTH AFTER 5 DAYS INCUBATION 11/23/16 05:02 Urine - Urine Clean Catch Urine Culture - Final Pseudomonas Aeruginosa 11/23/16 05:02 Blood - Peripheral Venous Blood Culture - Final Morganella Morganii cxray improved a/p fever/tachycardia- possible sepsis cultures sent for ct scan imaging cultures reviewed plan vanco/tobramycin/cefepime s/p Morganella bacteremia- and pseudomonas UTI - hydronephrosis with obstructing stone s/p 14 days iv antibiotics chronic resp failure multiple developmental disabilities seizure disorder
[2016-12-09] MEDS ORDERED: CEFEPIME 1 GM in DEXTROSE 5%-WATER - 100 ML IVPB SCH (13:00)
--- NOTE | 2016-12-09 15:04 | EKG ---
Test Reason : Blood Pressure : / mmHG Vent. Rate : 138 BPM Atrial Rate : 138 BPM P-R Int : 148 ms QRS Dur : 066 ms QT Int : 272 ms P-R-T Axes : 055 072 050 degrees QTc Int : 412 ms SINUS TACHYCARDIA NONSPECIFIC ST AND T WAVE ABNORMALITY ABNORMAL ECG WHEN COMPARED WITH ECG OF 23-NOV-2016 06:20, NO SIGNIFICANT CHANGE WAS FOUND Confirmed by YESENIA ENGLISH MD ([id number]) on 12/09/2016 3:04:14 PM Referred By: JAMARI NORIEGA Confirmed By:YESENIA ENGLISH MD
[2016-12-09] MEDS: CEFEPIME 1 GM/100 ML BAG PRE-DOCKED IVPB SCH ×2 (15:10→18:21)
[2016-12-09] MEDS: TOBRAMYCIN SULFATE 250 MG in SODIUM CHLORIDE 100 ML IVPB SCH (15:46)
[2016-12-09] MEDS: VANCOMYCIN 1 GRAM (PRE-DOCKED) 1,000 MG/250 ML BAG IVPB SCH (17:09)
[2016-12-09 22:09] LABS: MCH 28.5 pg (25.7-33.7); MCHC 32.5 g/dl (32.0-36.0); MEAN CELL VOLUME 87.6 fl (80-96); PLATELET COUNT 439 K/MM3 (134-434); RDW 15.1 % (11.6-15.6); WHITE BLOOD COUNT 8.2 K/mm3 (4.0-10.0)
[2016-12-09 23:55] LABS: PLATELET ESTIMATE ADEQUATE (NORMAL)
[2016-12-10] MEDS: VANCOMYCIN 1 GRAM (PRE-DOCKED) 1,000 MG/250 ML BAG IVPB SCH ×3 (00:08→18:59)
[2016-12-10] MEDS: INSULIN SLIDING SCALE (NOVOLOG) 1 VIAL SQ SCH ×4 (00:26→17:49)
[2016-12-10] MEDS: CEFEPIME 1 GM/100 ML BAG PRE-DOCKED IVPB SCH ×4 (01:49→18:59)
[2016-12-10 07:28] LABS: MCH 28.9 pg (25.7-33.7); MCHC 32.7 g/dl (32.0-36.0); MEAN CELL VOLUME 88.6 fl (80-96); MEAN PLT VOLUME 8.2 fl (7.5-11.1); PLATELET COUNT 409 K/MM3 (134-434); RDW 15.2 % (11.6-15.6); WHITE BLOOD COUNT 5.6 K/mm3 (4.0-10.0)
[2016-12-10] MEDS: AMINO ACIDS/PROTEIN HYDROLYS 30 ML LIQUID.PKT GT SCH ×2 (08:59→17:32)
--- NOTE | 2016-12-10 09:22 | PN ---
Physical Exam: SUBJECTIVE: Patient seen and examined at bedside. Patient is non-verbal, trached and on mechanical ventilation at baseline. She looks comfortable in bed. Per nurse, no fever overnight and heart rate is within normal range this morning. OBJECTIVE: Vital Signs Period Temp Pulse Resp BP Sys/Stein Pulse Ox Last 24 Hr 98.7 F-101.7 F 16-142 12-140 83-109/50-77 98-98 GENERAL: Trached and vented, mentally retarded, non-verbal, contracted, responded to painful stimuli. HEAD: AT, NC EYES: Pupils equal, round and reactive to light, sclera anicteric, conjunctiva clear ENT: nares patent, oropharynx clear without exudates LUNGS: CTAB HEART: RRR, S1 and S2 present,No murmur ABDOMEN: +bs, soft, grimace upon pressing, PEG tube in place EXTREMITIES: SCDs in place : nephrostomy tube draining serosanguinous fluid ~150cc; alberto ~350cc urine yellow CBCD WBC 5.6 K/mm3 (4.0-10.0) D 12/10/16 06:15 RBC 3.18 M/mm3 (3.60-5.2) L 12/10/16 06:15 Hgb 9.2 GM/dL (10.7-15.3) L 12/10/16 06:15 Hct 28.2 % (32.4-45.2) L 12/10/16 06:15 MCV 88.6 fl (80-96) 12/10/16 06:15 MCHC 32.7 g/dl (32.0-36.0) 12/10/16 06:15 RDW 15.2 % (11.6-15.6) 12/10/16 06:15 Plt Count 409 K/MM3 (134-434) 12/10/16 06:15 MPV 8.2 fl (7.5-11.1) 12/10/16 06:15 Active Medications Generic Name Dose Route Start Last Admin Trade Name Freq PRN Reason Stop Dose Admin Acetaminophen 650 mg 11/24/16 00:51 12/09/16 14:30 Tylenol Oral Solution - NGT 650 mg Q4H PRN Administration FEVER OR PAIN Albuterol Sulfate 1 amp 11/23/16 17:19 12/09/16 06:00 Ventolin 0.083% Nebulizer Soln - NEB 1 amp Q4H PRN Administration SHORT OF BREATH/WHEEZING Amino Acids 30 ml 11/23/16 17:30 12/10/16 08:59 Prosource No Carb Liquid Pkt GT 30 ml BID@0800,1730 JUANJOSE Administration Ascorbic Acid 500 mg 11/23/16 11:38 12/09/16 13:31 Vitamin C Oral Solution - GT 500 mg DAILY JUANJOSE Administration Bacitracin 1 applic 11/23/16 22:00 12/09/16 22:18 Bacitracin - TP 1 applic BID JUANJOSE Administration Baclofen 10 mg 11/23/16 18:00 12/09/16 22:18 Lioresal - GT 10 mg QID JUANJOSE Administration Bisacodyl 10 mg 11/23/16 16:50 Dulcolax Suppository - RC Q72H PRN CONSTIPATION EVERY 3 DAYS Calcium Carbonate 500 mg 11/24/16 10:00 12/09/16 13:30 Calcium Carb Oral Suspension - PEG 500 mg DAILY JUANJOSE Administration Cefepime HCl 1 gm 12/09/16 12:30 12/10/16 01:49 Maxipime 1gm Ivpb Pre-Docked IVPB 1 gm Q8H-IV JUANJSOE Administration Heparin Sodium (Porcine) 5,000 unit 12/05/16 22:00 12/09/16 22:16 Heparin - SQ 5,000 unit BID JUANJOSE Administration Tobramycin Sulfate 250 mg/ 106.25 mls @ 106.25 mls/hr 12/09/16 13:00 12/09/16 15:46 Sodium Chloride IVPB 106.25 mls/hr DAILY@1300 JUANJOSE Administration Insulin Aspart 1 vial 11/28/16 12:00 12/10/16 05:46 Novolog Vial Sliding Scale - SQ Not Given Q6HPO [facility] Protocol Lactobacillus Acidophilus 1 tab 12/08/16 13:45 12/09/16 09:42 Bacid - PO 1 tab DAILY JUANJOSE Administration Levetiracetam 750 mg 11/28/16 22:00 12/09/16 22:16 Keppra - PO 750 mg BID JUANJOSE Administration Magnesium Hydroxide 30 ml 11/23/16 16:50 12/05/16 10:24 Milk Of Magnesia - GT 30 ml DAILY PRN Administration NO BM FOR 48HR Nystatin 1 applic 11/25/16 14:45 12/09/16 12:00 Nystop Powder - TP 1 applic DAILY JUANJOSE Administration Phenobarbital 80 mg 11/30/16 10:30 12/09/16 22:18 Phenobarbital Liquid - GT 80 mg BID JUANJOSE Administration Polyethylene Glycol 17 gm 11/23/16 22:00 12/09/16 22:18 Miralax (For Daily Use) - PEG 17 gm BID JUANJOSE Administration Vancomycin HCl 1,000 mg 12/10/16 00:08 12/10/16 05:15 Vancomycin (Pre-Docked) IVPB 1,000 mg BID@0500,1700 JUANJOSE Administration Protocol Intake & Output 12/07/16 12/08/16 12/09/16 12/10/16 23:59 23:59 23:59 23:59 Intake Total 2680 940 4095 1150 Output Total 830 1900 1350 600 Balance 1850 -[address] abd/pelvis/chest on 12/09: Moderate chronic lung disease, as well as within the right upper lobe. No definite acute pathology within the chest. 2. S/P right percutaneous nephrostomy with no significant change in bilateral nephrolithiasis and proximal right ureteral stone since 12/02/2016. 3. No evidence of intra-abdominal abscess or acute pathology within the abdomen or pelvis. ASSESSMENT/PLAN: 41 yo h/o mental retardation, recurrent aspiration pneumonia, UTI, Sepsis, Seizure disorder and GI bleed, Chronic respiratory failure s/p trach. dysphagia s/p PEG admitted for sepsis 2/2 UTI. Sepsis 2/2 complicated UTI - Afrebile overnight, though WBC trending down - CT unable to ID source of infection - Repeat blood, nephrostomy tube cultures negative - Pending urine culture from alberto - Repeat U/S shows R kidney stone which is increasing in size from 8mm to 1.2cm * Spoke to Dr. Kwok's answering service requesting re-evaluation - S/p nephrostomy tube placement - aztreonam and Zosyn 14 days completed - Started cefepime, tobromycin and vanco day 2 Chronic normocytic anemia - at baseline Chronic constipation - Cont. duclolax suppository, M&M, Miralax Seizure disorder - Cont. Keppra and phenobarbital Hypokalemia - Resolved FEN - IVF not indicated - Cont. to monitor lytes - Jevity Tube feed 1.5 Prophylaxis - DVT: heparin and SCDs - GI: not indicated Disposition - Awaiting urology re-evaluation - Cont. to monitor on med-surg Code status - Full Visit type - Emergency Visit Emergency Visit: No - New Patient This patient is new to me today: No - Critical Care Critical Care patient: No
[2016-12-10] MEDS ORDERED: PT OWN MED DRAWER 7, Y5N ONE ×2 (10:35→13:02)
[2016-12-10] MEDS: LACTOBACILLUS ACIDOPHILUS 1 EACH TAB (FP) PO SCH (10:54)
[2016-12-10] MEDS: levETIRAcetam 250 MG TABLET (FP) PO SCH ×2 (10:54→22:57)
[2016-12-10] MEDS: PHENobarbital 20 MG/5 ML UNIT-DOSE CUP GT SCH ×2 (10:55→22:57)
[2016-12-10] MEDS: HEPARIN NA (PORCINE) 5,000 UNITS/ML 1ML VIAL SQ SCH ×2 (10:56→23:21)
[2016-12-10] MEDS: BACLOFEN 10 MG TABLET (FP) GT SCH ×4 (10:56→22:57)
[2016-12-10] MEDS: POLYETHYLENE GLYCOL 3350 119 GM BTL PEG SCH ×2 (10:57→22:57)
[2016-12-10] MEDS: CALCIUM CARBONATE SUSPENSION - 500 MG/5 ML ML PEG SCH (10:58)
[2016-12-10] MEDS: ASCORBIC ACID 500 MG/5 ML UNIT DOSE CUP GT SCH (10:58)
[2016-12-10] MEDS ORDERED: INSULIN (NOVOLOG) ASPART 100 UNITS/ML 10ML VIAL ONE (12:35)
[2016-12-10] MEDS: BACITRACIN 30 GM TUBE TOPICAL OINTMENT TP SCH ×2 (12:44→22:58)
[2016-12-10] MEDS: NYSTATIN POWDER 100,000 UNITS/GM - 15 GM TOPICAL POWDER TP SCH (12:44)
--- NOTE | 2016-12-10 12:58 | PN ---
Progress Note (short form) - Note Progress Note: PULMONARY LESS SPUTUM /NOW WHITE LOW GRADE TEMP CONTINUES NEPHROSTOMY TUBE IN PLACE CHART/MEDS/NOTES/IMAGING/LABS/MICRO REVIEWED CXR: NEW CHANGES LEFT BASE NO OVERALL CHANGE IN EXAM (1) Mental retardation Code(s): F79 - UNSPECIFIED INTELLECTUAL DISABILITIES (2) Seizure disorder Code(s): G40.909 - EPILEPSY, UNSP, NOT INTRACTABLE, WITHOUT STATUS EPILEPTICUS (3) Anemia Code(s): D64.9 - ANEMIA, UNSPECIFIED (4) Atelectasis Code(s): J98.11 - ATELECTASIS (5) Chronic respiratory failure Code(s): J96.10 - CHRONIC RESPIRATORY FAILURE, UNSP W HYPOXIA OR HYPERCAPNIA (6) Seizure Code(s): R56.9 - UNSPECIFIED CONVULSIONS (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
[2016-12-10] MEDS: TOBRAMYCIN SULFATE 250 MG in SODIUM CHLORIDE 100 ML IVPB SCH ×2 (13:00→14:08)
[2016-12-10 14:28] LABS: PLATELET ESTIMATE ADEQUATE (NORMAL)
--- NOTE | 2016-12-10 15:03 | PN ---
Progress Note (short form) - Note Progress Note: temps trending down started IVF and antibiotics yesterday, looks more comfortable lactic acidosis resolved s/p PCN 5/4 Vital Signs Period Temp Pulse Resp BP Sys/Stein Pulse Ox Last 24 Hr 98.7 F-99.5 F 82-112 12-19 96-113/61-71 cor-rrr lungs decreased bs at bases abd soft,nt +GT ext no edema CBC, BMP 12/10/16 06:15 12/09/16 08:[address] scans noted , no acute pathology noted a/p sepsis cultures sent ct imaging reviewed vanco/tobra/cefepime Day #2 check vanco and tobramycin levels s/p Morganella bacteremia- and pseudomonas UTI - hydronephrosis with obstructing stone s/p 14 days iv antibiotics chronic resp failure multiple developmental disabilities seizure disorder overall prognosis poor contact isolation=resistant organisms
--- NOTE | 2016-12-10 16:44 | PN ---
Teaching Attending Note Name of Resident: Shaq Valdez ATTENDING PHYSICIAN STATEMENT I saw and evaluated the patient. I reviewed the resident's note and discussed the case with the resident. I agree with the resident's findings and plan as documented. SUBJECTIVE: Appears comfortable. Alert. OBJECTIVE: Vital Signs Period Temp Pulse Resp BP Sys/Stein Pulse Ox Last 24 Hr 98.7 F-99.9 F 82-119 12-19 95-113/60-71 HEART: S1S2, tachycardic LUNGS: Clear ABDOMEN: Soft, non-distended, normal BS, PEG in place and site is clean EXTREMITIES: No edema ASSESSMENT AND PLAN: This is a 41-year-old woman with a history of mental retardation, recurrent aspiration pneumonia, UTI, seizure disorder, GI bleed, chronic respiratory failure, tracheostomy, dysphagia, PEG who presented to the ER and was sent to the ER from [facility] because of fever and tachycardia. 1. Sepsis secondary to Pseudomonas UTI and Morganella bacteremia - Completed 14 days of IV antibiotics but remained febrile - Cefepime, Tobramycin, Vancomycin started yesterday - CT chest/abdomen/pelvis shows no acute chest pathology, no intra-abdominal abscess or acute pathology 2. Seizure disorder - Stable - Continue Keppra, Phenobarbital 3. Mental retardation 4. Chronic hypoxic respiratory failure - On vent via tracheostomy 5. Anemia secondary to chronic illness - Hemoglobin stable 6. Hypokalemia - Improved 7. Hypernatremia - Improved 8. Nutrition - Continue Jevity, Prosource
[2016-12-11] MEDS: INSULIN SLIDING SCALE (NOVOLOG) 1 VIAL SQ SCH ×4 (02:16→17:49)
[2016-12-11] MEDS: CEFEPIME 1 GM/100 ML BAG PRE-DOCKED IVPB SCH ×4 (02:17→17:48)
[2016-12-11] MEDS: VANCOMYCIN 1 GRAM (PRE-DOCKED) 1,000 MG/250 ML BAG IVPB SCH ×2 (05:16→17:50)
[2016-12-11 08:44] LABS: BASOPHIL 1.3 % (0-2.0); EOSINOPHIL 5.4 % (0-4.5); MCH 29.2 pg (25.7-33.7); MCHC 33.3 g/dl (32.0-36.0); MEAN CELL VOLUME 87.6 fl (80-96); MEAN PLT VOLUME 8.5 fl (7.5-11.1); NEUTROPHILS 54.8 % (42.8-82.8); PLATELET COUNT 373 K/MM3 (134-434); RDW 14.9 % (11.6-15.6); WHITE BLOOD COUNT 5.7 K/mm3 (4.0-10.0)
[2016-12-11] MEDS: AMINO ACIDS/PROTEIN HYDROLYS 30 ML LIQUID.PKT GT SCH ×2 (09:00→17:49)
[2016-12-11 09:12] LABS: CALCIUM 9.1 mg/dL (8.5-10.1); COCKROFT - GAULT 202.6825; CREATININE 0.4 mg/dL (0.55-1.02)
--- NOTE | 2016-12-11 10:42 | PN ---
Progress Note (short form) - Note Progress Note: paitent is afebrile with normal WBC PCN is draining Imp- obs stone, sepsis. recommend internalization of stent with interventional radiology Problem List - Problems (1) Acute UTI (urinary tract infection) Code(s): N39.0 - URINARY TRACT INFECTION, SITE NOT SPECIFIED (2) Urinary tract obstruction due to kidney stone Code(s): N20.0 - CALCULUS OF KIDNEY N13.8 - OTHER OBSTRUCTIVE AND REFLUX UROPATHY
[2016-12-11] MEDS ORDERED: PT OWN MED DRAWER 7, Y5N ONE ×2 (10:59→12:33)
[2016-12-11] MEDS: LACTOBACILLUS ACIDOPHILUS 1 EACH TAB (FP) PO SCH (11:06)
[2016-12-11] MEDS: PHENobarbital 20 MG/5 ML UNIT-DOSE CUP GT SCH ×2 (11:07→23:31)
[2016-12-11] MEDS: BACLOFEN 10 MG TABLET (FP) GT SCH ×5 (11:08→23:28)
[2016-12-11] MEDS: MAGNESIUM HYDROX 2400MG/30ML ORAL SUSPENSION 30 ML CUP GT PRN (11:08)
[2016-12-11] MEDS: levETIRAcetam 250 MG TABLET (FP) PO SCH ×2 (11:08→23:27)
[2016-12-11] MEDS: HEPARIN NA (PORCINE) 5,000 UNITS/ML 1ML VIAL SQ SCH ×2 (11:08→23:26)
[2016-12-11] MEDS: POLYETHYLENE GLYCOL 3350 119 GM BTL PEG SCH ×2 (11:09→23:31)
[2016-12-11] MEDS: CALCIUM CARBONATE SUSPENSION - 500 MG/5 ML ML PEG SCH (11:09)
[2016-12-11] MEDS: NYSTATIN POWDER 100,000 UNITS/GM - 15 GM TOPICAL POWDER TP SCH (11:09)
[2016-12-11] MEDS: ASCORBIC ACID 500 MG/5 ML UNIT DOSE CUP GT SCH (11:09)
[2016-12-11] MEDS: BACITRACIN 30 GM TUBE TOPICAL OINTMENT TP SCH ×2 (11:10→23:33)
--- NOTE | 2016-12-11 12:45 | PN ---
Progress Note (short form) - Note Progress Note: PULMONARY Fever curve trending down. Vented on volume assist control with 40% fiO2. Last Vital Signs Temp Pulse Resp BP Pulse Ox 99.5 F 95 H 19 121/57 99 12/11/16 07:00 12/11/16 10:00 12/11/16 10:00 12/11/16 07:00 12/11/16 10:00 Gen: vented, awake Heart: tachycardic, regular Lung: bilateral rhonchi Abd: soft, nontender Ext: contracted, no edema CBC, BMP 12/11/16 07:55 12/11/16 07:55 Active Medications Acetaminophen (Tylenol Oral Solution -) 650 mg NGT Q4H PRN PRN Reason: FEVER OR PAIN Last Admin: 12/09/16 14:30 Dose: 650 mg Albuterol Sulfate (Ventolin 0.083% Nebulizer Soln -) 1 amp NEB Q4H PRN PRN Reason: SHORT OF BREATH/WHEEZING Last Admin: 12/09/16 06:00 Dose: 1 amp Amino Acids (Prosource No Carb Liquid Pkt) 30 ml GT BID@0800,1730 [facility] Last Admin: 12/11/16 09:00 Dose: 30 ml Ascorbic Acid (Vitamin C Oral Solution -) 500 mg GT DAILY [facility] Last Admin: 12/11/16 11:09 Dose: 500 mg Bacitracin (Bacitracin -) 1 applic TP BID [facility] Last Admin: 12/11/16 11:10 Dose: 1 applic Baclofen (Lioresal -) 10 mg GT QID [facility] Last Admin: 12/11/16 11:10 Dose: 10 mg Bisacodyl (Dulcolax Suppository -) 10 mg RC Q72H PRN PRN Reason: CONSTIPATION EVERY 3 DAYS Calcium Carbonate (Calcium Carb Oral Suspension -) 500 mg PEG DAILY [facility] Last Admin: 12/11/16 11:09 Dose: 500 mg Cefepime HCl (Maxipime 1gm Ivpb Pre-Docked) 1 gm IVPB Q8H-IV [facility] Last Admin: 12/11/16 11:09 Dose: Not Given Heparin Sodium (Porcine) (Heparin -) 5,000 unit SQ BID [facility] Last Admin: 12/11/16 11:08 Dose: 5,000 unit Tobramycin Sulfate 250 mg/ (Sodium Chloride) 106.25 mls @ 106.25 mls/hr IVPB DAILY@1300 [facility] Last Admin: 12/10/16 14:08 Dose: 106.25 mls/hr Insulin Aspart (Novolog Vial Sliding Scale -) 1 vial SQ Q6HPO [facility] PRN Reason: Protocol Last Admin: 12/11/16 06:34 Dose: Not Given Lactobacillus Acidophilus (Bacid -) 1 tab PO DAILY [facility] Last Admin: 12/11/16 11:06 Dose: 1 tab Levetiracetam (Keppra -) 750 mg PO BID [facility] Last Admin: 12/11/16 11:08 Dose: 750 mg Magnesium Hydroxide (Milk Of Magnesia -) 30 ml GT DAILY PRN PRN Reason: NO BM FOR 48HR Last Admin: 12/11/16 11:08 Dose: 30 ml Nystatin (Nystop Powder -) 1 applic TP DAILY [facility] Last Admin: 12/11/16 11:09 Dose: 1 applic Phenobarbital (Phenobarbital Liquid -) 80 mg GT BID [facility] Last Admin: 12/11/16 11:07 Dose: 80 mg Polyethylene Glycol (Miralax (For Daily Use) -) 17 gm PEG BID [facility] Last Admin: 12/11/16 11:09 Dose: 17 gm Vancomycin HCl (Vancomycin (Pre-Docked)) 1,000 mg IVPB BID@0500,1700 [facility] PRN Reason: Protocol Last Admin: 12/11/16 05:16 Dose: Not Given A/P Chronic Vent Dependent Respiratory Failure UTI/Hydronephrosis Bacteremia Sepsis Mental Retardation Seizure Disorder - continue antibiotics per ID - enteral feeds - continue volume assist control - poor candidate for weaning due to poor mental status and history of aspiration events - DVT prophylaxis
--- NOTE | 2016-12-11 12:53 | PN ---
Progress Note (short form) - Note Progress Note: IV access obtained in left forearm, inner aspect at her wrist. 22 gauge. Blood easily aspirated and flushed with 10cc NS. No evidence of IV infiltration. The line was secured.
[2016-12-11] MEDS: TOBRAMYCIN SULFATE 250 MG in SODIUM CHLORIDE 100 ML IVPB SCH (14:27)
--- NOTE | 2016-12-11 16:10 | PN ---
Teaching Attending Note Name of Resident: Shaq Valdez ATTENDING PHYSICIAN STATEMENT I saw and evaluated the patient. I reviewed the resident's note and discussed the case with the resident. I agree with the resident's findings and plan as documented. SUBJECTIVE: Alert. Comfortable. OBJECTIVE: Vital Signs Period Temp Pulse Resp BP Sys/Stein Pulse Ox Last 24 Hr 98.7 F-99.6 F 95-117 12-19 83-123/57-68 99 HEART: S1S2, tachycardic LUNGS: Clear ABDOMEN: Soft, non-distended, normal BS, PEG in place and site is clean EXTREMITIES: No edema ASSESSMENT AND PLAN: This is a 41-year-old woman with a history of mental retardation, recurrent aspiration pneumonia, UTI, seizure disorder, GI bleed, chronic respiratory failure, tracheostomy, dysphagia, PEG who presented to the ER and was sent to the ER from [facility] because of fever and tachycardia. 1. Sepsis secondary to Pseudomonas UTI and Morganella bacteremia - Completed 14 days of IV antibiotics but remained febrile - Continue Cefepime, Tobramycin, Vancomycin - CT chest/abdomen/pelvis shows no acute chest pathology, no intra-abdominal abscess or acute pathology 2. Seizure disorder - Stable - Continue Keppra, Phenobarbital 3. Mental retardation 4. Chronic hypoxic respiratory failure - On vent via tracheostomy 5. Anemia secondary to chronic illness - Hemoglobin stable 6. Hypokalemia - Improved 7. Hypernatremia - Improved 8. Nutrition - Continue Jevity, Prosource
--- NOTE | 2016-12-11 17:19 | PN ---
Progress Note (short form) - Note Progress Note: NAD temps improved s/p PCN 5/4 Vital Signs Period Temp Pulse Resp BP Sys/Stein Pulse Ox Last 24 Hr 98.7 F-99.6 F 95-117 12-19 83-123/57-68 99-99 trach to vent cor-rrr lungs clear abd soft, +GT ext no edema Laboratory Tests 12/11/16 12/11/16 12:50 12:50 Tobramycin Trough 0.7 Vancomycin Trough 6.538 CBC, BMP 12/11/16 07:55 12/11/16 07:55 Microbiology 12/07/16 13:40 Blood - Peripheral Venous Blood Culture - Preliminary NO GROWTH OBTAINED AFTER 96 HOURS, INCUBATION TO CONTINUE FOR 1 DAYS. 12/07/16 13:50 Blood - Peripheral Venous Blood Culture - Preliminary NO GROWTH OBTAINED AFTER 96 HOURS, INCUBATION TO CONTINUE FOR 1 DAYS. 12/09/16 16:40 Urine - Urine Garcia Urine Culture - Preliminary Non Lactose Fermenting Gnb 12/09/16 08:30 Blood - Peripheral Venous Blood Culture - Preliminary NO GROWTH OBTAINED AFTER 48 HOURS, INCUBATION TO CONTINUE FOR 3 DAYS. 12/09/16 08:19 Blood - Peripheral Venous Blood Culture - Preliminary NO GROWTH OBTAINED AFTER 48 HOURS, INCUBATION TO CONTINUE FOR 3 DAYS. 12/09/16 05:05 Urine - Urine Nephrostomy Tube Urine Culture - Final NO GROWTH OBTAINED 12/04/16 03:00 Blood - Peripheral Venous Blood Culture - Final NO GROWTH AFTER 5 DAYS INCUBATION 12/04/16 11:52 Urine - Urine Nephrostomy Tube Urine Culture - Final Pseudomonas Aeruginosa 12/04/16 03:00 Urine - Urine - Catheterized Urine Culture - Final 11/24/16 20:33 Sputum - Endotrachea Suction/Ventilator Gram Stain - Final 11/24/16 20:33 Sputum - Endotrachea Suction/Ventilator Sputum Culture - Final Providencia Stuartii Acinetobacter Baumannii/Haemol Pseudomonas Aeruginosa Morganella Morganii 11/23/16 05:02 Blood - Peripheral Venous Blood Culture - Final NO GROWTH AFTER 5 DAYS INCUBATION 11/23/16 05:02 Urine - Urine Clean Catch Urine Culture - Final Pseudomonas Aeruginosa 11/23/16 05:02 Blood - Peripheral Venous Blood Culture - Final Morganella Morganii ct scans noted , no acute pathology noted a/p sepsis cultures sent ct imaging reviewed vanco/tobra/cefepime Day #3 d/c vancomycin- no mrsa, continue tobramycin/cefepime s/p Morganella bacteremia- and pseudomonas UTI - hydronephrosis with obstructing stone s/p 14 days iv antibiotics chronic resp failure multiple developmental disabilities seizure disorder overall prognosis poor contact isolation=resistant organisms
--- NOTE | 2016-12-11 17:34 | PN ---
Physical Exam: SUBJECTIVE: Patient seen and examined at bedside. Patient is non-verbal, trached and on mechanical ventilation at baseline. Per nurse, no fever overnight and all vitals were at baseline. OBJECTIVE: Vital Signs Period Temp Pulse Resp BP Sys/Stein Pulse Ox Last 24 Hr 98.7 F-99.6 F 95-117 12-19 83-123/57-68 99-99 GENERAL: Trached and vented, mentally retarded, non-verbal, contracted, responded to painful stimuli. HEAD: AT, NC EYES: Pupils equal, round and reactive to light, sclera anicteric, conjunctiva clear ENT: nares patent, oropharynx clear without exudates LUNGS: CTAB HEART: RRR, S1 and S2 present,No murmur ABDOMEN: +bs, soft, grimace upon pressing, PEG tube in place EXTREMITIES: SCDs in place : nephrostomy tube draining serosanguinous fluid ~50cc; alberto ~2cc urine yellow CBCD WBC 5.7 K/mm3 (4.0-10.0) 12/11/16 07:55 RBC 3.32 M/mm3 (3.60-5.2) L 12/11/16 07:55 Hgb 9.7 GM/dL (10.7-15.3) L 12/11/16 07:55 Hct 29.1 % (32.4-45.2) L 12/11/16 07:55 MCV 87.6 fl (80-96) 12/11/16 07:55 MCHC 33.3 g/dl (32.0-36.0) 12/11/16 07:55 RDW 14.9 % (11.6-15.6) 12/11/16 07:55 Plt Count 373 K/MM3 (134-434) 12/11/16 07:55 MPV 8.5 fl (7.5-11.1) 12/11/16 07:55 CMP Sodium 139 mmol/L (136-145) 12/11/16 07:55 Potassium 3.5 mmol/L (3.5-5.1) D 12/11/16 07:55 Chloride 102 mmol/L (98-107) 12/11/16 07:55 Carbon Dioxide 25 mmol/L (21-32) 12/11/16 07:55 Anion Gap 12 (8-16) 12/11/16 07:55 BUN 17 mg/dL (7-18) D 12/11/16 07:55 Creatinine 0.4 mg/dL (0.55-1.02) L 12/11/16 07:55 Creat Clearance w eGFR > 60 (>60) 12/09/16 08:19 Calcium 9.1 mg/dL (8.5-10.1) 12/11/16 07:55 Total Bilirubin 0.2 mg/dL (0.2-1.0) D 12/09/16 08:19 AST 22 U/L (15-37) D 12/09/16 08:19 ALT 13 U/L (12-78) 12/09/16 08:19 Alkaline Phosphatase 119 U/L (45-117) H 12/09/16 08:19 Total Protein 8.9 g/dl (6.4-8.2) H 12/09/16 08:19 Albumin 2.6 g/dl (3.4-5.0) L D 12/09/16 08:19 Intake & Output 12/08/16 12/09/16 12/10/16 12/11/16 23:59 23:59 23:59 23:59 Intake Total 940 4095 2290 940 Output Total 1900 1350 2300 1000 Balance -960 2745 -10 -60 Active Medications Generic Name Dose Route Start Last Admin Trade Name Freq PRN Reason Stop Dose Admin Acetaminophen 650 mg 11/24/16 00:51 12/09/16 14:30 Tylenol Oral Solution - NGT 650 mg Q4H PRN Administration FEVER OR PAIN Amino Acids 30 ml 11/23/16 17:30 12/11/16 09:00 Prosource No Carb Liquid Pkt GT 30 ml BID@0800,1730 JUANJOSE Administration Ascorbic Acid 500 mg 11/23/16 11:38 12/11/16 11:09 Vitamin C Oral Solution - GT 500 mg DAILY JUANJOSE Administration Bacitracin 1 applic 11/23/16 22:00 12/11/16 11:10 Bacitracin - TP 1 applic BID JUANJOSE Administration Baclofen 10 mg 11/23/16 18:00 12/11/16 14:24 Lioresal - GT 10 mg QID JUANJOSE Administration Bisacodyl 10 mg 11/23/16 16:50 Dulcolax Suppository - RC Q72H PRN CONSTIPATION EVERY 3 DAYS Calcium Carbonate 500 mg 11/24/16 10:00 12/11/16 11:09 Calcium Carb Oral Suspension - PEG 500 mg DAILY JUANJOSE Administration Cefepime HCl 1 gm 12/09/16 12:30 12/11/16 12:49 Maxipime 1gm Ivpb Pre-Docked IVPB 1 gm Q8H-IV JUANJOSE Administration Heparin Sodium (Porcine) 5,000 unit 12/05/16 22:00 12/11/16 11:08 Heparin - SQ 5,000 unit BID JUANJOSE Administration Tobramycin Sulfate 250 mg/ 106.25 mls @ 106.25 mls/hr 12/09/16 13:00 12/11/16 14:27 Sodium Chloride IVPB 106.25 mls/hr DAILY@1300 JUANJOSE Administration Insulin Aspart 1 vial 11/28/16 12:00 12/11/16 12:49 Novolog Vial Sliding Scale - SQ Not Given Q6HPO [facility] Protocol Lactobacillus Acidophilus 1 tab 12/08/16 13:45 12/11/16 11:06 Bacid - PO 1 tab DAILY JUANJOSE Administration Levetiracetam 750 mg 11/28/16 22:00 12/11/16 11:08 Keppra - PO 750 mg BID JUANJOSE Administration Magnesium Hydroxide 30 ml 11/23/16 16:50 12/11/16 11:08 Milk Of Magnesia - GT 30 ml DAILY PRN Administration NO BM FOR 48HR Nystatin 1 applic 11/25/16 14:45 12/11/16 11:09 Nystop Powder - TP 1 applic DAILY JUANJOSE Administration Phenobarbital 80 mg 11/30/16 10:30 12/11/16 11:07 Phenobarbital Liquid - GT 80 mg BID JUANJOSE Administration Polyethylene Glycol 17 gm 11/23/16 22:00 12/11/16 11:09 Miralax (For Daily Use) - PEG 17 gm BID JUANJOSE Administration Microbiology 12/07/16 13:40 Blood Culture - Preliminary Blood - Peripheral Venous NO GROWTH OBTAINED AFTER 96 HOURS, INCUBATION TO CONTINUE FOR 1 DAYS. 12/07/16 13:50 Blood Culture - Preliminary Blood - Peripheral Venous NO GROWTH OBTAINED AFTER 96 HOURS, INCUBATION TO CONTINUE FOR 1 DAYS. 12/09/16 16:40 Urine Culture - Preliminary Urine - Urine Alberto Non Lactose Fermenting Gnb 12/09/16 08:30 Blood Culture - Preliminary Blood - Peripheral Venous NO GROWTH OBTAINED AFTER 48 HOURS, INCUBATION TO CONTINUE FOR 3 DAYS. 12/09/16 08:19 Blood Culture - Preliminary Blood - Peripheral Venous NO GROWTH OBTAINED AFTER 48 HOURS, INCUBATION TO CONTINUE FOR [address] abd/pelvis/chest on 12/09: Moderate chronic lung disease, as well as within the right upper lobe. No definite acute pathology within the chest. 2. S/P right percutaneous nephrostomy with no significant change in bilateral nephrolithiasis and proximal right ureteral stone since 12/02/2016. 3. No evidence of intra-abdominal abscess or acute pathology within the abdomen or pelvis. ASSESSMENT/PLAN: 41 yo h/o mental retardation, recurrent aspiration pneumonia, UTI, Sepsis, Seizure disorder and GI bleed, Chronic respiratory failure s/p trach. dysphagia s/p PEG admitted for sepsis 2/2 UTI. Sepsis 2/2 complicated UTI - Afrebile overnight with normal WBC - CT unable to ID source of infection - Repeat blood, nephrostomy tube cultures negative - Urine culture from alberto likely growing E. coli - Repeat U/S shows R kidney stone which is increasing in size from 8mm to 1.2cm * Urology recommends internal stent placement * IR suggests stent placement after abx treatment and maintain nephrostomy tube in place for now - Aztreonam and Zosyn 14 days completed - Cefepime and tobromycin day 3 - Vanco d/c Chronic normocytic anemia - at baseline Chronic constipation - Cont. duclolax suppository, M&M, Miralax Seizure disorder - Cont. Keppra and phenobarbital Hypokalemia - Resolved FEN - IVF not indicated - Cont. to monitor lytes - Jevity Tube feed 1.5 Prophylaxis - DVT: heparin and SCDs - GI: not indicated Disposition - Cont. to monitor on med-surg - Discharge after completion of abx course Code status - Full Visit type - Emergency Visit Emergency Visit: No - New Patient This patient is new to me today: No - Critical Care Critical Care patient: No
[2016-12-11] MEDS ORDERED: INSULIN (NOVOLOG) ASPART 100 UNITS/ML 10ML VIAL ONE (18:09)
[2016-12-12] MEDS: INSULIN SLIDING SCALE (NOVOLOG) 1 VIAL SQ SCH ×5 (01:03→23:52)
[2016-12-12] MEDS: CEFEPIME 1 GM/100 ML BAG PRE-DOCKED IVPB SCH ×3 (02:33→17:21)
[2016-12-12] MEDS ORDERED: PT OWN MED DRAWER 7, Y5N ONE ×3 (09:40→18:04)
[2016-12-12] MEDS: LACTOBACILLUS ACIDOPHILUS 1 EACH TAB (FP) PO SCH (09:43)
[2016-12-12] MEDS: BACLOFEN 10 MG TABLET (FP) GT SCH ×4 (09:43→23:37)
[2016-12-12] MEDS: AMINO ACIDS/PROTEIN HYDROLYS 30 ML LIQUID.PKT GT SCH ×2 (09:43→17:21)
[2016-12-12] MEDS: levETIRAcetam 250 MG TABLET (FP) PO SCH ×2 (09:43→23:36)
[2016-12-12] MEDS: POLYETHYLENE GLYCOL 3350 119 GM BTL PEG SCH ×2 (09:44→23:38)
[2016-12-12] MEDS: ASCORBIC ACID 500 MG/5 ML UNIT DOSE CUP GT SCH (09:44)
[2016-12-12] MEDS: HEPARIN NA (PORCINE) 5,000 UNITS/ML 1ML VIAL SQ SCH ×2 (09:44→23:36)
[2016-12-12] MEDS: CALCIUM CARBONATE SUSPENSION - 500 MG/5 ML ML PEG SCH (09:44)
[2016-12-12] MEDS: NYSTATIN POWDER 100,000 UNITS/GM - 15 GM TOPICAL POWDER TP SCH (09:44)
[2016-12-12] MEDS: BACITRACIN 30 GM TUBE TOPICAL OINTMENT TP SCH ×2 (09:51→23:36)
--- NOTE | 2016-12-12 10:43 | PN ---
Progress Note (short form) - Note Progress Note: PULMONARY LOW GRADE TEMP CONTINUES NEPHROSTOMY TUBE IN PLACE CHART/MEDS/NOTES/IMAGING/LABS/MICRO REVIEWED CXR: NEW CHANGES LEFT BASE TRACH IN PLACE ANICTERIC MINIMAL RHONCHI B/L S1S2 BS+/PEG/NEPHROSTOMY TUBE CONTRACTED LOWER EXT LABS/MEDS/NOTES/IMAGING/MICRO REVIEWED CT CHEST NOTED ESBL URINE (1) Mental retardation Code(s): F79 - UNSPECIFIED INTELLECTUAL DISABILITIES (2) Seizure disorder Code(s): G40.909 - EPILEPSY, UNSP, NOT INTRACTABLE, WITHOUT STATUS EPILEPTICUS (3) Anemia Code(s): D64.9 - ANEMIA, UNSPECIFIED (4) Atelectasis Code(s): J98.11 - ATELECTASIS (5) Chronic respiratory failure Code(s): J96.10 - CHRONIC RESPIRATORY FAILURE, UNSP W HYPOXIA OR HYPERCAPNIA (6) Seizure Code(s): R56.9 - UNSPECIFIED CONVULSIONS (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 PLAN: Continue current vent settings ABX per ID keep hgb above 8 gms VTE prophylaxis Palliative Care evaluation to determine further GOC Change BD TX to PRN Nutritional support Connie MORA MD
--- NOTE | 2016-12-12 11:20 | PN ---
Physical Exam: SUBJECTIVE: Patient seen and examined at bedside. Patient is non-verbal, trached and on mechanical ventilation at baseline. No acute event overnight. OBJECTIVE: Vital Signs Period Temp Pulse Resp BP Sys/Stein Pulse Ox Last 24 Hr 98.7 F-99.0 F 109-125 13-40 81-105/51-74 97 GENERAL: Trached and vented, mentally retarded, non-verbal, contracted, responded to painful stimuli. HEAD: AT, NC EYES: Pupils equal, round and reactive to light, sclera anicteric, conjunctiva clear ENT: nares patent, oropharynx clear without exudates LUNGS: CTAB HEART: RRR, S1 and S2 present,No murmur ABDOMEN: +bs, soft, grimace upon pressing, PEG tube in place EXTREMITIES: SCDs in place : nephrostomy tube draining serosanguinous fluid ~30cc; alberto ~150cc urine yellow Active Medications Generic Name Dose Route Start Last Admin Trade Name Freq PRN Reason Stop Dose Admin Acetaminophen 650 mg 11/24/16 00:51 12/09/16 14:30 Tylenol Oral Solution - NGT 650 mg Q4H PRN Administration FEVER OR PAIN Amino Acids 30 ml 11/23/16 17:30 12/12/16 09:43 Prosource No Carb Liquid Pkt GT 30 ml BID@0800,1730 JUANJOSE Administration Ascorbic Acid 500 mg 11/23/16 11:38 12/12/16 09:44 Vitamin C Oral Solution - GT 500 mg DAILY JUANJOSE Administration Bacitracin 1 applic 11/23/16 22:00 12/12/16 09:51 Bacitracin - TP 1 applic BID JUANJOSE Administration Baclofen 10 mg 11/23/16 18:00 12/12/16 09:43 Lioresal - GT 10 mg QID JUANJOSE Administration Bisacodyl 10 mg 11/23/16 16:50 Dulcolax Suppository - RC Q72H PRN CONSTIPATION EVERY 3 DAYS Calcium Carbonate 500 mg 11/24/16 10:00 12/12/16 09:44 Calcium Carb Oral Suspension - PEG 500 mg DAILY JUANJOSE Administration Cefepime HCl 1 gm 12/09/16 12:30 12/12/16 09:42 Maxipime 1gm Ivpb Pre-Docked IVPB 1 gm Q8H-IV JUANJOSE Administration Heparin Sodium (Porcine) 5,000 unit 12/05/16 22:00 12/12/16 09:44 Heparin - SQ 5,000 unit BID JUANJOSE Administration Tobramycin Sulfate 250 mg/ 106.25 mls @ 106.25 mls/hr 12/09/16 13:00 12/11/16 14:27 Sodium Chloride IVPB 106.25 mls/hr DAILY@1300 JUANJOSE Administration Insulin Aspart 1 vial 11/28/16 12:00 12/12/16 06:25 Novolog Vial Sliding Scale - SQ Not Given Q6HPO [facility] Protocol Lactobacillus Acidophilus 1 tab 12/08/16 13:45 12/12/16 09:43 Bacid - PO 1 tab DAILY JUANJOSE Administration Levetiracetam 750 mg 11/28/16 22:00 12/12/16 09:43 Keppra - PO 750 mg BID JUANJOSE Administration Magnesium Hydroxide 30 ml 11/23/16 16:50 12/11/16 11:08 Milk Of Magnesia - GT 30 ml DAILY PRN Administration NO BM FOR 48HR Nystatin 1 applic 11/25/16 14:45 12/12/16 09:44 Nystop Powder - TP 1 applic DAILY JUANJOSE Administration Phenobarbital 80 mg 11/30/16 10:30 12/11/16 23:31 Phenobarbital Liquid - GT 80 mg BID JUANJOSE Administration Polyethylene Glycol 17 gm 11/23/16 22:00 12/12/16 09:44 Miralax (For Daily Use) - PEG 17 gm BID JUANJOSE Administration Microbiology 12/09/16 16:40 Urine Culture - Final Urine - Urine Alberto Klebsiella Pneumoniae - Esbl 12/09/16 08:30 Blood Culture - Preliminary Blood - Peripheral Venous NO GROWTH OBTAINED AFTER 72 HOURS, INCUBATION TO CONTINUE FOR 2 DAYS. 12/09/16 08:19 Blood Culture - Preliminary Blood - Peripheral Venous NO GROWTH OBTAINED AFTER 72 HOURS, INCUBATION TO CONTINUE FOR 2 DAYS. 12/07/16 13:40 Blood Culture - Preliminary Blood - Peripheral Venous NO GROWTH OBTAINED AFTER 96 HOURS, INCUBATION TO CONTINUE FOR 1 DAYS. 12/07/16 13:50 Blood Culture - Preliminary Blood - Peripheral Venous NO GROWTH OBTAINED AFTER 96 HOURS, INCUBATION TO CONTINUE FOR [address] abd/pelvis/chest on 12/09: Moderate chronic lung disease, as well as within the right upper lobe. No definite acute pathology within the chest. 2. S/P right percutaneous nephrostomy with no significant change in bilateral nephrolithiasis and proximal right ureteral stone since 12/02/2016. 3. No evidence of intra-abdominal abscess or acute pathology within the abdomen or pelvis. ASSESSMENT/PLAN: 41 yo h/o mental retardation, recurrent aspiration pneumonia, UTI, Sepsis, Seizure disorder and GI bleed, Chronic respiratory failure s/p trach. dysphagia s/p PEG admitted for sepsis 2/2 UTI. Sepsis 2/2 complicated UTI - Afrebile - Urine culture from alberto grew klebsilla ESBL * likely contaminant - Aztreonam and Zosyn 14 days completed - Cefepime and tobramycin day 4 Chronic normocytic anemia - at baseline Chronic constipation - Cont. duclolax suppository, M&M, Miralax Seizure disorder - Cont. Keppra and phenobarbital Hypokalemia - Resolved FEN - IVF not indicated - Cont. to monitor lytes - Jevity Tube feed 1.5 Prophylaxis - DVT: heparin and SCDs - GI: not indicated Disposition - Discharge after completion of abx course Code status - Full Visit type - Emergency Visit Emergency Visit: No - New Patient This patient is new to me today: No - Critical Care Critical Care patient: No
[2016-12-12] MEDS: PHENobarbital 20 MG/5 ML UNIT-DOSE CUP GT SCH ×2 (11:57→23:38)
--- NOTE | 2016-12-12 12:27 | PN ---
Progress Note (short form) - Note Progress Note: NAD afebrile s/p PCN 5/4 Vital Signs Period Temp Pulse Resp BP Sys/Stein Pulse Ox Last 24 Hr 98.7 F-99.0 F 106-125 13-40 81-126/51-74 97 trach to vent cor- rrr lungs decreased bs at bases abd firm +GT +PCN ext no edema CBC, BMP 12/11/16 07:55 12/11/16 07:55 Microbiology 12/09/16 16:40 Urine Culture - Final Urine - Urine Alberto Klebsiella Pneumoniae - Esbl 12/09/16 08:30 Blood Culture - Preliminary Blood - Peripheral Venous NO GROWTH OBTAINED AFTER 72 HOURS, INCUBATION TO CONTINUE FOR 2 DAYS. 12/09/16 08:19 Blood Culture - Preliminary Blood - Peripheral Venous NO GROWTH OBTAINED AFTER 72 HOURS, INCUBATION TO CONTINUE FOR 2 DAYS. 12/07/16 13:40 Blood Culture - Preliminary Blood - Peripheral Venous NO GROWTH OBTAINED AFTER 96 HOURS, INCUBATION TO CONTINUE FOR 1 DAYS. 12/07/16 13:50 Blood Culture - Preliminary Blood - Peripheral Venous NO GROWTH OBTAINED AFTER 96 HOURS, INCUBATION TO CONTINUE FOR [address] scans noted , no acute pathology noted a/p sepsis cultures sent ct imaging reviewed tobra/cefepime Day #4 suspect urine isolate from alberto is colonization- would not treat at this time would finish 7 days of antibiotics then d/c and observe will sign off please call back if she has fevers again s/p Morganella bacteremia- and pseudomonas UTI - hydronephrosis with obstructing stone s/p 14 days iv antibiotics chronic resp failure multiple developmental disabilities seizure disorder overall prognosis poor contact isolation=resistant organisms
[2016-12-12] MEDS: TOBRAMYCIN SULFATE 250 MG in SODIUM CHLORIDE 100 ML IVPB SCH (15:01)
--- NOTE | 2016-12-12 16:54 | PN ---
Teaching Attending Note Name of Resident: Shaq Valdez ATTENDING PHYSICIAN STATEMENT I saw and evaluated the patient. I reviewed the resident's note and discussed the case with the resident. I agree with the resident's findings and plan as documented. SUBJECTIVE: Patient appears comfortable. OBJECTIVE: Vital Signs Period Temp Pulse Resp BP Sys/Stein Pulse Ox Last 24 Hr 98.7 F-99.2 F 106-125 14-40 81-126/51-76 97-100 HEART: S1S2, tachycardic LUNGS: Clear ABDOMEN: Soft, non-distended, normal BS, PEG in place and site is clean EXTREMITIES: No edema ASSESSMENT AND PLAN: This is a 41-year-old woman with a history of mental retardation, recurrent aspiration pneumonia, UTI, seizure disorder, GI bleed, chronic respiratory failure, tracheostomy, dysphagia, PEG who presented to the ER and was sent to the ER from [facility] because of fever and tachycardia. 1. Sepsis secondary to Pseudomonas UTI and Morganella bacteremia - Completed 14 days of IV antibiotics but remained febrile - Continue Cefepime, Tobramycin (day 4/7) - Urine culture growing ESBL (+) Klebsiella, likely contaminant - CT chest/abdomen/pelvis shows no acute chest pathology, no intra-abdominal abscess or acute pathology 2. Seizure disorder - Stable - Continue Keppra, Phenobarbital 3. Mental retardation 4. Chronic hypoxic respiratory failure - On vent via tracheostomy 5. Anemia secondary to chronic illness - Hemoglobin stable 6. Hypokalemia - Improved 7. Hypernatremia - Improved 8. Nutrition - Continue Jevity, Prosource
[2016-12-13] MEDS: CEFEPIME 1 GM/100 ML BAG PRE-DOCKED IVPB SCH ×3 (02:48→18:29)
[2016-12-13] MEDS: INSULIN SLIDING SCALE (NOVOLOG) 1 VIAL SQ SCH ×4 (06:26→23:17)
[2016-12-13] MEDS: AMINO ACIDS/PROTEIN HYDROLYS 30 ML LIQUID.PKT GT SCH ×2 (08:52→18:29)
--- NOTE | 2016-12-13 10:25 | PN ---
Physical Exam: SUBJECTIVE: Patient seen and examined OBJECTIVE: Patient is alert. She appears comfortable. Vital Signs Period Temp Pulse Resp BP Sys/Stein Pulse Ox Last 24 Hr 98.9 F-99.6 F 106-125 14-20 107-126/68-76 98 HEART: S1S2, tachycardic LUNGS: Clear ABDOMEN: Soft, non-distended, normal BS, PEG in place and site is clean EXTREMITIES: No edema Laboratory Results - last 24 hr 12/12/16 12/12/16 12/12/16 11:43 11:45 17:21 POC Glucometer 244 123 150 12/12/16 12/13/16 23:41 06:14 POC Glucometer 131 177 Active Medications Generic Name Dose Route Start Last Admin Trade Name Freq PRN Reason Stop Dose Admin Acetaminophen 650 mg 11/24/16 00:51 12/09/16 14:30 Tylenol Oral Solution - NGT 650 mg Q4H PRN Administration FEVER OR PAIN Amino Acids 30 ml 11/23/16 17:30 12/13/16 08:52 Prosource No Carb Liquid Pkt GT 30 ml BID@0800,1730 JUANJOSE Administration Ascorbic Acid 500 mg 11/23/16 11:38 12/12/16 09:44 Vitamin C Oral Solution - GT 500 mg DAILY JUANJOSE Administration Bacitracin 1 applic 11/23/16 22:00 12/12/16 23:36 Bacitracin - TP 1 applic BID JUANJOSE Administration Baclofen 10 mg 11/23/16 18:00 12/12/16 23:37 Lioresal - GT 10 mg QID JUANJOSE Administration Bisacodyl 10 mg 11/23/16 16:50 Dulcolax Suppository - RC Q72H PRN CONSTIPATION EVERY 3 DAYS Calcium Carbonate 500 mg 11/24/16 10:00 12/12/16 09:44 Calcium Carb Oral Suspension - PEG 500 mg DAILY JUANJOSE Administration Cefepime HCl 1 gm 12/09/16 12:30 12/13/16 02:48 Maxipime 1gm Ivpb Pre-Docked IVPB 1 gm Q8H-IV JUANJOSE Administration Tobramycin Sulfate 250 mg/ 106.25 mls @ 106.25 mls/hr 12/09/16 13:00 12/12/16 15:01 Sodium Chloride IVPB 106.25 mls/hr DAILY@1300 JUANJOSE Administration Insulin Aspart 1 vial 11/28/16 12:00 12/13/16 06:26 Novolog Vial Sliding Scale - SQ 2 units Q6HPO JUANJOSE Administration Protocol Lactobacillus Acidophilus 1 tab 12/08/16 13:45 12/12/16 09:43 Bacid - PO 1 tab DAILY JUANJOSE Administration Levetiracetam 750 mg 11/28/16 22:00 12/12/16 23:36 Keppra - PO 750 mg BID JUANJOSE Administration Magnesium Hydroxide 30 ml 11/23/16 16:50 12/11/16 11:08 Milk Of Magnesia - GT 30 ml DAILY PRN Administration NO BM FOR 48HR Nystatin 1 applic 11/25/16 14:45 12/12/16 09:44 Nystop Powder - TP 1 applic DAILY JUANJOSE Administration Phenobarbital 80 mg 11/30/16 10:30 12/12/16 23:38 Phenobarbital Liquid - GT 80 mg BID JUANJOSE Administration Polyethylene Glycol 17 gm 11/23/16 22:00 12/12/16 23:38 Miralax (For Daily Use) - PEG 17 gm BID JUANJOSE Administration ASSESSMENT/PLAN: This is a 41-year-old woman with a history of mental retardation, recurrent aspiration pneumonia, UTI, seizure disorder, GI bleed, chronic respiratory failure, tracheostomy, dysphagia, PEG who presented to the ER and was sent to the ER from [facility] because of fever and tachycardia. 1. Sepsis secondary to Pseudomonas UTI and Morganella bacteremia - Completed 14 days of IV antibiotics but remained febrile - Continue Cefepime, Tobramycin (day 5/7) - Repeat urine culture growing ESBL (+) Klebsiella, likely contaminant - CT chest/abdomen/pelvis shows no acute chest pathology, no intra-abdominal abscess or acute pathology 2. Seizure disorder - Stable - Continue Keppra, Phenobarbital 3. Mental retardation 4. Chronic hypoxic respiratory failure - On vent via tracheostomy 5. Anemia secondary to chronic illness - Hemoglobin stable 6. Hypokalemia - Improved 7. Hypernatremia - Improved 8. Nutrition - Continue [facility], [employer] Visit type - Emergency Visit Emergency Visit: Yes ED Registration Date: 11/23/16 Care time: The patient presented to the Emergency Department on the above date and was hospitalized for further evaluation of their emergent condition. - New Patient This patient is new to me today: No - Critical Care Critical Care patient: No - Discharge Referral Referred to [facility] No
[2016-12-13] MEDS ORDERED: PT OWN MED DRAWER 7, Y5N ONE (11:15)
[2016-12-13] MEDS: levETIRAcetam 250 MG TABLET (FP) PO SCH ×2 (11:21→23:12)
[2016-12-13] MEDS: BACLOFEN 10 MG TABLET (FP) GT SCH ×4 (11:21→23:13)
[2016-12-13] MEDS: LACTOBACILLUS ACIDOPHILUS 1 EACH TAB (FP) PO SCH (11:21)
[2016-12-13] MEDS: ASCORBIC ACID 500 MG/5 ML UNIT DOSE CUP GT SCH (11:22)
[2016-12-13] MEDS: CALCIUM CARBONATE SUSPENSION - 500 MG/5 ML ML PEG SCH (11:22)
[2016-12-13] MEDS: POLYETHYLENE GLYCOL 3350 119 GM BTL PEG SCH ×2 (11:23→23:13)
[2016-12-13] MEDS: BACITRACIN 30 GM TUBE TOPICAL OINTMENT TP SCH ×2 (11:24→23:12)
[2016-12-13] MEDS: NYSTATIN POWDER 100,000 UNITS/GM - 15 GM TOPICAL POWDER TP SCH (11:24)
--- NOTE | 2016-12-13 12:47 | PN ---
Progress Note (short form) - Note Progress Note: PULMONARY No further fevers. Vented on volume assist control with 40% fiO2. Last Vital Signs Temp Pulse Resp BP Pulse Ox 99.6 F 122 H 12 121/68 98 12/13/16 06:24 12/13/16 06:24 12/13/16 10:15 12/13/16 06:24 12/12/16 21:00 Gen: vented, awake Heart: tachycardic, regular Lung: bilateral rhonchi Abd: soft, nontender Ext: contracted, no edema CBC, BMP 12/11/16 07:55 12/11/16 07:55 Active Medications Acetaminophen (Tylenol Oral Solution -) 650 mg NGT Q4H PRN PRN Reason: FEVER OR PAIN Last Admin: 12/09/16 14:30 Dose: 650 mg Amino Acids (Prosource No Carb Liquid Pkt) 30 ml GT BID@0800,1730 [facility] Last Admin: 12/13/16 08:52 Dose: 30 ml Ascorbic Acid (Vitamin C Oral Solution -) 500 mg GT DAILY [facility] Last Admin: 12/13/16 11:22 Dose: 500 mg Bacitracin (Bacitracin -) 1 applic TP BID [facility] Last Admin: 12/13/16 11:24 Dose: 1 applic Baclofen (Lioresal -) 10 mg GT QID [facility] Last Admin: 12/13/16 11:21 Dose: 10 mg Bisacodyl (Dulcolax Suppository -) 10 mg RC Q72H PRN PRN Reason: CONSTIPATION EVERY 3 DAYS Calcium Carbonate (Calcium Carb Oral Suspension -) 500 mg PEG DAILY [facility] Last Admin: 12/13/16 11:22 Dose: 500 mg Cefepime HCl (Maxipime 1gm Ivpb Pre-Docked) 1 gm IVPB Q8H-IV [facility] Last Admin: 12/13/16 11:22 Dose: 1 gm Tobramycin Sulfate 250 mg/ (Sodium Chloride) 106.25 mls @ 106.25 mls/hr IVPB DAILY@1300 [facility] Last Admin: 12/12/16 15:01 Dose: 106.25 mls/hr Insulin Aspart (Novolog Vial Sliding Scale -) 1 vial SQ Q6HPO [facility] PRN Reason: Protocol Last Admin: 12/13/16 06:26 Dose: 2 units Lactobacillus Acidophilus (Bacid -) 1 tab PO DAILY [facility] Last Admin: 12/13/16 11:21 Dose: 1 tab Levetiracetam (Keppra -) 750 mg PO BID [facility] Last Admin: 12/13/16 11:21 Dose: 750 mg Magnesium Hydroxide (Milk Of Magnesia -) 30 ml GT DAILY PRN PRN Reason: NO BM FOR 48HR Last Admin: 12/11/16 11:08 Dose: 30 ml Nystatin (Nystop Powder -) 1 applic TP DAILY [facility] Last Admin: 12/13/16 11:24 Dose: 1 applic Phenobarbital (Phenobarbital Liquid -) 80 mg GT BID [facility] Last Admin: 12/12/16 23:38 Dose: 80 mg Polyethylene Glycol (Miralax (For Daily Use) -) 17 gm PEG BID [facility] Last Admin: 12/13/16 11:23 Dose: 17 gm A/P Chronic Vent Dependent Respiratory Failure UTI/Hydronephrosis Bacteremia Sepsis Mental Retardation Seizure Disorder - continue antibiotics per ID - enteral feeds - continue volume assist control - poor candidate for weaning due to poor mental status and history of aspiration events - DVT prophylaxis
[2016-12-13] MEDS: PHENobarbital 20 MG/5 ML UNIT-DOSE CUP GT SCH ×2 (12:56→23:13)
[2016-12-13] MEDS: TOBRAMYCIN SULFATE 250 MG in SODIUM CHLORIDE 100 ML IVPB SCH (13:46)
[2016-12-13] MEDS: ACETAMINOPHEN 650 MG/20.3 ML ORAL SOLUTION (CUPS) NGT PRN (15:25)
[2016-12-14] MEDS: CEFEPIME 1 GM/100 ML BAG PRE-DOCKED IVPB SCH ×4 (01:53→19:19)
[2016-12-14] MEDS: INSULIN SLIDING SCALE (NOVOLOG) 1 VIAL SQ SCH ×3 (06:37→19:21)
[2016-12-14] MEDS: AMINO ACIDS/PROTEIN HYDROLYS 30 ML LIQUID.PKT GT SCH ×2 (08:45→19:18)
[2016-12-14 09:00] LABS: BASOPHIL 0.8 % (0-2.0); MCH 29.9 pg (25.7-33.7); MCHC 33.9 g/dl (32.0-36.0); MEAN CELL VOLUME 88.1 fl (80-96); MEAN PLT VOLUME 8.6 fl (7.5-11.1); NEUTROPHILS 64.3 % (42.8-82.8); PLATELET COUNT 443 K/MM3 (134-434); RDW 15.7 % (11.6-15.6); WHITE BLOOD COUNT 10.4 K/mm3 (4.0-10.0)
[2016-12-14 09:26] LABS: CALCIUM 9.7 mg/dL (8.5-10.1)
[2016-12-14 09:28] LABS: COCKROFT - GAULT 151.6485; CREATININE 0.5 mg/dL (0.55-1.02)
[2016-12-14] MEDS ORDERED: PT OWN MED DRAWER 7, Y5N ONE ×2 (10:48→14:55)
[2016-12-14] MEDS: NYSTATIN POWDER 100,000 UNITS/GM - 15 GM TOPICAL POWDER TP SCH (10:55)
[2016-12-14] MEDS: POLYETHYLENE GLYCOL 3350 119 GM BTL PEG SCH ×2 (10:55→22:32)
[2016-12-14] MEDS: BACITRACIN 30 GM TUBE TOPICAL OINTMENT TP SCH ×2 (10:55→22:32)
[2016-12-14] MEDS: BACLOFEN 10 MG TABLET (FP) GT SCH ×4 (10:56→23:30)
[2016-12-14] MEDS: CALCIUM CARBONATE SUSPENSION - 500 MG/5 ML ML PEG SCH (10:56)
[2016-12-14] MEDS: levETIRAcetam 250 MG TABLET (FP) PO SCH ×2 (10:56→22:30)
[2016-12-14] MEDS: LACTOBACILLUS ACIDOPHILUS 1 EACH TAB (FP) PO SCH (10:56)
[2016-12-14] MEDS: ASCORBIC ACID 500 MG/5 ML UNIT DOSE CUP GT SCH (10:57)
[2016-12-14] MEDS: PHENobarbital 20 MG/5 ML UNIT-DOSE CUP GT SCH ×2 (11:06→22:30)
--- NOTE | 2016-12-14 12:23 | PN ---
Progress Note (short form) - Note Progress Note: PULMONARY Isolated low grade temp overnight. Vented on volume assist control with 40% fiO2. Last Vital Signs Temp Pulse Resp BP Pulse Ox 99.0 F 76 48 H 120/56 98 12/14/16 06:00 12/14/16 06:00 12/14/16 10:25 12/14/16 06:00 12/14/16 10:25 Gen: vented, awake Heart: tachycardic, regular Lung: bilateral rhonchi Abd: soft, nontender Ext: contracted, no edema CBC, BMP 12/14/16 07:15 12/14/16 07:15 Active Medications Acetaminophen (Tylenol Oral Solution -) 650 mg NGT Q4H PRN PRN Reason: FEVER OR PAIN Last Admin: 12/13/16 15:25 Dose: 650 mg Amino Acids (Prosource No Carb Liquid Pkt) 30 ml GT BID@0800,1730 [facility] Last Admin: 12/14/16 08:45 Dose: 30 ml Ascorbic Acid (Vitamin C Oral Solution -) 500 mg GT DAILY [facility] Last Admin: 12/14/16 10:57 Dose: 500 mg Bacitracin (Bacitracin -) 1 applic TP BID [facility] Last Admin: 12/14/16 10:55 Dose: 1 applic Baclofen (Lioresal -) 10 mg GT QID [facility] Last Admin: 12/14/16 10:56 Dose: 10 mg Bisacodyl (Dulcolax Suppository -) 10 mg RC Q72H PRN PRN Reason: CONSTIPATION EVERY 3 DAYS Calcium Carbonate (Calcium Carb Oral Suspension -) 500 mg PEG DAILY [facility] Last Admin: 12/14/16 10:56 Dose: 500 mg Cefepime HCl (Maxipime 1gm Ivpb Pre-Docked) 1 gm IVPB Q8H-IV [facility] Last Admin: 12/14/16 12:06 Dose: Not Given Tobramycin Sulfate 250 mg/ (Sodium Chloride) 106.25 mls @ 106.25 mls/hr IVPB DAILY@1300 [facility] Last Admin: 12/13/16 13:46 Dose: 106.25 mls/hr Insulin Aspart (Novolog Vial Sliding Scale -) 1 vial SQ Q6HPO [facility] PRN Reason: Protocol Last Admin: 12/14/16 06:37 Dose: 2 units Lactobacillus Acidophilus (Bacid -) 1 tab PO DAILY [facility] Last Admin: 12/14/16 10:56 Dose: 1 tab Levetiracetam (Keppra -) 750 mg PO BID [facility] Last Admin: 12/14/16 10:56 Dose: 750 mg Magnesium Hydroxide (Milk Of Magnesia -) 30 ml GT DAILY PRN PRN Reason: NO BM FOR 48HR Last Admin: 12/11/16 11:08 Dose: 30 ml Nystatin (Nystop Powder -) 1 applic TP DAILY [facility] Last Admin: 12/14/16 10:55 Dose: 1 applic Phenobarbital (Phenobarbital Liquid -) 80 mg GT BID [facility] Last Admin: 12/14/16 11:06 Dose: 80 mg Polyethylene Glycol (Miralax (For Daily Use) -) 17 gm PEG BID [facility] Last Admin: 12/14/16 10:55 Dose: 17 gm A/P Chronic Vent Dependent Respiratory Failure UTI/Hydronephrosis Bacteremia Sepsis Mental Retardation Seizure Disorder - continue antibiotics per ID - enteral feeds - continue volume assist control - poor candidate for weaning due to poor mental status and history of aspiration events - DVT prophylaxis
--- NOTE | 2016-12-14 14:05 | PN ---
Physical Exam: SUBJECTIVE: Patient seen and examined. Awake and appears comfortable. OBJECTIVE: Vital Signs Period Temp Pulse Resp BP Sys/Stein Pulse Ox Last 24 Hr 98.9 F-100.2 F 76-117 13-48 111-123/56-78 98 GENERAL: The patient is awake, alert, in no acute distress. LUNGS: Bilateral rhonchi. HEART: Regular rate and rhythm, S1, S2 without murmur, rub or gallop. ABDOMEN: Soft, nondistended, normoactive bowel sounds. EXTREMITIES: 2+ pulses, warm, well-perfused, no edema. Laboratory Results - last 24 hr 12/13/16 12/13/16 12/14/16 18:33 23:16 05:42 WBC RBC Hgb Hct MCV MCHC RDW Plt Count MPV Neutrophils % Lymphocytes % Monocytes % Eosinophils % Basophils % Sodium Potassium Chloride Carbon Dioxide Anion Gap BUN Creatinine POC Glucometer 206 199 189 Random Glucose Calcium 12/14/16 12/14/16 12/14/16 07:15 07:15 12:33 WBC 10.4 H D RBC 3.62 Hgb 10.8 D Hct 32.0 L MCV 88.1 MCHC 33.9 RDW 15.7 H Plt Count 443 H MPV 8.6 Neutrophils % 64.3 Lymphocytes % 20.0 Monocytes % 10.9 H Eosinophils % 4.0 Basophils % 0.8 Sodium 138 Potassium 4.6 D Chloride 96 L Carbon Dioxide 28 Anion Gap 14 BUN 18 Creatinine 0.5 L D POC Glucometer 209 Random Glucose 201 H D Calcium 9.7 Active Medications Generic Name Dose Route Start Last Admin Trade Name Freq PRN Reason Stop Dose Admin Acetaminophen 650 mg 11/24/16 00:51 12/13/16 15:25 Tylenol Oral Solution - NGT 650 mg Q4H PRN Administration FEVER OR PAIN Amino Acids 30 ml 11/23/16 17:30 12/14/16 08:45 Prosource No Carb Liquid Pkt GT 30 ml BID@0800,1730 [facility] Administration Ascorbic Acid 500 mg 11/23/16 11:38 12/14/16 10:57 Vitamin C Oral Solution - GT 500 mg DAILY [facility] Administration Bacitracin 1 applic 11/23/16 22:00 12/14/16 10:55 Bacitracin - TP 1 applic BID [facility] Administration Baclofen 10 mg 11/23/16 18:00 12/14/16 10:56 Lioresal - GT 10 mg QID [facility] Administration Bisacodyl 10 mg 11/23/16 16:50 Dulcolax Suppository - RC Q72H PRN CONSTIPATION EVERY 3 DAYS Calcium Carbonate 500 mg 11/24/16 10:00 12/14/16 10:56 Calcium Carb Oral Suspension - PEG 500 mg DAILY [facility] Administration Cefepime HCl 1 gm 12/09/16 12:30 12/14/16 12:06 Maxipime 1gm Ivpb Pre-Docked IVPB Not Given Q8H-IV [facility] Tobramycin Sulfate 250 mg/ 106.25 mls @ 106.25 mls/hr 12/09/16 13:00 12/13/16 13:46 Sodium Chloride IVPB 106.25 mls/hr DAILY@1300 [facility] Administration Insulin Aspart 1 vial 11/28/16 12:00 12/14/16 12:35 Novolog Vial Sliding Scale - SQ 4 units Q6HPO [facility] Administration Protocol Lactobacillus Acidophilus 1 tab 12/08/16 13:45 12/14/16 10:56 Bacid - PO 1 tab DAILY [facility] Administration Levetiracetam 750 mg 11/28/16 22:00 12/14/16 10:56 Keppra - PO 750 mg BID [facility] Administration Magnesium Hydroxide 30 ml 11/23/16 16:50 12/11/16 11:08 Milk Of Magnesia - GT 30 ml DAILY PRN Administration NO BM FOR 48HR Nystatin 1 applic 11/25/16 14:45 12/14/16 10:55 Nystop Powder - TP 1 applic DAILY [facility] Administration Phenobarbital 80 mg 11/30/16 10:30 12/14/16 11:06 Phenobarbital Liquid - GT 80 mg BID [facility] Administration Polyethylene Glycol 17 gm 11/23/16 22:00 12/14/16 10:55 Miralax (For Daily Use) - PEG 17 gm BID [facility] Administration ASSESSMENT/PLAN: This is a 41-year-old woman with a history of mental retardation, recurrent aspiration pneumonia, UTI, seizure disorder, GI bleed, chronic respiratory failure, tracheostomy, dysphagia, PEG who presented to the ER and was sent to the ER from [facility] because of fever and tachycardia. 1. Sepsis secondary to Pseudomonas UTI and Morganella bacteremia - Completed 14 days of IV antibiotics but remained febrile - Continue Cefepime, Tobramycin (day 6/7) - Repeat urine culture growing ESBL (+) Klebsiella, likely contaminant - CT chest/abdomen/pelvis shows no acute chest pathology, no intra-abdominal abscess or acute pathology 2. Seizure disorder - Stable - Continue Keppra, Phenobarbital 3. Mental retardation 4. Chronic hypoxic respiratory failure - On vent via tracheostomy 5. Anemia secondary to chronic illness - Hemoglobin stable 6. Hypokalemia - Improved 7. Hypernatremia - Improved 8. Hyperglycemia - Continue Novolog sliding scale 9. Nutrition - Continue Jevharman, Prosource Visit type - Emergency Visit Emergency Visit: Yes ED Registration Date: 11/23/16 Care time: The patient presented to the Emergency Department on the above date and was hospitalized for further evaluation of their emergent condition. - New Patient This patient is new to me today: No - Critical Care Critical Care patient: No - Discharge Referral Referred to [facility] No
[2016-12-14] MEDS: SODIUM CHLORIDE 1,000 ML IV SCH ×2 (15:00→23:29)
[2016-12-14] MEDS: TOBRAMYCIN SULFATE 250 MG in SODIUM CHLORIDE 100 ML IVPB SCH (15:36)
--- NOTE | 2016-12-14 16:53 | PN ---
Visit type - Emergency Visit Emergency Visit: No - New Patient This patient is new to me today: No - Critical Care Critical Care patient: Yes Total Critical Care Time (in minutes): 35 Critical Care Statement: The care of this patient involved high complexity decision making to prevent further life threatening deterioration of the patient 's condition and/or to evalute & treat vital organ system(s) failure or risk of failure. - Discharge Referral Referred to [facility] No Procedure Note Procedure: Pt is a 41 yr old severe MR pt who is chronically bedridden now in [place] treated for sepsis. They had an IV access for resuscitation however, it has now fallen out and unable to obtain IV access after several attempt. She is in emergent need of IV access for IV ABT for her sepsis. IO access placed to the right tibial tuberosity with ease and access. Lidocaine used to flush line for comfort. IVF on KVO on IMed for pressure. ABT will be on pump as well. After one hour. line remained secure and no leaking or sign of infiltrate. D/W Dr. Salcido for possible PICC or central line for IV abt admission.
[2016-12-14] MEDS: ACETAMINOPHEN 650 MG/20.3 ML ORAL SOLUTION (CUPS) NGT PRN (19:18)
[2016-12-14] MEDS ORDERED: SODIUM CHLORIDE 500 ML IV STA ×4 (19:31→23:04)
[2016-12-15] MEDS: INSULIN SLIDING SCALE (NOVOLOG) 1 VIAL SQ SCH ×4 (00:42→18:06)
[2016-12-15] MEDS: CEFEPIME 1 GM/100 ML BAG PRE-DOCKED IVPB SCH ×2 (02:43→11:07)
[2016-12-15 07:39] LABS: EOSINOPHIL 3.7 % (0-4.5); MCH 29.3 pg (25.7-33.7); MCHC 33.1 g/dl (32.0-36.0); MEAN CELL VOLUME 88.5 fl (80-96); MEAN PLT VOLUME 8.9 fl (7.5-11.1); NEUTROPHILS 65.3 % (42.8-82.8); PLATELET COUNT 399 K/MM3 (134-434); RDW 15.9 % (11.6-15.6); WHITE BLOOD COUNT 11.5 K/mm3 (4.0-10.0)
[2016-12-15 07:51] LABS: ALBUMIN 2.8 g/dl (3.4-5.0); ANION GAP 16 (8-16); BILIRUBIN,TOTAL 0.2 mg/dL (0.2-1.0); CALCIUM 9.1 mg/dL (8.5-10.1); CO2 25 mmol/L (21-32); COCKROFT - GAULT 189.5585; CREATININE 0.4 mg/dL (0.55-1.02); GLUCOSE,RANDOM 183 mg/dL (74-106); SGOT/AST 14 U/L (15-37); SGPT/ALT 17 U/L (12-78); TOT PROT 8.3 g/dl (6.4-8.2)
[2016-12-15 07:52] LABS: ALK PHOS 150 U/L (45-117)
[2016-12-15] MEDS ORDERED: PT OWN MED DRAWER 7, Y5N ONE (10:52)
[2016-12-15] MEDS: levETIRAcetam 250 MG TABLET (FP) PO SCH ×2 (11:07→22:27)
[2016-12-15] MEDS: AMINO ACIDS/PROTEIN HYDROLYS 30 ML LIQUID.PKT GT SCH ×2 (11:07→18:04)
[2016-12-15] MEDS: LACTOBACILLUS ACIDOPHILUS 1 EACH TAB (FP) PO SCH (11:07)
[2016-12-15] MEDS: PHENobarbital 20 MG/5 ML UNIT-DOSE CUP GT SCH ×2 (11:07→22:27)
[2016-12-15] MEDS: CALCIUM CARBONATE SUSPENSION - 500 MG/5 ML ML PEG SCH (11:08)
[2016-12-15] MEDS: BACITRACIN 30 GM TUBE TOPICAL OINTMENT TP SCH ×2 (11:08→22:27)
[2016-12-15] MEDS: BACLOFEN 10 MG TABLET (FP) GT SCH ×4 (11:08→22:27)
[2016-12-15] MEDS: NYSTATIN POWDER 100,000 UNITS/GM - 15 GM TOPICAL POWDER TP SCH (11:09)
[2016-12-15] MEDS: ASCORBIC ACID 500 MG/5 ML UNIT DOSE CUP GT SCH (11:09)
[2016-12-15] MEDS: TOBRAMYCIN SULFATE 250 MG in SODIUM CHLORIDE 100 ML IVPB SCH (12:37)
--- NOTE | 2016-12-15 12:40 | PN ---
Progress Note (short form) - Note Progress Note: Eyes are open. NAD on AC mode of vent, 40% FiO2 saturation 99%. Low grade temperatures persist. Intake & Output 12/12/16 12/13/16 12/14/16 12/15/16 23:59 23:59 23:59 23:59 Intake Total 1800 1615 800 400 Output Total 1575 1700 1800 Balance 400 Weight 141 lb 9.6 oz Last Vital Signs Temp Pulse Resp BP Pulse Ox 98.4 F 118 H 14 116/62 99 12/15/16 06:00 12/15/16 06:00 12/15/16 10:30 12/15/16 06:00 12/15/16 04:15 Active Medications Acetaminophen (Tylenol Oral Solution -) 650 mg NGT Q4H PRN PRN Reason: FEVER OR PAIN Last Admin: 12/14/16 19:18 Dose: 650 mg Amino Acids (Prosource No Carb Liquid Pkt) 30 ml GT BID@0800,1730 [facility] Last Admin: 12/15/16 11:07 Dose: 30 ml Ascorbic Acid (Vitamin C Oral Solution -) 500 mg GT DAILY [facility] Last Admin: 12/15/16 11:09 Dose: 500 mg Bacitracin (Bacitracin -) 1 applic TP BID [facility] Last Admin: 12/15/16 11:08 Dose: 1 applic Baclofen (Lioresal -) 10 mg GT QID [facility] Last Admin: 12/15/16 11:08 Dose: 10 mg Bisacodyl (Dulcolax Suppository -) 10 mg RC Q72H PRN PRN Reason: CONSTIPATION EVERY 3 DAYS Calcium Carbonate (Calcium Carb Oral Suspension -) 500 mg PEG DAILY [facility] Last Admin: 12/15/16 11:08 Dose: 500 mg Cefepime HCl (Maxipime 1gm Ivpb Pre-Docked) 1 gm IVPB Q8H-IV [facility] Last Admin: 12/15/16 11:07 Dose: 1 gm Tobramycin Sulfate 250 mg/ (Sodium Chloride) 106.25 mls @ 106.25 mls/hr IVPB DAILY@1300 [facility] Last Admin: 12/15/16 12:37 Dose: 106.25 mls/hr Sodium Chloride (Normal Saline -) 1,000 mls @ 25 mls/hr IV ASDIR [facility] Last Admin: 12/14/16 23:29 Dose: 25 mls/hr Insulin Aspart (Novolog Vial Sliding Scale -) 1 vial SQ Q6HPO [facility] PRN Reason: Protocol Last Admin: 12/15/16 12:36 Dose: 4 units Lactobacillus Acidophilus (Bacid -) 1 tab PO DAILY [facility] Last Admin: 12/15/16 11:07 Dose: 1 tab Levetiracetam (Keppra -) 750 mg PO BID [facility] Last Admin: 12/15/16 11:07 Dose: 750 mg Magnesium Hydroxide (Milk Of Magnesia -) 30 ml GT DAILY PRN PRN Reason: NO BM FOR 48HR Last Admin: 12/11/16 11:08 Dose: 30 ml Nystatin (Nystop Powder -) 1 applic TP DAILY [facility] Last Admin: 12/15/16 11:09 Dose: 1 applic Phenobarbital (Phenobarbital Liquid -) 80 mg GT BID [facility] Last Admin: 12/15/16 11:07 Dose: 80 mg Polyethylene Glycol (Miralax (For Daily Use) -) 17 gm PEG BID [facility] Last Admin: 12/14/16 22:32 Dose: 17 gm Constitutional: Yes: No Distress Eyes: Yes: Conjunctiva Clear HENT: Yes: Atraumatic, Normocephalic Neck: Yes: Supple, Trachea Midline, Other (Tracheostomy intact ) Cardiovascular: Yes: Regular Rate and Rhythm Respiratory: Yes: Diminished, Mechanically Ventilated, Rhonchi. No: Accessory Muscle Use, Rales, Stridor, Tachypnea, Wheezes ...Inspection: Yes: Barrel Chest, Trachea Midline. No: Use of Accessory Muscles ...Clubbing: No Gastrointestinal: Yes: Normal Bowel Sounds, Soft Musculoskeletal: Yes: Joint Stiffness Extremities: Yes: Shortened Edema: No Peripheral Pulses WNL: Yes Integumentary: Yes: WNL Labs: Laboratory Results - last 24 hr 12/14/16 12/14/16 12/14/16 12:33 18:15 19:20 WBC RBC Hgb Hct MCV MCHC RDW Plt Count MPV Neutrophils % Lymphocytes % Monocytes % Eosinophils % Basophils % Sodium Potassium Chloride Carbon Dioxide Anion Gap BUN Creatinine Creat Clearance w eGFR POC Glucometer 209 203 Random Glucose Lactic Acid 3.324 H* Calcium Total Bilirubin AST ALT Alkaline Phosphatase Total Protein Albumin 12/14/16 12/15/16 12/15/16 21:30 02:39 06:06 WBC RBC Hgb Hct MCV MCHC RDW Plt Count MPV Neutrophils % Lymphocytes % Monocytes % Eosinophils % Basophils % Sodium Potassium Chloride Carbon Dioxide Anion Gap BUN Creatinine Creat Clearance w eGFR POC Glucometer 221 177 Random Glucose Lactic Acid 2.851 H* Calcium Total Bilirubin AST ALT Alkaline Phosphatase Total Protein Albumin 12/15/16 12/15/16 12/15/16 06:15 06:15 06:15 WBC 11.5 H RBC 3.56 L Hgb 10.4 L Hct 31.5 L MCV 88.5 MCHC 33.1 RDW 15.9 H Plt Count 399 MPV 8.9 Neutrophils % 65.3 Lymphocytes % 18.5 Monocytes % 11.5 H Eosinophils % 3.7 Basophils % 1.0 Sodium 138 Potassium 4.0 Chloride 97 L Carbon Dioxide 25 Anion Gap 16 BUN 21 H Creatinine 0.4 L Creat Clearance w eGFR > 60 POC Glucometer Random Glucose 183 H Lactic Acid 2.410 H* Calcium 9.1 Total Bilirubin 0.2 AST 14 L D ALT 17 D Alkaline Phosphatase 150 H D Total Protein 8.3 H Albumin 2.8 L 12/15/16 11:59 WBC RBC Hgb Hct MCV MCHC RDW Plt Count MPV Neutrophils % Lymphocytes % Monocytes % Eosinophils % Basophils % Sodium Potassium Chloride Carbon Dioxide Anion Gap BUN Creatinine Creat Clearance w eGFR POC Glucometer 224 Random Glucose Lactic Acid Calcium Total Bilirubin AST ALT Alkaline Phosphatase Total Protein Albumin Problem List - Problems (1) Mental retardation Code(s): F79 - UNSPECIFIED INTELLECTUAL DISABILITIES (2) Seizure disorder Code(s): G40.909 - EPILEPSY, UNSP, NOT INTRACTABLE, WITHOUT STATUS EPILEPTICUS (3) Anemia Code(s): D64.9 - ANEMIA, UNSPECIFIED (4) Atelectasis Code(s): J98.11 - ATELECTASIS (5) Chronic respiratory failure Code(s): J96.10 - CHRONIC RESPIRATORY FAILURE, UNSP W HYPOXIA OR HYPERCAPNIA (6) Seizure Code(s): R56.9 - UNSPECIFIED CONVULSIONS (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 Assessment/Plan Current vent settings -> Not a ideal candidate for weaning at this time ABX per ID VTE prophylaxis BD TX PRN Normal transfusion thresholds Dr Hernandez Problem List - Problems (1) Mental retardation Code(s): F79 - UNSPECIFIED INTELLECTUAL DISABILITIES (2) Seizure disorder Code(s): G40.909 - EPILEPSY, UNSP, NOT INTRACTABLE, WITHOUT STATUS EPILEPTICUS (3) Anemia Code(s): D64.9 - ANEMIA, UNSPECIFIED (4) Atelectasis Code(s): J98.11 - ATELECTASIS (5) Chronic respiratory failure Code(s): J96.10 - CHRONIC RESPIRATORY FAILURE, UNSP W HYPOXIA OR HYPERCAPNIA (6) Seizure Code(s): R56.9 - UNSPECIFIED CONVULSIONS (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
--- NOTE | 2016-12-15 13:58 | PN ---
Teaching Attending Note Name of Resident: Shaq Valdez ATTENDING PHYSICIAN STATEMENT I saw and evaluated the patient. I reviewed the resident's note and discussed the case with the resident. I agree with the resident's findings and plan as documented. SUBJECTIVE: Patient appears comfortable. OBJECTIVE: Vital Signs Period Temp Pulse Resp BP Sys/Stein Pulse Ox Last 24 Hr 98.4 F-102.3 F 102-118 14-18 104-116/58-75 99-99 GENERAL: The patient is awake, alert, in no acute distress. LUNGS: Bilateral rhonchi. HEART: Tachycardic, S1, S2 without murmur, rub or gallop. ABDOMEN: Soft, nondistended, normoactive bowel sounds. EXTREMITIES: 2+ pulses, warm, well-perfused, no edema. ASSESSMENT AND PLAN: This is a 41-year-old woman with a history of mental retardation, recurrent aspiration pneumonia, UTI, seizure disorder, GI bleed, chronic respiratory failure, tracheostomy, dysphagia, PEG who presented to the ER and was sent to the ER from [facility] because of fever and tachycardia. 1. Sepsis secondary to Pseudomonas UTI and Morganella bacteremia - Completed 14 days of IV antibiotics but remained febrile - Had fever 102.3 yesterday - lactic acid 3.324 -> 2.851 -> 2.420, WBC increased to 11.5 - Blood, nephrostomy tube cultures pending - Continue Cefepime, Tobramycin (day 7) - ID follow up - Repeat urine culture growing ESBL (+) Klebsiella, likely contaminant - CT chest/abdomen/pelvis shows no acute chest pathology, no intra-abdominal abscess or acute pathology 2. Seizure disorder - Stable - Continue Keppra, Phenobarbital 3. Mental retardation 4. Chronic hypoxic respiratory failure - On vent via tracheostomy 5. Anemia secondary to chronic illness - Hemoglobin stable 6. Hypokalemia - Improved 7. Hypernatremia - Improved 8. Hyperglycemia - Continue Novolog sliding scale 9. Nutrition - Continue Jevity, Prosource
--- NOTE | 2016-12-15 14:01 | PN ---
Progress Note, Physician Chief Complaint: ID Asked to reevaluate again for fever Now day 7 Cefepime and Tobramycin and febrile - Current Medication List Current Medications: Active Medications Acetaminophen (Tylenol Oral Solution -) 650 mg NGT Q4H PRN PRN Reason: FEVER OR PAIN Last Admin: 12/14/16 19:18 Dose: 650 mg Amino Acids (Prosource No Carb Liquid Pkt) 30 ml GT BID@0800,1730 [facility] Last Admin: 12/15/16 11:07 Dose: 30 ml Ascorbic Acid (Vitamin C Oral Solution -) 500 mg GT DAILY [facility] Last Admin: 12/15/16 11:09 Dose: 500 mg Bacitracin (Bacitracin -) 1 applic TP BID [facility] Last Admin: 12/15/16 11:08 Dose: 1 applic Baclofen (Lioresal -) 10 mg GT QID [facility] Last Admin: 12/15/16 11:08 Dose: 10 mg Bisacodyl (Dulcolax Suppository -) 10 mg RC Q72H PRN PRN Reason: CONSTIPATION EVERY 3 DAYS Calcium Carbonate (Calcium Carb Oral Suspension -) 500 mg PEG DAILY [facility] Last Admin: 12/15/16 11:08 Dose: 500 mg Sodium Chloride (Normal Saline -) 1,000 mls @ 25 mls/hr IV ASDIR [facility] Last Admin: 12/14/16 23:29 Dose: 25 mls/hr Insulin Aspart (Novolog Vial Sliding Scale -) 1 vial SQ Q6HPO [facility] PRN Reason: Protocol Last Admin: 12/15/16 12:36 Dose: 4 units Lactobacillus Acidophilus (Bacid -) 1 tab PO DAILY [facility] Last Admin: 12/15/16 11:07 Dose: 1 tab Levetiracetam (Keppra -) 750 mg PO BID [facility] Last Admin: 12/15/16 11:07 Dose: 750 mg Magnesium Hydroxide (Milk Of Magnesia -) 30 ml GT DAILY PRN PRN Reason: NO BM FOR 48HR Last Admin: 12/11/16 11:08 Dose: 30 ml Nystatin (Nystop Powder -) 1 applic TP DAILY [facility] Last Admin: 12/15/16 11:09 Dose: 1 applic Phenobarbital (Phenobarbital Liquid -) 80 mg GT BID [facility] Last Admin: 12/15/16 11:07 Dose: 80 mg Polyethylene Glycol (Miralax (For Daily Use) -) 17 gm PEG BID [facility] Last Admin: 12/14/16 22:32 Dose: 17 gm - Objective Vital Signs: Vital Signs Temperature 98.4 F 12/15/16 06:00 Pulse Rate 118 H 12/15/16 06:00 Respiratory Rate 14 12/15/16 10:30 Blood Pressure 116/62 12/15/16 06:00 O2 Sat by Pulse Oximetry (%) 99 12/15/16 04:15 Constitutional: Yes: Diaphoresis Neck: Yes: Other (Tracheostomy) Cardiovascular: Yes: Regular Rate and Rhythm, S1, S2 Respiratory: Yes: Rhonchi Gastrointestinal: Yes: Soft, Other (PEG). No: Distention, Tenderness, Epigastrium, Tenderness, Rebound Edema: No Labs: CBC, BMP 12/15/16 06:15 12/15/16 06:15 INR, PTT INR 1.66 (0.82-1.09) H 12/04/16 08:00 Assessment/Plan Microbiology Laboratory Tests 12/15/16 12/15/16 06:15 06:15 WBC 11.5 H Hgb 10.4 L Hct 31.5 L Plt Count 399 BUN 21 H Creatinine 0.4 L Assessment Fever of " to many possible origins" IN any case day 7 broad spectrum antibiotics Highly resistant organisms noted "CRE" and pseudomonas Plan At this point conservative approach to fever seems appropriate and cultures repeated in any case Stop all antibiotics Would not reculture for at least 24-48 hours should fever persist IF any deterioration polymyxin bebe be next step Aztreonam Discussed with housestaff
[2016-12-15] MEDS: SODIUM CHLORIDE 1,000 ML IV SCH (15:40)
[2016-12-15] MEDS: POLYETHYLENE GLYCOL 3350 119 GM BTL PEG SCH ×2 (15:41→22:27)
--- NOTE | 2016-12-15 22:19 | PN ---
Physical Exam: SUBJECTIVE: Patient seen and examined at bedside. Per chart, patient had a spike fever 102.3F yesterday afternoon, otherwise she's at baseline. OBJECTIVE: Vital Signs Period Temp Pulse Resp BP Sys/Stein Pulse Ox Last 24 Hr 98.4 F-100.1 F 102-118 14-18 92-122/58-75 99-100 GENERAL: Trached and vented, mentally retarded, non-verbal, contracted, responded to painful stimuli. HEAD: AT, NC EYES: Pupils equal, round and reactive to light, sclera anicteric, conjunctiva clear ENT: nares patent, oropharynx clear without exudates LUNGS: rhonchi bilaterally HEART: RRR, S1 and S2 present,No murmur ABDOMEN: +bs, soft, grimace upon pressing, PEG tube in place EXTREMITIES: SCDs in place : nephrostomy tube draining clear fluid ~300cc; alberto ~10cc urine yellow CBCD WBC 11.5 K/mm3 (4.0-10.0) H 12/15/16 06:15 RBC 3.56 M/mm3 (3.60-5.2) L 12/15/16 06:15 Hgb 10.4 GM/dL (10.7-15.3) L 12/15/16 06:15 Hct 31.5 % (32.4-45.2) L 12/15/16 06:15 MCV 88.5 fl (80-96) 12/15/16 06:15 MCHC 33.1 g/dl (32.0-36.0) 12/15/16 06:15 RDW 15.9 % (11.6-15.6) H 12/15/16 06:15 Plt Count 399 K/MM3 (134-434) 12/15/16 06:15 MPV 8.9 fl (7.5-11.1) 12/15/16 06:15 CMP Sodium 138 mmol/L (136-145) 12/15/16 06:15 Potassium 4.0 mmol/L (3.5-5.1) 12/15/16 06:15 Chloride 97 mmol/L (98-107) L 12/15/16 06:15 Carbon Dioxide 25 mmol/L (21-32) 12/15/16 06:15 Anion Gap 16 (8-16) 12/15/16 06:15 BUN 21 mg/dL (7-18) H 12/15/16 06:15 Creatinine 0.4 mg/dL (0.55-1.02) L 12/15/16 06:15 Creat Clearance w eGFR > 60 (>60) 12/15/16 06:15 Calcium 9.1 mg/dL (8.5-10.1) 12/15/16 06:15 Total Bilirubin 0.2 mg/dL (0.2-1.0) 12/15/16 06:15 AST 14 U/L (15-37) L D 12/15/16 06:15 ALT 17 U/L (12-78) D 12/15/16 06:15 Alkaline Phosphatase 150 U/L (45-117) H D 12/15/16 06:15 Total Protein 8.3 g/dl (6.4-8.2) H 12/15/16 06:15 Albumin 2.8 g/dl (3.4-5.0) L 12/15/16 06:15 Intake & Output 12/12/16 12/13/16 12/14/16 12/15/16 23:59 23:59 23:59 23:59 Intake Total 1800 8564 508 8699 Output Total 1575 1700 1800 450 Balance 1130 Weight 64.229 kg Active Medications Generic Name Dose Route Start Last Admin Trade Name Freq PRN Reason Stop Dose Admin Acetaminophen 650 mg 11/24/16 00:51 12/14/16 19:18 Tylenol Oral Solution - NGT 650 mg Q4H PRN Administration FEVER OR PAIN Amino Acids 30 ml 11/23/16 17:30 12/15/16 18:04 Prosource No Carb Liquid Pkt GT 30 ml BID@0800,1730 JUANJOSE Administration Ascorbic Acid 500 mg 11/23/16 11:38 12/15/16 11:09 Vitamin C Oral Solution - GT 500 mg DAILY JUANJOSE Administration Bacitracin 1 applic 11/23/16 22:00 12/15/16 11:08 Bacitracin - TP 1 applic BID JUANJOSE Administration Baclofen 10 mg 11/23/16 18:00 12/15/16 18:05 Lioresal - GT 10 mg QID JUANJOSE Administration Bisacodyl 10 mg 11/23/16 16:50 Dulcolax Suppository - RC Q72H PRN CONSTIPATION EVERY 3 DAYS Calcium Carbonate 500 mg 11/24/16 10:00 12/15/16 11:08 Calcium Carb Oral Suspension - PEG 500 mg DAILY JUANJOSE Administration Sodium Chloride 1,000 mls @ 25 mls/hr 12/14/16 14:30 12/15/16 15:40 Normal Saline - IV 25 mls/hr ASDIR JUANJOSE Administration Insulin Aspart 1 vial 11/28/16 12:00 12/15/16 18:06 Novolog Vial Sliding Scale - SQ 4 units Q6HPO JUANJOSE Administration Protocol Lactobacillus Acidophilus 1 tab 12/08/16 13:45 12/15/16 11:07 Bacid - PO 1 tab DAILY JUANJOSE Administration Levetiracetam 750 mg 11/28/16 22:00 12/15/16 11:07 Keppra - PO 750 mg BID JUANJOSE Administration Magnesium Hydroxide 30 ml 11/23/16 16:50 12/11/16 11:08 Milk Of Magnesia - GT 30 ml DAILY PRN Administration NO BM FOR 48HR Nystatin 1 applic 11/25/16 14:45 12/15/16 11:09 Nystop Powder - TP 1 applic DAILY JUANJOSE Administration Phenobarbital 80 mg 11/30/16 10:30 12/15/16 11:07 Phenobarbital Liquid - GT 80 mg BID JUANJOSE Administration Polyethylene Glycol 17 gm 11/23/16 22:00 12/15/16 15:41 Miralax (For Daily Use) - PEG 17 gm BID JUANJOSE Administration Microbiology 12/14/16 19:10 Blood Culture - Preliminary Blood - Peripheral Venous NO GROWTH OBTAINED AFTER 24 HOURS, INCUBATION TO CONTINUE FOR 4 DAYS. 12/14/16 19:10 Blood Culture - Preliminary Blood - Peripheral Venous NO GROWTH OBTAINED AFTER 24 HOURS, INCUBATION TO CONTINUE FOR 4 DAYS. ASSESSMENT/PLAN: 41 yo h/o mental retardation, recurrent aspiration pneumonia, UTI, Sepsis, Seizure disorder and GI bleed, Chronic respiratory failure s/p trach. dysphagia s/p PEG admitted for sepsis 2/2 UTI. Sepsis 2/2 complicated UTI - Nikolai fever within last 24 hours - Urine culture from alberto grew klebsilla ESBL * likely contaminant - Completed full course of Aztreonan, Zosyn, Cefepime and tobramycin - Observe off abx and re-culture within 24-48 hours per ID Chronic normocytic anemia - at baseline Chronic constipation - Cont. duclolax suppository, M&M, Miralax Seizure disorder - Cont. Keppra and phenobarbital Hypokalemia - Resolved FEN - NS 25ml/hr - Cont. to monitor lytes - Jevity Tube feed 1.5 Prophylaxis - DVT: heparin and SCDs - GI: not indicated Disposition - Cont. to monitor on med-surg Code status - Full Visit type - Emergency Visit Emergency Visit: No - New Patient This patient is new to me today: No - Critical Care Critical Care patient: No
[2016-12-15] MEDS: ACETAMINOPHEN 650 MG/20.3 ML ORAL SOLUTION (CUPS) NGT PRN (22:28)
[2016-12-16] MEDS: INSULIN SLIDING SCALE (NOVOLOG) 1 VIAL SQ SCH ×4 (00:43→17:16)
[2016-12-16] MEDS: LACTOBACILLUS ACIDOPHILUS 1 EACH TAB (FP) PO SCH (10:57)
[2016-12-16] MEDS: levETIRAcetam 250 MG TABLET (FP) PO SCH ×2 (10:57→22:09)
[2016-12-16] MEDS: CALCIUM CARBONATE SUSPENSION - 500 MG/5 ML ML PEG SCH (10:59)
[2016-12-16] MEDS: BACLOFEN 10 MG TABLET (FP) GT SCH ×4 (11:00→22:10)
[2016-12-16] MEDS: POLYETHYLENE GLYCOL 3350 119 GM BTL PEG SCH ×2 (11:00→22:11)
[2016-12-16] MEDS: BACITRACIN 30 GM TUBE TOPICAL OINTMENT TP SCH ×2 (11:01→22:10)
[2016-12-16] MEDS: ASCORBIC ACID 500 MG/5 ML UNIT DOSE CUP GT SCH (11:01)
[2016-12-16] MEDS: AMINO ACIDS/PROTEIN HYDROLYS 30 ML LIQUID.PKT GT SCH ×2 (11:18→17:15)
[2016-12-16] MEDS: PHENobarbital 20 MG/5 ML UNIT-DOSE CUP GT SCH ×2 (12:15→22:17)
[2016-12-16] MEDS: NYSTATIN POWDER 100,000 UNITS/GM - 15 GM TOPICAL POWDER TP SCH (12:22)
--- NOTE | 2016-12-16 12:34 | PN ---
Progress Note (short form) - Note Progress Note: NAD low grade temp last pm, none today s/p PCN 5/4 Vital Signs Period Temp Pulse Resp BP Sys/Stein Pulse Ox Last 24 Hr 98.9 F-100.8 F 66-122 12-20 92-126/58-78 96 trach to vent cor-rrr lungs decreased bs at bases abd soft,nt _GT ext no edema alberto clear urine PCN- clear urine CBC, BMP 12/15/16 06:15 12/15/16 06:15 ct scans noted , no acute pathology noted a/p observing off antibiotics- d/joe yesterday would reculture in am if hgih grade fevers recur s/p Morganella bacteremia- and pseudomonas UTI - hydronephrosis with obstructing stone s/p 14 days iv antibiotics chronic resp failure multiple developmental disabilities seizure disorder overall prognosis poor contact isolation=resistant organisms
--- NOTE | 2016-12-16 13:39 | PN ---
Teaching Attending Note Name of Resident: Shaq Valdez ATTENDING PHYSICIAN STATEMENT I saw and evaluated the patient. I reviewed the resident's note and discussed the case with the resident. I agree with the resident's findings and plan as documented. SUBJECTIVE:resting comfortable. OBJECTIVE: Last Vital Signs Temp Pulse Resp BP Pulse Ox 99.9 F H 101 H 18 122/78 96 12/16/16 11:00 12/16/16 11:00 12/16/16 11:00 12/16/16 11:00 12/16/16 10:25 General NAD, nonverbal CV S1 S2 tachy no murmur Lungs coarse breath sounds diffusely abdomen soft NT/ND +serosangeous output to nephrostomy tube skin stage 2 sacral lesion L buttock ASSESSMENT AND PLAN: 41 year old female with pmh of Mental retardation, Recurrent aspiration pneumonia, UTI, Sepsis, Seizure disorder and GI bleed, Chronic respiratory failure s/p trach. dysphagia s/p PEG presented to the ER and was admitted for further evaluation of their emergent condition 1. Sepsis with pseudomonal UTI and Morganella bacteremia- Tm 100.8. currently being monitored off abx. Ucx suspected to be colonized. BCx and UCx in nephrostomy tube are negative. will reculture if re-spikes. no other source at this time. Sacral ulcer does not appear infected. 2. obstructing nephrolithasis- s/p nephrostomy tube placed with good output. will determine if [facility] can return pt with nephrostomy tube. call urology back at this time as infection has cleared. if can do lithotripsy vs stent placement. 3. Normocytic anemia- no signs of bleeding. received 1 unit PRBC this admission. with good response. txn as needed 4. Hypernatremia- resolved. 5. Hypokalemia- resolved 6. Seizure d/o- no signs of seizure like activity. cont home medication 7. DVT ppx- hep sq
[2016-12-16] MEDS: SODIUM CHLORIDE 1,000 ML IV SCH (15:21)
--- NOTE | 2016-12-16 16:32 | PN ---
Physical Exam: SUBJECTIVE: Patient seen and examined at bedside. Per chart, patient had a spike fever 100.8F overnight, otherwise she's at baseline. OBJECTIVE: Vital Signs Period Temp Pulse Resp BP Sys/Stein Pulse Ox Last 24 Hr 98.9 F-100.8 F 66-122 12-21 92-126/58-78 96 GENERAL: Trached and vented, mentally retarded, non-verbal, contracted, responded to painful stimuli. HEAD: AT, NC EYES: Pupils equal, round and reactive to light, sclera anicteric, conjunctiva clear ENT: nares patent, oropharynx clear without exudates LUNGS: rhonchi bilaterally HEART: RRR, S1 and S2 present,No murmur ABDOMEN: +bs, soft, grimace upon pressing, PEG tube in place EXTREMITIES: SCDs in place : nephrostomy tube draining clear fluid full; alberto no urine Laboratory Results - last 24 hr 12/15/16 12/15/16 12/16/16 17:13 23:28 05:28 POC Glucometer 210 201 166 12/16/16 12:24 POC Glucometer 219 Active Medications Generic Name Dose Route Start Last Admin Trade Name Freq PRN Reason Stop Dose Admin Acetaminophen 650 mg 11/24/16 00:51 12/15/16 22:28 Tylenol Oral Solution - NGT 650 mg Q4H PRN Administration FEVER OR PAIN Amino Acids 30 ml 11/23/16 17:30 12/16/16 11:18 Prosource No Carb Liquid Pkt GT 30 ml BID@0800,1730 JUANJOSE Administration Ascorbic Acid 500 mg 11/23/16 11:38 12/16/16 11:01 Vitamin C Oral Solution - GT 500 mg DAILY JUANJOSE Administration Bacitracin 1 applic 11/23/16 22:00 12/16/16 11:01 Bacitracin - TP 1 applic BID JUANJOSE Administration Baclofen 10 mg 11/23/16 18:00 12/16/16 15:00 Lioresal - GT 10 mg QID JUANJOSE Administration Bisacodyl 10 mg 11/23/16 16:50 Dulcolax Suppository - RC Q72H PRN CONSTIPATION EVERY 3 DAYS Calcium Carbonate 500 mg 11/24/16 10:00 12/16/16 10:59 Calcium Carb Oral Suspension - PEG 500 mg DAILY JUANJOSE Administration Sodium Chloride 1,000 mls @ 25 mls/hr 12/14/16 14:30 12/16/16 15:21 Normal Saline - IV 25 mls/hr ASDIR JUANJOSE Administration Insulin Aspart 1 vial 11/28/16 12:00 12/16/16 12:27 Novolog Vial Sliding Scale - SQ 4 units Q6HPO JUANJOSE Administration Protocol Lactobacillus Acidophilus 1 tab 12/08/16 13:45 12/16/16 10:57 Bacid - PO 1 tab DAILY JUANJOSE Administration Levetiracetam 750 mg 11/28/16 22:00 12/16/16 10:57 Keppra - PO 750 mg BID JUANJOSE Administration Magnesium Hydroxide 30 ml 11/23/16 16:50 12/11/16 11:08 Milk Of Magnesia - GT 30 ml DAILY PRN Administration NO BM FOR 48HR Nystatin 1 applic 11/25/16 14:45 12/16/16 12:22 Nystop Powder - TP 1 applic DAILY JUANJOSE Administration Phenobarbital 80 mg 11/30/16 10:30 12/16/16 12:15 Phenobarbital Liquid - GT 80 mg BID JUANJOSE Administration Polyethylene Glycol 17 gm 11/23/16 22:00 12/16/16 11:00 Miralax (For Daily Use) - PEG 17 gm BID JUANJOSE Administration ASSESSMENT/PLAN: 41 yo h/o mental retardation, recurrent aspiration pneumonia, UTI, Sepsis, Seizure disorder and GI bleed, Chronic respiratory failure s/p trach. dysphagia s/p PEG admitted for sepsis 2/2 UTI. Sepsis 2/2 complicated UTI - Fever of unknown origin - Urine culture from alberto grew klebsilla ESBL * likely contaminant - Completed full course of Aztreonan, Zosyn, Cefepime and tobramycin - Observe off abx and re-culture within 24-48 hours per ID Chronic normocytic anemia - at baseline Chronic constipation - Cont. duclolax suppository, M&M, Miralax Seizure disorder - Cont. Keppra and phenobarbital Hypokalemia - Resolved FEN - NS 25ml/hr - Cont. to monitor lytes - Jevity Tube feed 1.5 Prophylaxis - DVT: heparin and SCDs - GI: not indicated Disposition - Cont. to monitor on med-surg - Will discuss with sister or mother regarding goal of care Code status - Full Visit type - Emergency Visit Emergency Visit: No - New Patient This patient is new to me today: No - Critical Care Critical Care patient: No
[2016-12-16] MEDS ORDERED: INSULIN (NOVOLOG) ASPART 100 UNITS/ML 10ML VIAL ONE (16:43)
--- NOTE | 2016-12-16 17:07 | PN ---
Progress Note (short form) - Note Progress Note: NAD on AC mode of vent, 40% FiO2 saturation 99%. Noted 14 days ABX was completed. Intake & Output 12/13/16 12/14/16 12/15/16 12/16/16 23:59 23:59 23:59 23:59 Intake Total 6978 952 1227 1080 Output Total 1700 1800 825 420 Balance -85 -1000 755 660 Weight 141 lb 9.6 oz Last Vital Signs Temp Pulse Resp BP Pulse Ox 99.9 F H 101 H 21 122/78 96 12/16/16 11:00 12/16/16 11:00 12/16/16 14:18 12/16/16 11:00 12/16/16 10:25 Active Medications Acetaminophen (Tylenol Oral Solution -) 650 mg NGT Q4H PRN PRN Reason: FEVER OR PAIN Last Admin: 12/15/16 22:28 Dose: 650 mg Amino Acids (Prosource No Carb Liquid Pkt) 30 ml GT BID@0800,1730 [facility] Last Admin: 12/16/16 11:18 Dose: 30 ml Ascorbic Acid (Vitamin C Oral Solution -) 500 mg GT DAILY [facility] Last Admin: 12/16/16 11:01 Dose: 500 mg Bacitracin (Bacitracin -) 1 applic TP BID [facility] Last Admin: 12/16/16 11:01 Dose: 1 applic Baclofen (Lioresal -) 10 mg GT QID [facility] Last Admin: 12/16/16 15:00 Dose: 10 mg Bisacodyl (Dulcolax Suppository -) 10 mg RC Q72H PRN PRN Reason: CONSTIPATION EVERY 3 DAYS Calcium Carbonate (Calcium Carb Oral Suspension -) 500 mg PEG DAILY [facility] Last Admin: 12/16/16 10:59 Dose: 500 mg Sodium Chloride (Normal Saline -) 1,000 mls @ 25 mls/hr IV ASDIR [facility] Last Admin: 12/16/16 15:21 Dose: 25 mls/hr Insulin Aspart (Novolog Vial Sliding Scale -) 1 vial SQ Q6HPO [facility] PRN Reason: Protocol Last Admin: 12/16/16 12:27 Dose: 4 units Lactobacillus Acidophilus (Bacid -) 1 tab PO DAILY [facility] Last Admin: 12/16/16 10:57 Dose: 1 tab Levetiracetam (Keppra -) 750 mg PO BID [facility] Last Admin: 12/16/16 10:57 Dose: 750 mg Magnesium Hydroxide (Milk Of Magnesia -) 30 ml GT DAILY PRN PRN Reason: NO BM FOR 48HR Last Admin: 12/11/16 11:08 Dose: 30 ml Nystatin (Nystop Powder -) 1 applic TP DAILY [facility] [place] Last Admin: 12/16/16 12:22 Dose: 1 applic Phenobarbital (Phenobarbital Liquid -) 80 mg GT BID [facility] Last Admin: 12/16/16 12:15 Dose: 80 mg Polyethylene Glycol (Miralax (For Daily Use) -) 17 gm PEG BID [facility] Last Admin: 12/16/16 11:00 Dose: 17 gm Constitutional: Yes: No Distress Eyes: Yes: Conjunctiva Clear HENT: Yes: Atraumatic, Normocephalic Neck: Yes: Supple, Trachea Midline, Other (Tracheostomy intact ) Cardiovascular: Yes: Regular Rate and Rhythm Respiratory: Yes: Diminished, Mechanically Ventilated, Rhonchi. No: Accessory Muscle Use, Rales, Stridor, Tachypnea, Wheezes ...Inspection: Yes: Barrel Chest, Trachea Midline. No: Use of Accessory Muscles ...Clubbing: No Gastrointestinal: Yes: Normal Bowel Sounds, Soft Musculoskeletal: Yes: Joint Stiffness Extremities: Yes: Shortened Edema: No Peripheral Pulses WNL: Yes Integumentary: Yes: WNL Labs: Laboratory Results - last 24 hr 12/15/16 12/15/16 12/16/16 17:13 23:28 05:28 POC Glucometer 210 201 166 12/16/16 12/16/16 12:24 16:39 POC Glucometer 219 178 Problem List - Problems (1) Mental retardation Code(s): F79 - UNSPECIFIED INTELLECTUAL DISABILITIES (2) Seizure disorder Code(s): G40.909 - EPILEPSY, UNSP, NOT INTRACTABLE, WITHOUT STATUS EPILEPTICUS (3) Anemia Code(s): D64.9 - ANEMIA, UNSPECIFIED (4) Atelectasis Code(s): J98.11 - ATELECTASIS (5) Chronic respiratory failure Code(s): J96.10 - CHRONIC RESPIRATORY FAILURE, UNSP W HYPOXIA OR HYPERCAPNIA (6) Seizure Code(s): R56.9 - UNSPECIFIED CONVULSIONS (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 Assessment/Plan Current vent settings -> Not a ideal candidate for weaning at this time ABX per ID VTE prophylaxis BD TX PRN Normal transfusion thresholds Dr Hernandez Problem List - Problems (1) Mental retardation Code(s): F79 - UNSPECIFIED INTELLECTUAL DISABILITIES (2) Seizure disorder Code(s): G40.909 - EPILEPSY, UNSP, NOT INTRACTABLE, WITHOUT STATUS EPILEPTICUS (3) Anemia Code(s): D64.9 - ANEMIA, UNSPECIFIED (4) Atelectasis Code(s): J98.11 - ATELECTASIS (5) Chronic respiratory failure Code(s): J96.10 - CHRONIC RESPIRATORY FAILURE, UNSP W HYPOXIA OR HYPERCAPNIA (6) Seizure Code(s): R56.9 - UNSPECIFIED CONVULSIONS (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
[2016-12-16] MEDS: ACETAMINOPHEN 650 MG/20.3 ML ORAL SOLUTION (CUPS) NGT PRN (17:16)
[2016-12-17] MEDS: INSULIN SLIDING SCALE (NOVOLOG) 1 VIAL SQ SCH ×5 (00:52→23:51)
[2016-12-17] MEDS: AMINO ACIDS/PROTEIN HYDROLYS 30 ML LIQUID.PKT GT SCH ×2 (08:30→17:16)
[2016-12-17] MEDS ORDERED: PT OWN MED DRAWER 7, Y5N ONE ×2 (11:05→17:57)
[2016-12-17] MEDS: LACTOBACILLUS ACIDOPHILUS 1 EACH TAB (FP) PO SCH (11:14)
[2016-12-17] MEDS: BACLOFEN 10 MG TABLET (FP) GT SCH ×4 (11:14→23:34)
[2016-12-17] MEDS: NYSTATIN POWDER 100,000 UNITS/GM - 15 GM TOPICAL POWDER TP SCH (11:15)
[2016-12-17] MEDS: levETIRAcetam 250 MG TABLET (FP) PO SCH ×2 (11:15→23:34)
[2016-12-17] MEDS: PHENobarbital 20 MG/5 ML UNIT-DOSE CUP GT SCH ×2 (11:15→23:34)
[2016-12-17] MEDS: POLYETHYLENE GLYCOL 3350 119 GM BTL PEG SCH ×2 (11:15→23:35)
[2016-12-17] MEDS: CALCIUM CARBONATE SUSPENSION - 500 MG/5 ML ML PEG SCH (11:15)
[2016-12-17] MEDS: ASCORBIC ACID 500 MG/5 ML UNIT DOSE CUP GT SCH (11:16)
[2016-12-17] MEDS: BACITRACIN 30 GM TUBE TOPICAL OINTMENT TP SCH ×2 (11:16→23:48)
[2016-12-17] MEDS ORDERED: INSULIN (NOVOLOG) ASPART 100 UNITS/ML 10ML VIAL ONE ×2 (11:54→17:57)
--- NOTE | 2016-12-17 14:35 | PN ---
Progress Note, Physician History of Present Illness: PULMONARY AWAKE ON VENT SUPPORT AC MODE ,-RESP DISTRESS - Current Medication List Current Medications: Active Medications Acetaminophen (Tylenol Oral Solution -) 650 mg NGT Q4H PRN PRN Reason: FEVER OR PAIN Last Admin: 12/16/16 17:16 Dose: 650 mg Amino Acids (Prosource No Carb Liquid Pkt) 30 ml GT BID@0800,1730 [facility] Last Admin: 12/17/16 08:30 Dose: 30 ml Ascorbic Acid (Vitamin C Oral Solution -) 500 mg GT DAILY [facility] Last Admin: 12/17/16 11:16 Dose: 500 mg Bacitracin (Bacitracin -) 1 applic TP BID [facility] Last Admin: 12/17/16 11:16 Dose: 1 applic Baclofen (Lioresal -) 10 mg GT QID [facility] Last Admin: 12/17/16 11:14 Dose: 10 mg Bisacodyl (Dulcolax Suppository -) 10 mg RC Q72H PRN PRN Reason: CONSTIPATION EVERY 3 DAYS Calcium Carbonate (Calcium Carb Oral Suspension -) 500 mg PEG DAILY [facility] Last Admin: 12/17/16 11:15 Dose: 500 mg Sodium Chloride (Normal Saline -) 1,000 mls @ 25 mls/hr IV ASDIR [facility] Last Admin: 12/16/16 15:21 Dose: 25 mls/hr Insulin Aspart (Novolog Vial Sliding Scale -) 1 vial SQ Q6HPO [facility] PRN Reason: Protocol Last Admin: 12/17/16 11:56 Dose: 4 units Lactobacillus Acidophilus (Bacid -) 1 tab PO DAILY [facility] Last Admin: 12/17/16 11:14 Dose: 1 tab Levetiracetam (Keppra -) 750 mg PO BID [facility] Last Admin: 12/17/16 11:15 Dose: 750 mg Magnesium Hydroxide (Milk Of Magnesia -) 30 ml GT DAILY PRN PRN Reason: NO BM FOR 48HR Last Admin: 12/11/16 11:08 Dose: 30 ml Nystatin (Nystop Powder -) 1 applic TP DAILY [facility] Last Admin: 12/17/16 11:15 Dose: 1 applic Phenobarbital (Phenobarbital Liquid -) 80 mg GT BID [facility] Last Admin: 12/17/16 11:15 Dose: 80 mg Polyethylene Glycol (Miralax (For Daily Use) -) 17 gm PEG BID [facility] Last Admin: 12/17/16 11:15 Dose: 17 gm - Objective Vital Signs: Vital Signs Temperature 99.9 F H 12/17/16 02:00 Pulse Rate 124 H 12/17/16 02:00 Respiratory Rate 13 12/17/16 10:35 Blood Pressure 107/70 12/17/16 02:00 O2 Sat by Pulse Oximetry (%) 100 12/17/16 00:31 Constitutional: Yes: Well Nourished, Calm Eyes: Yes: WNL HENT: Yes: WNL Neck: Yes: WNL (TRACH) Cardiovascular: Yes: Regular Rate and Rhythm, S1, S2 Respiratory: Yes: Rhonchi (SCATTERED FLETCHER RHONCHI) Gastrointestinal: Yes: Normal Bowel Sounds, Soft Extremities: Yes: Other (CONTRACTED) Edema: No Labs: CBC, BMP Assessment/Plan Problem List - Problems (1) Mental retardation Code(s): F79 - UNSPECIFIED INTELLECTUAL DISABILITIES (2) Seizure disorder Code(s): G40.909 - EPILEPSY, UNSP, NOT INTRACTABLE, WITHOUT STATUS EPILEPTICUS (3) Anemia Code(s): D64.9 - ANEMIA, UNSPECIFIED (4) Atelectasis Code(s): J98.11 - ATELECTASIS (5) Chronic respiratory failure Code(s): J96.10 - CHRONIC RESPIRATORY FAILURE, UNSP W HYPOXIA OR HYPERCAPNIA (6) Seizure Code(s): R56.9 - UNSPECIFIED CONVULSIONS (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 Assessment/Plan Current vent settings -> Not a ideal candidate for weaning at this time OFF ANTIBIOTICS PER ID VTE prophylaxis BD TX PRN DR KLEIN Problem List - Problems (1) Mental retardation Code(s): F79 - UNSPECIFIED INTELLECTUAL DISABILITIES (2) Seizure disorder Code(s): G40.909 - EPILEPSY, UNSP, NOT INTRACTABLE, WITHOUT STATUS EPILEPTICUS (3) Anemia Code(s): D64.9 - ANEMIA, UNSPECIFIED (4) Atelectasis Code(s): J98.11 - ATELECTASIS (5) Chronic respiratory failure Code(s): J96.10 - CHRONIC RESPIRATORY FAILURE, UNSP W HYPOXIA OR HYPERCAPNIA (6) Seizure Code(s): R56.9 - UNSPECIFIED CONVULSIONS (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
--- NOTE | 2016-12-17 16:01 | PN ---
Teaching Attending Note Name of Resident: Shaq Valdez ATTENDING PHYSICIAN STATEMENT I saw and evaluated the patient. I reviewed the resident's note and discussed the case with the resident. I agree with the resident's findings and plan as documented. SUBJECTIVE:nonverbal OBJECTIVE: Last Vital Signs Temp Pulse Resp BP Pulse Ox 101.3 F H 138 H 17 118/69 100 12/17/16 15:37 12/17/16 15:37 12/17/16 15:37 12/17/16 15:37 12/17/16 00:31 General NAD, nonverbal CV S1 S2 tachy no murmur Lungs coarse breath sounds diffusely abdomen soft NT/ND +serosangeous output to nephrostomy tube skin stage 2 sacral lesion L buttock +slough ASSESSMENT AND PLAN: 41 year old female with pmh of Mental retardation, Recurrent aspiration pneumonia, UTI, Sepsis, Seizure disorder and GI bleed, Chronic respiratory failure s/p trach. dysphagia s/p PEG presented to the ER and was admitted for further evaluation of their emergent condition 1. Sepsis with pseudomonal UTI and Morganella bacteremia- Tm 101.3. has been monitored off abx. will re-culture. call placed out to ID to notify of temp. unsure of source at this time. sacral wound does not appear infected. 2. obstructing nephrolithasis- s/p nephrostomy tube placed with good output. will need to leave in at this time. follow up with urology as outpatient. 3. Normocytic anemia- no signs of bleeding. received 1 unit PRBC this admission. with good response. txn as needed 4. Hypernatremia- resolved. 5. Hypokalemia- resolved 6. Seizure d/o- no signs of seizure like activity. cont home medication 7. DVT ppx- hep sq
[2016-12-17] MEDS: SODIUM CHLORIDE 1,000 ML IV SCH (17:16)
[2016-12-17] MEDS: ACETAMINOPHEN 650 MG/20.3 ML ORAL SOLUTION (CUPS) NGT PRN (17:19)
--- NOTE | 2016-12-17 17:34 | PN ---
Physical Exam: SUBJECTIVE: Patient seen and examined at bedside. Per chart, patient had a spike fever 100.5F yesterday afternoon. OBJECTIVE: Vital Signs Period Temp Pulse Resp BP Sys/Stein Pulse Ox Last 24 Hr 99.4 F-101.3 F 124-138 12-18 107-118/68-70 100-100 GENERAL: Trached and vented, mentally retarded, non-verbal, contracted, responded to painful stimuli. HEAD: AT, NC EYES: Pupils equal, round and reactive to light, sclera anicteric, conjunctiva clear ENT: nares patent, oropharynx clear without exudates LUNGS: rhonchi bilaterally HEART: RRR, S1 and S2 present,No murmur ABDOMEN: +bs, soft, grimace upon pressing, PEG tube in place EXTREMITIES: SCDs in place : nephrostomy tube draining clear fluid ~400cc; alberto ~300cc urine Laboratory Results - last 24 hr 12/16/16 12/17/16 12/17/16 20:15 00:51 06:21 POC Glucometer 198 187 205 12/17/16 11:40 POC Glucometer 213 Active Medications Generic Name Dose Route Start Last Admin Trade Name Freq PRN Reason Stop Dose Admin Acetaminophen 650 mg 11/24/16 00:51 12/17/16 17:19 Tylenol Oral Solution - NGT 650 mg Q4H PRN Administration FEVER OR PAIN Amino Acids 30 ml 11/23/16 17:30 12/17/16 17:16 Prosource No Carb Liquid Pkt GT 30 ml BID@0800,1730 JUANJOSE Administration Ascorbic Acid 500 mg 11/23/16 11:38 12/17/16 11:16 Vitamin C Oral Solution - GT 500 mg DAILY JUANJOSE Administration Bacitracin 1 applic 11/23/16 22:00 12/17/16 11:16 Bacitracin - TP 1 applic BID JUANJOSE Administration Baclofen 10 mg 11/23/16 18:00 12/17/16 14:00 Lioresal - GT 10 mg QID JUANJOSE Administration Bisacodyl 10 mg 11/23/16 16:50 Dulcolax Suppository - RC Q72H PRN CONSTIPATION EVERY 3 DAYS Calcium Carbonate 500 mg 11/24/16 10:00 12/17/16 11:15 Calcium Carb Oral Suspension - PEG 500 mg DAILY JUANJOSE Administration Collagenase 1 applic 12/18/16 10:00 Santyl - TP DAILY JUANJOSE Sodium Chloride 1,000 mls @ 25 mls/hr 12/14/16 14:30 12/17/16 17:16 Normal Saline - IV 25 mls/hr ASDIR JUANJOSE Administration Insulin Aspart 1 vial 11/28/16 12:00 12/17/16 17:20 Novolog Vial Sliding Scale - SQ 2 units Q6HPO JUANJOSE Administration Protocol Lactobacillus Acidophilus 1 tab 12/08/16 13:45 12/17/16 11:14 Bacid - PO 1 tab DAILY JUANJOSE Administration Levetiracetam 750 mg 11/28/16 22:00 12/17/16 11:15 Keppra - PO 750 mg BID JUANJOSE Administration Magnesium Hydroxide 30 ml 11/23/16 16:50 12/11/16 11:08 Milk Of Magnesia - GT 30 ml DAILY PRN Administration NO BM FOR 48HR Nystatin 1 applic 11/25/16 14:45 12/17/16 11:15 Nystop Powder - TP 1 applic DAILY JUANJOSE Administration Phenobarbital 80 mg 11/30/16 10:30 12/17/16 11:15 Phenobarbital Liquid - GT 80 mg BID JUANJOSE Administration Polyethylene Glycol 17 gm 11/23/16 22:00 12/17/16 11:15 Miralax (For Daily Use) - PEG 17 gm BID JUANJOSE Administration ASSESSMENT/PLAN: 41 yo h/o mental retardation, recurrent aspiration pneumonia, UTI, Sepsis, Seizure disorder and GI bleed, Chronic respiratory failure s/p trach. dysphagia s/p PEG admitted for sepsis 2/2 UTI. Sepsis 2/2 complicated UTI - Fever of unknown origin - Urine culture from alberto grew klebsilla ESBL * likely contaminant - Completed full course of Aztreonan, Zosyn, Cefepime and tobramycin - Observe off abx and re-culture Chronic normocytic anemia - at baseline Chronic constipation - Cont. duclolax suppository, M&M, Miralax Seizure disorder - Cont. Keppra and phenobarbital Hypokalemia - Resolved FEN - NS 25ml/hr - Cont. to monitor lytes - Jevity Tube feed 1.5 Prophylaxis - DVT: heparin and SCDs - GI: not indicated Disposition - Discharge once afrebile Code status - Full Visit type - Emergency Visit Emergency Visit: No - New Patient This patient is new to me today: No - Critical Care Critical Care patient: No
[2016-12-18] MEDS: ACETAMINOPHEN 650 MG/20.3 ML ORAL SOLUTION (CUPS) NGT PRN (05:17)
[2016-12-18] MEDS: INSULIN SLIDING SCALE (NOVOLOG) 1 VIAL SQ SCH ×3 (06:07→17:22)
[2016-12-18 08:46] LABS: BASOPHIL 0.8 % (0-2.0); EOSINOPHIL 3.4 % (0-4.5); MCH 29.2 pg (25.7-33.7); MCHC 32.4 g/dl (32.0-36.0); MEAN CELL VOLUME 90.2 fl (80-96); MEAN PLT VOLUME 9.1 fl (7.5-11.1); PLATELET COUNT 324 K/MM3 (134-434); RDW 16.9 % (11.6-15.6); WHITE BLOOD COUNT 11.5 K/mm3 (4.0-10.0)
[2016-12-18 08:50] LABS: CALCIUM 9.7 mg/dL (8.5-10.1); COCKROFT - GAULT 151.6485; CREATININE 0.5 mg/dL (0.55-1.02)
[2016-12-18] MEDS: AMINO ACIDS/PROTEIN HYDROLYS 30 ML LIQUID.PKT GT SCH ×2 (10:00→17:03)
[2016-12-18] MEDS ORDERED: PT OWN MED DRAWER 7, Y5N ONE ×4 (11:07→23:54)
[2016-12-18] MEDS: PHENobarbital 20 MG/5 ML UNIT-DOSE CUP GT SCH ×2 (11:08→23:55)
[2016-12-18] MEDS: levETIRAcetam 250 MG TABLET (FP) PO SCH ×2 (11:09→23:40)
[2016-12-18] MEDS: LACTOBACILLUS ACIDOPHILUS 1 EACH TAB (FP) PO SCH (11:09)
[2016-12-18] MEDS: BACLOFEN 10 MG TABLET (FP) GT SCH ×4 (11:09→23:40)
[2016-12-18] MEDS: CALCIUM CARBONATE SUSPENSION - 500 MG/5 ML ML PEG SCH (11:10)
[2016-12-18] MEDS: NYSTATIN POWDER 100,000 UNITS/GM - 15 GM TOPICAL POWDER TP SCH (11:11)
[2016-12-18] MEDS: BACITRACIN 30 GM TUBE TOPICAL OINTMENT TP SCH ×2 (11:12→23:41)
[2016-12-18] MEDS: ASCORBIC ACID 500 MG/5 ML UNIT DOSE CUP GT SCH (11:14)
[2016-12-18] MEDS: POLYETHYLENE GLYCOL 3350 119 GM BTL PEG SCH ×2 (11:14→23:42)
[2016-12-18] MEDS: COLLAGENASE CLOSTRIDIUM HIST. 30 GRAMS TUBE TP SCH (11:16)
[2016-12-18] MEDS: SODIUM CHLORIDE 1,000 ML IV SCH ×2 (11:33→14:32)
[2016-12-18] MEDS ORDERED: INSULIN (NOVOLOG) ASPART 100 UNITS/ML 10ML VIAL ONE (11:34)
--- NOTE | 2016-12-18 11:57 | PN ---
Progress Note (short form) - Note Progress Note: AC mode of vent, 40% FiO2 saturation 99%. Continues to spike fever -> 103. Intake & Output 12/15/16 12/16/16 12/17/16 12/18/16 23:59 23:59 23:59 23:59 Intake Total 1580 2265 1760 1040 Output Total 825 1220 1650 Balance 755 3210 722 4373 Last Vital Signs Temp Pulse Resp BP Pulse Ox 102.8 F H 100 H 19 136/78 98 12/18/16 06:00 12/18/16 06:00 12/18/16 10:40 12/18/16 06:00 12/17/16 21:00 Active Medications Acetaminophen (Tylenol Oral Solution -) 650 mg NGT Q4H PRN PRN Reason: FEVER OR PAIN Last Admin: 12/18/16 05:17 Dose: 650 mg Amino Acids (Prosource No Carb Liquid Pkt) 30 ml GT BID@0800,1730 [facility] Last Admin: 12/18/16 10:00 Dose: 30 ml Ascorbic Acid (Vitamin C Oral Solution -) 500 mg GT DAILY [facility] Last Admin: 12/18/16 11:14 Dose: 500 mg Bacitracin (Bacitracin -) 1 applic TP BID [facility] Last Admin: 12/18/16 11:12 Dose: 1 applic Baclofen (Lioresal -) 10 mg GT QID [facility] Last Admin: 12/18/16 11:09 Dose: 10 mg Bisacodyl (Dulcolax Suppository -) 10 mg RC Q72H PRN PRN Reason: CONSTIPATION EVERY 3 DAYS Calcium Carbonate (Calcium Carb Oral Suspension -) 500 mg PEG DAILY [facility] Last Admin: 12/18/16 11:10 Dose: 500 mg Collagenase (Santyl -) 1 applic TP DAILY [facility] Last Admin: 12/18/16 11:16 Dose: 1 applic Sodium Chloride (Normal Saline -) 1,000 mls @ 25 mls/hr IV ASDIR [facility] Last Admin: 12/18/16 11:33 Dose: 25 mls/hr Insulin Aspart (Novolog Vial Sliding Scale -) 1 vial SQ Q6HPO JUANJOSE PRN Reason: Protocol Last Admin: 12/18/16 11:37 Dose: 4 units Lactobacillus Acidophilus (Bacid -) 1 tab PO DAILY [facility] Last Admin: 12/18/16 11:09 Dose: 1 tab Levetiracetam (Keppra -) 750 mg PO BID [facility] Last Admin: 12/18/16 11:09 Dose: 750 mg Magnesium Hydroxide (Milk Of Magnesia -) 30 ml GT DAILY PRN PRN Reason: NO BM FOR 48HR Last Admin: 12/11/16 11:08 Dose: 30 ml Nystatin (Nystop Powder -) 1 applic TP DAILY [facility] Last Admin: 12/18/16 11:11 Dose: 1 applic Phenobarbital (Phenobarbital Liquid -) 80 mg GT BID [facility] Last Admin: 12/18/16 11:08 Dose: 80 mg Polyethylene Glycol (Miralax (For Daily Use) -) 17 gm PEG BID [facility] Last Admin: 12/18/16 11:14 Dose: 17 gm Constitutional: Yes: No Distress Eyes: Yes: Conjunctiva Clear HENT: Yes: Atraumatic, Normocephalic Neck: Yes: Supple, Trachea Midline, Other (Tracheostomy intact ) Cardiovascular: Yes: Regular Rate and Rhythm Respiratory: Yes: Diminished, Mechanically Ventilated, Rhonchi. No: Accessory Muscle Use, Rales, Stridor, Tachypnea, Wheezes ...Inspection: Yes: Barrel Chest, Trachea Midline. No: Use of Accessory Muscles ...Clubbing: No Gastrointestinal: Yes: Normal Bowel Sounds, Soft Musculoskeletal: Yes: Joint Stiffness Extremities: Yes: Shortened Edema: No Peripheral Pulses WNL: Yes Integumentary: Yes: WNL Labs: Laboratory Results - last 24 hr 12/17/16 12/17/16 12/17/16 11:40 17:19 23:50 WBC RBC Hgb Hct MCV MCHC RDW Plt Count MPV Neutrophils % Lymphocytes % Monocytes % Eosinophils % Basophils % Sodium Potassium Chloride Carbon Dioxide Anion Gap BUN Creatinine POC Glucometer 213 187 196 Random Glucose Lactic Acid Calcium 12/18/16 12/18/16 12/18/16 06:06 07:45 07:45 WBC 11.5 H RBC 3.66 Hgb 10.7 Hct 33.0 MCV 90.2 MCHC 32.4 RDW 16.9 H Plt Count 324 MPV 9.1 Neutrophils % 60.0 Lymphocytes % 22.9 D Monocytes % 12.9 H Eosinophils % 3.4 Basophils % 0.8 Sodium Potassium Chloride Carbon Dioxide Anion Gap BUN Creatinine POC Glucometer 188 Random Glucose Lactic Acid 2.884 H* Calcium 12/18/16 07:45 WBC RBC Hgb Hct MCV MCHC RDW Plt Count MPV Neutrophils % Lymphocytes % Monocytes % Eosinophils % Basophils % Sodium 138 Potassium 4.1 Chloride 101 Carbon Dioxide 28 Anion Gap 9 BUN 22 H Creatinine 0.5 L D POC Glucometer Random Glucose 209 H Lactic Acid Calcium 9.7 Problem List - Problems (1) Mental retardation Code(s): F79 - UNSPECIFIED INTELLECTUAL DISABILITIES (2) Seizure disorder Code(s): G40.909 - EPILEPSY, UNSP, NOT INTRACTABLE, WITHOUT STATUS EPILEPTICUS (3) Anemia Code(s): D64.9 - ANEMIA, UNSPECIFIED (4) Atelectasis Code(s): J98.11 - ATELECTASIS (5) Chronic respiratory failure Code(s): J96.10 - CHRONIC RESPIRATORY FAILURE, UNSP W HYPOXIA OR HYPERCAPNIA (6) Seizure Code(s): R56.9 - UNSPECIFIED CONVULSIONS (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 Assessment/Plan Current vent settings -> Not a ideal candidate for weaning at this time ID follow up VTE prophylaxis BD TX PRN Normal transfusion thresholds Dr Hernandez Problem List - Problems (1) Mental retardation Code(s): F79 - UNSPECIFIED INTELLECTUAL DISABILITIES (2) Seizure disorder Code(s): G40.909 - EPILEPSY, UNSP, NOT INTRACTABLE, WITHOUT STATUS EPILEPTICUS (3) Anemia Code(s): D64.9 - ANEMIA, UNSPECIFIED (4) Atelectasis Code(s): J98.11 - ATELECTASIS (5) Chronic respiratory failure Code(s): J96.10 - CHRONIC RESPIRATORY FAILURE, UNSP W HYPOXIA OR HYPERCAPNIA (6) Seizure Code(s): R56.9 - UNSPECIFIED CONVULSIONS (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
--- NOTE | 2016-12-18 13:23 | PN ---
Teaching Attending Note Name of Resident: Shaq Valdez ATTENDING PHYSICIAN STATEMENT I saw and evaluated the patient. I reviewed the resident's note and discussed the case with the resident. I agree with the resident's findings and plan as documented. SUBJECTIVe: resting comfortable OBJECTIVE: Last Vital Signs Temp Pulse Resp BP Pulse Ox 102.8 F H 100 H 19 136/78 98 12/18/16 06:00 12/18/16 06:00 12/18/16 10:40 12/18/16 06:00 12/17/16 21:00 General NAD, nonverbal minimal secretions from trach CV S1 S2 tachy no murmur Lungs coarse breath sounds diffusely abdomen soft NT/ND +serosangeous output to nephrostomy tube skin stage 2 sacral lesion L buttock +slough ASSESSMENT AND PLAN: 41 year old female with pmh of Mental retardation, Recurrent aspiration pneumonia, UTI, Sepsis, Seizure disorder and GI bleed, Chronic respiratory failure s/p trach. dysphagia s/p PEG presented to the ER and was admitted for further evaluation of their emergent condition 1. Sepsis with pseudomonal UTI and Morganella bacteremia- Tm 103. full sepsis workup sent. ID notified of fever.abx per ID 2. obstructing nephrolithasis- s/p nephrostomy tube placed with good output. will need to leave in at this time. follow up with urology as outpatient. 3. Normocytic anemia- no signs of bleeding. received 1 unit PRBC this admission. with good response. txn as needed 4. stage II sacral ulcer- some slough but does not appear infected. collagenase. frequent re-positioning 5. Hypokalemia- resolved 6. Seizure d/o- no signs of seizure like activity. cont home medication 7. DVT ppx- hep sq 8. plan to reach out to mother today to seek goals of care.poor overall prognosis.
--- NOTE | 2016-12-18 14:01 | PN ---
Progress Note, Physician Chief Complaint: ID Reevaluation for persistant fevers Recent cource of treatment Cefepime and Tobaramycin - Current Medication List Current Medications: Active Medications Acetaminophen (Tylenol Oral Solution -) 650 mg NGT Q4H PRN PRN Reason: FEVER OR PAIN Last Admin: 12/18/16 05:17 Dose: 650 mg Amino Acids (Prosource No Carb Liquid Pkt) 30 ml GT BID@0800,1730 [facility] Last Admin: 12/18/16 10:00 Dose: 30 ml Ascorbic Acid (Vitamin C Oral Solution -) 500 mg GT DAILY [facility] Last Admin: 12/18/16 11:14 Dose: 500 mg Bacitracin (Bacitracin -) 1 applic TP BID [facility] Last Admin: 12/18/16 11:12 Dose: 1 applic Baclofen (Lioresal -) 10 mg GT QID [facility] Last Admin: 12/18/16 11:09 Dose: 10 mg Bisacodyl (Dulcolax Suppository -) 10 mg RC Q72H PRN PRN Reason: CONSTIPATION EVERY 3 DAYS Calcium Carbonate (Calcium Carb Oral Suspension -) 500 mg PEG DAILY [facility] Last Admin: 12/18/16 11:10 Dose: 500 mg Collagenase (Santyl -) 1 applic TP DAILY [facility] Last Admin: 12/18/16 11:16 Dose: 1 applic Sodium Chloride (Normal Saline -) 1,000 mls @ 25 mls/hr IV ASDIR [facility] Last Admin: 12/18/16 11:33 Dose: 25 mls/hr Insulin Aspart (Novolog Vial Sliding Scale -) 1 vial SQ Q6HPO [facility] PRN Reason: Protocol Last Admin: 12/18/16 11:37 Dose: 4 units Lactobacillus Acidophilus (Bacid -) 1 tab PO DAILY [facility] Last Admin: 12/18/16 11:09 Dose: 1 tab Levetiracetam (Keppra -) 750 mg PO BID [facility] Last Admin: 12/18/16 11:09 Dose: 750 mg Magnesium Hydroxide (Milk Of Magnesia -) 30 ml GT DAILY PRN PRN Reason: NO BM FOR 48HR Last Admin: 12/11/16 11:08 Dose: 30 ml Nystatin (Nystop Powder -) 1 applic TP DAILY [facility] Last Admin: 12/18/16 11:11 Dose: 1 applic Phenobarbital (Phenobarbital Liquid -) 80 mg GT BID [facility] Last Admin: 12/18/16 11:08 Dose: 80 mg Polyethylene Glycol (Miralax (For Daily Use) -) 17 gm PEG BID [facility] Last Admin: 12/18/16 11:14 Dose: 17 gm - Objective Vital Signs: Vital Signs Temperature 102.8 F H 12/18/16 06:00 Pulse Rate 100 H 12/18/16 06:00 Respiratory Rate 19 12/18/16 10:40 Blood Pressure 136/78 12/18/16 06:00 O2 Sat by Pulse Oximetry (%) 98 12/17/16 21:00 Neck: Yes: Other (Trach) Cardiovascular: Yes: Regular Rate and Rhythm, Tachycardia, S1, S2 Respiratory: No: Rhonchi Gastrointestinal: Yes: Soft. No: Tenderness Edema: No Integumentary: Yes: Pressure Ulcer Labs: CBC, BMP 12/18/16 07:45 12/18/16 07:45 INR, PTT INR 1.66 (0.82-1.09) H 12/04/16 08:00 Assessment/Plan Microbiology 12/14/16 19:19 Urine - Urine Nephrostomy Tube Urine Culture - Final NO GROWTH OBTAINED 12/09/16 16:40 Urine - Urine Garcia Urine Culture - Final Klebsiella Pneumoniae - Esbl 12/14/16 19:10 Blood - Peripheral Venous Blood Culture - Preliminary NO GROWTH OBTAINED AFTER 72 HOURS, INCUBATION TO CONTINUE FOR 2 DAYS. 12/14/16 19:10 Blood - Peripheral Venous Blood Culture - Preliminary NO GROWTH OBTAINED AFTER 72 HOURS, INCUBATION TO CONTINUE FOR 2 DAYS. Laboratory Tests 12/15/16 12/18/16 12/18/16 06:15 07:45 07:45 WBC 11.5 H Hgb 10.7 Plt Count 324 BUN 22 H Creatinine 0.5 L D AST 14 L D ALT 17 D Alkaline Phosphatase 150 H D Assessment Fever with multiple possible sources Multidrug resistant organism Tracheostomy Nephrostomy hydroneprosis Elevated ALk phos Plan "polypharmacy regimen" to cover CRE and pseudomonas also resistant Polymyxin Meropenem Aztreonam Renal sonogram and GB sonogram ESR CRP Dilma IRBY
[2016-12-18] MEDS ORDERED: IBUPROFEN 600 MG TABLET (FP) PO PRN (14:13)
[2016-12-18] MEDS: AZTREONAM 1 GM in DEXTROSE 5%-WATER - 50 ML IVPB SCH ×2 (15:39→19:15)
[2016-12-18] MEDS: WATER IVPB SCH ×2 (15:41→23:40)
[2016-12-18] MEDS: DEXTROSE 5% IVPB SCH ×2 (15:41→23:40)
[2016-12-18] MEDS: POLYMYXIN B SULFATE IVPB SCH ×2 (15:41→23:40)
[2016-12-18] MEDS: MEROPENEM 500 MG in DEXTROSE 5%-WATER - 100 ML IVPB SCH ×2 (15:41→19:15)
--- NOTE | 2016-12-18 16:44 | PN ---
Physical Exam: SUBJECTIVE: Patient seen and examined at bedside. Patient cont. to be frebile, Tmax was 103F. OBJECTIVE: Vital Signs Period Temp Pulse Resp BP Sys/Stein Pulse Ox Last 24 Hr 99.9 F-103 F 100-138 16-22 101-136/61-78 98 GENERAL: Trached and vented, mentally retarded, non-verbal, contracted, responded to painful stimuli. HEAD: AT, NC EYES: Pupils equal, round and reactive to light, sclera anicteric, conjunctiva clear ENT: nares patent, oropharynx clear without exudates LUNGS: rhonchi bilaterally HEART: RRR, S1 and S2 present,No murmur ABDOMEN: +bs, soft, grimace upon pressing, PEG tube in place EXTREMITIES: SCDs in place : nephrostomy tube draining clear fluid ~200cc; alberto ~40cc urine CBCD WBC 11.5 K/mm3 (4.0-10.0) H 12/18/16 07:45 RBC 3.66 M/mm3 (3.60-5.2) 12/18/16 07:45 Hgb 10.7 GM/dL (10.7-15.3) 12/18/16 07:45 Hct 33.0 % (32.4-45.2) 12/18/16 07:45 MCV 90.2 fl (80-96) 12/18/16 07:45 MCHC 32.4 g/dl (32.0-36.0) 12/18/16 07:45 RDW 16.9 % (11.6-15.6) H 12/18/16 07:45 Plt Count 324 K/MM3 (134-434) 12/18/16 07:45 MPV 9.1 fl (7.5-11.1) 12/18/16 07:45 CMP Sodium 138 mmol/L (136-145) 12/18/16 07:45 Potassium 4.1 mmol/L (3.5-5.1) 12/18/16 07:45 Chloride 101 mmol/L (98-107) 12/18/16 07:45 Carbon Dioxide 28 mmol/L (21-32) 12/18/16 07:45 Anion Gap 9 (8-16) 12/18/16 07:45 BUN 22 mg/dL (7-18) H 12/18/16 07:45 Creatinine 0.5 mg/dL (0.55-1.02) L D 12/18/16 07:45 Creat Clearance w eGFR > 60 (>60) 12/15/16 06:15 Calcium 9.7 mg/dL (8.5-10.1) 12/18/16 07:45 Total Bilirubin 0.2 mg/dL (0.2-1.0) 12/15/16 06:15 AST 14 U/L (15-37) L D 12/15/16 06:15 ALT 17 U/L (12-78) D 12/15/16 06:15 Alkaline Phosphatase 150 U/L (45-117) H D 12/15/16 06:15 Total Protein 8.3 g/dl (6.4-8.2) H 12/15/16 06:15 Albumin 2.8 g/dl (3.4-5.0) L 12/15/16 06:15 Intake & Output 12/15/16 12/16/16 12/17/16 12/18/16 23:59 23:59 23:59 23:59 Intake Total 1580 2265 1760 1040 Output Total 825 1220 1650 300 Balance 755 1045 110 740 Active Medications Generic Name Dose Route Start Last Admin Trade Name Freq PRN Reason Stop Dose Admin Acetaminophen 650 mg 11/24/16 00:51 12/18/16 05:17 Tylenol Oral Solution - NGT 650 mg Q4H PRN Administration FEVER OR PAIN Amino Acids 30 ml 11/23/16 17:30 12/18/16 10:00 Prosource No Carb Liquid Pkt GT 30 ml BID@0800,1730 JUANJOSE Administration Ascorbic Acid 500 mg 11/23/16 11:38 12/18/16 11:14 Vitamin C Oral Solution - GT 500 mg DAILY JUANJOSE Administration Bacitracin 1 applic 11/23/16 22:00 12/18/16 11:12 Bacitracin - TP 1 applic BID JUANJOSE Administration Baclofen 10 mg 11/23/16 18:00 12/18/16 14:31 Lioresal - GT 10 mg QID JUANJOSE Administration Bisacodyl 10 mg 11/23/16 16:50 Dulcolax Suppository - RC Q72H PRN CONSTIPATION EVERY 3 DAYS Calcium Carbonate 500 mg 11/24/16 10:00 12/18/16 11:10 Calcium Carb Oral Suspension - PEG 500 mg DAILY JUANJOSE Administration Collagenase 1 applic 12/18/16 10:00 12/18/16 11:16 Santyl - TP 1 applic DAILY JUANJOSE Administration Sodium Chloride 1,000 mls @ 25 mls/hr 12/14/16 14:30 12/18/16 14:32 Normal Saline - IV 25 mls/hr ASDIR JUANJOSE Administration Polymyxin B Sulfate 480,000 500 mls @ 250 mls/hr 12/18/16 15:00 12/18/16 15:41 unit/ Dextrose IVPB 250 mls/hr BID JUANJOSE Administration Meropenem 500 mg/ Dextrose 100 mls @ 200 mls/hr 12/18/16 15:00 12/18/16 15:41 IVPB 200 mls/hr Q8H-IV JUANJOSE Administration Aztreonam 1 gm/ Dextrose 50 mls @ 100 mls/hr 12/18/16 15:00 12/18/16 15:39 IVPB 100 mls/hr Q8H-IV JUANJOSE Administration Ibuprofen 200 mg 12/18/16 14:35 Motrin Oral Suspension - PO Q6H PRN FEVER Insulin Aspart 1 vial 11/28/16 12:00 12/18/16 11:37 Novolog Vial Sliding Scale - SQ 4 units Q6HPO JUANJOSE Administration Protocol Lactobacillus Acidophilus 1 tab 12/08/16 13:45 12/18/16 11:09 Bacid - PO 1 tab DAILY JUANJOSE Administration Levetiracetam 750 mg 11/28/16 22:00 12/18/16 11:09 Keppra - PO 750 mg BID JUANJOSE Administration Magnesium Hydroxide 30 ml 11/23/16 16:50 12/11/16 11:08 Milk Of Magnesia - GT 30 ml DAILY PRN Administration NO BM FOR 48HR Nystatin 1 applic 11/25/16 14:45 12/18/16 11:11 Nystop Powder - TP 1 applic DAILY JUANJOSE Administration Phenobarbital 80 mg 11/30/16 10:30 12/18/16 11:08 Phenobarbital Liquid - GT 80 mg BID JUANJOSE Administration Polyethylene Glycol 17 gm 11/23/16 22:00 12/18/16 11:14 Miralax (For Daily Use) - PEG 17 gm BID JUANJOSE Administration ASSESSMENT/PLAN: 41 yo h/o mental retardation, recurrent aspiration pneumonia, UTI, Sepsis, Seizure disorder and GI bleed, Chronic respiratory failure s/p trach. dysphagia s/p PEG admitted for sepsis 2/2 UTI. Sepsis 2/2 complicated UTI - Persistent fever of unknown origin - Completed full course of Aztreonam, Zosyn, Cefepime and tobramycin - Start aztronam, Polymyxin, Meropenem day 1 - Vital checks Chronic respiratory failure - Trached on mechanical ventilation - Cont. current vent settings - Not a candidate for weaning Chronic normocytic anemia - at baseline Chronic constipation - Cont. duclolax suppository, M&M, Miralax Seizure disorder - Cont. Keppra and phenobarbital FEN - NS 25ml/hr - Cont. to monitor lytes - Jevity Tube feed 1.5 Prophylaxis - DVT: heparin and SCDs - GI: not indicated Disposition - To have ethics meeting to try to discharge patient to long-term care facility Code status - Full Visit type - Emergency Visit Emergency Visit: No - New Patient This patient is new to me today: No - Critical Care Critical Care patient: No - Discharge Referral Referred to [facility] No
[2016-12-18] MEDS: IBUPROFEN 100 MG/5 ML UNIT DOSE CUPS PO PRN ×2 (18:12→23:56)
[2016-12-19] MEDS: INSULIN SLIDING SCALE (NOVOLOG) 1 VIAL SQ SCH ×3 (02:23→12:26)
[2016-12-19] MEDS: MEROPENEM 500 MG in DEXTROSE 5%-WATER - 100 ML IVPB SCH (03:10)
[2016-12-19] MEDS: AZTREONAM 1 GM in DEXTROSE 5%-WATER - 50 ML IVPB SCH ×2 (03:58→09:48)
[2016-12-19] MEDS ORDERED: dilTIAZem HCL 50 MG/10 ML - 10 ML VIAL IVPUSH ONE (04:34)
[2016-12-19] MEDS ORDERED: dilTIAZem HCL 30 MG TABLET (FP) PO ONE (05:30)
[2016-12-19 07:55] LABS: MCH 29.5 pg (25.7-33.7); MCHC 33.2 g/dl (32.0-36.0); MEAN CELL VOLUME 88.9 fl (80-96); MEAN PLT VOLUME 9.1 fl (7.5-11.1); PLATELET COUNT 316 K/MM3 (134-434); RDW 16.4 % (11.6-15.6); WHITE BLOOD COUNT 28.8 K/mm3 (4.0-10.0)
[2016-12-19 08:28] LABS: ALBUMIN 3.1 g/dl (3.4-5.0); ANION GAP 17 (8-16); BILIRUBIN,TOTAL 0.3 mg/dL (0.2-1.0); CALCIUM 9.2 mg/dL (8.5-10.1); CO2 22 mmol/L (21-32); CREATININE 0.8 mg/dL (0.55-1.02); GLUCOSE,RANDOM 199 mg/dL (74-106); SGOT/AST 41 U/L (15-37); SGPT/ALT 34 U/L (12-78); TOT PROT 8.9 g/dl (6.4-8.2)
[2016-12-19 08:29] LABS: ALK PHOS 154 U/L (45-117)
--- NOTE | 2016-12-19 08:47 | PN ---
Progress Note (short form) - Note Progress Note: recurrent high grade fevers started on polymyxin, meropenem, azactam yesterday s/p PCN 5/4 Vital Signs Period Temp Pulse Resp BP Sys/Stein Pulse Ox Last 24 Hr 100 F-101.5 F 122-160 12-24 101-133/61-77 100 trach to vent cor-rrr lungs decreased bs at bases abd soft,+GT ext no edema CBC, BMP 12/19/16 07:00 12/19/16 07:00 Microbiology 12/17/16 18:15 Blood - Peripheral Venous Blood Culture - Preliminary NO GROWTH OBTAINED AFTER 24 HOURS, INCUBATION TO CONTINUE FOR 4 DAYS. 12/17/16 18:15 Blood - Peripheral Venous Blood Culture - Preliminary NO GROWTH OBTAINED AFTER 24 HOURS, INCUBATION TO CONTINUE FOR 4 DAYS. 12/14/16 19:10 Blood - Peripheral Venous Blood Culture - Preliminary NO GROWTH OBTAINED AFTER 96 HOURS, INCUBATION TO CONTINUE FOR 1 DAYS. 12/14/16 19:10 Blood - Peripheral Venous Blood Culture - Preliminary NO GROWTH OBTAINED AFTER 96 HOURS, INCUBATION TO CONTINUE FOR [address] scans noted , no acute pathology noted a/p recurrent fever- resistant organisms continue same antibiotics polymyxin/meropenem/azactam day #1 f/u sonogram f/u cultures chronic resp failure multiple developmental disabilities seizure disorder overall prognosis poor contact isolation=resistant organisms
[2016-12-19] MEDS ORDERED: SODIUM CHLORIDE 1,000 ML IV SCH ×2 (08:50→15:56)
[2016-12-19 08:52] LABS: PLATELET ESTIMATE ADEQUATE (NORMAL)
[2016-12-19] MEDS: AMINO ACIDS/PROTEIN HYDROLYS 30 ML LIQUID.PKT GT SCH (09:10)
[2016-12-19] MEDS ORDERED: ACETAMINOPHEN 650 MG SUPP.RECT PR ONE (09:18)
[2016-12-19] MEDS ORDERED: PT OWN MED DRAWER 7, Y5N ONE ×2 (09:45→11:47)
[2016-12-19] MEDS ORDERED: LORAZEPAM CARPU-JECT 2 MG/ML DISP.SYRIN IVPUSH ONE (10:15)
[2016-12-19] MEDS: NYSTATIN POWDER 100,000 UNITS/GM - 15 GM TOPICAL POWDER TP SCH (10:39)
[2016-12-19] MEDS: BACITRACIN 30 GM TUBE TOPICAL OINTMENT TP SCH (10:39)
[2016-12-19] MEDS: DEXTROSE 5% IVPB SCH (10:56)
[2016-12-19] MEDS: WATER IVPB SCH (10:56)
[2016-12-19] MEDS: POLYMYXIN B SULFATE IVPB SCH (10:56)
[2016-12-19] MEDS: LACTOBACILLUS ACIDOPHILUS 1 EACH TAB (FP) PO SCH (11:51)
[2016-12-19] MEDS: CALCIUM CARBONATE SUSPENSION - 500 MG/5 ML ML PEG SCH (11:51)
[2016-12-19] MEDS: levETIRAcetam 250 MG TABLET (FP) PO SCH (11:52)
[2016-12-19] MEDS: ASCORBIC ACID 500 MG/5 ML UNIT DOSE CUP GT SCH (11:55)
[2016-12-19] MEDS: PHENobarbital 20 MG/5 ML UNIT-DOSE CUP GT SCH (11:55)
[2016-12-19] MEDS: BACLOFEN 10 MG TABLET (FP) GT SCH ×2 (11:56→15:12)
[2016-12-19] MEDS ORDERED: INSULIN (NOVOLOG) ASPART 100 UNITS/ML 10ML VIAL ONE (12:23)
--- NOTE | 2016-12-19 12:59 | PN ---
Teaching Attending Note Name of Resident: Shaq Valdez ATTENDING PHYSICIAN STATEMENT I saw and evaluated the patient. I reviewed the resident's note and discussed the case with the resident. I agree with the resident's findings and plan as documented. SUBJECTIVE:myotonic twitching of the face OBJECTIVE: Last Vital Signs Temp Pulse Resp BP Pulse Ox 100 F H 157 H 27 H 110/67 100 12/19/16 06:00 12/19/16 06:00 12/19/16 10:08 12/19/16 06:00 12/18/16 09:00 General myotonic twitching of the face CV S1 S2 tachy no murmur Lungs coarse breath sounds diffusely abdomen soft NT/ND +serosangeous output to nephrostomy tube ASSESSMENT AND PLAN: 41 year old female with pmh of Mental retardation, Recurrent aspiration pneumonia, UTI, Sepsis, Seizure disorder and GI bleed, Chronic respiratory failure s/p trach. dysphagia s/p PEG presented to the ER and was admitted for further evaluation of their emergent condition 1. Sepsis with pseudomonal UTI and Morganella bacteremia- Tm 103. WBC 28.8. U/s ordered to r/o gallbladder pathology. started on meropenem/aztreonam/polymixin yesterday. will stop meropenem now in setting of seizures. f/u sepsis workup sent. infiltrate seen on CXR but not convinced this is source of fevers. abx per ID 2. seizure- resolved with ativan. 1st seizure on this admission. will d/c meropenem. cont to monitor 3. obstructing nephrolithasis- s/p nephrostomy tube placed with good output. will need to leave in at this time. follow up with urology as outpatient. 4. Normocytic anemia- no signs of bleeding. received 1 unit PRBC this admission. with good response. txn as needed 5. stage II sacral ulcer- some slough but does not appear infected. collagenase. frequent re-positioning 6. Hypokalemia- resolved 7. DVT ppx- hep sq 8.poor overall prognosis. awaiting ethics meeting with mother about goals of care.
--- NOTE | 2016-12-19 13:25 | PN ---
Progress Note, Physician History of Present Illness: pulmonary sedated on vent support ac mode,s/p seizure earlier,febrile - Current Medication List Current Medications: Active Medications Acetaminophen (Tylenol Oral Solution -) 650 mg NGT Q4H PRN PRN Reason: FEVER OR PAIN Last Admin: 12/18/16 05:17 Dose: 650 mg Amino Acids (Prosource No Carb Liquid Pkt) 30 ml GT BID@0800,1730 [facility] Last Admin: 12/19/16 09:10 Dose: Not Given Ascorbic Acid (Vitamin C Oral Solution -) 500 mg GT DAILY [facility] Last Admin: 12/19/16 11:55 Dose: 500 mg Bacitracin (Bacitracin -) 1 applic TP BID [facility] Last Admin: 12/19/16 10:39 Dose: 1 applic Baclofen (Lioresal -) 10 mg GT QID [facility] Last Admin: 12/19/16 11:56 Dose: 10 mg Bisacodyl (Dulcolax Suppository -) 10 mg RC Q72H PRN PRN Reason: CONSTIPATION EVERY 3 DAYS Calcium Carbonate (Calcium Carb Oral Suspension -) 500 mg PEG DAILY [facility] Last Admin: 12/19/16 11:51 Dose: 500 mg Collagenase (Santyl -) 1 applic TP DAILY [facility] Last Admin: 12/18/16 11:16 Dose: 1 applic Polymyxin B Sulfate 480,000 (unit/ Dextrose) 500 mls @ 250 mls/hr IVPB BID [facility] Last Admin: 12/19/16 10:56 Dose: 250 mls/hr Aztreonam 1 gm/ Dextrose 50 mls @ 100 mls/hr IVPB Q8H-IV [facility] Last Admin: 12/19/16 09:48 Dose: 100 mls/hr Sodium Chloride (Normal Saline -) 1,000 mls @ 100 mls/hr IV ASDIR [facility] Last Admin: 12/19/16 09:00 Dose: 100 mls/hr Ibuprofen (Motrin Oral Suspension -) 200 mg PO Q6H PRN PRN Reason: FEVER Last Admin: 12/18/16 23:56 Dose: 200 mg Insulin Aspart (Novolog Vial Sliding Scale -) 1 vial SQ Q6HPO JUANJOSE PRN Reason: Protocol Last Admin: 12/19/16 12:26 Dose: 8 units Lactobacillus Acidophilus (Bacid -) 1 tab PO DAILY [facility] Last Admin: 12/19/16 11:51 Dose: 1 tab Levetiracetam (Keppra -) 750 mg PO BID [facility] Last Admin: 12/19/16 11:52 Dose: 750 mg Magnesium Hydroxide (Milk Of Magnesia -) 30 ml GT DAILY PRN PRN Reason: NO BM FOR 48HR Last Admin: 12/11/16 11:08 Dose: 30 ml Nystatin (Nystop Powder -) 1 applic TP DAILY [facility] Last Admin: 12/19/16 10:39 Dose: 1 applic Phenobarbital (Phenobarbital Liquid -) 80 mg GT BID [facility] Last Admin: 12/19/16 11:55 Dose: 80 mg Polyethylene Glycol (Miralax (For Daily Use) -) 17 gm PEG BID [facility] Last Admin: 12/18/16 23:42 Dose: 17 gm - Objective Vital Signs: Vital Signs Temperature 100 F H 12/19/16 06:00 Pulse Rate 157 H 12/19/16 06:00 Respiratory Rate 27 H 12/19/16 10:08 Blood Pressure 110/67 12/19/16 06:00 O2 Sat by Pulse Oximetry (%) 100 12/18/16 09:00 Constitutional: Yes: Thin, Other (sedated) Eyes: Yes: WNL HENT: Yes: WNL Neck: Yes: WNL (trach) Cardiovascular: Yes: Regular Rate and Rhythm, S1, S2 Respiratory: Yes: Rhonchi (few rhonchi) Gastrointestinal: Yes: Normal Bowel Sounds, Soft Extremities: Yes: Shortened Edema: No Labs: CBC, BMP 12/19/16 07:00 12/19/16 07:00 INR, PTT INR 1.66 (0.82-1.09) H 12/04/16 08:00 Assessment/Plan Problem List - Problems (1) Mental retardation Code(s): F79 - UNSPECIFIED INTELLECTUAL DISABILITIES (2) Seizure disorder Code(s): G40.909 - EPILEPSY, UNSP, NOT INTRACTABLE, WITHOUT STATUS EPILEPTICUS (3) Anemia Code(s): D64.9 - ANEMIA, UNSPECIFIED (4) Atelectasis Code(s): J98.11 - ATELECTASIS (5) Chronic respiratory failure Code(s): J96.10 - CHRONIC RESPIRATORY FAILURE, UNSP W HYPOXIA OR HYPERCAPNIA (6) Seizure Code(s): R56.9 - UNSPECIFIED CONVULSIONS (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
--- NOTE | 2016-12-19 14:13 | PN ---
Physical Exam: SUBJECTIVE: Patient seen and examined at bedside. Per chart, Tmax in last 24 hours was 101F , tachycardic, tachypneic throughout the night. Seizure activity (face twitching ) noted during round and subsided after ativan 2mg IVPUSH. OBJECTIVE: Vital Signs Period Temp Pulse Resp BP Sys/Stein Pulse Ox Last 24 Hr 100 F-100.5 F 136-160 12-27 110-133/67-77 GENERAL: Trached and vented, mentally retarded, non-verbal, contracted, responded to painful stimuli. HEAD: AT, NC EYES: Pupils equal, round and reactive to light, sclera anicteric, conjunctiva clear ENT: nares patent, oropharynx clear without exudates LUNGS: very coarse and loud rhonchi bilaterally HEART: RRR, S1 and S2 present,No murmur ABDOMEN: +bs, soft, grimace upon pressing, PEG tube in place EXTREMITIES: SCDs in place : nephrostomy tube draining clear fluid; alberto ~100cc urine CBCD WBC 28.8 K/mm3 (4.0-10.0) H D 12/19/16 07:00 RBC 4.01 M/mm3 (3.60-5.2) 12/19/16 07:00 Hgb 11.8 GM/dL (10.7-15.3) D 12/19/16 07:00 Hct 35.6 % (32.4-45.2) 12/19/16 07:00 MCV 88.9 fl (80-96) 12/19/16 07:00 MCHC 33.2 g/dl (32.0-36.0) 12/19/16 07:00 RDW 16.4 % (11.6-15.6) H 12/19/16 07:00 Plt Count 316 K/MM3 (134-434) 12/19/16 07:00 MPV 9.1 fl (7.5-11.1) 12/19/16 07:00 CMP Sodium 130 mmol/L (136-145) L 12/19/16 07:00 Potassium 5.0 mmol/L (3.5-5.1) D 12/19/16 07:00 Chloride 91 mmol/L (98-107) L 12/19/16 07:00 Carbon Dioxide 22 mmol/L (21-32) D 12/19/16 07:00 Anion Gap 17 (8-16) H 12/19/16 07:00 BUN 24 mg/dL (7-18) H 12/19/16 07:00 Creatinine 0.8 mg/dL (0.55-1.02) D 12/19/16 07:00 Creat Clearance w eGFR > 60 (>60) 12/19/16 07:00 Calcium 9.2 mg/dL (8.5-10.1) 12/19/16 07:00 Total Bilirubin 0.3 mg/dL (0.2-1.0) D 12/19/16 07:00 AST 41 U/L (15-37) H D 12/19/16 07:00 ALT 34 U/L (12-78) D 12/19/16 07:00 Alkaline Phosphatase 154 U/L (45-117) H 12/19/16 07:00 Total Protein 8.9 g/dl (6.4-8.2) H 12/19/16 07:00 Albumin 3.1 g/dl (3.4-5.0) L 12/19/16 07:00 Active Medications Generic Name Dose Route Start Last Admin Trade Name Freq PRN Reason Stop Dose Admin Acetaminophen 650 mg 11/24/16 00:51 12/18/16 05:17 Tylenol Oral Solution - NGT 650 mg Q4H PRN Administration FEVER OR PAIN Amino Acids 30 ml 11/23/16 17:30 12/19/16 09:10 Prosource No Carb Liquid Pkt GT Not Given BID@0800,1730 [facility] Ascorbic Acid 500 mg 11/23/16 11:38 12/19/16 11:55 Vitamin C Oral Solution - GT 500 mg DAILY JUANJOSE Administration Bacitracin 1 applic 11/23/16 22:00 12/19/16 10:39 Bacitracin - TP 1 applic BID [facility]UANJOSE Administration Baclofen 10 mg 11/23/16 18:00 12/19/16 11:56 Lioresal - GT 10 mg QID [facility]UANJOSE Administration Bisacodyl 10 mg 11/23/16 16:50 Dulcolax Suppository - RC Q72H PRN CONSTIPATION EVERY 3 DAYS Calcium Carbonate 500 mg 11/24/16 10:00 12/19/16 11:51 Calcium Carb Oral Suspension - PEG 500 mg DAILY [facility]JOSE Administration Collagenase 1 applic 12/18/16 10:00 12/18/16 11:16 Santyl - TP 1 applic DAILY [facility]JOSE Administration Polymyxin B Sulfate 480,000 500 mls @ 250 mls/hr 12/18/16 15:00 12/19/16 10:56 unit/ Dextrose IVPB 250 mls/hr BID [facility]UANJOSE Administration Aztreonam 1 gm/ Dextrose 50 mls @ 100 mls/hr 12/18/16 15:00 12/19/16 09:48 IVPB 100 mls/hr Q8H-IV [facility]SE Administration Sodium Chloride 1,000 mls @ 100 mls/hr 12/19/16 08:50 12/19/16 09:00 Normal Saline - IV 100 mls/hr ASDIR [facility]SE Administration Ibuprofen 200 mg 12/18/16 14:35 12/18/16 23:56 Motrin Oral Suspension - PO 200 mg Q6H PRN Administration FEVER Insulin Aspart 1 vial 11/28/16 12:00 12/19/16 12:26 Novolog Vial Sliding Scale - SQ 8 units Q6HPO JUANJOSE Administration Protocol Lactobacillus Acidophilus 1 tab 12/08/16 13:45 12/19/16 11:51 Bacid - PO 1 tab DAILY [facility]SE Administration Levetiracetam 750 mg 11/28/16 22:00 12/19/16 11:52 Keppra - PO 750 mg BID [facility]JOSE Administration Magnesium Hydroxide 30 ml 11/23/16 16:50 12/11/16 11:08 Milk Of Magnesia - GT 30 ml DAILY PRN Administration NO BM FOR 48HR Nystatin 1 applic 11/25/16 14:45 12/19/16 10:39 Nystop Powder - TP 1 applic DAILY [facility]SE Administration Phenobarbital 80 mg 11/30/16 10:30 12/19/16 11:55 Phenobarbital Liquid - GT 80 mg BID [facility]JOSE Administration Polyethylene Glycol 17 gm 11/23/16 22:00 12/18/16 23:42 Miralax (For Daily Use) - PEG 17 gm BID [facility]UANJOSE Administration ASSESSMENT/PLAN: 41 yo h/o mental retardation, recurrent aspiration pneumonia, UTI, Sepsis, Seizure disorder and GI bleed, Chronic respiratory failure s/p trach. dysphagia s/p PEG admitted for sepsis 2/2 UTI. Sepsis 2/2 complicated UTI - Persistent fever of unknown origin - Completed full course of Aztreonam, Zosyn, Cefepime and tobramycin - Cont. 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 current vent settings - Not a candidate for weaning Chronic normocytic anemia - at baseline Chronic constipation - Cont. duclolax suppository, M&M, Miralax FEN - NS 25ml/hr - Cont. to monitor lytes - Jevity Tube feed 1.5 Prophylaxis - DVT: heparin and SCDs - GI: not indicated Disposition - To have ethics meeting to try to discharge patient to alf care facility Code status - Full Visit type - Emergency Visit Emergency Visit: No - New Patient This patient is new to me today: No - Critical Care Critical Care patient: No
[2016-12-19] MEDS: POLYETHYLENE GLYCOL 3350 119 GM BTL PEG SCH (15:11)
[2016-12-19] MEDS: COLLAGENASE CLOSTRIDIUM HIST. 30 GRAMS TUBE TP SCH (15:12)
[2016-12-19] MEDS: IBUPROFEN 100 MG/5 ML UNIT DOSE CUPS PO PRN (15:33)
[2016-12-19 15:43] VITALS: TEMP 105
--- NOTE | 2016-12-19 18:52 | HOSP ---
Subjective - Review of Symptoms Events since last encounter: Code 99 called on the patient. Arrived at scene and found patient pulseless and unresponsive with rectal temp of 110F and fluctuating BP. ACLS initiated immediately. Initially, patient had v-tach but no pulse, CPR given with minimal interruption, 1mg Epi given once, amiodarone 300mg given once, shocked twice. She then regained pulse, BP was 132/66 with sinus rhythm at 75 bpm. Mother informed and stated nothing more to be done at this point and she arrived 7 mins later confirmed DNR in person. Medical staff on-call called the [facility] /[phone] and left a voice mail message requesting call back immediately regarding patient's critical condition and goal of care. [facility] form filled out and signed by attending numerical control operator and will be faxed to the State on Thursday. Physical Examination Vital Signs: Vital Signs Temperature 105 F H 12/19/16 15:42 Pulse Rate 160 H 12/19/16 15:42 Respiratory Rate 14 12/19/16 15:42 Blood Pressure 99/54 12/19/16 15:42 O2 Sat by Pulse Oximetry (%) 100 12/18/16 09:00 Constitutional: Yes: Other (unresponsive to any stimuli) Cardiovascular: Yes: Other (pulseless) Respiratory: Yes: Other (coarse breath sounds from mechanical ventilation) Labs: CBC, BMP 12/19/16 07:00 12/19/16 07:00 Hospitalist Encounter Assessment: Cardiac arrest - Now in NSR - S/p epi, amiodarone, CPR, shock x 2 High grade fever - Central fever - Cont. external cooling Code status - DNR Visit type - Emergency Visit Emergency Visit: No - New Patient This patient is new to me today: No - Critical Care Critical Care patient: Yes Total Critical Care Time (in minutes): 120 Critical Care Statement: The care of this patient involved high complexity decision making to prevent further life threatening deterioration of the patient 's condition and/or to evalute & treat vital organ system(s) failure or risk of failure.
--- NOTE | 2016-12-19 19:05 | HOSP ---
Subjective - Review of Symptoms Subjective: Spoke with mother, Tanya Rai. Discussed with her at length overall prognosis and that medical efforts are futile at this time. Mother requesting Do Not Resucitate at this time. Called placed to [facility] in [place] [phone] and [phone] and left message indicating that I must speak with a sales representative consultant regarding a legal matter. Case d/w palliative care nurse and director of ethics (Dr. Puri) who agree with DNR status at this time. Will continue rest of medical management at this time. Physical Examination Vital Signs: Vital Signs Temperature 105 F H 12/19/16 15:42 Pulse Rate 160 H 12/19/16 15:42 Respiratory Rate 14 12/19/16 15:42 Blood Pressure 99/54 12/19/16 15:42 O2 Sat by Pulse Oximetry (%) 100 12/18/16 09:00 Labs: CBC, BMP 12/19/16 07:00 12/19/16 07:00
--- NOTE | 2016-12-19 19:30 | HOSP ---
Subjective - Review of Symptoms Events since last encounter: Patient was pulseless and non-responsive to any stimuli. No corneal reflex or heart sounds. Pronounced at 7:10pm. Physical Examination Vital Signs: Vital Signs Temperature 105 F H 12/19/16 15:42 Pulse Rate 160 H 12/19/16 15:42 Respiratory Rate 16 12/19/16 18:25 Blood Pressure 99/54 12/19/16 15:42 O2 Sat by Pulse Oximetry (%) 100 12/18/16 09:00 Labs: CBC, BMP 12/19/16 07:00 12/19/16 07:00 Visit type - Emergency Visit Emergency Visit: No - New Patient This patient is new to me today: No - Critical Care Critical Care patient: No
[2016-12-19 21:24] VITALS: BP 66/44; PULSE 88
== END 2016-12-19 22:00 | disposition expired | DRG 710 ==
LOC: JER 23:58 → JERBED 11-23 05:46 → J5S 11-23 13:07
PROVIDERS: ADMIT Internal Medicine; ATTEND Internal Medicine
PROC: 5A1955Z Respiratory Ventilation, Greater than 96 Consecutive Hours (ICD-10-PCS; 2016-11-23)
PROC: 30233L1 Transfusion of Nonautologous Fresh Plasma into Peripheral Vein, Percutaneous Approach (ICD-10-PCS; 2016-12-04)
PROC: 30233K1 Transfusion of Nonautologous Frozen Plasma into Peripheral Vein, Percutaneous Approach (ICD-10-PCS; 2016-12-04)
PROC: 30233N1 Transfusion of Nonautologous Red Blood Cells into Peripheral Vein, Percutaneous Approach (ICD-10-PCS; 2016-12-04)
PROC: 0T9030Z Drainage of Right Kidney with Drainage Device, Percutaneous Approach (ICD-10-PCS; principal; 2016-12-04 09:30)
DX: A41.9 Sepsis, unspecified organism (principal); N39.0 Urinary tract infection, site not specified; J96.11 Chronic respiratory failure with hypoxia; Z93.0 Tracheostomy status; Z93.1 Gastrostomy status; G40.909 Epilepsy, unspecified, not intractable, without status epilepticus; N13.8 Other obstructive and reflux uropathy; D64.9 Anemia, unspecified; K59.00 Constipation, unspecified; F79 Unspecified intellectual disabilities; J98.11 Atelectasis; L89.152 Pressure ulcer of sacral region, stage 2; E87.6 Hypokalemia; E87.0 Hyperosmolality and hypernatremia; N13.2 Hydronephrosis with renal and ureteral calculous obstruction; K80.20 Calculus of gallbladder without cholecystitis without obstruction; R33.9 Retention of urine, unspecified; R31.9 Hematuria, unspecified; D72.829 Elevated white blood cell count, unspecified; E83.51 Hypocalcemia; I46.9 Cardiac arrest, cause unspecified; E87.2 Acidosis; J18.9 Pneumonia, unspecified organism
CPT/HCPCS: 36415; 36430; 50432; 71010-TC; 71250-TC; 74020-TC; 74176-TC; 76000-TC; 76098-TC; 76700-TC; 76705-TC; 76775-TC; 76856-TC; 76998-TC; 78226-TC; 80048; 80053; 80074; 80200; 81003; 81015; 82040; 82550; 83036; 83605; 84484; 85025; 85027; 85610; 85730; 86140; 86705; 86707; 86709; 86850; 86900; 86901; 86922; 87040; 87070; 87086; 87184; 87186; 87205; 87350; 87389; 87899; 93005; 93010; 94002; 94640; 99285-25; A4358; A9537; C1729; C1769; G0480; J0475; J1644; P9017; P9038; P9058